=== PATIENT | female | born 1945 | race American Indian/Alaskan Native ===

== ENCOUNTER 2018-01-18 13:45 | Emergency (ER) | payer MEDICARE, MEDICAID ==
--- NOTE | 2018-01-18 14:17 | EDM.PDOC ---
Scribed by Veronica Castellano 01/18/18 1417 for Shree Zheng PA ED HPI GENERAL MEDICAL PROBLEM - General Chief Complaint: Upper Extremity Injury/Pain Stated Complaint: FELL Time Seen by Provider: 01/18/18 14:00 Source of Information: Reports: Patient, RN, RN Notes Reviewed History Limitations: Reports: No Limitations - History of Present Illness INITIAL COMMENTS - FREE TEXT/NARRATIVE: Patient presents to ER after she tripped on carpet 1 hour prior to admission. She has has pain left cheek and both shoulders. The patient reports she fell last week (similar areas of pain). The patient reports her right leg is much shorter than her left leg due to previous hip surgeries. The patient denies any loss of consciousness before, during or after the incident. Onset: Today Location: Reports: Face, Upper Extremity, Left, Upper Extremity, Right Quality: Reports: Ache Severity: Moderate Improves with: Reports: None Worsens with: Reports: None Associated Symptoms: Reports: No Other Symptoms Generalized Pain Score (Numeric/FACES): 5 - Related Data Allergies Allergy/AdvReac Type Severity Reaction Status Date / Time acetaminophen Allergy Itching Verified 01/18/18 13:49 rifampin Allergy Cannot Verified 01/18/18 13:49 Remember codeine AdvReac Itching Verified 01/18/18 13:49 ibuprofen [From Nuprin] AdvReac Nausea and Verified 01/18/18 13:49 Vomiting morphine AdvReac Nausea and Verified 01/18/18 13:49 Vomiting oxycodone [From OxyContin] AdvReac Dizziness Verified 01/18/18 13:49 Home Meds: Home Meds Albuterol [Proair HFA] 1 inh PO PRN 01/18/18 [History] Denosumab [Prolia] mg SUBCUT DAILY 01/18/18 [History] FLUoxetine HCl [Fluoxetine HCl] 10 mg PO DAILY 01/18/18 [History] Ipratropium [place] 0.2 mg IH PRN 01/18/18 [History] Letrozole 2.5 mg PO 01/18/18 [History] Levothyroxine [Levothyroxine] 75 mcg PO DAILY 01/18/18 [History] Montelukast Sodium [Montelukast Sodium] 10 mg PO BEDTIME 01/18/18 [History] Omeprazole [Omeprazole] 20 mg PO DAILY 01/18/18 [History] Rosuvastatin Calcium [Rosuvastatin Calcium] 5 mg PO QPM 01/18/18 [History] metFORMIN HCl [Metformin HCl] 1,000 mg PO BIDMEALS 01/18/18 [History] traMADol HCl [Tramadol HCl] 50 mg PO PRN 01/18/18 [History] traZODone HCl [Trazodone HCl] 150 mg PO BEDTIME 01/18/18 [History] Past Medical History HEENT History: Reports: Impaired Vision Cardiovascular History: Reports: Heart Failure Respiratory History: Reports: Asthma, COPD Psychiatric History: Reports: Anxiety, Depression Endocrine/Metabolic History: Reports: Diabetes, Type II, Hyperthyroidism Oncologic (Cancer) History: Reports: Breast - Past Surgical History Musculoskeletal Surgical History: Reports: Hip Replacement, Other (See Below) Other Musculoskeletal Surgeries/Procedures:: right leg shorter then left Social & Family History - Family History Family Medical History: Noncontributory - Tobacco Use Smoking Status *Q: Current Every Day Smoker Years of Tobacco use: 53 Packs/Tins Daily: 0.5 - Caffeine Use Caffeine Use: Reports: Coffee - Recreational Drug Use Recreational Drug Use: No Review of Systems - Review of Systems Review Of Systems: ROS reveals no pertinent complaints other than HPI. ED EXAM, GENERAL - Physical Exam Exam: See Below Exam Limited By: No Limitations General Appearance: Alert, WD/WN, No Apparent Distress Eye Exam: Bilateral Eye: EOMI, Normal Inspection, PERRL Ears: Normal External Exam, Normal Canal, Hearing Grossly Normal, Normal TMs Nose: Normal Inspection Throat/Mouth: Normal Inspection, Normal Lips, Normal Teeth, Normal Gums, Normal Oropharynx, Normal Voice, No Airway Compromise Head: Other (left sheek pain and bruising. ) Neck: Normal Inspection, Supple, Non-Tender, Full Range of Motion Respiratory/Chest: No Respiratory Distress, Lungs Clear, Normal Breath Sounds, No Accessory Muscle Use, Chest Non-Tender Cardiovascular: Normal Peripheral Pulses, Regular Rate, Rhythm, No Edema, No Gallop, No JVD, No Murmur, No Rub GI/Abdominal: Normal Bowel Sounds, Soft, Non-Tender, No Organomegaly, No Distention, No Abnormal Bruit, No Mass (Female) Exam: Deferred Rectal (Female) Exam: Deferred Back Exam: Normal Inspection, Full Range of Motion, NT Extremities: Other (bilateral shoulder pain. ) Neurological: Alert, Oriented, CN II-XII Intact, Normal Cognition, Normal Gait, Normal Reflexes, No Motor/Sensory Deficits Psychiatric: Normal Affect, Normal Mood Skin Exam: Other (left shoulder bruise) Lymphatic: No Adenopathy Course - Vital Signs Last Recorded V/S: Last Vital Signs Temp 36.9 C 01/18/18 13:49 Pulse 88 01/18/18 13:49 Resp 20 01/18/18 13:49 BP 117/95 H 01/18/18 13:49 Pulse Ox 97 01/18/18 13:49 Departure - Departure Time of Disposition: 14:55 Disposition: Home, Self-Care 01 Condition: Fair Clinical Impression: Left shoulder strain Qualifiers: Encounter type: initial encounter Qualified Code(s): S46.912A - Strain of unspecified muscle, fascia and tendon at shoulder and upper arm level, left arm , initial encounter Right shoulder strain Qualifiers: Encounter type: initial encounter Qualified Code(s): S46.911A - Strain of unspecified muscle, fascia and tendon at shoulder and upper arm level, right arm , initial encounter Contusion Qualifiers: Encounter type: initial encounter Contusion area: head Contusion of head detail : other part of head Qualified Code(s): S00.83XA - Contusion of other part of head, initial encounter - Discharge Information Instructions: Contusion, [id number], Shoulder Sprain, Fall Prevention in the Home Forms: ED Department Discharge Care Plan Goals: The patient was advised of the examination, x-ray and CT results during the visit. The patient was encouraged to rest over the next 24 hours. If the patient has any additional symptoms or concerns, the patient should follow-up with her primary care facility or return to the emergency department. I have read and agree with the documentation that has been completed regarding this visit. By signing this record, I attest that the documentation was completed in my physical presence and is an accurate record of the encounter.
--- NOTE | 2018-01-18 14:50 | CT ---
Clinical history: 72-year-old female injured in a fall. Scan technique: Volume acquisition of data emergency unenhanced CT scan of the nasal and facial bones obtained while the patient was lying supine on the Siemens multi slice CT scanner [place], [place]. All data archived in the PACS system for storage, reformatting and bernabe dy (bone/soft tissue windows). Interpretation: 1. Nasal and anterior maxillary spines intact. 2. Nasal septum mildly deviated right of midline. Symmetric nonedematous nasal turbinates. 3. Normal orbits and zygomatic arches. Early arthritic changes TMJs (L > R). No fracture or TMJ dislo cation. 4. Clear pneumatization of the paranasal and mastoid sinuses. No sign of mucoperiosteal inflammation of pathologic air-fluid levels. 5. No fractures of the mandible or edentulous maxilla. 6. No foreign bodies. 7. 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 N o upper cervical fracture. CONCLUSION: No facial bone or upper cervical fracture.
--- NOTE | 2018-01-18 14:51 | CR ---
Clinical history: 72-year-old female injured fall. Interpretation: Abnormal elevated humeral head relative to the glenoid of the scapula consistent with rotator cuff impingement or tear (no rotator cuff tendon calcification the soft tissues). Large clus ter surgical yoav axilla. No sign of pathologic skeletal lesion, acute left shoulder fracture HC separation or glenohumeral dis location.
--- NOTE | 2018-01-18 14:53 | CR ---
Clinical history: 72-year-old female injured fall. Interpretation: Mild arthritic changes acromioclavicular joint and elevation of the right humeral hea d relative to the glenoid of the scapula suggesting possible rotator cuff impingement. Surgical clips right axilla. No sign of pathologic skeletal lesion, acute right shoulder fracture, glenohumeral dislocation or acr omioclavicular separation. Right lung apex clear.
== END 2018-01-18 15:00 | disposition home or self-care (01) ==
LOC: DL.ED 13:45
DX: S46.912A Strain of unspecified muscle, fascia and tendon at shoulder and upper arm level, left arm, initial encounter (principal); S46.911A Strain of unspecified muscle, fascia and tendon at shoulder and upper arm level, right arm, initial encounter; S00.83XA Contusion of other part of head, initial encounter; I50.9 Heart failure, unspecified; E11.9 Type 2 diabetes mellitus without complications; E05.90 Thyrotoxicosis, unspecified without thyrotoxic crisis or storm; F17.210 Nicotine dependence, cigarettes, uncomplicated; Z88.1 Allergy status to other antibiotic agents; Z88.5 Allergy status to narcotic agent; Z88.8 Allergy status to other drugs, medicaments and biological substances; Z79.899 Other long term (current) drug therapy; W19.XXXA Unspecified fall, initial encounter
CPT/HCPCS: 70486; 73030-LT; 73030-RT; 99283; 99284

== ENCOUNTER 2018-12-09 15:30 | Emergency (ER) | payer MEDICARE, MEDICAID ==
[2018-12-09] MEDS ORDERED: Sodium Chloride 0.9% 10 ML Syringe FLUSH PRN (16:04)
[2018-12-09] MEDS ORDERED: traMADol 50 MG Tab PO ONE (16:07)
[2018-12-09] MEDS ORDERED: Sodium Chloride 0.9% 500 ML IV SCH (16:15)
[2018-12-09 16:39] LABS: CHLORIDE,CL 94 mmol/L (101-111); SODIUM,NA 132 mmol/L (135-145)
--- NOTE | 2018-12-09 19:18 | EDM.PDOC ---
"Scribed by Veronica Castellano 12/09/18 1614 for Tanner Callahan MD ED HPI GENERAL MEDICAL PROBLEM - General Chief Complaint: General Stated Complaint: LR AMBULANCE Time Seen by Provider: 12/09/18 15:40 Source of Information: Reports: Patient, EMS, EMS Notes Reviewed, RN, RN Notes Reviewed History Limitations: Reports: No Limitations - History of Present Illness INITIAL COMMENTS - FREE TEXT/NARRATIVE: Patient presents to ER by [facility] with complaint of multiple falls during the past 1-1/2 to 2 weeks due to weakness. Patient states that she has had poor appetite and has been loosing weight. She is not sure if it because of her breast cancer or if she is depressed. Today she fell about 5 times in her apartment. She says there was no injuries in her first 4 falls but on the last fall she hit her left ribs on a piece of furniture and could not get up off the floor. She denies any injury. Onset: Gradual Duration: Getting Worse Location: Reports: Other (left ribs) Quality: Reports: Ache Severity: Severe Improves with: Reports: Other (remains still or does not move.) Worsens with: Reports: Breathing, Other (cough), Movement Associated Symptoms: Reports: No Other Symptoms - Related Data Allergies Allergy/AdvReac Type Severity Reaction Status Date / Time acetaminophen Allergy Itching Verified 01/18/18 13:49 rifampin Allergy Cannot Verified 01/18/18 13:49 Remember codeine AdvReac Itching Verified 01/18/18 13:49 ibuprofen [From Nuprin] AdvReac Nausea and Verified 01/18/18 13:49 Vomiting morphine AdvReac Nausea and Verified 01/18/18 13:49 Vomiting oxycodone [From OxyContin] AdvReac Dizziness Verified 01/18/18 13:49 Home Meds: Home Meds Albuterol [Proair HFA] 1 inh PO PRN 01/18/18 [History] Denosumab [Prolia] mg SUBCUT DAILY 01/18/18 [History] FLUoxetine HCl [Fluoxetine HCl] 10 mg PO DAILY 01/18/18 [History] Ipratropium [place] 0.2 mg IH PRN 01/18/18 [History] Letrozole 2.5 mg PO 01/18/18 [History] Levothyroxine 75 mcg PO DAILY 01/18/18 [History] Montelukast Sodium 10 mg PO BEDTIME 01/18/18 [History] Omeprazole 20 mg PO DAILY 01/18/18 [History] Rosuvastatin Calcium 5 mg PO QPM 01/18/18 [History] metFORMIN HCl [Metformin HCl] 1,000 mg PO BIDMEALS 01/18/18 [History] traMADol HCl [Tramadol HCl] 50 mg PO PRN 01/18/18 [History] traZODone HCl [Trazodone HCl] 150 mg PO BEDTIME 01/18/18 [History] Past Medical History HEENT History: Reports: Impaired Vision Cardiovascular History: Reports: Heart Failure Respiratory History: Reports: Asthma, COPD Psychiatric History: Reports: Anxiety, Depression Endocrine/Metabolic History: Reports: Diabetes, Type II, Hyperthyroidism, Osteoporosis Oncologic (Cancer) History: Reports: Breast - Past Surgical History Female Surgical History: Reports: Hysterectomy, Mastectomy Musculoskeletal Surgical History: Reports: Hip Replacement, Other (See Below) Other Musculoskeletal Surgeries/Procedures:: right leg shorter then left Social & Family History - Family History Family Medical History: Noncontributory - Tobacco Use Smoking Status *Q: Current Every Day Smoker Tobacco Use Within Last Twelve Months: Cigarettes Years of Tobacco use: 54 - Caffeine Use Caffeine Use: Reports: Coffee - Alcohol Use Alcohol Use History: No - Recreational Drug Use Recreational Drug Use: No - Living Situation & Occupation Living situation: Reports: Alone Occupation: Retired ED ROS GENERAL - Review of Systems Review Of Systems: ROS reveals no pertinent complaints other than HPI. ED EXAM, GENERAL - Physical Exam Exam: See Below Exam Limited By: No Limitations General Appearance: Alert, Thin, Cachetic, Other (Chronically ill appearing) Eye Exam: Bilateral Eye: EOMI, Normal Inspection, PERRL Ears: Normal External Exam, Hearing Grossly Normal Nose: Normal Inspection, No Blood Throat/Mouth: Normal Lips, Normal Oropharynx, Normal Voice, No Airway Compromise , Other (Dry oral membranes, Ill fitting dentures) Head: Atraumatic, Normocephalic Neck: Normal Inspection, Supple, Non-Tender, Full Range of Motion Respiratory/Chest: No Respiratory Distress, No Accessory Muscle Use, Decreased Breath Sounds, Crackles (course breath sounds), Other (left posterior and lateral chest wall tenderness with no visible bruising, swelling, or deformity. No palpable crepitus.). No: Rales, Rhonchi, Wheezing Cardiovascular: Regular Rate, Rhythm GI/Abdominal: Normal Bowel Sounds, Soft, Non-Tender Back Exam: CVA Tenderness (L). No: CVA Tenderness (R), Vertebral Tenderness Extremities: Normal Range of Motion, Non-Tender, Pedal Edema. No: Arm Pain, Leg Pain Neurological: Alert, Oriented, CN II-XII Intact, Normal Cognition, No Motor/ Sensory Deficits, Other (Generalized weakness) Psychiatric: Depressed Mood, Tearful Skin Exam: Warm, Dry, Intact, Normal Color Course - Vital Signs Last Recorded V/S: Last Vital Signs Temp 36.7 C 12/09/18 16:09 Pulse 86 12/09/18 16:09 Resp 18 12/09/18 16:09 BP 145/76 H 12/09/18 16:09 Pulse Ox 98 12/09/18 16:09 - Orders/Labs/Meds Orders: Active Orders 24 hr Category Date Time Status Peripheral IV Care [RC] . DIRECTED Care 12/09/18 16:06 Active Sodium Chloride 0.9% [Normal Saline] 500 ml Med 12/09/18 16:15 Active IV .BOLUS Sodium Chloride 0.9% [Saline Flush] Med 12/09/18 16:04 Active 10 ml FLUSH ASDIRECTED PRN Peripheral IV Insertion Adult [OM.PC] Stat Oth 12/09/18 16:04 Ordered Medication Orders Sodium Chloride (Normal Saline) 500 mls @ 500 mls/hr IV .BOLUS NATE Last Admin: 12/09/18 16:38 Dose: 500 mls/hr Sodium Chloride (Saline Flush) 10 ml FLUSH ASDIRECTED PRN PRN Reason: Keep Vein Open Last Admin: 12/09/18 16:29 Dose: 10 ml Labs: Laboratory Tests 12/09/18 12/09/18 Range/Units 16:16 16:16 WBC 13.3 H (5.0-10.0) 10^3/uL RBC 3.99 L (4.2-5.4) 10^6/uL Hgb 11.8 L (12.0-16.0) g/dL Hct 35.3 L (37.0-47.0) % MCV 88.5 (80-100) fL MCH 29.6 (27.0-34.0) pg MCHC 33.4 (33.0-35.0) g/dL Plt Count 285 (150-450) 10^3/uL Neut % (Auto) 89.9 H (42.2-75.2) % Lymph % (Auto) 4.0 L (20.5-50.1) % [place] % (Auto) 6.0 (2-8) % Eos % (Auto) 0.0 L (1.0-3.0) % Baso % (Auto) 0.1 (0.0-1.0) % Sodium 132 L (135-145) mmol/L Potassium 4.0 (3.6-5.0) mmol/L Chloride 94 L (101-111) mmol/L Carbon Dioxide 22.0 (21.0-31.0) mmol/L Anion Gap 20.0 BUN 14 (7-18) mg/dL Creatinine 0.8 (0.6-1.3) mg/dL Est Cr Clr Drug Dosing 32.33 mL/min Estimated GFR (MDRD) > 60 BUN/Creatinine Ratio 17.50 Glucose 87 (74-105) mg/dL Calcium 9.1 (8.4-10.2) mg/dl Total Bilirubin 0.9 (0.2-1.0) mg/dL AST 23 (10-42) IU/L ALT 15 (10-60) IU/L Alkaline Phosphatase 75 (42-121) IU/L Total Protein 8.0 (6.7-8.2) g/dl Albumin 3.4 (3.2-5.5) g/dl Globulin 4.6 Albumin/Globulin Ratio 0.74 Meds: Medications Generic Name Dose Route Start Last Admin Trade Name Freq PRN Reason Stop Dose Admin Sodium Chloride 500 mls @ 500 mls/hr 12/09/18 16:15 12/09/18 16:38 Normal Saline IV 500 mls/hr .BOLUS NATE Administration Sodium Chloride 10 ml 12/09/18 16:04 12/09/18 16:29 Saline Flush FLUSH 10 ml ASDIRECTED PRN Administration Keep Vein Open Discontinued Medications Generic Name Dose Route Start Last Admin Trade Name Freq PRN Reason Stop Dose Admin Tramadol HCl 50 mg 12/09/18 16:07 12/09/18 16:28 Ultram PO 12/09/18 16:08 50 mg ONETIME ONE Administration - Radiology Interpretation Free Text/Narrative:: [facility] [place] [facility] Final Radiology Report Call: [phone] assistance Online chat: [email or web address] Name: SHABBIR THORPE Age: 73Years F Date: 12/09/2018 SSN: -- : [id number] Study: CT CHEST WO Requesting Physician: TANNER CALLAHAN Images: [id number] Addl Studies: Provided Clinical History: Contrast: Without Contrast Medium: Contrast Amount: Contrast Method: Page 1 of 2 EXAM: CT Chest Without Contrast EXAM DATE/TIME: 12/09/2018 4:23 PM CLINICAL HISTORY: 73 years old, female; Signs and symptoms; Shortness of breath and other: Fall, left rib pain--hx breast CA, copd, active chronic smoker, weight loss TECHNIQUE: Axial computed tomography images of the chest without intravenous contrast. All CT scans at this facility use at least one of these dose optimization techniques: automated exposure control; mA and/or kV adjustment per patient size (includes targeted exams where dose is matched to clinical indication); or iterative reconstruction. Coronal and sagittal reformatted images were created and reviewed. COMPARISON: CT Chest w Cont 12/31/2017 9:57 AM FINDINGS: Lungs: COPD. Patchy infiltrates peripherally in the lungs. Pleural space: Normal. No pneumothorax. No pleural effusion. Heart: Normal. No cardiomegaly. No pericardial effusion. Aorta: Atherosclerosis. Lymph nodes: Unremarkable. No enlarged lymph nodes. Bones/joints: Degenerative changes in the spine. Acute fractures of the left 12th and 11th ribs. Sclerotic lesions in the sternum. Soft tissues: Unremarkable. IMPRESSION: SHABBIR THORPE | Final Radiology Report CONFIDENTIALITY STATEMENT This report is intended only for use by the referring physician, and only in accordance with law. If you received this in error, call [phone]. Page 2 of 2 Acute fractures of the left 12th and 11th ribs. COPD. Patchy infiltrates peripherally in the lungs. Atherosclerosis. Degenerative changes in the spine. Thank you for allowing us to participate in the care of your patient. Dictated and Authenticated by: Maria Trevino MD 12/09/2018 6:09 PM Central Time ([place] & [place]) Departure - Departure Time of Disposition: 19:15 Disposition: Against Medical Advice 07 Condition: Undetermined Clinical Impression: Left against medical advice - Discharge Information *PRESCRIPTION DRUG MONITORING PROGRAM REVIEWED*: Not Applicable *COPY OF PRESCRIPTION DRUG MONITORING REPORT IN PATIENT JS: Not Applicable Forms: ED Department Discharge, Refusal of Care AMA - My Orders Last 24 Hours: My Active Orders 12/09/18 16:04 Sodium Chloride 0.9% [Saline Flush] 10 ml FLUSH ASDIRECTED PRN Peripheral IV Insertion Adult [OM.PC] Stat 12/09/18 16:06 Peripheral IV Care [RC] . DIRECTED 12/09/18 16:15 Sodium Chloride 0.9% [Normal Saline] 500 ml IV .BOLUS - Assessment/Plan Last 24 Hours: My Active Orders 12/09/18 16:04 Sodium Chloride 0.9% [Saline Flush] 10 ml FLUSH ASDIRECTED PRN Peripheral IV Insertion Adult [OM.PC] Stat 12/09/18 16:06 Peripheral IV Care [RC] . DIRECTED 12/09/18 16:15 Sodium Chloride 0.9% [Normal Saline] 500 ml IV .BOLUS I have read and agree with the documentation that has been completed regarding this visit. By signing this record, I attest that the documentation was completed in my physical presence and is an accurate record of the encounter."
== END 2018-12-09 19:00 | disposition left against medical advice (07) ==
LOC: DL.ED 15:30
DX: S22.42XA Multiple fractures of ribs, left side, initial encounter for closed fracture (principal); R53.1 Weakness; I50.9 Heart failure, unspecified; E11.9 Type 2 diabetes mellitus without complications; F17.210 Nicotine dependence, cigarettes, uncomplicated; Z88.5 Allergy status to narcotic agent; Z88.6 Allergy status to analgesic agent; Z79.84 Long term (current) use of oral hypoglycemic drugs; Z79.899 Other long term (current) drug therapy; Z90.710 Acquired absence of both cervix and uterus; Z88.8 Allergy status to other drugs, medicaments and biological substances; W22.8XXA Striking against or struck by other objects, initial encounter
CPT/HCPCS: 36415; 71250; 80053; 85025; 96360; 99284; A9270-GY; J7040

== ENCOUNTER 2018-12-12 13:16 | Observation (INO) | payer MEDICARE, MEDICAID ==
--- NOTE | 2018-12-12 13:13 | EDM.PDOC ---
ED HPI GENERAL MEDICAL PROBLEM - General Chief Complaint: Back Pain or Injury Stated Complaint: UNKNOWN Time Seen by Provider: 12/12/18 13:13 Source of Information: Reports: Patient - History of Present Illness INITIAL COMMENTS - FREE TEXT/NARRATIVE: patient comes emergency department today with complaints of rib pain.She also comes with multiple falls. The patient was seen in the emergency department 2 days ago after she had 4-5 falls at home landing on her right ribs. She was diagnosed with 2 rib fractures on the 11th and 12th ribs. Before disposition can be made she became upset and went home.She had multiple falls at home yesterday as well as today. She relates that she feels lightheaded sometimes when she stands up despite using her walker she falls. Today she fell landing on the right side of her chest. She has no increased shortness of breath or difficulty breathing. No pain in her chest. She is not coughing. She does have a history of COPD. No fever no chills. No back pain. No head neck or back pain. No loss of consciousness she reports. She denies any injury to her upper or lower extremities or pelvis. No black or tarry stools. No vertigo. No change in visual acuity. She does take her tramadol at home for her rib pain but it is not doing much for her pain. Upper Pain Score (Numeric/FACES): 7 right hip/buttock Pain Score (Numeric/FACES): 3 - Related Data Allergies Allergy/AdvReac Type Severity Reaction Status Date / Time acetaminophen Allergy Itching Verified 12/12/18 18:25 rifampin Allergy Cannot Verified 12/12/18 18:25 Remember codeine AdvReac Itching Verified 12/12/18 18:25 ibuprofen [From Nuprin] AdvReac Nausea and Verified 12/12/18 18:25 Vomiting oxycodone [From OxyContin] AdvReac Dizziness Verified 12/12/18 18:25 Home Meds: Home Meds Albuterol [Proair HFA] 1 puff INH Q6H PRN 01/18/18 [History] Denosumab [Prolia] 60 mg SUBCUT .6MONTHS 01/18/18 [History] FLUoxetine HCl [Fluoxetine HCl] 10 mg PO DAILY 01/18/18 [History] Ipratropium [place] 0.2 mg IH BID PRN 01/18/18 [History] Letrozole 2.5 mg PO DAILY 01/18/18 [History] Levothyroxine 75 mcg PO DAILY 01/18/18 [History] Montelukast Sodium 10 mg PO BEDTIME 01/18/18 [History] Omeprazole 20 mg PO DAILY 01/18/18 [History] Rosuvastatin Calcium 5 mg PO BEDTIME 01/18/18 [History] metFORMIN HCl [Metformin HCl] 1,000 mg PO BIDMEALS 01/18/18 [History] traMADol HCl [Tramadol HCl] 100 mg PO Q6H PRN 01/18/18 [History] traZODone HCl [Trazodone HCl] 150 mg PO BEDTIME 01/18/18 [History] Celecoxib 100 mg PO DAILY 12/12/18 [History] Past Medical History HEENT History: Reports: Impaired Vision Cardiovascular History: Reports: Heart Failure Respiratory History: Reports: Asthma, COPD Gastrointestinal History: Reports: None Genitourinary History: Reports: None DEBURRER History: Reports: None Musculoskeletal History: Reports: None Neurological History: Reports: None Psychiatric History: Reports: Anxiety, Depression Endocrine/Metabolic History: Reports: Diabetes, Type II, Hyperthyroidism, Osteoporosis Hematologic History: Reports: None Immunologic History: Reports: None Oncologic (Cancer) History: Reports: Breast Dermatologic History: Reports: None - Infectious Disease History Infectious Disease History: Reports: None - Past Surgical History Head Surgeries/Procedures: Reports: None Female Surgical History: Reports: Hysterectomy, Mastectomy Musculoskeletal Surgical History: Reports: Hip Replacement, Other (See Below) Other Musculoskeletal Surgeries/Procedures:: right leg shorter then left Social & Family History - Family History Family Medical History: Noncontributory - Tobacco Use Smoking Status *Q: Current Every Day Smoker Years of Tobacco use: 53 Packs/Tins Daily: 1 Second Hand Smoke Exposure: No - Caffeine Use Caffeine Use: Reports: Coffee - Recreational Drug Use Recreational Drug Use: No - Living Situation & Occupation Living situation: Reports: Alone Occupation: Retired ED ROS GENERAL - Review of Systems Review Of Systems: ROS reveals no pertinent complaints other than HPI. ED EXAM,LOWER BACK PAIN/INJURY - Physical Exam Exam: See Below Text/Narrative:: she is a very pleasant lady who appears uncomfortable with deep breath and wincing in pain Exam Limited By: No Limitations General Appearance: Alert, WD/WN, No Apparent Distress Eye Exam: Bilateral Eye: Normal Inspection Ears: Normal External Exam, Normal Canal Nose: Normal Inspection, Normal Mucosa Throat/Mouth: Normal Inspection, Normal Lips, Normal Oropharynx, Normal Voice Head: Atraumatic, Normocephalic Neck: Normal Inspection, Supple, Non-Tender, Full Range of Motion. No: Tender Lateral, Tender Midline Respiratory/Chest: No Respiratory Distress, Normal Breath Sounds, No Accessory Muscle Use, Wheezing (faint expiratory wheezing bilaterally). No: Chest Non- Tender (she has some tenderness to the right anterior axillary line in the region of the 1011 and 12th ribs. There is no subcutaneous emphysema crepitus bony deformities or step-offs. There is no flail segments.), Decreased Breath Sounds, Crackles, Rhonchi, Accessory Muscle Use Cardiovascular: Normal Peripheral Pulses, Regular Rate, Rhythm GI/Abdominal: Normal Bowel Sounds, Soft, Non-Tender Back Exam: Normal Inspection, Full Range of Motion, Other (no bruising swelling ecchymosis bony deformity step-offs crepitus) Extremities: Normal Inspection, Normal Range of Motion, Non-Tender, No Pedal Edema, Normal Capillary Refill Neurological: Alert, Normal Mood/Affect, Normal Dorsiflexion, CN II-XII Intact, Normal Reflexes, No Motor/Sensory Deficits, Oriented x 3 DTR - Lower Extremities: 2+: Knee (R), Knee (L), Ankle (R), Ankle (L) Psychiatric: Normal Affect Skin Exam: Warm, Dry, Intact, Normal Color, No Rash EKG INTERPRETATION EKG Date: 12/12/18 Time: 14:01 Rhythm: NSR Rate (Beats/Min): 83 [place]: Normal P-Wave: Present QRS: Normal ST-T: Normal QT: Normal Comparison: NA - No Prior EKG Course - Vital Signs Last Recorded V/S: Last Vital Signs Temp 37.2 C 12/12/18 17:04 Pulse 83 12/12/18 17:04 Resp 16 12/12/18 17:04 BP 151/86 H 12/12/18 17:04 Pulse Ox 98 12/12/18 17:04 Orthostatic Blood Pressure [ 114/69 Standing] Orthostatic Blood Pressure [ 111/79 Sitting] Orthostatic Blood Pressure [ 159/76 Supine] - Orders/Labs/Meds Orders: Active Orders 24 hr Category Date Time Status UA W/MICROSCOPIC [URIN] Stat Lab 12/12/18 13:19 Ordered Medication Orders Albuterol (Proventil Hfa) 0 gm INH Q6H PRN PRN Reason: Shortness of Breath Denosumab (Prolia) 60 mg SUBCUT DAILY [facility] Fluoxetine HCl (Prozac) 10 mg PO DAILY [facility] Heparin Sodium (Porcine) (Heparin Sodium) 5,000 units SUBCUT Q8HR [facility] Lactated Ringer's (Ringers, Lactated) 1,000 mls @ 75 mls/hr IV ASDIRECTED [facility] Stop: 12/13/18 06:16 Ipratropium [place] (Atrovent) 0.5 mg NEB DAILY PRN PRN Reason: Shortness of Breath Levothyroxine Sodium (Levothyroxine) 75 mcg PO DAILY [facility] Lidocaine (Lidoderm 5%) 700 mg TOP DAILY [facility] Last Admin: 12/12/18 18:49 Dose: 700 mg Megestrol Acetate (Megace) 160 mg PO DAILY [facility] Last Admin: 12/12/18 18:52 Dose: Not Given Miscellaneous Information (Remove Patch) 1 ea TRDERM BEDTIME [facility] Montelukast Sodium (Singulair) 10 mg PO BEDTIME [facility] Nicotine (Habitrol) 14 mg TRDERM DAILY [facility] Last Admin: 12/12/18 18:43 Dose: Not Given Non-Formulary Medication (Letrozole [Letrozole]) 2.5 mg PO DAILY [facility] Non-Formulary Medication (Metformin Hcl [Metformin Hcl]) 1,000 mg PO BIDMEALS [facility] Non-Formulary Medication (Trazodone Hcl [Trazodone Hcl]) 100 mg PO BEDTIME [facility] Omeprazole (Omeprazole) 20 mg PO DAILY [facility] Rosuvastatin Calcium (Crestor) 5 mg PO BEDTIME [facility] Tramadol HCl (Ultram) 50 mg PO Q6H PRN PRN Reason: Pain Labs: Laboratory Tests 12/12/18 12/12/18 Range/Units 13:53 13:53 WBC 10.1 H (5.0-10.0) 10^3/uL RBC 3.81 L (4.2-5.4) 10^6/uL Hgb 11.4 L (12.0-16.0) g/dL Hct 34.1 L (37.0-47.0) % MCV 89.5 (80-100) fL MCH 29.9 (27.0-34.0) pg MCHC 33.4 (33.0-35.0) g/dL Plt Count 279 (150-450) 10^3/uL Neut % (Auto) 83.7 H (42.2-75.2) % Lymph % (Auto) 7.8 L (20.5-50.1) % [place] % (Auto) 7.8 (2-8) % Eos % (Auto) 0.2 L (1.0-3.0) % Baso % (Auto) 0.5 (0.0-1.0) % Sodium 131 L (135-145) mmol/L Potassium 4.5 (3.6-5.0) mmol/L Chloride 95 L (101-111) mmol/L Carbon Dioxide 22.0 (21.0-31.0) mmol/L Anion Gap 18.5 BUN 14 (7-18) mg/dL Creatinine 0.7 (0.6-1.3) mg/dL Est Cr Clr Drug Dosing 44.87 mL/min Estimated GFR (MDRD) > 60 BUN/Creatinine Ratio 20.00 Glucose 88 (74-105) mg/dL Calcium 8.7 (8.4-10.2) mg/dl Total Bilirubin 1.1 H (0.2-1.0) mg/dL AST 29 (10-42) IU/L ALT 15 (10-60) IU/L Alkaline Phosphatase 73 (42-121) IU/L Troponin I < 0.02 (0.00-0.02) ng/ml Total Protein 7.3 (6.7-8.2) g/dl Albumin 3.3 (3.2-5.5) g/dl Globulin 4.0 Albumin/Globulin Ratio 0.83 Meds: Medications Generic Name Dose Route Start Last Admin Trade Name Freq PRN Reason Stop Dose Admin Albuterol 0 gm 12/12/18 17:53 Proventil Hfa INH Q6H PRN Shortness of Breath Denosumab 60 mg 12/13/18 09:00 Prolia SUBCUT DAILY [facility] Fluoxetine HCl 10 mg 12/13/18 09:00 Prozac PO DAILY [facility] Heparin Sodium (Porcine) 5,000 units 12/12/18 22:00 Heparin Sodium SUBCUT Q8HR [facility] Lactated Ringer's 1,000 mls @ 75 mls/hr 12/12/18 17:15 Ringers, Lactated IV 12/13/18 06:16 ASDIRECTED [facility] Ipratropium [place] 0.5 mg 12/12/18 17:53 Atrovent NEB DAILY PRN Shortness of Breath Levothyroxine Sodium 75 mcg 12/13/18 09:00 Levothyroxine PO DAILY [facility] Lidocaine 700 mg 12/12/18 17:15 12/12/18 18:49 Lidoderm 5% TOP 700 mg DAILY [facility] Administration Megestrol Acetate 160 mg 12/12/18 18:15 12/12/18 18:52 Megace PO Not Given DAILY [facility] Miscellaneous Information 1 ea 12/12/18 21:00 Remove Patch TRDERM BEDTIME [facility] Montelukast Sodium 10 mg 12/12/18 21:00 Singulair PO BEDTIME [facility] Nicotine 14 mg 12/12/18 17:15 12/12/18 18:43 Habitrol TRDERM Not Given DAILY [facility] Non-Formulary Medication 2.5 mg 12/13/18 09:00 Letrozole [Letrozole] PO DAILY [facility] Non-Formulary Medication 1,000 mg 12/12/18 18:00 Metformin Hcl [Metformin Hcl] PO BIDMEALS [facility] Non-Formulary Medication 100 mg 12/12/18 21:00 Trazodone Hcl [Trazodone Hcl] PO BEDTIME [facility] Omeprazole 20 mg 12/13/18 09:00 Omeprazole PO DAILY [facility] Rosuvastatin Calcium 5 mg 12/12/18 21:00 Crestor PO BEDTIME [facility] Tramadol HCl 50 mg 12/12/18 19:48 Ultram PO Q6H PRN Pain Discontinued Medications Generic Name Dose Route Start Last Admin Trade Name Freq PRN Reason Stop Dose Admin Doxycycline Hyclate 100 mg 12/12/18 15:18 12/12/18 15:27 Vibramycin PO 12/12/18 15:19 100 mg ONETIME ONE Administration Hydromorphone HCl 0.5 mg 12/12/18 15:53 12/12/18 16:12 Dilaudid IVPUSH 12/12/18 15:54 0.5 mg ONETIME ONE Administration Lactated Ringer's 1,000 mls @ 500 mls/hr 12/12/18 15:38 12/12/18 15:44 Ringers, Lactated IV 12/12/18 17:37 500 mls/hr .BOLUS ONE Administration Morphine Sulfate 2 mg 12/12/18 13:19 12/12/18 13:59 Morphine IVPUSH 12/12/18 13:20 2 mg ONETIME ONE Administration Morphine Sulfate 2 mg 12/12/18 15:17 12/12/18 15:27 Morphine IVPUSH 12/12/18 15:18 2 mg ONETIME ONE Administration Ondansetron HCl 4 mg 12/12/18 13:20 12/12/18 13:56 Zofran IV 12/12/18 13:21 4 mg ONETIME ONE Administration Tramadol HCl 1,000 mg 12/12/18 17:53 Ultram PO Q6H PRN Pain - Radiology Interpretation Free Text/Narrative:: CXR per radiology. Emphyzema no acute infiltrates. left pleural plaques CT head per radiology. No acute infarct or hemorrhage. - Re-Assessments/Exams Free Text/Narrative Re-Assessment/Exam: 12/12/18 20:11 he patient was given some morphine with minimal improvement of her pain. She was also incontinent urine multiple times while in the emergency department. Her primary care provider Dr. Montes was also available in the emergency department and has concerns for this patient going home she lives home alone with her multiple falls and she also struggles to take her medication correctlya regular basis. I agree with Dr. Montes and have concerns ascending this patient home with her pain multiple falls as I am concerned that she may return. Also with her history of COPD the development of pneumonia is concerning so I started her on doxycycline while in the emergency department.I spoke with the hospitalist computational theory scientist and he accepted the patient under his care due to the multiple falls her comorbid status and rib fractures. Departure - Departure Time of Disposition: 17:15 Disposition: Refer to Observation Clinical Impression: Intractable pain, Multiple falls Ribs, multiple fractures Qualifiers: Encounter type: subsequent encounter Fracture type: closed Laterality: right Fracture healing: with routine healing Qualified Code(s): S22.41XD - Multiple fractures of ribs, right side, subsequent encounter for fracture with routine healing - Discharge Information - My Orders Last 24 Hours: My Active Orders 12/12/18 13:19 UA W/MICROSCOPIC [URIN] Stat - Assessment/Plan Last 24 Hours: My Active Orders 12/12/18 13:19 UA W/MICROSCOPIC [URIN] Stat Assessment:: subacute right rib fractures Multiple falls History of COPD Plan: admitted under the hospitalist for observationand possible placement
[2018-12-12] MEDS ORDERED: Morphine 2 MG/ML Syringe IVPUSH ONE ×2 (13:19→15:17)
[2018-12-12] MEDS ORDERED: Ondansetron 4 MG/2 ML SDV IV ONE (13:20)
[2018-12-12 14:27] LABS: ANION GAP 18.5; CHLORIDE,CL 95 mmol/L (101-111); SODIUM,NA 131 mmol/L (135-145)
[2018-12-12] MEDS ORDERED: Doxycycline 100 MG Cap PO ONE (15:18)
[2018-12-12] MEDS ORDERED: Lactated Ringers 1,000 ML IV ONE (15:38)
[2018-12-12] MEDS ORDERED: HYDROmorphone 1 MG/ML Syringe IVPUSH ONE (15:53)
--- NOTE | 2018-12-12 17:20 | PCM.HP ---
H&P History of Present Illness - General Date of Service: 12/12/18 Admit Problem/Dx: Admission Diagnosis/Problem Admission Diagnosis/Problem Hip pain Source of Information: Patient, Family, Provider History Limitations: Reports: No Limitations - History of Present Illness Initial Comments - Free Text/Narative: Ms. Kowalski is a 73 y.o female with medical history significant for multiple fractures, right hip surgery x6, chronic low back pain, depression, asthma with COPD, DM II, recurrent breast cancer, hypothyroidism, dyslipidemia, and GERD who presented to the ED with complaints of right rib pain and fall. She reports that she fell yesterday and hit the back of her head. She was seen in the ED and was found to have right 11th and 12 rib fractures. She was sent home with pain medications. She reports that she fell again today while standing. She reports that she was teetering and tried to hold on to the table but, "But I knew that it wasnt going to go well." States she feel on her back again. Reports that between Thursday and today, she has fallen about 6 times. She reports that she has a walker at home but does not use it because, "I am not used to it." She reports feeling "dizzy" prior to falls but denies spinning sensation. Reports 7/10 constant right hip pain that started with her falls on Thursday. Denies radiation. Pain is worse with movement. Also has rib pain that is worsened with deep inspiration. She reports that her shortness of breath is at baseline. Reports intermittent episodes of nausea and vomiting, with last emesis on 11/1018 which was NBNB. She reports that she has not been eating well because of her depression. Has not been eating much. Drinks a lot of milk and coffee. Has lost about 30 lb over the past year. Denies chest pain, new vision changes, abdominal pain, diarrhea, constipation, melena, hematochezia, dysuria, or hematuria. Reports that she smokes 6-7 cigarettes daily. Quit drinking alcohol several years ago. Denies illicit drug use. Lives by herself. Upper Pain Score (Numeric/FACES): 7 - Related Data Allergies/Adverse Reactions: Allergies Allergy/AdvReac Type Severity Reaction Status Date / Time acetaminophen Allergy Itching Verified 12/12/18 13:17 rifampin Allergy Cannot Verified 12/12/18 13:17 Remember codeine AdvReac Itching Verified 12/12/18 13:17 ibuprofen [From Nuprin] AdvReac Nausea and Verified 12/12/18 13:17 Vomiting morphine AdvReac Nausea and Verified 12/12/18 13:17 Vomiting oxycodone [From OxyContin] AdvReac Dizziness Verified 12/12/18 13:17 Home Medications: Home Meds Albuterol [Proair HFA] 1 inh PO Q6H PRN 01/18/18 [History] Denosumab [Prolia] 60 mg SUBCUT DAILY 01/18/18 [History] FLUoxetine HCl [Fluoxetine HCl] 10 mg PO DAILY 01/18/18 [History] Ipratropium [place] 0.2 mg IH DAILY PRN 01/18/18 [History] Letrozole 2.5 mg PO DAILY 01/18/18 [History] Levothyroxine 75 mcg PO DAILY 01/18/18 [History] Montelukast Sodium 10 mg PO BEDTIME 01/18/18 [History] Omeprazole 20 mg PO DAILY 01/18/18 [History] Rosuvastatin Calcium 5 mg PO QPM 01/18/18 [History] metFORMIN HCl [Metformin HCl] 1,000 mg PO BIDMEALS 01/18/18 [History] traMADol HCl [Tramadol HCl] 1,000 mg PO Q6H PRN 01/18/18 [History] traZODone HCl [Trazodone HCl] 150 mg PO BEDTIME 01/18/18 [History] Past Medical History HEENT History: Reports: Impaired Vision Cardiovascular History: Reports: Heart Failure Respiratory History: Reports: Asthma, COPD Gastrointestinal History: Reports: None Genitourinary History: Reports: None BIOMETRICS ANALYST History: Reports: None Musculoskeletal History: Reports: None Neurological History: Reports: None Psychiatric History: Reports: Anxiety, Depression Endocrine/Metabolic History: Reports: Diabetes, Type II, Hyperthyroidism, Osteoporosis Hematologic History: Reports: None Immunologic History: Reports: None Oncologic (Cancer) History: Reports: Breast Dermatologic History: Reports: None - Infectious Disease History Infectious Disease History: Reports: None - Past Surgical History Head Surgeries/Procedures: Reports: None Female Surgical History: Reports: Hysterectomy, Mastectomy Musculoskeletal Surgical History: Reports: Hip Replacement, Other (See Below) Other Musculoskeletal Surgeries/Procedures:: right leg shorter then left Social & Family History - Family History Family Medical History: Noncontributory - Tobacco Use Smoking Status *Q: Current Every Day Smoker Years of Tobacco use: 53 Packs/Tins Daily: 1 Second Hand Smoke Exposure: No - Caffeine Use Caffeine Use: Reports: Coffee - Recreational Drug Use Recreational Drug Use: No - Living Situation & Occupation Living situation: Reports: Alone Occupation: Retired H&P Review of Systems - Review of Systems: Review Of Systems: See Below Review of Systems Comment:: As per HPI otherwise 14 point ROS negative. Exam - Exam Exam: See Below - Vital Signs Vital Signs: Last Vital Signs Temp 99.2 F 12/12/18 16:13 Pulse 91 12/12/18 16:13 Resp 16 12/12/18 16:13 BP 158/75 H 12/12/18 16:13 Pulse Ox 94 L 12/12/18 16:13 Orthostatic Blood Pressure [ 114/69 Standing] Orthostatic Blood Pressure [ 111/79 Sitting] Orthostatic Blood Pressure [ 159/76 Supine] Weight: 85 lb - Exam General: Alert, Oriented Physical Exam Comments:: General: AAO x4, in moderate to severe distress, Family and patient's primary care provider at bedside. Cachectic Head: atraumatic and normocephalic. Eyes: PERRLA, EOMI, anicteric, Ear, Nose and Throat: No gross abnormality found Neck: Supple Respiratory/Chest: Diffuse wheezes. No crackles, rales, or rhonchi; Shallow breaths CVS: RRR, no murmur, rub, or gallop, peripheral pulses palpable. Gastrointestinal/Abd: Soft, non-distended, non-tender. Normal bowel sounds. Skin: No acute rashes noted. Neuro: Grossly non-focal. No cranial nerve abnormality. Moves all extremities. Psych: Alert and oriented to place time and person. No hallucinations or delusions noted. Musculoskeletal: Diffuse muscle atrophy, Ext: Right hip tenderness to palpations, No edema, no ulcers, no tenderness, no size differences, - Patient Data Lab Results Last 24 hrs: Laboratory Results - last 24 hr 12/12/18 12/12/18 Range/Units 13:53 13:53 WBC 10.1 H (5.0-10.0) 10^3/uL RBC 3.81 L (4.2-5.4) 10^6/uL Hgb 11.4 L (12.0-16.0) g/dL Hct 34.1 L (37.0-47.0) % MCV 89.5 (80-100) fL MCH 29.9 (27.0-34.0) pg MCHC 33.4 (33.0-35.0) g/dL Plt Count 279 (150-450) 10^3/uL Neut % (Auto) 83.7 H (42.2-75.2) % Lymph % (Auto) 7.8 L (20.5-50.1) % [place] % (Auto) 7.8 (2-8) % Eos % (Auto) 0.2 L (1.0-3.0) % Baso % (Auto) 0.5 (0.0-1.0) % Sodium 131 L (135-145) mmol/L Potassium 4.5 (3.6-5.0) mmol/L Chloride 95 L (101-111) mmol/L Carbon Dioxide 22.0 (21.0-31.0) mmol/L Anion Gap 18.5 BUN 14 (7-18) mg/dL Creatinine 0.7 (0.6-1.3) mg/dL Est Cr Clr Drug Dosing 44.87 mL/min Estimated GFR (MDRD) > 60 BUN/Creatinine Ratio 20.00 Glucose 88 (74-105) mg/dL Calcium 8.7 (8.4-10.2) mg/dl Total Bilirubin 1.1 H (0.2-1.0) mg/dL AST 29 (10-42) IU/L ALT 15 (10-60) IU/L Alkaline Phosphatase 73 (42-121) IU/L Troponin I < 0.02 (0.00-0.02) ng/ml Total Protein 7.3 (6.7-8.2) g/dl Albumin 3.3 (3.2-5.5) g/dl Globulin 4.0 Albumin/Globulin Ratio 0.83 Result Diagrams: 12/12/18 13:53 12/12/18 13:53 - Problem List (1) Recurrent falls SNOMED Code(s): 873699862 ICD Code: R29.6 - REPEATED FALLS Status: Acute Current Visit: Yes (2) Acute right hip pain SNOMED Code(s): 36197487 ICD Code: M25.551 - PAIN IN RIGHT HIP Status: Acute Current Visit: Yes (3) Severe protein-calorie malnutrition SNOMED Code(s): 028241870 ICD Code: E43 - UNSPECIFIED SEVERE PROTEIN-CALORIE MALNUTRITION Status: Acute Current Visit: Yes (4) Tobacco use disorder SNOMED Code(s): 018901305 ICD Code: F17.200 - NICOTINE DEPENDENCE, UNSPECIFIED, UNCOMPLICATED Status : Acute Current Visit: Yes (5) COPD not affecting current episode of care SNOMED Code(s): 61466379 ICD Code: J44.9 - CHRONIC OBSTRUCTIVE PULMONARY DISEASE, UNSPECIFIED Status : Acute Current Visit: Yes (6) Anorexia SNOMED Code(s): 85869410 ICD Code: R63.0 - ANOREXIA Status: Acute Current Visit: Yes (7) Depression SNOMED Code(s): 25504450 ICD Code: F32.9 - MAJOR DEPRESSIVE DISORDER, SINGLE EPISODE, UNSPECIFIED Status: Acute Current Visit: Yes Problem List Initiated/Reviewed/Updated: Yes Orders Last 24hrs: Active Orders 24 hr Category Date Time Status Patient Status [ADT] Routine ADT 12/12/18 17:04 Ordered Cardiac Monitoring [RC] CONTINUOUS Care 12/12/18 17:07 Ordered EKG 12 Lead [EKG Documentation Completion] [RC] URGENT Care 12/12/18 13:19 Active Height and Weight [RC] UPON Care 12/12/18 17:04 Ordered Intake and Output [RC] QSHIFT Care 12/12/18 17:06 Ordered Orthostatic Vital Signs [RC] ASDIRECTED Care 12/12/18 13:31 Active Oxygen Therapy [RC] PRN Care 12/12/18 17:04 Ordered Up With Assistance [RC] ASDIRECTED Care 12/12/18 17:04 Ordered VTE/DVT Education [RC] PER UNIT ROUTINE Care 12/12/18 17:04 Ordered Vital Signs [RC] Q4H Care 12/12/18 17:04 Ordered Regular Diet [DIET] Diet 12/12/18 Dinner Ordered UA W/MICROSCOPIC [URIN] Stat Lab 12/12/18 13:19 Ordered Heparin Sodium Med 12/12/18 22:00 Ordered 5,000 units SUBCUT Q8HR Lactated Ringers [Ringers, Lactated] 1,000 ml Med 12/12/18 15:38 Active IV .BOLUS Lactated Ringers [Ringers, Lactated] 1,000 ml Med 12/12/18 17:15 Ordered IV ASDIRECTED Lidocaine 5% [Lidoderm 5%] Med 12/12/18 17:15 Ordered 700 mg TOP Q24H Nicotine [Habitrol] Med 12/12/18 17:15 Ordered 14 mg TRDERM DAILY Resuscitation Status Routine Resus Stat 12/12/18 17:04 Ordered Medication Orders Heparin Sodium (Porcine) (Heparin Sodium) 5,000 units SUBCUT Q8HR [facility] Lactated Ringer's (Ringers, Lactated) 1,000 mls @ 500 mls/hr IV .BOLUS ONE Stop: 12/12/18 17:37 Last Admin: 12/12/18 15:44 Dose: 500 mls/hr Lactated Ringer's (Ringers, Lactated) 1,000 mls @ 75 mls/hr IV ASDIRECTED [facility] Stop: 12/13/18 06:16 Lidocaine (Lidoderm 5%) 700 mg TOP Q24H [facility] Nicotine (Habitrol) 14 mg TRDERM DAILY [facility] Assessment/Plan Comment:: #Recurrent Falls: multifactorial; decreases strength from poor nutritional intake, medication side effects, poor vision. Lives alone. - Fall precautions. - PT/OT - Social work/Case management consulted as patient may need placement. #Right hip pain: acute on chronic. Patient with history of multiple right hip surgeries. Reports worsened pain due to about 6 falls since Thursday. - Lidocaine patch, - Tramadol. - XR hip bilateral. #Anorexia + severe malnutrition: patient reports about 30 lb unintentional weight loss over the past 1 year. Reports decreased intake due to depression. - Megace - Regular diet - Nutrition consult # Depression: patient with longstanding history of depression. - May need outpatient follow up with psychiatry. - No SI/HI. #COPD: continue home nebs and inhalers. DVT ppx: Heparin GI ppx: Regular diet Code status discussed: patient wants to be DNR/DNI.
[2018-12-12] MEDS ORDERED: Ipratropium 0.02% 0.5 MG/2.5 ML Neb Soln NEB PRN (17:53)
[2018-12-12] MEDS ORDERED: traMADol 50 MG Tab PO PRN (17:53)
[2018-12-12] MEDS ORDERED: Albuterol 6.7 GM Inhaler INH PRN (17:53)
[2018-12-12] MEDS: Nicotine 14 MG/24 Hr Patch TRDERM SCH (18:43)
[2018-12-12] MEDS: Lidocaine 5% 700 MG Patch TOP SCH (18:49)
[2018-12-12] MEDS: Megestrol 40 MG Tab PO SCH (18:52)
[2018-12-12] MEDS: traZODone 50 MG Tab PO SCH (20:49)
[2018-12-12] MEDS: traMADol 50 MG Tab PO PRN (20:50)
[2018-12-12] MEDS: Heparin Sodium 5,000 Units/ML Vial SUBCUT SCH (20:52)
[2018-12-12] MEDS ORDERED: Montelukast 10 MG Tab PO SCH (21:00)
[2018-12-12] MEDS ORDERED: Rosuvastatin 10 MG Tab PO SCH (21:00)
[2018-12-12] MEDS: Lactated Ringers 1,000 ML IV SCH (21:00)
[2018-12-13] MEDS: Heparin Sodium 5,000 Units/ML Vial SUBCUT SCH ×4 (01:55→21:22)
[2018-12-13] MEDS: Lactated Ringers 1,000 ML IV SCH (02:57)
[2018-12-13] MEDS: metFORMIN 500 MG Tab PO SCH ×2 (04:25→10:06)
[2018-12-13] MEDS: traMADol 50 MG Tab PO PRN ×2 (07:48→14:17)
[2018-12-13] MEDS ORDERED: FLUoxetine 10 MG Cap PO SCH (09:00)
[2018-12-13] MEDS ORDERED: Omeprazole 20 MG Cap.CR PO SCH (09:00)
[2018-12-13] MEDS ORDERED: Denosumab 60 MG/1 ML Syringe SUBCUT SCH (09:00)
[2018-12-13] MEDS ORDERED: Non-Formulary Medication 1 Each (Letrozole [Letrozole] 2.5 MG) PO SCH (09:00)
[2018-12-13] MEDS ORDERED: Levothyroxine 75 MCG Tab PO SCH (09:00)
--- NOTE | 2018-12-13 09:17 | PCM.PN ---
- General Info Date of Service: 12/13/18 Admission Dx/Problem (Free Text): Admission Diagnosis/Problem Admission Diagnosis/Problem Hip pain Subjective Update: No acute events overnight. Reports that she is still in pain. States that her pain now is about 7/10. Did not eat breakfast because she was in pain. Denies any other symptoms. Pain Score: 6 - Review of Systems General: Reports: No Symptoms, Appetite HEENT: Reports: No Symptoms Pulmonary: Reports: No Symptoms Cardiovascular: Reports: No Symptoms Gastrointestinal: Reports: No Symptoms Genitourinary: Reports: No Symptoms Musculoskeletal: Reports: Other (Reports she hurts all over) Skin: Reports: No Symptoms Neurological: Reports: No Symptoms Psychiatric: Reports: No Symptoms - Patient Data Vitals - Most Recent: Last Vital Signs Temp 97.9 F 12/13/18 07:42 Pulse 95 12/13/18 07:42 Resp 20 12/13/18 07:42 BP 120/61 12/13/18 07:42 Pulse Ox 95 12/13/18 07:42 Orthostatic Blood Pressure [ 114/69 Standing] Orthostatic Blood Pressure [ 111/79 Sitting] Orthostatic Blood Pressure [ 159/76 Supine] Weight - Most Recent: 85 lb I&O - Last 24 Hours: Intake & Output 12/12/18 12/13/18 12/13/18 22:59 06:59 14:59 Intake Total 911 Balance 911 Lab Results Last 24 Hours: Laboratory Results - last 24 hr 12/12/18 12/12/18 Range/Units 13:53 13:53 WBC 10.1 H (5.0-10.0) 10^3/uL RBC 3.81 L (4.2-5.4) 10^6/uL Hgb 11.4 L (12.0-16.0) g/dL Hct 34.1 L (37.0-47.0) % MCV 89.5 (80-100) fL MCH 29.9 (27.0-34.0) pg MCHC 33.4 (33.0-35.0) g/dL Plt Count 279 (150-450) 10^3/uL Neut % (Auto) 83.7 H (42.2-75.2) % Lymph % (Auto) 7.8 L (20.5-50.1) % [place] % (Auto) 7.8 (2-8) % Eos % (Auto) 0.2 L (1.0-3.0) % Baso % (Auto) 0.5 (0.0-1.0) % Sodium 131 L (135-145) mmol/L Potassium 4.5 (3.6-5.0) mmol/L Chloride 95 L (101-111) mmol/L Carbon Dioxide 22.0 (21.0-31.0) mmol/L Anion Gap 18.5 BUN 14 (7-18) mg/dL Creatinine 0.7 (0.6-1.3) mg/dL Est Cr Clr Drug Dosing 44.87 mL/min Estimated GFR (MDRD) > 60 BUN/Creatinine Ratio 20.00 Glucose 88 (74-105) mg/dL Calcium 8.7 (8.4-10.2) mg/dl Total Bilirubin 1.1 H (0.2-1.0) mg/dL AST 29 (10-42) IU/L ALT 15 (10-60) IU/L Alkaline Phosphatase 73 (42-121) IU/L Troponin I < 0.02 (0.00-0.02) ng/ml Total Protein 7.3 (6.7-8.2) g/dl Albumin 3.3 (3.2-5.5) g/dl Globulin 4.0 Albumin/Globulin Ratio 0.83 Med Orders - Current: Current Medications Albuterol (Proventil Hfa) 0 gm INH Q6H PRN PRN Reason: Shortness of Breath Last Admin: 12/13/18 07:48 Dose: 1 puff Fluoxetine HCl (Prozac) 10 mg PO DAILY [facility] Heparin Sodium (Porcine) (Heparin Sodium) 5,000 units SUBCUT Q8HR [facility] Last Admin: 12/13/18 05:47 Dose: 5,000 units Ipratropium [place] (Atrovent) 0.5 mg NEB DAILY PRN PRN Reason: Shortness of Breath Last Admin: 12/13/18 07:47 Dose: 0.5 mg Levothyroxine Sodium (Levothyroxine) 75 mcg PO DAILY [facility] Lidocaine (Lidoderm 5%) 700 mg TOP DAILY [facility] Last Admin: 12/12/18 18:49 Dose: 700 mg Megestrol Acetate (Megace) 160 mg PO DAILY [facility] Last Admin: 01/13/19 18:52 Dose: Not Given Metformin HCl (Glucophage) 1,000 mg PO BIDMEALS [facility] Last Admin: 12/13/18 04:25 Dose: Not Given Miscellaneous Information (Remove Patch) 1 ea TRDERM BEDTIME [facility] Last Admin: 12/12/18 21:00 Dose: Not Given Montelukast Sodium (Singulair) 10 mg PO BEDTIME [facility] Last Admin: 12/12/18 20:50 Dose: 10 mg Morphine Sulfate (Morphine) 1 mg IVPUSH Q2H PRN PRN Reason: Breakthrough pain Nicotine (Habitrol) 14 mg TRDERM DAILY [facility] Last Admin: 12/12/18 18:43 Dose: Not Given Non-Formulary Medication (Letrozole [Letrozole]) 2.5 mg PO DAILY [facility] Omeprazole (Omeprazole) 20 mg PO DAILY [facility] Rosuvastatin Calcium (Crestor) 5 mg PO BEDTIME [facility] Last Admin: 12/12/18 20:49 Dose: 5 mg Tramadol HCl (Ultram) 50 mg PO Q6H PRN PRN Reason: Pain Last Admin: 12/13/18 07:48 Dose: 50 mg Trazodone HCl (Trazodone) 100 mg PO BEDTIME [facility] Last Admin: 12/12/18 20:49 Dose: 100 mg Discontinued Medications Denosumab (Prolia) 60 mg SUBCUT DAILY [facility] Doxycycline Hyclate (Vibramycin) 100 mg PO ONETIME ONE Stop: 12/12/18 15:19 Last Admin: 12/12/18 15:27 Dose: 100 mg Hydromorphone HCl (Dilaudid) 0.5 mg IVPUSH ONETIME ONE Stop: 12/12/18 15:54 Last Admin: 12/12/18 16:12 Dose: 0.5 mg Lactated Ringer's (Ringers, Lactated) 1,000 mls @ 500 mls/hr IV .BOLUS ONE Stop: 12/12/18 17:37 Last Admin: 12/12/18 15:44 Dose: 500 mls/hr Lactated Ringer's (Ringers, Lactated) 1,000 mls @ 75 mls/hr IV ASDIRECTED [facility] Stop: 12/13/18 06:16 Last Admin: 12/13/18 02:57 Dose: 75 mls/hr Morphine Sulfate (Morphine) 2 mg IVPUSH ONETIME ONE Stop: 12/12/18 13:20 Last Admin: 12/12/18 13:59 Dose: 2 mg Morphine Sulfate (Morphine) 2 mg IVPUSH ONETIME ONE Stop: 12/12/18 15:18 Last Admin: 12/12/18 15:27 Dose: 2 mg Ondansetron HCl (Zofran) 4 mg IV ONETIME ONE Stop: 12/12/18 13:21 Last Admin: 12/12/18 13:56 Dose: 4 mg Tramadol HCl (Ultram) 1,000 mg PO Q6H PRN PRN Reason: Pain - Exam General: Alert, Oriented, Moderate Distress HEENT: Pupils Equal, Pupils Reactive, EOMI Neck: Supple Lungs: Clear to Auscultation, Other (Shallow breaths) Cardiovascular: Regular Rhythm, Tachycardia GI/Abdominal Exam: Normal Bowel Sounds, Soft, Non-Tender, No Distention Back Exam: Other (right low back pain) Extremities: Normal Inspection, Normal Range of Motion, Non-Tender, No Pedal Edema Skin: Warm, Dry, Intact Neurological: No New Focal Deficit, Other (Gait deferred. ) Psy/Mental Status: Alert, Normal Affect, Normal Mood - Problem List & Annotations (1) Recurrent falls SNOMED Code(s): 306549445 Code(s): R29.6 - REPEATED FALLS Status: Acute Current Visit: Yes (2) Acute right hip pain SNOMED Code(s): 59577338 Code(s): M25.551 - PAIN IN RIGHT HIP Status: Acute Current Visit: Yes (3) Severe protein-calorie malnutrition SNOMED Code(s): 354682028 Code(s): E43 - UNSPECIFIED SEVERE PROTEIN-CALORIE MALNUTRITION Status: Acute Current Visit: Yes (4) Tobacco use disorder SNOMED Code(s): 041782550 Code(s): F17.200 - NICOTINE DEPENDENCE, UNSPECIFIED, UNCOMPLICATED Status: Acute Current Visit: Yes (5) COPD not affecting current episode of care SNOMED Code(s): 11273045 Code(s): J44.9 - CHRONIC OBSTRUCTIVE PULMONARY DISEASE, UNSPECIFIED Status : Acute Current Visit: Yes (6) Anorexia SNOMED Code(s): 64394054 Code(s): R63.0 - ANOREXIA Status: Acute Current Visit: Yes (7) Depression SNOMED Code(s): 85047325 Code(s): F32.9 - MAJOR DEPRESSIVE DISORDER, SINGLE EPISODE, UNSPECIFIED Status: Acute Current Visit: Yes Qualifiers: Depression Type: unspecified Qualified Code(s): F32.9 - Major depressive disorder, single episode, unspecified - Problem List Review Problem List Initiated/Reviewed/Updated: Yes - My Orders Last 24 Hours: My Active Orders 12/12/18 17:04 Patient Status [ADT] Routine Oxygen Therapy [RC] .PRN Up With Assistance [RC] ASDIRECTED VTE/DVT Education [RC] Vital Signs [RC] 00,04,08,12,16,20 Resuscitation Status Routine 12/12/18 17:06 Intake and Output [RC] QSHIFT 12/12/18 17:07 Cardiac Monitoring [RC] 12/12/18 17:15 Lidocaine 5% [Lidoderm 5%] 700 mg TOP DAILY Nicotine [Habitrol] 14 mg TRDERM DAILY 12/12/18 17:38 Consult to Case Management/Back Line Cook [CONS] Routine OT Evaluation and Treatment [CONS] Routine PT Evaluation and Treatment [CONS] Routine 12/12/18 17:53 Albuterol [Proventil HFA] 0 gm INH Q6H PRN Ipratropium [Atrovent] 0.5 mg NEB DAILY PRN 12/12/18 18:00 metFORMIN [Glucophage] 1,000 mg PO BIDMEALS 12/12/18 18:15 Megestrol [Megace] 160 mg PO DAILY 12/12/18 19:48 traMADol [Ultram] 50 mg PO Q6H PRN 12/12/18 20:51 Morphine 1 mg IVPUSH Q2H PRN 12/12/18 21:00 Montelukast [Singulair] 10 mg PO BEDTIME Remove Patch 1 ea TRDERM BEDTIME Rosuvastatin [Crestor] 5 mg PO BEDTIME traZODone 100 mg PO BEDTIME 12/12/18 22:00 Heparin Sodium 5,000 units SUBCUT Q8HR 12/12/18 Dinner Regular Diet [DIET] 12/13/18 09:00 FLUoxetine [PROzac] 10 mg PO DAILY Letrozole [Letrozole] 2.5 mg PO DAILY Levothyroxine 75 mcg PO DAILY Omeprazole 20 mg PO DAILY - Plan Plan:: #Recurrent Falls: multifactorial; decreases strength from poor nutritional intake, medication side effects, poor vision. Lives alone. - Fall precautions. - PT/OT - Social work/Case management consulted as patient may need placement. #Right hip pain: acute on chronic. XR hip is negative for fracture. Patient with history of multiple right hip surgeries. Reports worsened pain due to about 6 falls since Thursday. - Lidocaine patch, - Tramadol. #Anorexia + severe malnutrition: patient reports about 30 lb unintentional weight loss over the past 1 year. Reports decreased intake due to depression. - Megace - Regular diet - Nutrition consult - Ensure TID # Depression: patient with longstanding history of depression. - May need outpatient follow up with psychiatry. - No SI/HI. #COPD: continue home nebs and inhalers. DVT ppx: Heparin GI ppx: Regular diet Code status discussed: patient wants to be DNR/DNI.
[2018-12-13] MEDS ORDERED: ALBUTEROL INH PRN (10:00)
[2018-12-13] MEDS: Morphine 2 MG/ML Syringe IVPUSH PRN (10:24)
[2018-12-13] MEDS: Megestrol 40 MG Tab PO SCH (10:38)
[2018-12-13] MEDS: FLUOXETINE 10 MG PO SCH (10:39)
[2018-12-13] MEDS: LETROZOLE 2.5 MG PO SCH (10:39)
[2018-12-13] MEDS: OMEPRAZOLE 20 MG PO SCH (10:39)
[2018-12-13] MEDS: Levothyroxine 75 MCG Tab **OWN MED PO SCH (10:39)
[2018-12-13] MEDS: Lidocaine 5% 700 MG Patch TOP SCH (10:39)
[2018-12-13] MEDS: Nicotine 14 MG/24 Hr Patch TRDERM SCH (10:40)
[2018-12-13] MEDS ORDERED: traMADol 50 MG Tab PO ONE (16:00)
[2018-12-13] MEDS: ALBUTEROL INH PRN (16:24)
[2018-12-13] MEDS: MONTELUKAST 10 MG PO SCH (21:20)
[2018-12-13] MEDS: traZODone 50 MG Tab PO SCH (21:21)
[2018-12-13] MEDS: ROSUVASTATIN 10 MG PO SCH (21:21)
[2018-12-14] MEDS: ALBUTEROL INH PRN ×3 (03:52→18:23)
[2018-12-14] MEDS: traMADol 50 MG Tab PO PRN ×3 (03:55→17:50)
[2018-12-14] MEDS: Heparin Sodium 5,000 Units/ML Vial SUBCUT SCH ×4 (05:38→21:05)
[2018-12-14 06:49] LABS: ANION GAP 14.7; CHLORIDE,CL 97 mmol/L (101-111); SODIUM,NA 132 mmol/L (135-145)
[2018-12-14] MEDS: Lidocaine 5% 700 MG Patch TOP SCH (09:52)
[2018-12-14] MEDS: Megestrol 40 MG Tab PO SCH (09:54)
[2018-12-14] MEDS: OMEPRAZOLE 20 MG PO SCH (09:55)
[2018-12-14] MEDS: FLUOXETINE 10 MG PO SCH (09:55)
[2018-12-14] MEDS: Levothyroxine 75 MCG Tab **OWN MED PO SCH (09:56)
[2018-12-14] MEDS: LETROZOLE 2.5 MG PO SCH (09:56)
[2018-12-14] MEDS: Nicotine 14 MG/24 Hr Patch TRDERM SCH (09:57)
--- NOTE | 2018-12-14 10:40 | PCM.PN ---
- General Info Date of Service: 12/14/18 Admission Dx/Problem (Free Text): Admission Diagnosis/Problem Admission Diagnosis/Problem Hip pain Subjective Update: No acute events overnight. Reports that she is still sore but better than yesterday. States that her pain now is about 9/10. Plans to get up later to eat breakfast. Denies any other symptoms. - Review of Systems General: Reports: No Symptoms HEENT: Reports: No Symptoms Pulmonary: Reports: Cough Cardiovascular: Reports: No Symptoms Gastrointestinal: Reports: No Symptoms Genitourinary: Reports: No Symptoms Musculoskeletal: Reports: Other (right lateral chest wall pain. ) Skin: Reports: No Symptoms Neurological: Reports: No Symptoms Psychiatric: Reports: No Symptoms - Patient Data Vitals - Most Recent: Last Vital Signs Temp 99.5 F 12/14/18 08:00 Pulse 73 12/14/18 08:00 Resp 18 12/14/18 08:00 BP 113/55 L 12/14/18 08:00 Pulse Ox 94 L 12/14/18 08:00 Orthostatic Blood Pressure [ 114/69 Standing] Orthostatic Blood Pressure [ 111/79 Sitting] Orthostatic Blood Pressure [ 159/76 Supine] Weight - Most Recent: 85 lb I&O - Last 24 Hours: Intake & Output 12/13/18 12/14/18 12/14/18 22:59 06:59 14:59 Intake Total 150 Balance 150 Lab Results Last 24 Hours: Laboratory Results - last 24 hr 12/14/18 12/14/18 Range/Units 06:05 06:05 WBC 5.8 (5.0-10.0) 10^3/uL RBC 3.78 L (4.2-5.4) 10^6/uL Hgb 11.3 L (12.0-16.0) g/dL Hct 33.8 L (37.0-47.0) % MCV 89.4 (80-100) fL MCH 29.9 (27.0-34.0) pg MCHC 33.4 (33.0-35.0) g/dL Plt Count 268 (150-450) 10^3/uL Sodium 132 L (135-145) mmol/L Potassium 3.7 (3.6-5.0) mmol/L Chloride 97 L (101-111) mmol/L Carbon Dioxide 24.0 (21.0-31.0) mmol/L Anion Gap 14.7 BUN 13 (7-18) mg/dL Creatinine 0.7 (0.6-1.3) mg/dL Est Cr Clr Drug Dosing 44.87 mL/min Estimated GFR (MDRD) > 60 Glucose 99 (74-105) mg/dL Calcium 8.2 L (8.4-10.2) mg/dl Med Orders - Current: Current Medications Heparin Sodium (Porcine) (Heparin Sodium) 5,000 units SUBCUT Q8HR [facility] Last Admin: 12/14/18 05:38 Dose: 5,000 units Ipratropium [place] (Atrovent) 0.5 mg NEB DAILY PRN PRN Reason: Shortness of Breath Last Admin: 12/13/18 07:47 Dose: 0.5 mg Lidocaine (Lidoderm 5%) 700 mg TOP DAILY [facility] Last Admin: 12/14/18 09:52 Dose: 700 mg Megestrol Acetate (Megace) 160 mg PO DAILY [facility] Last Admin: 12/14/18 09:54 Dose: 160 mg Miscellaneous Information (Remove Patch) 1 ea TRDERM BEDTIME [facility] Last Admin: 12/13/18 21:25 Dose: Not Given Morphine Sulfate (Morphine) 1 mg IVPUSH Q2H PRN PRN Reason: Breakthrough pain Last Admin: 12/13/18 10:24 Dose: 1 mg Nicotine (Habitrol) 14 mg TRDERM DAILY [facility] Last Admin: 12/14/18 09:57 Dose: Not Given Rosuvastatin 10 Mg (Tab Own Med) 0 each PO BEDTIME [facility] Last Admin: 12/13/18 21:21 Dose: 0.5 each Fluoxentine 10 Mg (Cap Own Med) 10 each PO DAILY [facility] Last Admin: 12/14/18 09:55 Dose: 10 each Metformin 1000 Mg (Tab Own Med) 1,000 each PO BIDMEALS [facility] Last Admin: 12/14/18 09:55 Dose: 1,000 each Montelukast 10 Mg (Tab Own Med) 10 each PO BEDTIME [facility] Last Admin: 12/13/18 21:20 Dose: 10 each Omeprazole 20 Mg Cap (Own Med) 20 each PO DAILY [facility] Last Admin: 12/14/18 09:55 Dose: 20 each Levothyroxine 75 Mcg (Tab Own Med) 75 each PO DAILY [facility] Last Admin: 12/14/18 09:56 Dose: 75 each Letrozole 2.5 Mg Tab (Own Med) 2.5 each PO DAILY [facility] Last Admin: 12/14/18 09:56 Dose: 2.5 each Albuterol Inh ( Proair Hfa) Own Med 0 each INH Q6H PRN PRN Reason: Shortness of Breath Last Admin: 12/14/18 09:43 Dose: 1 each Tramadol HCl (Ultram) 100 mg PO Q6H PRN PRN Reason: Pain Last Admin: 12/14/18 10:06 Dose: 100 mg Trazodone HCl (Trazodone) 100 mg PO BEDTIME [facility] Last Admin: 12/13/18 21:21 Dose: 100 mg Discontinued Medications Albuterol (Proventil Hfa) 0 gm INH Q6H PRN PRN Reason: Shortness of Breath Last Admin: 12/13/18 07:48 Dose: 1 puff Denosumab (Prolia) 60 mg SUBCUT DAILY [facility] Last Admin: 12/13/18 10:06 Dose: Not Given Doxycycline Hyclate (Vibramycin) 100 mg PO ONETIME ONE Stop: 12/12/18 15:19 Last Admin: 12/12/18 15:27 Dose: 100 mg Fluoxetine HCl (Prozac) 10 mg PO DAILY [facility] Last Admin: 12/13/18 10:05 Dose: Not Given Hydromorphone HCl (Dilaudid) 0.5 mg IVPUSH ONETIME ONE Stop: 12/12/18 15:54 Last Admin: 12/12/18 16:12 Dose: 0.5 mg Lactated Ringer's (Ringers, Lactated) 1,000 mls @ 500 mls/hr IV .BOLUS ONE Stop: 12/12/18 17:37 Last Admin: 12/12/18 15:44 Dose: 500 mls/hr Lactated Ringer's (Ringers, Lactated) 1,000 mls @ 75 mls/hr IV ASDIRECTED [facility] Stop: 12/13/18 06:16 Last Admin: 12/13/18 02:57 Dose: 75 mls/hr Levothyroxine Sodium (Levothyroxine) 75 mcg PO DAILY [facility] Last Admin: 12/13/18 10:06 Dose: Not Given Metformin HCl (Glucophage) 1,000 mg PO BIDMEALS [facility] Last Admin: 12/13/18 10:06 Dose: Not Given Montelukast Sodium (Singulair) 10 mg PO BEDTIME [facility] Last Admin: 12/12/18 20:50 Dose: 10 mg Morphine Sulfate (Morphine) 2 mg IVPUSH ONETIME ONE Stop: 12/12/18 13:20 Last Admin: 12/12/18 13:59 Dose: 2 mg Morphine Sulfate (Morphine) 2 mg IVPUSH ONETIME ONE Stop: 12/12/18 15:18 Last Admin: 12/12/18 15:27 Dose: 2 mg Non-Formulary Medication (Letrozole [Letrozole]) 2.5 mg PO DAILY [facility] Last Admin: 12/13/18 10:49 Dose: Not Given Omeprazole (Omeprazole) 20 mg PO DAILY [facility] Last Admin: 12/13/18 10:06 Dose: Not Given Ondansetron HCl (Zofran) 4 mg IV ONETIME ONE Stop: 12/12/18 13:21 Last Admin: 12/12/18 13:56 Dose: 4 mg Albuterol Inh ( Proair Hfa) Own [facility] 0 each INH Q6H PRN PRN Reason: Shortness of Breath Rosuvastatin Calcium (Crestor) 5 mg PO BEDTIME [facility] Last Admin: 12/12/18 20:49 Dose: 5 mg Tramadol HCl (Ultram) 1,000 mg PO Q6H PRN PRN Reason: Pain Tramadol HCl (Ultram) 50 mg PO Q6H PRN PRN Reason: Pain Last Admin: 12/13/18 14:17 Dose: 50 mg Tramadol HCl (Ultram) 50 mg PO ONETIME ONE Stop: 12/13/18 16:01 Last Admin: 12/13/18 16:22 Dose: 50 mg - Exam General: Alert, Oriented, Cooperative, Mild Distress HEENT: Pupils Equal, Pupils Reactive, EOMI Neck: Supple Lungs: Clear to Auscultation, Normal Respiratory Effort, Other (Shallow breaths. ) Cardiovascular: Regular Rate, Regular Rhythm GI/Abdominal Exam: Normal Bowel Sounds, Soft, Non-Tender, No Distention Back Exam: Normal Inspection, Full Range of Motion Extremities: Normal Inspection, Non-Tender, No Pedal Edema, Other (No hip tenderness today. ) Peripheral Pulses: 2+: Radial (L), Radial (R), Dorsalis Pedis (L), Dorsalis Pedis (R) Skin: Warm, Dry Neurological: No New Focal Deficit Psy/Mental Status: Alert, Normal Affect, Normal Mood Physical Findings Comments:: Right lateral chest wall tenderness to palpation. - Problem List & Annotations (1) Recurrent falls SNOMED Code(s): 028968374 Code(s): R29.6 - REPEATED FALLS Status: Acute Current Visit: Yes (2) Acute right hip pain SNOMED Code(s): 06606138 Code(s): M25.551 - PAIN IN RIGHT HIP Status: Acute Current Visit: Yes (3) Severe protein-calorie malnutrition SNOMED Code(s): 518858176 Code(s): E43 - UNSPECIFIED SEVERE PROTEIN-CALORIE MALNUTRITION Status: Acute Current Visit: Yes (4) Tobacco use disorder SNOMED Code(s): 670547050 Code(s): F17.200 - NICOTINE DEPENDENCE, UNSPECIFIED, UNCOMPLICATED Status: Acute Current Visit: Yes (5) COPD not affecting current episode of care SNOMED Code(s): 85337134 Code(s): J44.9 - CHRONIC OBSTRUCTIVE PULMONARY DISEASE, UNSPECIFIED Status : Acute Current Visit: Yes (6) Anorexia SNOMED Code(s): 54890002 Code(s): R63.0 - ANOREXIA Status: Acute Current Visit: Yes (7) Depression SNOMED Code(s): 68294438 Code(s): F32.9 - MAJOR DEPRESSIVE DISORDER, SINGLE EPISODE, UNSPECIFIED Status: Acute Current Visit: Yes Qualifiers: Depression Type: unspecified Qualified Code(s): F32.9 - Major depressive disorder, single episode, unspecified - Problem List Review Problem List Initiated/Reviewed/Updated: Yes - My Orders Last 24 Hours: My Active Orders 12/13/18 10:10 Patient's Own Medication [Ptom] 2.5 each PO DAILY 12/13/18 10:23 Patient's Own Medication [Ptom] 0 each INH Q6H PRN 12/13/18 11:15 Dietary Supplements [RC] TIDAC 12/13/18 15:30 traMADol [Ultram] 100 mg PO Q6H PRN 01/14/19 15:31 K Pad [Heat Therapy] [OM.PC] Routine 12/13/18 18:00 Patient's Own Medication [Ptom] 1,000 each PO BIDMEALS 12/13/18 21:00 Patient's Own Medication [Ptom] 0 each PO BEDTIME Patient's Own Medication [Ptom] 10 each PO BEDTIME 12/14/18 09:00 Patient's Own Medication [Ptom] 10 each PO DAILY Patient's Own Medication [Ptom] 20 each PO DAILY Patient's Own Medication [Ptom] 75 each PO DAILY 12/14/18 10:12 Incentive Spirometry [RT Incentive Spirometry] [RC] Q2HWA - Plan Plan:: #Recurrent Falls: multifactorial; decreases strength from poor nutritional intake, medication side effects, poor vision. Lives alone. - Fall precautions. - PT/OT - Social work/Case management consulted as patient may need placement. #Right hip pain: acute on chronic. XR hip is negative for fracture. Patient with history of multiple right hip surgeries. Reports worsened pain due to about 6 falls since Thursday. - Lidocaine patch, - Tramadol. #Anorexia + severe malnutrition: patient reports about 30 lb unintentional weight loss over the past 1 year. Reports decreased intake due to depression. - Megace - Regular diet - Nutrition consult - Ensure TID # Depression: patient with longstanding history of depression. - May need outpatient follow up with psychiatry. - No SI/HI. #COPD: continue home nebs and inhalers. -Incentive spirometer. DVT ppx: Heparin GI ppx: Regular diet Code status discussed: patient wants to be DNR/DNI.
[2018-12-14] MEDS: Morphine 2 MG/ML Syringe IVPUSH PRN ×2 (13:26→19:40)
[2018-12-14] MEDS: ROSUVASTATIN 10 MG PO SCH (20:50)
[2018-12-14] MEDS: MONTELUKAST 10 MG PO SCH (20:50)
[2018-12-14] MEDS: traZODone 50 MG Tab PO SCH (20:51)
[2018-12-15] MEDS: Heparin Sodium 5,000 Units/ML Vial SUBCUT SCH ×3 (06:24→06:25)
[2018-12-15] MEDS: traMADol 50 MG Tab PO PRN (06:51)
[2018-12-15] MEDS ORDERED: Morphine 15 MG Tab PO PRN (08:25)
[2018-12-15] MEDS: Megestrol 40 MG Tab PO SCH (09:17)
[2018-12-15] MEDS: OMEPRAZOLE 20 MG PO SCH (09:17)
[2018-12-15] MEDS: Lidocaine 5% 700 MG Patch TOP SCH (09:17)
[2018-12-15] MEDS: FLUOXETINE 10 MG PO SCH (09:17)
[2018-12-15] MEDS: Levothyroxine 75 MCG Tab **OWN MED PO SCH (09:17)
[2018-12-15] MEDS: Nicotine 14 MG/24 Hr Patch TRDERM SCH (09:17)
[2018-12-15] MEDS: LETROZOLE 2.5 MG PO SCH (09:17)
[2018-12-15] MEDS ORDERED: Docusate Sodium 100 MG Cap PO SCH (09:30)
--- NOTE | 2018-12-15 09:39 | PCM.DCSUM1 ---
Discharge Summary - Hospital Course Free Text/Narrative:: Ms. Kowalski is a 73 y.o female with medical history significant for multiple fractures, right hip surgery x6, chronic low back pain, depression, asthma with COPD, DM II, recurrent breast cancer, hypothyroidism, dyslipidemia, and GERD who presented to the ED with complaints of right rib pain and fall. CT head was negative. CT chest was negative. XR hip was negative for fractures. She was started on Megace for decreased appetite. Her Trazodone dose was decreased to 100 mg PO at bedtime. She was started on Lidoderm and morphine IV from breakthrough pain. Morphine was changed to PO. Her home tramadol was discontinued. She was started on Colace for constipation. PT/OT worked with patient. She was discharged to SNF to continue physical therapy. Diagnosis: Stroke: No - Discharge Data Discharge Date: 12/15/18 Discharge Disposition: DC/Tfer to SNF 03 Condition: Fair - Discharge Diagnosis/Problem(s) (1) Recurrent falls SNOMED Code(s): 935020864 ICD Code: R29.6 - REPEATED FALLS Status: Acute Current Visit: Yes (2) Acute right hip pain SNOMED Code(s): 07527482 ICD Code: M25.551 - PAIN IN RIGHT HIP Status: Acute Current Visit: Yes (3) Severe protein-calorie malnutrition SNOMED Code(s): 594416578 ICD Code: E43 - UNSPECIFIED SEVERE PROTEIN-CALORIE MALNUTRITION Status: Acute Current Visit: Yes (4) Tobacco use disorder SNOMED Code(s): 875816378 ICD Code: F17.200 - NICOTINE DEPENDENCE, UNSPECIFIED, UNCOMPLICATED Status : Acute Current Visit: Yes (5) COPD not affecting current episode of care SNOMED Code(s): 88794167 ICD Code: J44.9 - CHRONIC OBSTRUCTIVE PULMONARY DISEASE, UNSPECIFIED Status : Acute Current Visit: Yes (6) Anorexia SNOMED Code(s): 69224250 ICD Code: R63.0 - ANOREXIA Status: Acute Current Visit: Yes (7) Depression SNOMED Code(s): 54260654 ICD Code: F32.9 - MAJOR DEPRESSIVE DISORDER, SINGLE EPISODE, UNSPECIFIED Status: Acute Current Visit: Yes Qualifiers: Depression Type: unspecified Qualified Code(s): F32.9 - Major depressive disorder, single episode, unspecified (8) Ribs, multiple fractures SNOMED Code(s): 7468384 ICD Code: S22.49XA - MULTIPLE FRACTURES OF RIBS, UNSP SIDE, INIT FOR CLOS FX Status: Acute Current Visit: Yes Qualifiers: Encounter type: subsequent encounter Fracture type: closed Laterality: right Fracture healing: with routine healing Qualified Code(s): S22.41XD - Multiple fractures of ribs, right side, subsequent encounter for fracture with routine healing - Patient Summary/Data Consults: Consultations 12/12/18 17:38 Consult to Case Management/Speech Therapy Director [CONS] Routine OT Evaluation and Treatment [CONS] Routine PT Evaluation and Treatment [CONS] Routine - Patient Instructions Activity: As Tolerated (With Assist) Driving: Do Not Drive Showering/Bathing: May Shower - Discharge Plan Prescriptions/Med Rec: Docusate Sodium [Colace] 100 mg PO BID #60 cap Lidocaine 5% [Lidoderm 5%] 700 mg TOP DAILY #30 patch Megestrol [Megace] 200 mg PO DAILY 30 Days #150 tablet Morphine 15 mg PO Q6H PRN 7 Days #20 tablet PRN Reason: Pain (Severe 7-10) Nicotine [Habitrol] 14 mg TRDERM DAILY 14 Days #14 patch Home Medications: Home Meds Albuterol [Proair HFA] 1 puff INH Q6H PRN 01/18/18 [History] Denosumab [Prolia] 60 mg SUBCUT .6MONTHS 01/18/18 [History] FLUoxetine HCl [Fluoxetine HCl] 10 mg PO DAILY 01/18/18 [History] Ipratropium [place] 0.2 mg IH BID PRN 01/18/18 [History] Letrozole 2.5 mg PO DAILY 01/18/18 [History] Levothyroxine 75 mcg PO DAILY 01/18/18 [History] Montelukast Sodium 10 mg PO BEDTIME 01/18/18 [History] Omeprazole 20 mg PO DAILY 01/18/18 [History] Rosuvastatin Calcium 5 mg PO BEDTIME 01/18/18 [History] metFORMIN HCl [Metformin HCl] 1,000 mg PO BIDMEALS 01/18/18 [History] Celecoxib 100 mg PO DAILY 12/12/18 [History] Docusate Sodium [Colace] 100 mg PO BID #60 cap 12/15/18 [Rx] Lidocaine 5% [Lidoderm 5%] 700 mg TOP DAILY #30 patch 12/15/18 [Rx] Megestrol [Megace] 200 mg PO DAILY 30 Days #150 tablet 12/15/18 [Rx] Morphine 15 mg PO Q6H PRN 7 Days #20 tablet 12/15/18 [Rx] Nicotine [Habitrol] 14 mg TRDERM DAILY 14 Days #14 patch 12/15/18 [Rx] Oxygen Therapy Mode: Room Air Referrals: PCP,Unobtain [Ordering Only Provider] - - Discharge Summary/Plan Comment DC Time >30 min.: Yes - General Info Date of Service: 12/15/18 Admission Dx/Problem (Free Text: Admission Diagnosis/Problem Admission Diagnosis/Problem Hip pain Subjective Update: No acute events overnight. Reports that she is still sore. States that her pain now is about 5/10. Plans to get up later to eat breakfast. Denies any other symptoms. - Patient Data Vitals - Most Recent: Last Vital Signs Temp 99.0 F 12/15/18 07:49 Pulse 68 12/15/18 07:49 Resp 18 12/15/18 07:49 BP 129/51 L 12/15/18 07:49 Pulse Ox 98 12/15/18 07:49 Orthostatic Blood Pressure [ 114/69 Standing] Orthostatic Blood Pressure [ 111/79 Sitting] Orthostatic Blood Pressure [ 159/76 Supine] Weight - Most Recent: 85 lb I&O - Last 24 hours: Intake & Output 12/14/18 12/15/18 12/15/18 22:59 06:59 14:59 Intake Total 325 325 560 Balance 325 325 560 Med Orders - Current: Current Medications Docusate Sodium (Colace) 100 mg PO BID [facility] Heparin Sodium (Porcine) (Heparin Sodium) 5,000 units SUBCUT Q8HR [facility] Last Admin: 12/15/18 06:25 Dose: 5,000 units Ipratropium [place] (Atrovent) 0.5 mg NEB DAILY PRN PRN Reason: Shortness of Breath Last Admin: 12/13/18 07:47 Dose: 0.5 mg Lidocaine (Lidoderm 5%) 700 mg TOP DAILY [facility] Last Admin: 12/15/18 09:17 Dose: 700 mg Megestrol Acetate (Megace) 160 mg PO DAILY [facility] Last Admin: 12/15/18 09:17 Dose: 160 mg Miscellaneous Information (Remove Patch) 1 ea TRDERM BEDTIME [facility] Last Admin: 12/14/18 20:52 Dose: Not Given Morphine Sulfate (Morphine) 15 mg PO Q6H PRN PRN Reason: Pain (severe 7-10) Last Admin: 12/15/18 09:16 Dose: 15 mg Nicotine (Habitrol) 14 mg TRDERM DAILY [facility] Last Admin: 12/15/18 09:17 Dose: Not Given Rosuvastatin 10 Mg (Tab Own Med) 0 each PO BEDTIME NATE Last Admin: 12/14/18 20:50 Dose: 1 each Fluoxentine 10 Mg (Cap Own Med) 10 each PO DAILY [facility] Last Admin: 12/15/18 09:17 Dose: 10 each Metformin 1000 Mg (Tab Own Med) 1,000 each PO BIDMEALS [facility] Last Admin: 12/15/18 09:17 Dose: 1,000 each Montelukast 10 Mg (Tab Own Med) 10 each PO BEDTIME [facility] Last Admin: 12/14/18 20:50 Dose: 10 each Omeprazole 20 Mg Cap (Own Med) 20 each PO DAILY [facility] Last Admin: 12/15/18 09:17 Dose: 20 each Levothyroxine 75 Mcg (Tab Own Med) 75 each PO DAILY [facility] Last Admin: 12/15/18 09:17 Dose: 75 each Letrozole 2.5 Mg Tab (Own Med) 2.5 each PO DAILY [facility] Last Admin: 12/15/18 09:17 Dose: 2.5 each Albuterol Inh ( Proair Hfa) Own Med 0 each INH Q6H PRN PRN Reason: Shortness of Breath Last Admin: 12/14/18 18:23 Dose: 1 each Tramadol HCl (Ultram) 100 mg PO Q6H PRN PRN Reason: Pain Last Admin: 12/15/18 06:51 Dose: 100 mg Trazodone HCl (Trazodone) 100 mg PO BEDTIME [facility] Last Admin: 12/14/18 20:51 Dose: 100 mg Discontinued Medications Albuterol (Proventil Hfa) 0 gm INH Q6H PRN PRN Reason: Shortness of Breath Last Admin: 12/13/18 07:48 Dose: 1 puff Denosumab (Prolia) 60 mg SUBCUT DAILY [facility] Last Admin: 12/13/18 10:06 Dose: Not Given Doxycycline Hyclate (Vibramycin) 100 mg PO ONETIME ONE Stop: 12/12/18 15:19 Last Admin: 12/12/18 15:27 Dose: 100 mg Fluoxetine HCl (Prozac) 10 mg PO DAILY [facility] Last Admin: 12/13/18 10:05 Dose: Not Given Hydromorphone HCl (Dilaudid) 0.5 mg IVPUSH ONETIME ONE Stop: 12/12/18 15:54 Last Admin: 12/12/18 16:12 Dose: 0.5 mg Lactated Ringer's (Ringers, Lactated) 1,000 mls @ 500 mls/hr IV .BOLUS ONE Stop: 12/12/18 17:37 Last Admin: 12/12/18 15:44 Dose: 500 mls/hr Lactated Ringer's (Ringers, Lactated) 1,000 mls @ 75 mls/hr IV ASDIRECTED [facility] Stop: 12/13/18 06:16 Last Admin: 12/13/18 02:57 Dose: 75 mls/hr Levothyroxine Sodium (Levothyroxine) 75 mcg PO DAILY [facility] Last Admin: 12/13/18 10:06 Dose: Not Given Metformin HCl (Glucophage) 1,000 mg PO BIDMEALS [facility] Last Admin: 12/13/18 10:06 Dose: Not Given Montelukast Sodium (Singulair) 10 mg PO BEDTIME [facility] Last Admin: 12/12/18 20:50 Dose: 10 mg Morphine Sulfate (Morphine) 2 mg IVPUSH ONETIME ONE Stop: 12/12/18 13:20 Last Admin: 12/12/18 13:59 Dose: 2 mg Morphine Sulfate (Morphine) 2 mg IVPUSH ONETIME ONE Stop: 12/12/18 15:18 Last Admin: 12/12/18 15:27 Dose: 2 mg Morphine Sulfate (Morphine) 1 mg IVPUSH Q2H PRN PRN Reason: Breakthrough pain Last Admin: 12/14/18 19:40 Dose: 1 mg Non-Formulary Medication (Letrozole [Letrozole]) 2.5 mg PO DAILY [facility] Last Admin: 12/13/18 10:49 Dose: Not Given Omeprazole (Omeprazole) 20 mg PO DAILY [facility] Last Admin: 12/13/18 10:06 Dose: Not Given Ondansetron HCl (Zofran) 4 mg IV ONETIME ONE Stop: 12/12/18 13:21 Last Admin: 12/12/18 13:56 Dose: 4 mg Albuterol Inh ( Proair Hfa) Own Med 0 each INH Q6H PRN PRN Reason: Shortness of Breath Rosuvastatin Calcium (Crestor) 5 mg PO BEDTIME [facility] Last Admin: 12/12/18 20:49 Dose: 5 mg Tramadol HCl (Ultram) 1,000 mg PO Q6H PRN PRN Reason: Pain Tramadol HCl (Ultram) 50 mg PO Q6H PRN PRN Reason: Pain Last Admin: 12/13/18 14:17 Dose: 50 mg Tramadol HCl (Ultram) 50 mg PO ONETIME ONE Stop: 12/13/18 16:01 Last Admin: 12/13/18 16:22 Dose: 50 mg - Exam General: Reports: Alert, Oriented HEENT: Reports: Pupils Equal, Pupils Reactive, EOMI, Mucous Membr. Moist/Toast Neck: Reports: Supple Lungs: Reports: Clear to Auscultation, Other (Poor inspiratory effort) Cardiovascular: Reports: Regular Rate, Regular Rhythm GI/Abdominal Exam: Normal Bowel Sounds, Soft, Non-Tender, No Distention Extremities: Normal Inspection, Non-Tender, No Pedal Edema Skin: Reports: Warm, Dry, Intact Neurological: Reports: No New Focal Deficit Psy/Mental Status: Reports: Alert, Normal Affect, Normal Mood Physical Findings Comments:: Right lateral chest wall tenderness to palpation.
== END 2018-12-15 10:15 ==
LOC: DL.ED 13:16 → UNDOADMOB 17:01 → DL.MS 17:01
PROVIDERS: ADMIT Internal Medicine; ATTEND Internal Medicine
DX: S22.41XA Multiple fractures of ribs, right side, initial encounter for closed fracture (principal); M25.551 Pain in right hip; R29.6 Repeated falls; E43 Unspecified severe protein-calorie malnutrition; E11.9 Type 2 diabetes mellitus without complications; F17.200 Nicotine dependence, unspecified, uncomplicated; I50.9 Heart failure, unspecified; J44.9 Chronic obstructive pulmonary disease, unspecified; E03.9 Hypothyroidism, unspecified; E78.5 Hyperlipidemia, unspecified; F32.9 Major depressive disorder, single episode, unspecified; G89.29 Other chronic pain; M54.9 Dorsalgia, unspecified; Z79.84 Long term (current) use of oral hypoglycemic drugs; Z79.899 Other long term (current) drug therapy; Z79.890 Hormone replacement therapy; K21.9 Gastro-esophageal reflux disease without esophagitis; Z88.5 Allergy status to narcotic agent; Z88.6 Allergy status to analgesic agent; W19.XXXA Unspecified fall, initial encounter
CPT/HCPCS: 36415; 70450; 71046; 73521; 80048; 80053; 84484; 85025; 85027; 93005; 96361; 96372; 96374; 96375; 96376; 97162; 97166; 97530; 99285; A9270; G0378; J1170; J1644; J2270; J2405; J7120

== ENCOUNTER 2019-05-14 13:18 | Emergency (ER) | payer MEDICARE, MEDICAID ==
[2019-05-14] MEDS ORDERED: Bacitracin Oint 1 GM U/D Packet TOP ONE ×2 (13:19→13:40)
[2019-05-14] MEDS ORDERED: Lidocaine 1% 30 ML SDV ONE (13:19)
[2019-05-14] MEDS ORDERED: Lidocaine 1% 30 ML SDV INJECT ONE (13:40)
--- NOTE | 2019-05-14 14:24 | EDM.PDOC ---
Scribed by Veronica Castellano 05/14/19 [id number] for Yvonne Ivey NP ED HPI GENERAL MEDICAL PROBLEM - General Chief Complaint: Upper Extremity Injury/Pain Stated Complaint: ARM INJURY,FELL Time Seen by Provider: 05/14/19 13:33 Source of Information: Reports: Patient, RN, RN Notes Reviewed History Limitations: Reports: No Limitations - History of Present Illness INITIAL COMMENTS - FREE TEXT/NARRATIVE: Patient presented to ER with complaint of laceration to left forearm after a fall x 2 hours ago. She fell inside. She denies hitting head or getting knocked out. States she thinks she is up to date on tetanus. She admits to falls at home frequently. She has a 5-1/2 x 2 cm laceration left forearm. Onset: Today Duration: Constant Location: Reports: Upper Extremity, Left Quality: Reports: Ache Severity: Mild Improves with: Reports: None Worsens with: Reports: None Associated Symptoms: Reports: No Other Symptoms - Related Data Allergies Allergy/AdvReac Type Severity Reaction Status Date / Time acetaminophen Allergy Itching Verified 05/14/19 13:37 rifampin Allergy Cannot Verified 05/14/19 13:37 Remember codeine AdvReac Itching Verified 05/14/19 13:37 ibuprofen [From Nuprin] AdvReac Nausea and Verified 05/14/19 13:37 Vomiting oxycodone [From OxyContin] AdvReac Dizziness Verified 05/14/19 13:37 Home Meds: Home Meds Albuterol [Proair HFA] 1 puff INH Q6H PRN 01/18/18 [History] Denosumab [Prolia] 60 mg SUBCUT .6MONTHS 01/18/18 [History] FLUoxetine HCl [Fluoxetine HCl] 10 mg PO DAILY 01/18/18 [History] Ipratropium [place] 0.2 mg IH BID PRN 01/18/18 [History] Letrozole 2.5 mg PO DAILY 01/18/18 [History] Levothyroxine 75 mcg PO DAILY 01/18/18 [History] Montelukast Sodium 10 mg PO BEDTIME 01/18/18 [History] Omeprazole 20 mg PO DAILY 01/18/18 [History] Rosuvastatin Calcium 5 mg PO BEDTIME 01/18/18 [History] metFORMIN HCl [Metformin HCl] 1,000 mg PO BIDMEALS 01/18/18 [History] Celecoxib 100 mg PO DAILY 12/12/18 [History] Docusate Sodium [Colace] 100 mg PO BID #60 cap 12/15/18 [Rx] Lidocaine 5% [Lidoderm 5%] 700 mg TOP DAILY #30 patch 12/15/18 [Rx] Megestrol [Megace] 200 mg PO DAILY 30 Days #150 tablet 12/15/18 [Rx] Morphine 15 mg PO Q6H PRN 7 Days #20 tablet 12/15/18 [Rx] Nicotine [Habitrol] 14 mg TRDERM DAILY 14 Days #14 patch 12/15/18 [Rx] traZODone HCl [Trazodone HCl] 100 mg PO BEDTIME 30 Days #30 tablet 12/15/18 [Rx] Past Medical History HEENT History: Reports: Impaired Vision Cardiovascular History: Reports: Heart Failure Respiratory History: Reports: Asthma, COPD Gastrointestinal History: Reports: None Genitourinary History: Reports: None Other Genitourinary History: stress incontinence REPORTING CONSULTANT History: Reports: None Musculoskeletal History: Reports: None Neurological History: Reports: None Psychiatric History: Reports: Anxiety, Depression Endocrine/Metabolic History: Reports: Diabetes, Type II, Hyperthyroidism, Osteoporosis Hematologic History: Reports: None Immunologic History: Reports: None Oncologic (Cancer) History: Reports: Breast Dermatologic History: Reports: None - Infectious Disease History Infectious Disease History: Reports: None - Past Surgical History Head Surgeries/Procedures: Reports: None Female Surgical History: Reports: Hysterectomy, Mastectomy Musculoskeletal Surgical History: Reports: Hip Replacement, Other (See Below) Other Musculoskeletal Surgeries/Procedures:: right leg shorter then left Social & Family History - Family History Family Medical History: Noncontributory - Caffeine Use Caffeine Use: Reports: Coffee - Living Situation & Occupation Living situation: Reports: Alone Occupation: Retired Review of Systems - Review of Systems Review Of Systems: ROS reveals no pertinent complaints other than HPI. ED EXAM, GENERAL - Physical Exam Exam: See Below Exam Limited By: No Limitations General Appearance: Cachetic (and thin) Eye Exam: Bilateral Eye: EOMI, Normal Inspection, PERRL Ears: Normal External Exam, Normal Canal, Hearing Grossly Normal, Normal TMs Nose: Normal Inspection, Normal Mucosa, No Blood Throat/Mouth: Normal Inspection, Normal Lips, Normal Teeth, Normal Gums, Normal Oropharynx, Normal Voice, No Airway Compromise Head: Atraumatic, Normocephalic Neck: Normal Inspection ( ), Supple, Non-Tender, Full Range of Motion Respiratory/Chest: Other (diminished crackles and wheezes in bases bilaterally) Cardiovascular: Normal Peripheral Pulses, Regular Rate, Rhythm, No Edema, No Gallop, No JVD, No Murmur, No Rub GI/Abdominal: Normal Bowel Sounds, Soft, Non-Tender, No Organomegaly, No Distention, No Abnormal Bruit, No Mass (Female) Exam: Deferred Rectal (Female) Exam: Deferred Back Exam: Normal Inspection, Full Range of Motion, NT Extremities: Normal Inspection, Normal Range of Motion, Non-Tender, Normal Capillary Refill, No Pedal Edema Neurological: Alert, Oriented, CN II-XII Intact, Normal Cognition, Normal Gait, Normal Reflexes, No Motor/Sensory Deficits Psychiatric: Normal Affect, Normal Mood Skin Exam: Other (skin tear/laceration with jagged edges left forearm) Lymphatic: No Adenopathy ED TRAUMA EXTREMITY PROCEDURES - Laceration/Wound Repair Left Dorsal Arm Lac/Wound Length In cm: 5.5 (5.5 x 2cm skin tear/lac left forearm) Appearance: Superficial, Subcutaneous Distal NVT: Neuro & Vascular Intact Anesthetic Type: Local Local Anesthesia - Lidocaine (Xylocaine): 1% Plain Local Anesthetic Volume: 3cc Skin Prep: Chlorhexidine (Hibiciens) Exploration/Debridement/Repair: Wound Explored, In a Bloodless Field, Explored to Base, Minimal Debridement, No Foreign Material Found Closed With: Sutures Suture Size: other (5-0) # of Sutures: 5 Suture Type: Nylon, Interrupted Drain Placement: No Sterile Dressing Applied: Provider Tetanus Status Addressed: Yes Complications: No Course - Orders/Labs/Meds Meds: Medications Discontinued Medications Generic Name Dose Route Start Last Admin Trade Name Freq PRN Reason Stop Dose Admin Bacitracin 1 dose 05/14/19 13:40 Bacitracin Oint 1 Gm TOP 05/14/19 13:41 ONETIME ONE Lidocaine HCl 30 ml 05/14/19 13:40 Xylocaine-Mpf 1% INJECT 05/14/19 13:41 ONETIME ONE Departure - Departure Time of Disposition: 14:08 Disposition: Home, Self-Care 01 Condition: Fair Clinical Impression: Laceration, Skin tear Fall at home Qualifiers: Encounter type: initial encounter Qualified Code(s): W19.XXXA - Unspecified fall, initial encounter; Y92.009 - Unspecified place in unspecified non- institutional (private) residence as the place of occurrence of the external cause - Discharge Information *PRESCRIPTION DRUG MONITORING PROGRAM REVIEWED*: No *COPY OF PRESCRIPTION DRUG MONITORING REPORT IN PATIENT JS: No Instructions: Skin Tear Care, [id number], Laceration Care, Adult, Easy-to- Read, Stitches, [place], or Adhesive Wound Closure, [id number] Forms: ED Department Discharge Additional Instructions: Keep area clean and dry Follow up with your primary care facility in 7-10 days for suture removal Monitor for signs of infection I have read and agree with the documentation that has been completed regarding this visit. By signing this record, I attest that the documentation was completed in my physical presence and is an accurate record of the encounter.
== END 2019-05-14 14:14 | disposition home or self-care (01) ==
LOC: DL.ED 13:18
DX: S51.812A Laceration without foreign body of left forearm, initial encounter (principal); J44.9 Chronic obstructive pulmonary disease, unspecified; I50.9 Heart failure, unspecified; F41.9 Anxiety disorder, unspecified; F32.9 Major depressive disorder, single episode, unspecified; E05.90 Thyrotoxicosis, unspecified without thyrotoxic crisis or storm; Z79.899 Other long term (current) drug therapy; Z79.84 Long term (current) use of oral hypoglycemic drugs; Z88.5 Allergy status to narcotic agent; Z88.8 Allergy status to other drugs, medicaments and biological substances; W18.39XA Other fall on same level, initial encounter
CPT/HCPCS: 12002; 99283; J2001

== ENCOUNTER 2019-10-30 16:02 | Emergency (ER) | payer MEDICARE, MEDICAID ==
[2019-10-30 17:00] LABS: ANION GAP 11.5; CHLORIDE,CL 101 mmol/L (101-111); SODIUM,NA 136 mmol/L (135-145)
--- NOTE | 2019-10-30 17:09 | EDM.PDOC ---
Scribed by Veronica Castellano 10/30/19 [id number] for Shree Zheng PA ED HPI GENERAL MEDICAL PROBLEM - General Chief Complaint: Respiratory Problem Stated Complaint: SOB Time Seen by Provider: 10/30/19 16:15 Source of Information: Reports: Patient, RN, RN Notes Reviewed History Limitations: Reports: No Limitations, Language Barrier - History of Present Illness INITIAL COMMENTS - FREE TEXT/NARRATIVE: Patient is a 74-year-old female who presents to ER stating that she has been short of breath x2 weeks and worse today. She has not been to her PCP. Albuterol treatments do improve but not that much and did not help today. She smokes half pack per day. It is hot in her apartment. Onset: Gradual Duration: Getting Worse Location: Reports: Chest Quality: Reports: Ache Severity: Moderate Improves with: Reports: None Worsens with: Reports: None Associated Symptoms: Reports: No Other Symptoms - Related Data Allergies Allergy/AdvReac Type Severity Reaction Status Date / Time acetaminophen Allergy Itching Verified 10/30/19 16:31 rifampin Allergy Cannot Verified 10/30/19 16:31 Remember codeine AdvReac Itching Verified 10/30/19 16:31 ibuprofen [From Nuprin] AdvReac Nausea and Verified 10/30/19 16:31 Vomiting oxycodone [From OxyContin] AdvReac Dizziness Verified 10/30/19 16:31 Home Meds: Home Meds Albuterol [Proair HFA] 1 puff INH Q6H PRN 01/18/18 [History] Denosumab [Prolia] 60 mg SUBCUT .6MONTHS 01/18/18 [History] FLUoxetine HCl [Fluoxetine HCl] 10 mg PO DAILY 01/18/18 [History] Ipratropium [place] 0.2 mg IH BID PRN 01/18/18 [History] Letrozole 2.5 mg PO DAILY 01/18/18 [History] Montelukast Sodium 10 mg PO BEDTIME 01/18/18 [History] Celecoxib 100 mg PO DAILY 12/12/18 [History] traZODone HCl [Trazodone HCl] 100 mg PO BEDTIME 30 Days #30 tablet 12/15/18 [Rx] Past Medical History HEENT History: Reports: Impaired Vision Cardiovascular History: Reports: Heart Failure Respiratory History: Reports: Asthma, COPD Gastrointestinal History: Reports: None Genitourinary History: Reports: Other (See Below) Other Genitourinary History: stress incontinence [employer]ING [employer]ER History: Reports: None Musculoskeletal History: Reports: None Neurological History: Reports: None Psychiatric History: Reports: Anxiety, Depression Endocrine/Metabolic History: Reports: Diabetes, Type II, Hyperthyroidism, Osteoporosis Hematologic History: Reports: None Immunologic History: Reports: None Oncologic (Cancer) History: Reports: Breast Dermatologic History: Reports: None - Infectious Disease History Infectious Disease History: Reports: None - Past Surgical History Head Surgeries/Procedures: Reports: None Female Surgical History: Reports: Hysterectomy, Mastectomy Musculoskeletal Surgical History: Reports: Hip Replacement, Other (See Below) Other Musculoskeletal Surgeries/Procedures:: right leg shorter then left Social & Family History - Family History Family Medical History: Noncontributory - Tobacco Use Smoking Status *Q: Current Every Day Smoker Years of Tobacco use: 50 Packs/Tins Daily: 0.5 Used Tobacco, but Quit: No - Caffeine Use Caffeine Use: Reports: Coffee, Soda - Recreational Drug Use Recreational Drug Use: No - Living Situation & Occupation Living situation: Reports: Alone Occupation: Retired ED ROS GENERAL - Review of Systems Review Of Systems: Comprehensive ROS is negative, except as noted in HPI. ED EXAM, GENERAL - Physical Exam Exam: See Below Exam Limited By: No Limitations General Appearance: Alert, WD/WN, No Apparent Distress Eye Exam: Bilateral Eye: EOMI, Normal Inspection, PERRL Ears: Normal External Exam, Normal Canal, Hearing Grossly Normal, Normal TMs Nose: Normal Inspection, Normal Mucosa, No Blood Throat/Mouth: Normal Inspection, Normal Lips, Normal Teeth, Normal Gums, Normal Oropharynx, Normal Voice, No Airway Compromise Head: Atraumatic, Normocephalic Neck: Normal Inspection Respiratory/Chest: Rhonchi (throughout) Cardiovascular: Normal Peripheral Pulses, Regular Rate, Rhythm, No Edema, No Gallop, No JVD, No Murmur, No Rub GI/Abdominal: Normal Bowel Sounds, Soft, Non-Tender, No Organomegaly, No Distention, No Abnormal Bruit, No Mass (Female) Exam: Deferred Rectal (Female) Exam: Deferred Back Exam: Normal Inspection, Full Range of Motion, NT Extremities: Normal Inspection, Normal Range of Motion, Non-Tender, Normal Capillary Refill, No Pedal Edema Neurological: Alert, Oriented, CN II-XII Intact, Normal Cognition, Normal Gait, Normal Reflexes, No Motor/Sensory Deficits Psychiatric: Normal Affect, Normal Mood Skin Exam: Warm, Dry, Intact, Normal Color, No Rash Lymphatic: No Adenopathy Course - Vital Signs Last Recorded V/S: Last Vital Signs Temp 36.5 C 10/30/19 16:04 Pulse 85 10/30/19 16:04 Resp 22 H 10/30/19 16:04 BP 143/86 H 10/30/19 16:04 Pulse Ox 97 10/30/19 16:04 - Orders/Labs/Meds Orders: Active Orders 24 hr Category Date Time Status Chest 2V [CR] Urgent Exams 10/30/19 16:15 Ordered COMPREHENSIVE METABOLIC PN,CMP [CHEM] Urgent Lab 10/30/19 16:14 Ordered CULTURE BLOOD [BC] Stat Lab 10/30/19 16:15 Ordered LACTIC ACID [CHEM] Stat Lab 10/30/19 16:15 Ordered Labs: Laboratory Tests 10/30/19 Range/Units 16:26 WBC 8.4 (5.0-10.0) 10^3/uL RBC 4.00 L (4.2-5.4) 10^6/uL Hgb 11.8 L (12.0-16.0) g/dL Hct 35.9 L (37.0-47.0) % MCV 89.8 D (80-100) fL MCH 29.5 (27.0-34.0) pg MCHC 32.9 L (33.0-35.0) g/dL Plt Count 319 (150-450) 10^3/uL Neut % (Auto) 69.9 (42.2-75.2) % Lymph % (Auto) 17.1 L (20.5-50.1) % [place] % (Auto) 11.1 H (2-8) % Eos % (Auto) 1.1 (1.0-3.0) % Baso % (Auto) 0.8 (0.0-1.0) % Departure - Departure Time of Disposition: 17:07 Disposition: Home, Self-Care 01 Condition: Fair Clinical Impression: COPD with exacerbation - Discharge Information *PRESCRIPTION DRUG MONITORING PROGRAM REVIEWED*: Not Applicable *COPY OF PRESCRIPTION DRUG MONITORING REPORT IN PATIENT JS: Not Applicable Instructions: Chronic Obstructive Pulmonary Disease Exacerbation, [id number] Forms: ED Department Discharge Care Plan Goals: The patient was advised of the examination, lab and x-ray results during the visit. The patient was given an IV dose of SoluMedrol and an oral dose of Augmentin (500/125) while in the ED. The patient was discharged with a script for Augmentin (500/125) #20 to be given 1 by mouth 2 times per day for 10 days and Prednisone (20 mg) #5 to take 1 by mouth daily for 5 days. If the patient has any additional symptoms or concerns, the patient should either return to the emergency department or visit her primary care facility. - My Orders Last 24 Hours: My Active Orders 10/30/19 16:14 COMPREHENSIVE METABOLIC PN,CMP [CHEM] Urgent 10/30/19 16:15 Chest 2V [CR] Urgent CULTURE BLOOD [BC] Stat LACTIC ACID [CHEM] Stat - Assessment/Plan Last 24 Hours: My Active Orders 10/30/19 16:14 COMPREHENSIVE METABOLIC PN,CMP [CHEM] Urgent 10/30/19 16:15 Chest 2V [CR] Urgent CULTURE BLOOD [BC] Stat LACTIC ACID [CHEM] Stat I have read and agree with the documentation that has been completed regarding this visit. By signing this record, I attest that the documentation was completed in my physical presence and is an accurate record of the encounter.
[2019-10-30] MEDS: Amoxicillin/Clavulanate K 500-125 MG Tab PO ONE (17:10)
[2019-10-30] MEDS: methylPREDNISolone Sodium Succinate 40 MG/1 ML SDV IVPUSH ONE (17:10)
[2019-10-30] MEDS ORDERED: Amoxicillin/Clavulanate K 500-125 MG Tab ONE (17:15)
== END 2019-10-30 17:23 | disposition home or self-care (01) ==
LOC: DL.ED 16:02
DX: J44.1 Chronic obstructive pulmonary disease with (acute) exacerbation (principal); I50.9 Heart failure, unspecified; E11.9 Type 2 diabetes mellitus without complications; F41.9 Anxiety disorder, unspecified; F32.9 Major depressive disorder, single episode, unspecified; F17.210 Nicotine dependence, cigarettes, uncomplicated; Z88.5 Allergy status to narcotic agent; Z79.899 Other long term (current) drug therapy; Z88.8 Allergy status to other drugs, medicaments and biological substances
CPT/HCPCS: 36415; 71046; 80053; 83605; 85025; 87040; 96374; 99284; J2920; 99283; A9270-GY

== ENCOUNTER 2020-02-14 13:37 | Inpatient (IN) | payer MEDICARE, MEDICAID, OTHER ==
--- NOTE | 2020-02-14 14:17 | EDM.PDOC ---
<LianalopezMarley - Last Filed: 02/14/20 16:38> ED HPI GENERAL MEDICAL PROBLEM - General Chief Complaint: General Stated Complaint: weakness, frequent falls Time Seen by Provider: 02/14/20 14:14 Source of Information: Reports: Patient History Limitations: Reports: Altered Mental Status - History of Present Illness INITIAL COMMENTS - FREE TEXT/NARRATIVE: Patient presents to the ED by EMS with concerns of weakness and increased falls. The patient reports falling on her butt recently and frequently. She denies striking her head. The patient reports pain in her thoracic/lumbar spine which she is unsure if is unchanged from prior to the falls. She otherwise denies pain. The patient admits to difficulty with her memory. The patient reports feeling weak. She states that she does eat very little due to decreased appetite, she reports significant weight loss recently. She reports a history of metastatic breast cancer. She states that she was recently found to have an additional breast lesion. She additionally states that she may have increased shortness of breath with any exertion, may have increased sputum production and cough. She is a current smoker with known COPD. Onset: Gradual Location: Reports: Back Quality: Reports: Sharp Severity: Moderate Improves with: Reports: None Worsens with: Reports: None Context: Reports: Other (history of falls reported) Middle Back Pain Score (Numeric/FACES): 6 - Related Data Allergies Allergy/AdvReac Type Severity Reaction Status Date / Time acetaminophen Allergy Itching Verified 10/30/19 16:31 rifampin Allergy Cannot Verified 10/30/19 16:31 Remember codeine AdvReac Itching Verified 02/14/20 13:44 ibuprofen [From Nuprin] AdvReac Nausea and Verified 10/30/19 16:31 Vomiting oxycodone [From OxyContin] AdvReac Dizziness Verified 10/30/19 16:31 Home Meds: Home Meds Albuterol [Proair HFA] 1 puff INH Q6H PRN 01/18/18 [History] Denosumab [Prolia] 60 mg SUBCUT .6MONTHS 01/18/18 [History] FLUoxetine HCl [Fluoxetine HCl] 10 mg PO DAILY 01/18/18 [History] Ipratropium [place] 0.2 mg IH BID PRN 01/18/18 [History] Letrozole 2.5 mg PO DAILY 01/18/18 [History] Montelukast Sodium 10 mg PO BEDTIME 01/18/18 [History] Celecoxib 100 mg PO DAILY 12/12/18 [History] traZODone HCl [Trazodone HCl] 100 mg PO BEDTIME 30 Days #30 tablet 12/15/18 [Rx] Cyanocobalamin (Vitamin B-12) [Vitamin B-12] 1,000 mcg PO 02/14/20 [History] Ipratropium [place] 02/14/20 [History] Levothyroxine 75 mcg PO ACBREAKFAST 02/14/20 [History] Lidocaine 5% [Lidoderm 5%] 1 patch TOP DAILY 02/14/20 [History] traMADol [Ultram] 50 mg PO PRN MDD 6 tabs 02/14/20 [History] Past Medical History HEENT History: Reports: Impaired Vision Cardiovascular History: Reports: Heart Failure Respiratory History: Reports: Asthma, COPD Gastrointestinal History: Reports: None Genitourinary History: Reports: Other (See Below) Other Genitourinary History: stress incontinence 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 Musculoskeletal History: Reports: Back Pain, Chronic Neurological History: Reports: None Psychiatric History: Reports: Anxiety, Depression Endocrine/Metabolic History: Reports: Diabetes, Type II, Hyperthyroidism, Osteoporosis Hematologic History: Reports: None Immunologic History: Reports: None Oncologic (Cancer) History: Reports: Breast Other Oncologic History: Patient found out 1 month ago has cancer in her Right breast, "towards middle" Dermatologic History: Reports: None - Infectious Disease History Infectious Disease History: Reports: None - Past Surgical History Head Surgeries/Procedures: Reports: None Female Surgical History: Reports: Hysterectomy, Mastectomy Musculoskeletal Surgical History: Reports: Hip Replacement, Other (See Below) Other Musculoskeletal Surgeries/Procedures:: right leg shorter then left Social & Family History - Family History Family Medical History: Noncontributory - Tobacco Use Smoking Status *Q: Current Every Day Smoker Years of Tobacco use: 30 Packs/Tins Daily: 0.5 Second Hand Smoke Exposure: No - Caffeine Use Caffeine Use: Reports: Coffee - Recreational Drug Use Recreational Drug Use: No - Living Situation & Occupation Living situation: Reports: Alone Occupation: Retired ED ROS GENERAL - Review of Systems Review Of Systems: See Below Constitutional: Reports: Weakness, Decreased Appetite, Weight Loss. Denies: Fever, Chills Respiratory: Reports: Shortness of Breath, Cough, Sputum. Denies: Wheezing Cardiovascular: Reports: Dyspnea on Exertion. Denies: Chest Pain GI/Abdominal: Denies: Abdominal Pain, Bloody Stool, Constipation, Diarrhea, Nausea, Vomiting : Denies: Dysuria, Flank Pain, Hematuria, Urinary Retention Musculoskeletal: Reports: Back Pain. Denies: Neck Pain, Shoulder Pain, Arm Pain , Hand Pain, Leg Pain, Foot Pain Neurological: Denies: Numbness, Tingling ED EXAM, GENERAL - Physical Exam Exam: See Below Exam Limited By: Altered Mental Status (underlying dementia? baseline unknown) General Appearance: Alert, No Apparent Distress Ears: Normal External Exam, Normal Canal, Hearing Grossly Normal, Normal TMs Nose: Normal Inspection, Normal Mucosa Throat/Mouth: Normal Inspection, Normal Lips, Normal Teeth, Normal Oropharynx Head: Atraumatic, Normocephalic Respiratory/Chest: No Respiratory Distress, Lungs Clear, Normal Breath Sounds Cardiovascular: Normal Peripheral Pulses, Regular Rate, Rhythm, No Edema, No Murmur GI/Abdominal: Soft, Non-Tender Back Exam: Paraspinal Tenderness (thoracic spinal area), Vertebral Tenderness ( thoracic spinal area). No: CVA Tenderness (L), CVA Tenderness (R) Extremities: Normal Range of Motion, Non-Tender, Normal Capillary Refill Neurological: Alert, No Motor/Sensory Deficits, Memory Loss Remote Events, Memory Loss Recent Events Psychiatric: Normal Affect, Normal Mood Skin Exam: Warm, Dry, Intact EKG INTERPRETATION EKG Date: 02/14/20 Time: 14:39 Rhythm: NSR Rate (Beats/Min): 78 [place]: Normal P-Wave: Present QRS: Normal ST-T: Normal QT: Normal Comparison: NA - No Prior EKG Course - Vital Signs Last Recorded V/S: Last Vital Signs Temp 98.9 F 02/14/20 15:05 Pulse 91 02/14/20 15:05 Resp 20 02/14/20 15:05 BP 104/81 02/14/20 15:05 Pulse Ox 97 02/14/20 15:05 - Orders/Labs/Meds Orders: Active Orders 24 hr Category Date Time Status Admission Diagnosis [ADT] Stat ADT 02/14/20 16:35 Ordered Admission Status [Patient Status] [ADT] Routine ADT 02/14/20 16:35 Active Cardiac Monitoring [RC] . DIRECTED Care 02/14/20 16:35 Active EKG 12 Lead [EKG Documentation Completion] [RC] STAT Care 02/14/20 14:29 Active Isolation [COMM] Routine Oth 02/14/20 14:43 Active Labs: Laboratory Tests 02/14/20 02/14/20 02/14/20 Range/Units 14:30 14:30 14:30 WBC 2.2 L (5.0-10.0) 10^3/uL RBC 3.49 L (4.2-5.4) 10^6/uL Hgb 10.6 L (12.0-16.0) g/dL Hct 31.5 L (37.0-47.0) % MCV 90.3 (80-100) fL MCH 30.4 (27.0-34.0) pg MCHC 33.7 (33.0-35.0) g/dL Plt Count 208 D (150-450) 10^3/uL Neut % (Auto) 75.4 H (42.2-75.2) % Lymph % (Auto) 17.2 L (20.5-50.1) % [place] % (Auto) 3.7 (2-8) % Eos % (Auto) 2.8 (1.0-3.0) % Baso % (Auto) 0.9 (0.0-1.0) % Sodium 138 (136-145) mmol/L Potassium 3.0 L (3.5-5.1) mmol/L Chloride 98 (98-107) mmol/L Carbon Dioxide 32 (21-32) mmol/L Anion Gap 11.0 (7-13) mEq/L BUN 18 (7-18) mg/dL Creatinine 0.89 (0.55-1.02) mg/dL Est Cr Clr Drug Dosing 41.57 mL/min Estimated GFR (MDRD) > 60 BUN/Creatinine Ratio 20.2 (No establ ref range) Glucose 109 H (74-99) mg/dL Calcium 8.6 (8.5-10.1) mg/dL Total Bilirubin 0.8 (0.2-1.0) mg/dL AST 11 L (15-37) U/L ALT 12 L (14-59) U/L Alkaline Phosphatase 90 (46-116) U/L Troponin I < 0.017 (0.000-0.056) ng/mL B-Natriuretic Peptide 33 (0-100) pg/ml Total Protein 7.0 (6.4-8.2) g/dL Albumin 3.0 L (3.4-5.0) g/dL Globulin 4.0 Albumin/Globulin Ratio 0.75 TSH, Ultra Sensitive 1.16 (0.36-3.74) uIU/mL Urine Color (YELLOW) Urine Appearance (CLEAR) Urine pH (5.0-9.0) Ur Specific [place] (1.005-1.030) Urine Protein (NEGATIVE) Urine Glucose (UA) (NEGATIVE) Urine Ketones (NEGATIVE) Urine Occult Blood (NEGATIVE) Urine Nitrite (NEGATIVE) Urine Bilirubin (NEGATIVE) Urine Urobilinogen (0.2-1.0) mg/dL Ur Leukocyte Esterase (NEGATIVE) Urine RBC /HPF Urine WBC (0-5/HPF) /HPF Ur Epithelial Cells (NOT SEEN) /HPF Amorphous Sediment (NOT SEEN) /HPF Urine Bacteria (0-FEW/HPF) /HPF Urine Mucus (NOT SEEN) /LPF 02/14/20 Range/Units 16:50 WBC (5.0-10.0) 10^3/uL RBC (4.2-5.4) 10^6/uL Hgb (12.0-16.0) g/dL Hct (37.0-47.0) % MCV (80-100) fL MCH (27.0-34.0) pg MCHC (33.0-35.0) g/dL Plt Count (150-450) 10^3/uL Neut % (Auto) (42.2-75.2) % Lymph % (Auto) (20.5-50.1) % [place] % (Auto) (2-8) % Eos % (Auto) (1.0-3.0) % Baso % (Auto) (0.0-1.0) % Sodium (136-145) mmol/L Potassium (3.5-5.1) mmol/L Chloride (98-107) mmol/L Carbon Dioxide (21-32) mmol/L Anion Gap (7-13) mEq/L BUN (7-18) mg/dL Creatinine (0.55-1.02) mg/dL Est Cr Clr Drug Dosing mL/min Estimated GFR (MDRD) BUN/Creatinine Ratio (No establ ref range) Glucose (74-99) mg/dL Calcium (8.5-10.1) mg/dL Total Bilirubin (0.2-1.0) mg/dL AST (15-37) U/L ALT (14-59) U/L Alkaline Phosphatase (46-116) U/L Troponin I (0.000-0.056) ng/mL B-Natriuretic Peptide (0-100) pg/ml Total Protein (6.4-8.2) g/dL Albumin (3.4-5.0) g/dL Globulin Albumin/Globulin Ratio TSH, Ultra Sensitive (0.36-3.74) uIU/mL Urine Color Dark yellow (YELLOW) Urine Appearance Cloudy (CLEAR) Urine pH 7.5 (5.0-9.0) Ur Specific [place] 1.020 (1.005-1.030) Urine Protein 30 H (NEGATIVE) Urine Glucose (UA) Negative (NEGATIVE) Urine Ketones Trace H (NEGATIVE) Urine Occult Blood Negative (NEGATIVE) Urine Nitrite Positive H (NEGATIVE) Urine Bilirubin Negative (NEGATIVE) Urine Urobilinogen 2.0 H (0.2-1.0) mg/dL Ur Leukocyte Esterase Trace H (NEGATIVE) Urine RBC Not seen /HPF Urine WBC 0-5 (0-5/HPF) /HPF Ur Epithelial Cells Few (NOT SEEN) /HPF Amorphous Sediment Many H (NOT SEEN) /HPF Urine Bacteria Few (0-FEW/HPF) /HPF Urine Mucus Rare (NOT SEEN) /LPF Meds: Medications Discontinued Medications Generic Name Dose Route Start Last Admin Trade Name Freq PRN Reason Stop Dose Admin Potassium Chloride 20 meq 02/14/20 15:46 02/14/20 16:43 Klor-Con 10 PO 02/14/20 15:47 20 meq ONETIME ONE Administration - Radiology Interpretation Free Text/Narrative:: Chest XR reveals reactive airway disease. No new cardiopulmonary findings. CT cervical spine reveals multilevel cervical disc disease. No acute cervical fracture or dislocation. CT thoracic spine reveals no acute fracture CT pelvis reveals no acute pelvic fracture or hip dislocation CT head reveals chronic multi infarct ischemic disease. No new signs of skull fracture, tumor, hydrocephalus, or intracranial bleed. - Re-Assessments/Exams Free Text/Narrative Re-Assessment/Exam: 02/14/20 15:37 Rapid influenza A and B negative Departure - Departure Time of Disposition: 16:38 Disposition: Admitted As Inpatient 68 Condition: Fair Clinical Impression: Failure to thrive in adult, Generalized weakness, COPD exacerbation, Hypokalemia, Anemia of chronic disease, Fall Leukopenia Qualifiers: Leukopenia type: unspecified Qualified Code(s): D72.819 - Decreased white blood cell count, unspecified - Discharge Information *PRESCRIPTION DRUG MONITORING PROGRAM REVIEWED*: Not Applicable *COPY OF PRESCRIPTION DRUG MONITORING REPORT IN PATIENT JS: Not Applicable Forms: ED Department Discharge Sepsis Event Note - Evaluation Sepsis Screening Result: No Definite Risk - Focused Exam Vital Signs: Vital Signs Temp Temp Pulse Resp BP Pulse Ox 02/14/20 15:05 98.9 F 91 20 104/81 97 02/14/20 13:44 98.5 F 79 18 118/55 L 93 L 02/14/20 13:38 99.0 F Date Exam was Performed: 02/14/20 Time Exam was Performed: 16:38 - My Orders Last 24 Hours: My Active Orders 02/14/20 16:35 Admission Diagnosis [ADT] Stat Admission Status [Patient Status] [ADT] Routine Cardiac Monitoring [RC] . DIRECTED - Assessment/Plan Last 24 Hours: My Active Orders 02/14/20 16:35 Admission Diagnosis [ADT] Stat Admission Status [Patient Status] [ADT] Routine Cardiac Monitoring [RC] . DIRECTED <Brooklyn Catalan - Last Filed: 02/14/20 17:27> Course - Re-Assessments/Exams Free Text/Narrative Re-Assessment/Exam: Up at bedside with assist, Weak. O@ desaturation to 88% with minimal exertion during tx to BSC. I have examined the patient. I have discussed findings and treatment plan with the PA Student. I agree with the assessment and plan in the PA student's note 02/14/20 17:26 Sepsis Event Note - Focused Exam Date Exam was Performed: 02/14/20 Time Exam was Performed: 17:25
[2020-02-14 14:59] LABS: CHLORIDE,CL 98 mmol/L (98-107); SODIUM,NA 138 mmol/L (136-145)
--- NOTE | 2020-02-14 15:01 | CR ---
EXAMINATION: Chest 1V Frontal SEX: Female AGE: 74 years CLINICAL HISTORY: 74-year-old female in the emergency department experiencing shortness of breath (cough). INTERPRETATION: (Comparison PA film one October 2019) 1. Left mastectomy. Surgical yoav clustered high in the left axilla. 2. Old healed fracture deformity posterior lateral left eighth rib. Mild dorsolumbar scoliosis. 3. Chronic mild bronchitic pattern and air trapping. Smoker? 4. No new lung mass, hilar lymphadenopathy, focal lobar infiltrate or atelectasis/collapse. 5. Normal cardiac silhouette without pulmonary vascular congestion. No alveolar edema or dependent effusion. 6. No pneumothorax or pneumomediastinum. CONCLUSION: Reactive airway disease. Left mastectomy. No new evidence of lobar pneumonia or heart failure since comparison exam October 2019.
--- NOTE | 2020-02-14 15:32 | CT ---
EXAMINATION: Cervical Spine wo Cont SEX: Female AGE: 74 years CLINICAL HISTORY: 74-year-old female female history of MULTIPLE FALLS over the past month, AT HOME. R/O fractures. Scan technique: Volume acquisition of data emergency unenhanced CT scan of the cervical spine obtained with patient lying supine on the Siemens multi slice scanner [place], [place]. All data archived in the PACS system for storage, reformatting axial/sagittal/coronal planes and study (bone/soft tissue windows). Interpretation: 1. Dense reactive atlantoaxial sclerosis. 2. Generalized osteopenia consistent with age/gender. Normal height and alignment of the 7 cervical/first 3 thoracic vertebra. 3. Signs of chronic multilevel disc degeneration i.e. interspace narrowing endplate sclerosis and hypertrophic marginal/uncinate spur formation C3-4 C4-5 and C5-6 levels. 4. No prevertebral soft tissue swelling. No sign of cervical fracture, spondylolisthesis or jump locked facet. 5. No basal skull fractures. Conclusion: Multilevel cervical disc disease. No acute cervical fracture or dislocation.
[2020-02-14] MEDS ORDERED: Potassium Chloride 10 MEQ Tab.ER PO ONE (15:46)
--- NOTE | 2020-02-14 15:53 | CT ---
EXAMINATION: Head wo Cont SEX: Female AGE: 74 years CLINICAL HISTORY: 72-year-old female experiencing MULTIPLE FALLS at home. Pain. Scan technique: Volume acquisition of data emergency unenhanced CT scan of the head and brain obtained with the patient lying supine on the Siemens multislice scanner [place], [place]. All data archived in the PACS system for storage, reformatting axial/sagittal/coronal planes and study (bone/soft tissue windows). Positional artifact. Comparison exam 12 December 2018. Interpretation: Multiple areas of decreased attenuation in the periventricular white matter of the cerebral hemispheres, bilaterally. Generalized atrophy pattern symmetric with underlying mirror-image normal ventricular system. No new evidence supratentorial or posterior fossa mass lesion. No hydrocephalus. No sign of acute intracerebral/intraventricular/subarachnoid bleed. Uniformly thick bony calvarium. No sign of skull fracture, underlying brain contusion or epidural/subdural hematoma. Symmetric clear pneumatization of the paranasal and mastoid sinuses. CONCLUSION: Chronic multi infarct ischemic disease. No new signs of skull fracture, tumor, hydrocephalus or intracranial bleed.
--- NOTE | 2020-02-14 15:57 | CT ---
EXAMINATION: Pelvis wo Cont SEX: Female AGE: 74 years CLINICAL HISTORY: 74-year-old female with pelvic pain (multiple falls). Scan technique: Volume acquisition of data emergency unenhanced CT scan pelvis and proximal femurs obtained with patient lying supine on the Siemens multislice scanner [place], [place]. All data archived in the PACS system for storage, reformatting axial/sagittal/coronal planes and study. Interpretation: 1. Long intramedullary delia proximal right femur and associated evidence of focal right hip replacement. 2. Common iliac artery graft of the left. 3. Generalized osteopenia. No sign of acute pelvic or left hip fracture/dislocation. 4. No pathologic skeletal lesion. 5. Symmetric spacing normal-appearing SI joints. Chronic degenerative disc disease lower lumbar spine (L5-S1). CONCLUSION: No acute pelvic fracture or hip dislocation.
--- NOTE | 2020-02-14 16:02 | CT ---
EXAMINATION: Thoracic Spine wo Cont SEX: Female AGE: 74 years CLINICAL HISTORY: 74-year-old female complaining of back pain (history of fall). Scan technique: Volume acquisition of data emergency unenhanced CT scan of the thoracic spine obtained with patient lying supine on the Siemens multi slice scanner [place], [place]. All data archived in the PACS system for storage, reformatting and study. Interpretation: Negative exam for age. No fractures. 1. Generalized osteopenia consistent with age and gender. 2. Hypertrophic marginal spondylosis present all levels i.e. arthritis. 3. No pathologic skeletal lesion or abnormal paraspinal soft tissue mass/hematoma. 4. No fracture or dislocation thoracic spine. 5. Calcifications outlining normal caliber aorta i.e. no sign of thoracic aortic aneurysm or dissection. 6. Posterior ribs are unremarkable. Note: Abnormality suggesting bronchiectasis and posterior segment right lower lobe atelectasis/infiltrate (axial slice #117).
--- NOTE | 2020-02-14 16:05 | CT ---
EXAMINATION: Lumbar Spine wo Cont SEX: Female AGE: 74 years CLINICAL HISTORY: 74-year-old female with history of fall and back pain. Scan technique: Volume acquisition of data emergency unenhanced CT scan of the lumbar spine obtained with the patient lying supine on the Siemens multislice scanner [place], [place]. All data archived in the PACS system for storage, reformatting axial/sagittal/coronal planes and study. Interpretation: 1. Posterior segment, pleural-based infiltrate, atelectasis or infarct right lower lobe (axial scan slice #8). 2. Signs of chronic multilevel upper and lower lumbar disc disease i.e. interspace narrowing with endplate sclerosis and hypertrophic marginal spondylosis L1-2, L2-3 and L5-S1 levels. 3. Generalized osteopenia consistent with age and gender. 4. No sign of pathologic skeletal lesion, lumbar fracture or spondylolisthesis. 5. Symmetric spacing normal-appearing SI joints. Total right hip prosthesis. CONCLUSION: No acute fracture or dislocation of the lumbar spine. Chronic multilevel lumbar disc disease and arthritis.
[2020-02-14] MEDS ORDERED: Docusate Sodium 100 MG Cap PO PRN (17:41)
[2020-02-14] MEDS ORDERED: Lactated Ringers 1,000 ML IV SCH (17:45)
--- NOTE | 2020-02-14 18:19 | HP ---
CHIEF COMPLAINT: Weakness and frequent falls. HISTORY OF PRESENT ILLNESS: The patient is a 74-year-old female with medical history significant for chronic low back pain, depression, history of multiple fractures from falls, asthma with COPD, type 2 diabetes mellitus, recurrent breast cancer, hypothyroidism, dyslipidemia, and gastroesophageal reflux, was admitted through the emergency room because the patient was brought in by emergency medical service with concerns of weakness and increased falls. The patient reports falling over but recently and frequently and she denies striking her head, but the patient complained of pain in her thoracic and lumbar spine, which the patient is really unsure if it is unchanged from prior falls. The patient admits she has difficulty with memory and also feeling weak, and a little bit short of breath, and the patient also mentioned that her appetite has been poor most of the time. She reports she has metastatic breast cancer and recently they found an additional breast lesion. She also mentioned that lately she has been having some increased production of cough and phlegm, and the patient admits of continues smoking with cigarettes. Because of this, she was admitted for further evaluation and management. PAST MEDICAL HISTORY: As in HPI. FAMILY HISTORY: Noncontributory. SOCIAL HISTORY: Patient lives by herself. Continues to smoke cigarettes. No alcohol abuse or illicit drug use. REVIEW OF SYSTEMS: As in HPI. The rest of the review of systems is negative. ALLERGIES: Tylenol, rifampin, codeine, ibuprofen, and oxycodone. HOME MEDICATION: 1. Lidocaine. 2. Levothyroxine. 3. Tramadol. 4. Singulair. 5. Atrovent. 6. B12. 7. Albuterol. 8. Trazodone. 9. Letrozole. 10.Fluoxetine. 11.Prolia. 12.Celebrex. PHYSICAL EXAMINATION: General: The patient is alert but forgetful, but not in any acute distress. Vital Signs: Blood pressure is 104/81, pulse of 91, respirations 20, temperature of 98.9, and saturation is 97%. SHEENT: No signs of trauma. There are pink palpebral conjunctivae. Sclerae anicteric. No JVD. No lymphadenopathy. No C-spine tenderness. Heart: Regular rate and rhythm. Normal S1 and S2. No gallops. No rubs. Lungs: Have diminished breath sounds on both bases, but no significant crackles. No wheezing. Back: Examination of the back is remarkable for some point thoracic spine tenderness and lumbar tenderness. Abdomen: Soft. Nontender. Bowel sounds positive. Extremities: Negative for any gross deformities. No significant pedal edema. No calf tenderness. Neurologic: Negative for any lateralizing signs. LABORATORY DATA: Workup of CBC: WBC is 2.2, hemoglobin is 10.6, hematocrit is 31.5, platelet is 208. Comp panel: Potassium is 3, glucose is 109, AST is 11, ALT is 12, albumin is 3. The rest of the panel unremarkable. Troponin is less than 0.017 and BNP is 33 which is within normal limits. A chest x-ray showed reactive airway disease, but no acute cardiopulmonary findings. CT of the cervical spine showed multiple cervical disk disease, but no fracture or dislocations. CT of the thoracic spine is negative for any fractures. CT of the pelvis negative for any acute fracture or dislocations. CT of the head showed multi-infarct ischemic disease. No signs of scalp fracture, tumour, hydrocephalus, or intracranial bleed. ADMITTING DIAGNOSES: 1. Failure to thrive. 2. Recurrent falls. 3. Hypokalemia. 4. Chronic obstructive pulmonary disease. 5. Metastatic breast cancer. 6. Hypothyroidism. TREATMENT PLAN: The patient is going to be admitted to General Medicine floor. We will consult PT and OT for the recurrent falls. We will manage her back pain and she will be on DVT prophylaxis and she will be on Habitrol for her tobacco habituation, and we will continue with the rest of her home medication and we will consult [facility] [employer] [facility] for discharge planning as patient may need to have placement upon discharge. The patient is DNI/DNR from previous admission. [facility] /[id number]
[2020-02-14] MEDS: Nicotine 21 MG/24 Hr Patch TRDERM SCH (18:32)
[2020-02-14] MEDS: Potassium Chloride 10 MEQ Tab.ER PO SCH (18:48)
[2020-02-14] MEDS: Sodium Chloride 0.9% 1,000 ML IV SCH (18:48)
[2020-02-14] MEDS: methylPREDNISolone Sodium Succinate 40 MG/1 ML SDV IVPUSH SCH (18:52)
[2020-02-14] MEDS: cefTRIAXone 1 GM in Sodium Chloride 0.9% 50 ML IV SCH (18:53)
[2020-02-14] MEDS: Azithromycin 500 MG in Sodium Chloride 0.9% 250 ML IV SCH (19:55)
[2020-02-14] MEDS: REMOVE LIDODERM TRDERM SCH (21:02)
[2020-02-14] MEDS: Montelukast 10 MG Tab PO SCH (21:02)
[2020-02-14] MEDS: Albuterol/Ipratropium 3.0-0.5 MG/3 ML Neb Soln NEB SCH (23:31)
[2020-02-15] MEDS: Levothyroxine 75 MCG Tab PO SCH (06:01)
[2020-02-15] MEDS: methylPREDNISolone Sodium Succinate 40 MG/1 ML SDV IVPUSH SCH ×2 (06:01→17:49)
[2020-02-15] MEDS: Albuterol/Ipratropium 3.0-0.5 MG/3 ML Neb Soln NEB SCH ×3 (08:04→22:45)
[2020-02-15] MEDS: Cyanocobalamin (Vitamin B12) 1,000 MCG Tab PO SCH (09:01)
[2020-02-15] MEDS: Potassium Chloride 10 MEQ Tab.ER PO SCH ×2 (09:01→17:37)
[2020-02-15] MEDS: Enoxaparin 40 MG/0.4 ML Syringe SUBCUT SCH (09:02)
[2020-02-15] MEDS: Lidocaine 5% 700 MG Patch TOP SCH (09:07)
[2020-02-15] MEDS: Remove Patch NICOTINE PATCH TRDERM SCH (09:22)
[2020-02-15] MEDS: Nicotine 21 MG/24 Hr Patch TRDERM SCH (09:22)
[2020-02-15] MEDS: Sodium Chloride 0.9% 1,000 ML IV SCH (09:48)
--- NOTE | 2020-02-15 10:36 | PCM.PN ---
- General Info Date of Service: 02/15/20 Subjective Update: 74-year-old with a history of chronic back pain, depression, COPD, diabetes, recurring breast cancer. The patient presented with reports of falling multiple times, back pain. She was noted to have confusion, poor sanitary conditions at home. She was complaining of cough with phlegm production. This morning she is feeling better, stronger. Less confused. No associated fever or chills. Functional Status: Reports: Pain Controlled, Other (Poor appetite) - Review of Systems General: Reports: Weakness. Denies: Fever Pulmonary: Reports: Cough. Denies: Shortness of Breath Cardiovascular: Denies: Chest Pain, Edema Neurological: Reports: Confusion (Earlier confusion noted by her primary care physician Dr. Montes) - Patient Data Vitals - Most Recent: Last Vital Signs Temp 97.5 F 02/15/20 08:00 Pulse 73 02/15/20 08:00 Resp 20 02/15/20 08:00 BP 121/56 L 02/15/20 08:00 Pulse Ox 99 02/15/20 08:00 Weight - Most Recent: 81 lb 6.4 oz I&O - Last 24 Hours: Intake & Output 02/14/20 02/15/20 02/15/20 22:59 06:59 14:59 Intake Total 650 Output Total 400 Balance 250 Lab Results Last 24 Hours: Laboratory Results - last 24 hr 02/14/20 02/14/20 02/14/20 Range/Units 14:30 14:30 14:30 WBC 2.2 L (5.0-10.0) 10^3/uL RBC 3.49 L (4.2-5.4) 10^6/uL Hgb 10.6 L (12.0-16.0) g/dL Hct 31.5 L (37.0-47.0) % MCV 90.3 (80-100) fL MCH 30.4 (27.0-34.0) pg MCHC 33.7 (33.0-35.0) g/dL Plt Count 208 D (150-450) 10^3/uL Neut % (Auto) 75.4 H (42.2-75.2) % Lymph % (Auto) 17.2 L (20.5-50.1) % [place] % (Auto) 3.7 (2-8) % Eos % (Auto) 2.8 (1.0-3.0) % Baso % (Auto) 0.9 (0.0-1.0) % Sodium 138 (136-145) mmol/L Potassium 3.0 L (3.5-5.1) mmol/L Chloride 98 (98-107) mmol/L Carbon Dioxide 32 (21-32) mmol/L Anion Gap 11.0 (7-13) mEq/L BUN 18 (7-18) mg/dL Creatinine 0.89 (0.55-1.02) mg/dL Est Cr Clr Drug Dosing 41.57 mL/min Estimated GFR (MDRD) > 60 BUN/Creatinine Ratio 20.2 (No establ ref range) Glucose 109 H (74-99) mg/dL POC Glucose (83-110) mg/dl Calcium 8.6 (8.5-10.1) mg/dL Total Bilirubin 0.8 (0.2-1.0) mg/dL AST 11 L (15-37) U/L ALT 12 L (14-59) U/L Alkaline Phosphatase 90 (46-116) U/L Troponin I < 0.017 (0.000-0.056) ng/mL B-Natriuretic Peptide 33 (0-100) pg/ml Total Protein 7.0 (6.4-8.2) g/dL Albumin 3.0 L (3.4-5.0) g/dL Globulin 4.0 Albumin/Globulin Ratio 0.75 TSH, Ultra Sensitive 1.16 (0.36-3.74) uIU/mL Urine Color (YELLOW) Urine Appearance (CLEAR) Urine pH (5.0-9.0) Ur Specific [place] (1.005-1.030) Urine Protein (NEGATIVE) Urine Glucose (UA) (NEGATIVE) Urine Ketones (NEGATIVE) Urine Occult Blood (NEGATIVE) Urine Nitrite (NEGATIVE) Urine Bilirubin (NEGATIVE) Urine Urobilinogen (0.2-1.0) mg/dL Ur Leukocyte Esterase (NEGATIVE) Urine RBC /HPF Urine WBC (0-5/HPF) /HPF Ur Epithelial Cells (NOT SEEN) /HPF Amorphous Sediment (NOT SEEN) /HPF Urine Bacteria (0-FEW/HPF) /HPF Urine Mucus (NOT SEEN) /LPF 02/14/20 02/15/20 Range/Units 16:50 08:03 WBC (5.0-10.0) 10^3/uL RBC (4.2-5.4) 10^6/uL Hgb (12.0-16.0) g/dL Hct (37.0-47.0) % MCV (80-100) fL MCH (27.0-34.0) pg MCHC (33.0-35.0) g/dL Plt Count (150-450) 10^3/uL Neut % (Auto) (42.2-75.2) % Lymph % (Auto) (20.5-50.1) % [place] % (Auto) (2-8) % Eos % (Auto) (1.0-3.0) % Baso % (Auto) (0.0-1.0) % Sodium (136-145) mmol/L Potassium (3.5-5.1) mmol/L Chloride (98-107) mmol/L Carbon Dioxide (21-32) mmol/L Anion Gap (7-13) mEq/L BUN (7-18) mg/dL Creatinine (0.55-1.02) mg/dL Est Cr Clr Drug Dosing mL/min Estimated GFR (MDRD) BUN/Creatinine Ratio (No establ ref range) Glucose (74-99) mg/dL POC Glucose 269 H (83-110) mg/dl Calcium (8.5-10.1) mg/dL Total Bilirubin (0.2-1.0) mg/dL AST (15-37) U/L ALT (14-59) U/L Alkaline Phosphatase (46-116) U/L Troponin I (0.000-0.056) ng/mL B-Natriuretic Peptide (0-100) pg/ml Total Protein (6.4-8.2) g/dL Albumin (3.4-5.0) g/dL Globulin Albumin/Globulin Ratio TSH, Ultra Sensitive (0.36-3.74) uIU/mL Urine Color Dark yellow (YELLOW) Urine Appearance Cloudy (CLEAR) Urine pH 7.5 (5.0-9.0) Ur Specific [place] 1.020 (1.005-1.030) Urine Protein 30 H (NEGATIVE) Urine Glucose (UA) Negative (NEGATIVE) Urine Ketones Trace H (NEGATIVE) Urine Occult Blood Negative (NEGATIVE) Urine Nitrite Positive H (NEGATIVE) Urine Bilirubin Negative (NEGATIVE) Urine Urobilinogen 2.0 H (0.2-1.0) mg/dL Ur Leukocyte Esterase Trace H (NEGATIVE) Urine RBC Not seen /HPF Urine WBC 0-5 (0-5/HPF) /HPF Ur Epithelial Cells Few (NOT SEEN) /HPF Amorphous Sediment Many H (NOT SEEN) /HPF Urine Bacteria Few (0-FEW/HPF) /HPF Urine Mucus Rare (NOT SEEN) /LPF [place] Results Last 24 Hours: Microbiology 02/14/20 14:50 Influenza Type A Antigen Screen - Final Nasal, Unspecified NEGATIVE INFLUENZA A VIRUS AG REFERENCE RANGE: NEGATIVE Influenza Type B Antigen Screen - Final NEGATIVE INFLUENZA B VIRUS AG REFERENCE RANGE: NEGATIVE Med Orders - Current: Current Medications Albuterol/Ipratropium (Duoneb 3.0-0.5 Mg/3 Ml) 3 ml NEB Q8HRRT [facility] Last Admin: 02/15/20 08:04 Dose: 3 ml Cyanocobalamin (Vitamin B12) 1,000 mcg PO DAILY [facility] Last Admin: 02/15/20 09:01 Dose: 1,000 mcg Docusate Sodium (Colace) 100 mg PO BID PRN PRN Reason: Constipation Enoxaparin Sodium (Lovenox) 40 mg SUBCUT DAILY [facility] Last Admin: 02/15/20 09:02 Dose: 40 mg Azithromycin 500 mg/ Sodium (Chloride) 250 mls @ 250 mls/hr IV Q24H [facility] Last Admin: 02/14/20 19:55 Dose: 250 mls/hr Ceftriaxone Sodium 1 gm/ (Sodium Chloride) 50 mls @ 100 mls/hr IV Q24H [facility] Last Admin: 02/14/20 18:53 Dose: 100 mls/hr Sodium Chloride (Normal Saline) 1,000 mls @ 75 mls/hr IV ASDIRECTED [facility] Last Admin: 02/15/20 09:48 Dose: 75 mls/hr Insulin Human Lispro (Humalog) 0 unit SUBCUT ACBED [facility]; Protocol Levothyroxine Sodium (Levothyroxine) 75 mcg PO ACBREAKFAST [facility] Last Admin: 02/15/20 06:01 Dose: 75 mcg Lidocaine (Lidoderm 5%) 700 mg TOP DAILY [facility] Last Admin: 02/15/20 09:07 Dose: 700 mg Methylprednisolone Sodium Succinate (Solu-Medrol) 40 mg IVPUSH Q12H [facility] Last Admin: 02/15/20 06:01 Dose: 40 mg Miscellaneous Information (Remove Patch) 1 ea TRDERM BEDTIME [facility] Last Admin: 02/14/20 21:02 Dose: Not Given Miscellaneous Information (Remove Patch) 1 ea TRDERM DAILY [facility] Last Admin: 02/15/20 09:22 Dose: Not Given Montelukast Sodium (Singulair) 10 mg PO BEDTIME [facility] Last Admin: 02/14/20 21:02 Dose: 10 mg Nicotine (Habitrol) 21 mg TRDERM DAILY [facility] Last Admin: 02/15/20 09:22 Dose: Not Given Potassium Chloride (Klor-Con 10) 10 meq PO BIDMEALS [facility] Last Admin: 02/15/20 09:01 Dose: 10 meq Tramadol HCl (Ultram) 100 mg PO TID PRN PRN Reason: Pain (mild 1-3) Discontinued Medications Lactated Ringer's (Ringers, Lactated) 1,000 mls @ 75 mls/hr IV ASDIRECTED [facility] Potassium Chloride (Klor-Con 10) 20 meq PO ONETIME ONE Stop: 02/14/20 15:47 Last Admin: 02/14/20 16:43 Dose: 20 meq - Exam General: Alert, Oriented, Other (Actinic) Neck: Supple Lungs: Clear to Auscultation, Normal Respiratory Effort Cardiovascular: Regular Rate, Regular Rhythm Extremities: No Pedal Edema Skin: Warm, Dry Neurological: No New Focal Deficit Psy/Mental Status: Alert, Normal Affect, Normal Mood Sepsis Event Note - Evaluation Sepsis Screening Result: No Definite Risk - Focused Exam Vital Signs: Vital Signs Temp Pulse Resp BP Pulse Ox Pulse Ox 02/15/20 08:00 97.5 F 73 20 121/56 L 99 02/15/20 07:00 66 100 02/15/20 04:00 98.8 F 76 20 134/67 97 Date Exam was Performed: 02/15/20 Time Exam was Performed: 10:44 - Problem List & Annotations (1) Anorexia SNOMED Code(s): 12059954 Code(s): R63.0 - ANOREXIA Status: Acute Current Visit: No (2) COPD (chronic obstructive pulmonary disease) SNOMED Code(s): 44900948 Code(s): J44.9 - CHRONIC OBSTRUCTIVE PULMONARY DISEASE, UNSPECIFIED Status : Acute Current Visit: No (3) Failure to thrive in adult SNOMED Code(s): 938015088 Code(s): R62.7 - ADULT FAILURE TO THRIVE Status: Acute Current Visit: No (4) Fall at home SNOMED Code(s): 87615245 Code(s): W19.XXXA - UNSPECIFIED FALL, INITIAL ENCOUNTER; Y92.009 - UNSP PLACE IN UNSP NON-INSTITUT (PRIVATE) RESIDENCE PLACE Status: Acute Current Visit: No Qualifiers: Encounter type: initial encounter Qualified Code(s): W19.XXXA - Unspecified fall, initial encounter; Y92.009 - Unspecified place in unspecified non-institutional (private) residence as the place of occurrence of the external cause (5) Tobacco use disorder SNOMED Code(s): 448170152 Code(s): F17.200 - NICOTINE DEPENDENCE, UNSPECIFIED, UNCOMPLICATED Status: Acute Current Visit: No - Problem List Review Problem List Initiated/Reviewed/Updated: Yes - My Orders Last 24 Hours: My Active Orders 02/15/20 10:29 Supplement (Dietary) [Dietary Supplements] [RC] BIDAC 02/15/20 10:31 Glucose [Blood Glucose Check, Bedside] [RC] QIDACANDBED 02/15/20 11:00 Insulin Lispro [HumaLOG] See Protocol SUBCUT ACBED 02/16/20 05:15 BASIC METABOLIC PANEL,BMP [CHEM] AM CBC WITH AUTO DIFF [HEME] AM - Plan Plan:: 74-year-old lady who presented with the generalized weakness, episodes of falling, confusion. No apparent fracture noted on CT head, T-spine, LS-spine Continue pain control Try to minimize narcotics given concerns of confusion Physical and occupational therapy evaluation and treatment Concern for failure to thrive, dementia, episodes of confusion, unsanitary home condition Discussed with social work, primary care doctor Dr. Montes We'll follow with PT and OT evaluation Consider assisted living level of care History of COPD acute exacerbation present on admission Treat with DuoNeb Treat with systemic steroids On admission there was concern for acute bronchitis No apparent pneumonia on chest x-ray UA borderline for possible urinary tract infection For now treated with azithromycin and Rocephin We'll give nutritional supplements Diabetes Follow blood sugars Use supplemental insulin as needed Hypokalemia Was replaced Recheck today and supplement further as needed Follow in the morning DVT prophylaxis With Lovenox Discussed with Dr. Montes
[2020-02-15] MEDS: Insulin Lispro 100 Units/ML 3 ML Vial SUBCUT SCH ×3 (12:11→20:54)
[2020-02-15] MEDS: traMADol 50 MG Tab PO PRN (17:37)
[2020-02-15] MEDS: Calcium Carbonate 500 MG Tab.Chew PO PRN (17:39)
[2020-02-15] MEDS: cefTRIAXone 1 GM in Sodium Chloride 0.9% 50 ML IV SCH (17:40)
[2020-02-15] MEDS: Azithromycin 500 MG in Sodium Chloride 0.9% 250 ML IV SCH (18:18)
[2020-02-15] MEDS: Montelukast 10 MG Tab PO SCH (20:55)
[2020-02-15] MEDS: REMOVE LIDODERM TRDERM SCH (20:56)
[2020-02-16] MEDS: Levothyroxine 75 MCG Tab PO SCH (05:32)
[2020-02-16] MEDS: methylPREDNISolone Sodium Succinate 40 MG/1 ML SDV IVPUSH SCH ×2 (05:32→17:19)
[2020-02-16 07:35] LABS: ANION GAP 13.1 mEq/L (7-13); CHLORIDE,CL 107 mmol/L (98-107); SODIUM,NA 142 mmol/L (136-145)
[2020-02-16] MEDS: Albuterol/Ipratropium 3.0-0.5 MG/3 ML Neb Soln NEB SCH ×3 (07:52→23:52)
[2020-02-16] MEDS: Insulin Lispro 100 Units/ML 3 ML Vial SUBCUT SCH ×4 (08:02→20:49)
[2020-02-16] MEDS: Cyanocobalamin (Vitamin B12) 1,000 MCG Tab PO SCH (08:54)
[2020-02-16] MEDS: Enoxaparin 40 MG/0.4 ML Syringe SUBCUT SCH (08:55)
[2020-02-16] MEDS: Lidocaine 5% 700 MG Patch TOP SCH (08:55)
[2020-02-16] MEDS: Potassium Chloride 10 MEQ Tab.ER PO SCH ×2 (08:55→17:19)
[2020-02-16] MEDS: Remove Patch NICOTINE PATCH TRDERM SCH (08:56)
[2020-02-16] MEDS: Nicotine 21 MG/24 Hr Patch TRDERM SCH (08:56)
--- NOTE | 2020-02-16 09:34 | PCM.PN ---
- General Info Date of Service: 02/16/20 Subjective Update: 74-year-old with a history of chronic back pain, depression, COPD, diabetes, recurring breast cancer. The patient presented with reports of falling multiple times, back pain. She was noted to have confusion, poor sanitary conditions at home. She was complaining of cough with phlegm production. Today she is feeling better, not confused. No associated fever or chills. has been up with pt/ot requires significant assistance sob is mild, improved, better with nebs Functional Status: Reports: Pain Controlled, Tolerating Diet, Ambulating (with help) - Review of Systems General: Reports: Weakness. Denies: Fever Pulmonary: Reports: Shortness of Breath Cardiovascular: Denies: Chest Pain Gastrointestinal: Denies: Abdominal Pain Genitourinary: Denies: Dysuria - Patient Data Vitals - Most Recent: Last Vital Signs Temp 98.1 F 02/16/20 08:00 Pulse 65 02/16/20 08:00 Resp 20 02/16/20 08:00 BP 137/56 L 02/16/20 08:00 Pulse Ox 98 02/16/20 08:00 Weight - Most Recent: 88 lb 11.2 oz I&O - Last 24 Hours: Intake & Output 02/15/20 02/16/20 02/16/20 22:59 06:59 14:59 Intake Total 490 300 300 Output Total 200 300 Balance 290 300 0 Lab Results Last 24 Hours: Laboratory Results - last 24 hr 02/15/20 02/15/20 02/15/20 Range/Units 11:20 11:37 16:42 WBC (5.0-10.0) 10^3/uL RBC (4.2-5.4) 10^6/uL Hgb (12.0-16.0) g/dL Hct (37.0-47.0) % MCV (80-100) fL MCH (27.0-34.0) pg MCHC (33.0-35.0) g/dL Plt Count (150-450) 10^3/uL Neut % (Auto) (42.2-75.2) % Lymph % (Auto) (20.5-50.1) % Kimball % (Auto) (2-8) % Eos % (Auto) (1.0-3.0) % Baso % (Auto) (0.0-1.0) % Add Manual Diff Neutrophils % (Manual) (42-75) % Band Neutrophils % % Lymphocytes % (Manual) (20-50) % Monocytes % (Manual) (2-8) % Sodium 141 (136-145) mmol/L Potassium 4.0 (3.5-5.1) mmol/L Chloride 102 (98-107) mmol/L Carbon Dioxide 31 (21-32) mmol/L Anion Gap 12.0 (7-13) mEq/L BUN 18 (7-18) mg/dL Creatinine 1.09 H (0.55-1.02) mg/dL Est Cr Clr Drug Dosing 27.19 mL/min Estimated GFR (MDRD) 49 Glucose 163 H (74-99) mg/dL POC Glucose 214 H 192 H (83-110) mg/dl Calcium 8.4 L (8.5-10.1) mg/dL 02/15/20 02/16/20 02/16/20 Range/Units 20:47 06:16 06:16 WBC 2.6 L (5.0-10.0) 10^3/uL RBC 2.90 L (4.2-5.4) 10^6/uL Hgb 8.9 L D (12.0-16.0) g/dL Hct 26.6 L (37.0-47.0) % MCV 91.7 (80-100) fL MCH 30.7 (27.0-34.0) pg MCHC 33.5 (33.0-35.0) g/dL Plt Count 205 (150-450) 10^3/uL Neut % (Auto) 87.5 H (42.2-75.2) % Lymph % (Auto) 9.5 L (20.5-50.1) % Kimball % (Auto) 3.0 (2-8) % Eos % (Auto) 0.0 L (1.0-3.0) % Baso % (Auto) 0.0 (0.0-1.0) % Add Manual Diff Yes Neutrophils % (Manual) 81 H (42-75) % Band Neutrophils % 5 % Lymphocytes % (Manual) 11 L (20-50) % Monocytes % (Manual) 3 (2-8) % Sodium 142 (136-145) mmol/L Potassium 4.1 (3.5-5.1) mmol/L Chloride 107 (98-107) mmol/L Carbon Dioxide 26 (21-32) mmol/L Anion Gap 13.1 H (7-13) mEq/L BUN 16 (7-18) mg/dL Creatinine 0.69 (0.55-1.02) mg/dL Est Cr Clr Drug Dosing 46.81 mL/min Estimated GFR (MDRD) > 60 Glucose 147 H (74-99) mg/dL POC Glucose 153 H (83-110) mg/dl Calcium 7.9 L (8.5-10.1) mg/dL 02/16/20 Range/Units 07:46 WBC (5.0-10.0) 10^3/uL RBC (4.2-5.4) 10^6/uL Hgb (12.0-16.0) g/dL Hct (37.0-47.0) % MCV (80-100) fL MCH (27.0-34.0) pg MCHC (33.0-35.0) g/dL Plt Count (150-450) 10^3/uL Neut % (Auto) (42.2-75.2) % Lymph % (Auto) (20.5-50.1) % Kimball % (Auto) (2-8) % Eos % (Auto) (1.0-3.0) % Baso % (Auto) (0.0-1.0) % Add Manual Diff Neutrophils % (Manual) (42-75) % Band Neutrophils % % Lymphocytes % (Manual) (20-50) % Monocytes % (Manual) (2-8) % Sodium (136-145) mmol/L Potassium (3.5-5.1) mmol/L Chloride (98-107) mmol/L Carbon Dioxide (21-32) mmol/L Anion Gap (7-13) mEq/L BUN (7-18) mg/dL Creatinine (0.55-1.02) mg/dL Est Cr Clr Drug Dosing mL/min Estimated GFR (MDRD) Glucose (74-99) mg/dL POC Glucose 137 H (83-110) mg/dl Calcium (8.5-10.1) mg/dL Med Orders - Current: Current Medications Albuterol/Ipratropium (Duoneb 3.0-0.5 Mg/3 Ml) 3 ml NEB Q8HRRT [facility] Last Admin: 02/16/20 07:52 Dose: 3 ml Calcium Carbonate/Glycine (Tums) 500 mg PO Q6H PRN PRN Reason: Indigestion Last Admin: 02/15/20 17:39 Dose: 500 mg Cyanocobalamin (Vitamin B12) 1,000 mcg PO DAILY [facility] Last Admin: 02/16/20 08:54 Dose: 1,000 mcg Docusate Sodium (Colace) 100 mg PO BID PRN PRN Reason: Constipation Enoxaparin Sodium (Lovenox) 40 mg SUBCUT DAILY [facility] Last Admin: 02/16/20 08:55 Dose: 40 mg Azithromycin 500 mg/ Sodium (Chloride) 250 mls @ 250 mls/hr IV Q24H [facility] Last Admin: 02/15/20 18:18 Dose: 250 mls/hr Ceftriaxone Sodium 1 gm/ (Sodium Chloride) 50 mls @ 100 mls/hr IV Q24H [facility] Last Infusion: 02/15/20 18:20 Dose: Infused Insulin Human Lispro (Humalog) 0 unit SUBCUT ACBED [facility]; Protocol Last Admin: 02/16/20 08:02 Dose: Not Given Levothyroxine Sodium (Levothyroxine) 75 mcg PO ACBREAKFAST [facility] Last Admin: 02/16/20 05:32 Dose: 75 mcg Lidocaine (Lidoderm 5%) 700 mg TOP DAILY [facility] Last Admin: 02/16/20 08:55 Dose: 700 mg Methylprednisolone Sodium Succinate (Solu-Medrol) 40 mg IVPUSH Q12H [facility] Last Admin: 02/16/20 05:32 Dose: 40 mg Miscellaneous Information (Remove Patch) 1 ea TRDERM BEDTIME [facility] Last Admin: 02/15/20 20:56 Dose: Not Given Miscellaneous Information (Remove Patch) 1 ea TRDERM DAILY [facility] Last Admin: 02/16/20 08:56 Dose: Not Given Montelukast Sodium (Singulair) 10 mg PO BEDTIME [facility] Last Admin: 02/15/20 20:55 Dose: 10 mg Nicotine (Habitrol) 21 mg TRDERM DAILY [facility] Last Admin: 02/16/20 08:56 Dose: Not Given Potassium Chloride (Klor-Con 10) 10 meq PO BIDMEALS [facility] Last Admin: 02/16/20 08:55 Dose: 10 meq Tramadol HCl (Ultram) 100 mg PO TID PRN PRN Reason: Pain (mild 1-3) Last Admin: 02/15/20 17:37 Dose: 100 mg Discontinued Medications Lactated Ringer's (Ringers, Lactated) 1,000 mls @ 75 mls/hr IV ASDIRECTED NATE Sodium Chloride (Normal Saline) 1,000 mls @ 75 mls/hr IV ASDIRECTED NATE Last Admin: 02/15/20 09:48 Dose: 75 mls/hr Potassium Chloride (Klor-Con 10) 20 meq PO ONETIME ONE Stop: 02/14/20 15:47 Last Admin: 02/14/20 16:43 Dose: 20 meq - Exam General: Alert, Oriented Neck: Supple Lungs: Clear to Auscultation, Normal Respiratory Effort, Decreased Breath Sounds Cardiovascular: Regular Rate, Regular Rhythm GI/Abdominal Exam: Normal Bowel Sounds, Soft, Non-Tender Extremities: No Pedal Edema Sepsis Event Note - Evaluation Sepsis Screening Result: No Definite Risk - Focused Exam Vital Signs: Vital Signs Temp Pulse Resp BP Pulse Ox 02/16/20 08:00 98.1 F 65 20 137/56 L 98 02/16/20 07:53 94 Date Exam was Performed: 02/16/20 Time Exam was Performed: 09:29 - Problem List & Annotations (1) Anorexia SNOMED Code(s): 56794285 Code(s): R63.0 - ANOREXIA Status: Acute Current Visit: No (2) COPD (chronic obstructive pulmonary disease) SNOMED Code(s): 07679501 Code(s): J44.9 - CHRONIC OBSTRUCTIVE PULMONARY DISEASE, UNSPECIFIED Status : Acute Current Visit: No (3) Failure to thrive in adult SNOMED Code(s): 422780895 Code(s): R62.7 - ADULT FAILURE TO THRIVE Status: Acute Current Visit: No (4) Fall at home SNOMED Code(s): 63785915 Code(s): W19.XXXA - UNSPECIFIED FALL, INITIAL ENCOUNTER; Y92.009 - UNSP PLACE IN UNSP NON-INSTITUT (PRIVATE) RESIDENCE PLACE Status: Acute Current Visit: No Qualifiers: Encounter type: initial encounter Qualified Code(s): W19.XXXA - Unspecified fall, initial encounter; Y92.009 - Unspecified place in unspecified non-institutional (private) residence as the place of occurrence of the external cause (5) Tobacco use disorder SNOMED Code(s): 992204445 Code(s): F17.200 - NICOTINE DEPENDENCE, UNSPECIFIED, UNCOMPLICATED Status: Acute Current Visit: No - Problem List Review Problem List Initiated/Reviewed/Updated: Yes - My Orders Last 24 Hours: My Active Orders 02/15/20 10:29 Supplement (Dietary) [Dietary Supplements] [RC] BIDAC 02/15/20 11:00 Insulin Lispro [HumaLOG] See Protocol SUBCUT ACBED 02/15/20 17:14 Calcium Carbonate [Tums] 500 mg PO Q6H PRN 02/16/20 09:29 CULTURE URINE [RM] Routine - Plan Plan:: 74-year-old lady who presented with the generalized weakness, episodes of falling, confusion. No apparent fracture noted on CT head, T-spine, LS-spine Continue pain control Try to minimize narcotics given concerns of confusion Physical and occupational therapy evaluation and treatment discussed with pt/ot - recommend custodial care - pt is agreeable History of COPD acute exacerbation present on admission improved Treat with DuoNeb Treat with systemic steroids On admission there was concern for acute bronchitis No apparent pneumonia on chest x-ray UA borderline for possible urinary tract infection urine culture: pending For now treated with azithromycin and Rocephin We'll give nutritional supplements Diabetes Follow blood sugars Use supplemental insulin as needed Hypokalemia Was replaced DVT prophylaxis With Lovenox
[2020-02-16] MEDS: Calcium Carbonate 500 MG Tab.Chew PO PRN (14:00)
[2020-02-16] MEDS: cefTRIAXone 1 GM in Sodium Chloride 0.9% 50 ML IV SCH (17:53)
[2020-02-16] MEDS: Azithromycin 500 MG in Sodium Chloride 0.9% 250 ML IV SCH (18:26)
[2020-02-16] MEDS: REMOVE LIDODERM TRDERM SCH (20:50)
[2020-02-16] MEDS: Montelukast 10 MG Tab PO SCH (20:50)
[2020-02-17] MEDS: Levothyroxine 75 MCG Tab PO SCH (05:17)
[2020-02-17] MEDS: methylPREDNISolone Sodium Succinate 40 MG/1 ML SDV IVPUSH SCH (05:17)
[2020-02-17] MEDS: Albuterol/Ipratropium 3.0-0.5 MG/3 ML Neb Soln NEB SCH ×3 (07:33→23:20)
[2020-02-17] MEDS: Insulin Lispro 100 Units/ML 3 ML Vial SUBCUT SCH ×4 (08:24→21:09)
[2020-02-17] MEDS: Potassium Chloride 10 MEQ Tab.ER PO SCH ×2 (08:54→18:15)
[2020-02-17] MEDS: traMADol 50 MG Tab PO PRN ×2 (08:54→20:28)
[2020-02-17] MEDS: Nicotine 21 MG/24 Hr Patch TRDERM SCH (08:54)
[2020-02-17] MEDS: Cyanocobalamin (Vitamin B12) 1,000 MCG Tab PO SCH (08:54)
[2020-02-17] MEDS: Enoxaparin 40 MG/0.4 ML Syringe SUBCUT SCH (08:56)
[2020-02-17] MEDS: Lidocaine 5% 700 MG Patch TOP SCH (08:58)
[2020-02-17] MEDS: Calcium Carbonate 500 MG Tab.Chew PO PRN (10:44)
[2020-02-17] MEDS: Remove Patch NICOTINE PATCH TRDERM SCH (10:45)
--- NOTE | 2020-02-17 12:06 | PCM.PN ---
- General Info Date of Service: 02/17/20 Subjective Update: 74-year-old with a history of chronic back pain, depression, COPD, diabetes, recurring breast cancer. The patient presented with reports of falling multiple times, back pain. She was noted to have confusion, poor sanitary conditions at home. She was complaining of cough with phlegm production. Today she is feeling better, noted episodic confusion (mixing up the use of remote vs phone) has been up with pt/ot requires significant assistance sob is mild, improved, better with nebs No associated fever or chills. - Review of Systems General: Reports: Weakness. Denies: Fever Pulmonary: Reports: Cough. Denies: Shortness of Breath Cardiovascular: Denies: Chest Pain Gastrointestinal: Denies: Abdominal Pain Neurological: Reports: Confusion - Patient Data Vitals - Most Recent: Last Vital Signs Temp 99.5 F 02/17/20 08:00 Pulse 75 02/17/20 08:00 Resp 20 02/17/20 08:00 BP 155/61 H 02/17/20 08:00 Pulse Ox 96 02/17/20 08:00 Weight - Most Recent: 83 lb 8 oz I&O - Last 24 Hours: Intake & Output 02/16/20 02/17/20 02/17/20 22:59 06:59 14:59 Intake Total 410 450 Output Total 300 Balance 110 450 Lab Results Last 24 Hours: Laboratory Results - last 24 hr 02/16/20 02/16/20 02/17/20 Range/Units 16:41 20:39 07:59 POC Glucose 242 H 192 H 129 H (83-110) mg/dl 02/17/20 Range/Units 11:47 POC Glucose 245 H (83-110) mg/dl Med Orders - Current: Current Medications Albuterol/Ipratropium (Duoneb 3.0-0.5 Mg/3 Ml) 3 ml NEB Q8HRRT [facility] [place] Last Admin: 02/17/20 07:33 Dose: 3 ml Calcium Carbonate/Glycine (Tums) 500 mg PO Q6H PRN PRN Reason: Indigestion Last Admin: 02/17/20 10:44 Dose: 500 mg Cyanocobalamin (Vitamin B12) 1,000 mcg PO DAILY [facility] Last Admin: 02/17/20 08:54 Dose: 1,000 mcg Docusate Sodium (Colace) 100 mg PO BID PRN PRN Reason: Constipation Enoxaparin Sodium (Lovenox) 40 mg SUBCUT DAILY [facility] [place] Last Admin: 02/17/20 08:56 Dose: 40 mg Azithromycin 500 mg/ Sodium (Chloride) 250 mls @ 250 mls/hr IV Q24H [facility] [place] Last Infusion: 02/16/20 20:02 Dose: Infused Ceftriaxone Sodium 1 gm/ (Sodium Chloride) 50 mls @ 100 mls/hr IV Q24H [facility] [place] Last Infusion: 02/16/20 18:25 Dose: Infused Insulin Human Lispro (Humalog) 0 unit SUBCUT ACBED [facility] [place]; Protocol Last Admin: 02/17/20 08:24 Dose: Not Given Levothyroxine Sodium (Levothyroxine) 75 mcg PO ACBREAKFAST [facility] [place] Last Admin: 02/17/20 05:17 Dose: 75 mcg Lidocaine (Lidoderm 5%) 700 mg TOP DAILY [facility] [place] Last Admin: 02/17/20 08:58 Dose: 700 mg Lisinopril (Prinivil) 10 mg PO DAILY [facility] [place] Miscellaneous Information (Remove Patch) 1 ea TRDERM BEDTIME [facility] [place] Last Admin: 02/16/20 20:50 Dose: 1 ea Miscellaneous Information (Remove Patch) 1 ea TRDERM DAILY [facility] [place] Last Admin: 02/17/20 10:45 Dose: 1 ea Montelukast Sodium (Singulair) 10 mg PO BEDTIME [facility] [place] Last Admin: 02/16/20 20:50 Dose: 10 mg Nicotine (Habitrol) 21 mg TRDERM DAILY [facility] [place] Last Admin: 02/17/20 08:54 Dose: Not Given Potassium Chloride (Klor-Con 10) 10 meq PO BIDMEALS [facility] [place] Last Admin: 02/17/20 08:54 Dose: 10 meq Tramadol HCl (Ultram) 100 mg PO TID PRN PRN Reason: Pain (mild 1-3) Last Admin: 02/17/20 08:54 Dose: 100 mg Discontinued Medications Lactated Ringer's (Ringers, Lactated) 1,000 mls @ 75 mls/hr IV ASDIRECTED [facility] [place] Sodium Chloride (Normal Saline) 1,000 mls @ 75 mls/hr IV ASDIRECTED [facility] [place] Last Admin: 02/15/20 09:48 Dose: 75 mls/hr Methylprednisolone Sodium Succinate (Solu-Medrol) 40 mg IVPUSH Q12H [facility] [place] Last Admin: 02/17/20 05:17 Dose: 40 mg Potassium Chloride (Klor-Con 10) 20 meq PO ONETIME ONE Stop: 02/14/20 15:47 Last Admin: 02/14/20 16:43 Dose: 20 meq - Exam General: Alert, Oriented Neck: Supple Lungs: Normal Respiratory Effort, Decreased Breath Sounds Cardiovascular: Regular Rate, Regular Rhythm GI/Abdominal Exam: Normal Bowel Sounds, Soft, Non-Tender Extremities: No Pedal Edema Sepsis Event Note - Evaluation Sepsis Screening Result: Sepsis Risk - Focused Exam Vital Signs: Vital Signs Temp Pulse Resp BP BP Pulse Ox Pulse Ox 02/17/20 08:00 99.5 F 75 20 155/61 H 96 02/17/20 07:00 77 98 02/17/20 04:00 99.7 F 89 18 154/57 H 100 Date Exam was Performed: 02/17/20 Time Exam was Performed: 12:04 - Problem List & Annotations (1) Anorexia SNOMED Code(s): 63155892 Code(s): R63.0 - ANOREXIA Status: Acute Current Visit: No (2) COPD (chronic obstructive pulmonary disease) SNOMED Code(s): 56842983 Code(s): J44.9 - CHRONIC OBSTRUCTIVE PULMONARY DISEASE, UNSPECIFIED Status : Acute Current Visit: No (3) Failure to thrive in adult SNOMED Code(s): 681418213 Code(s): R62.7 - ADULT FAILURE TO THRIVE Status: Acute Current Visit: No (4) Fall at home SNOMED Code(s): 31668005 Code(s): W19.XXXA - UNSPECIFIED FALL, INITIAL ENCOUNTER; Y92.009 - UNSP PL[address] IN UNSP NON-INSTITUT (PRIVATE) RESIDENCE PLACE Status: Acute Current Visit: No Qualifiers: Encounter type: initial encounter Qualified Code(s): W19.XXXA - Unspecified fall, initial encounter; Y92.009 - Unspecified place in unspecified non-institutional (private) residence as the place of occurrence of the external cause (5) Tobacco use disorder SNOMED Code(s): 818090654 Code(s): F17.200 - NICOTINE DEPENDENCE, UNSPECIFIED, UNCOMPLICATED Status: Acute Current Visit: No - Problem List Review Problem List Initiated/Reviewed/Updated: Yes - My Orders Last 24 Hours: My Active Orders 02/16/20 15:10 CULTURE URINE [RM] Routine 02/17/20 12:15 lisinopriL [Prinivil] 10 mg PO DAILY - Plan Plan:: 74-year-old lady who presented with the generalized weakness, episodes of falling, confusion. No apparent fracture noted on CT head, T-spine, LS-spine Continue pain control Try to minimize narcotics given concerns of confusion Physical and occupational therapy evaluation and treatment discussed with pt/ot - recommend nursing home care - pt is agreeable History of COPD acute exacerbation present on admission improved Treat with DuoNeb stop systemic steroids On admission there was concern for acute bronchitis No apparent pneumonia on chest x-ray UA borderline for possible urinary tract infection urine culture: pending For now treated with azithromycin and Rocephin We'll give nutritional supplements Diabetes Follow blood sugars Use supplemental insulin as needed Hypokalemia Was replaced htn add lisinopril follow periodically DVT prophylaxis With Lovenox
[2020-02-17] MEDS: Lisinopril 10 MG Tab PO SCH (13:15)
[2020-02-17] MEDS: Pantoprazole 40 MG Tab.CR PO SCH (14:51)
[2020-02-17] MEDS: cefTRIAXone 1 GM in Sodium Chloride 0.9% 50 ML IV SCH (17:40)
[2020-02-17] MEDS: Azithromycin 500 MG in Sodium Chloride 0.9% 250 ML IV SCH (18:17)
[2020-02-17] MEDS: Montelukast 10 MG Tab PO SCH (20:28)
[2020-02-17] MEDS: REMOVE LIDODERM TRDERM SCH (20:30)
[2020-02-18] MEDS: Levothyroxine 75 MCG Tab PO SCH (05:45)
[2020-02-18] MEDS: Pantoprazole 40 MG Tab.CR PO SCH (05:45)
[2020-02-18] MEDS: Lisinopril 10 MG Tab PO SCH (08:25)
[2020-02-18] MEDS: Enoxaparin 40 MG/0.4 ML Syringe SUBCUT SCH (08:25)
[2020-02-18] MEDS: Cyanocobalamin (Vitamin B12) 1,000 MCG Tab PO SCH (08:25)
[2020-02-18] MEDS: Lidocaine 5% 700 MG Patch TOP SCH (08:25)
[2020-02-18] MEDS: Potassium Chloride 10 MEQ Tab.ER PO SCH ×2 (08:25→17:44)
[2020-02-18] MEDS: Nicotine 21 MG/24 Hr Patch TRDERM SCH (08:26)
[2020-02-18] MEDS: Insulin Lispro 100 Units/ML 3 ML Vial SUBCUT SCH ×4 (08:26→21:46)
[2020-02-18] MEDS: Remove Patch NICOTINE PATCH TRDERM SCH (08:27)
[2020-02-18] MEDS: Albuterol/Ipratropium 3.0-0.5 MG/3 ML Neb Soln NEB SCH ×3 (09:10→22:08)
--- NOTE | 2020-02-18 10:37 | PCM.PN ---
- General Info Date of Service: 02/18/20 Admission Dx/Problem (Free Text): Admitted with : generalized weakness and Fall Subjective Update: Pt was seen in room during morning rounds, she has severe sore throat and has difficulty with swallowing , she denied fever, chill, nausea or Vomiting but feels very weak Functional Status: Reports: Pain Controlled, Tolerating Diet, Ambulating (with assistance), Urinating - Review of Systems General: Reports: Weakness, Appetite (acceptable but has difficulty with swallowing). Denies: Fever, Chills HEENT: Reports: Sore Throat. Denies: Headaches, Sinus Congestion, Visual Changes Pulmonary: Denies: Shortness of Breath, Cough, Sputum, Wheezing Cardiovascular: Denies: Chest Pain, Palpitations, Edema, Lightheadedness Gastrointestinal: Reports: Difficulty Swallowing. Denies: Abdominal Pain, Nausea, Vomiting Genitourinary: Denies: Dysuria, Burning, Flank Pain Musculoskeletal: Denies: Neck Pain, Shoulder Pain, Foot Pain, Joint Swelling Skin: Denies: Cyanosis, Jaundice, Bruising, Pruritis, Rash Neurological: Denies: Confusion, Headache, Tremors - Patient Data Vitals - Most Recent: Last Vital Signs Temp 37.1 C 02/18/20 08:00 Pulse 78 02/18/20 08:00 Resp 22 H 02/18/20 08:00 BP 122/55 L 02/18/20 08:25 Pulse Ox 96 02/18/20 08:00 Weight - Most Recent: 37.058 kg I&O - Last 24 Hours: Intake & Output 02/17/20 02/18/20 02/18/20 22:59 06:59 14:59 Intake Total 490 120 Balance 490 120 Lab Results Last 24 Hours: Laboratory Results - last 24 hr 02/17/20 02/17/20 02/17/20 Range/Units 11:47 16:45 20:59 POC Glucose 245 H 134 H 193 H (83-110) mg/dl Med Orders - Current: Current Medications Albuterol/Ipratropium (Duoneb 3.0-0.5 Mg/3 Ml) 3 ml NEB Q8HRRT [facility] Last Admin: 02/18/20 09:10 Dose: 3 ml Calcium Carbonate/Glycine (Tums) 500 mg PO Q6H PRN PRN Reason: Indigestion Last Admin: 02/17/20 10:44 Dose: 500 mg Cyanocobalamin (Vitamin B12) 1,000 mcg PO DAILY [facility] Last Admin: 02/18/20 08:25 Dose: 1,000 mcg Docusate Sodium (Colace) 100 mg PO BID PRN PRN Reason: Constipation Enoxaparin Sodium (Lovenox) 40 mg SUBCUT DAILY [facility] Last Admin: 02/18/20 08:25 Dose: 40 mg Azithromycin 500 mg/ Sodium (Chloride) 250 mls @ 250 mls/hr IV Q24H [facility] Last Infusion: 02/18/20 05:46 Dose: Infused Ceftriaxone Sodium 1 gm/ (Sodium Chloride) 50 mls @ 100 mls/hr IV Q24H [facility] Last Infusion: 02/17/20 18:14 Dose: Infused Insulin Human Lispro (Humalog) 0 unit SUBCUT ACBED [facility]; Protocol Last Admin: 02/18/20 08:26 Dose: Not Given Levothyroxine Sodium (Levothyroxine) 75 mcg PO ACBREAKFAST [facility] Last Admin: 02/18/20 05:45 Dose: 75 mcg Lidocaine (Lidoderm 5%) 700 mg TOP DAILY [facility] Last Admin: 02/18/20 08:25 Dose: 700 mg Lisinopril (Prinivil) 10 mg PO DAILY [facility] Last Admin: 02/18/20 08:25 Dose: 10 mg Miscellaneous Information (Remove Patch) 1 ea TRDERM BEDTIME [facility] Last Admin: 02/17/20 20:30 Dose: 1 ea Miscellaneous Information (Remove Patch) 1 ea TRDERM DAILY [facility] Last Admin: 02/18/20 08:27 Dose: Not Given Montelukast Sodium (Singulair) 10 mg PO BEDTIME [facility] Last Admin: 02/17/20 20:28 Dose: 10 mg Nicotine (Habitrol) 21 mg TRDERM DAILY [facility] Last Admin: 02/18/20 08:26 Dose: Not Given Nystatin (Mycostatin) 5 ml PO QID [facility] Pantoprazole Sodium (Protonix) 40 mg PO ACBREAKFAST [facility] Last Admin: 02/18/20 05:45 Dose: 40 mg Potassium Chloride (Klor-Con 10) 10 meq PO BIDMEALS [facility] Last Admin: 02/18/20 08:25 Dose: 10 meq Tramadol HCl (Ultram) 100 mg PO TID PRN PRN Reason: Pain (mild 1-3) Last Admin: 02/17/20 20:28 Dose: 100 mg Discontinued Medications Lactated Ringer's (Ringers, Lactated) 1,000 mls @ 75 mls/hr IV ASDIRECTED [facility] Sodium Chloride (Normal Saline) 1,000 mls @ 75 mls/hr IV ASDIRECTED [facility] Last Admin: 02/15/20 09:48 Dose: 75 mls/hr Methylprednisolone Sodium Succinate (Solu-Medrol) 40 mg IVPUSH Q12H [facility] Last Admin: 02/17/20 05:17 Dose: 40 mg Potassium Chloride (Klor-Con 10) 20 meq PO ONETIME ONE Stop: 02/14/20 15:47 Last Admin: 02/14/20 16:43 Dose: 20 meq - Exam Quality Assessment: DVT Prophylaxis. No: Supplemental Oxygen, Urine Catheter General: Alert, Oriented, Cooperative, No Acute Distress HEENT: Pupils Equal, Mucous Membr. Moist/[place], Other (thrush on the back of throat). No: Scleral Icterus Neck: Supple. No: No JVD, No Thyromegaly Lungs: Clear to Auscultation, Normal Respiratory Effort. No: Wheezing Cardiovascular: Regular Rate, Regular Rhythm, Murmurs GI/Abdominal Exam: Normal Bowel Sounds, Soft, Non-Tender. No: Guarding, Rigid, Rebound, Tender (Female) Exam: Deferred Back Exam: Normal Inspection Extremities: Normal Inspection, No Pedal Edema Skin: Warm, Dry, Intact Neurological: No New Focal Deficit Psy/Mental Status: Alert, Normal Affect, Normal Mood Sepsis Event Note - Evaluation Sepsis Screening Result: No Definite Risk - Focused Exam Vital Signs: Vital Signs Temp Pulse Resp BP BP Pulse Ox Pulse Ox 02/18/20 08:25 122/55 L 02/18/20 08:00 37.1 C 78 22 H 122/55 L 96 02/18/20 07:00 79 98 02/18/20 04:20 36.6 C 110 H 20 148/70 H 95 Date Exam was Performed: 02/18/20 Time Exam was Performed: 10:31 - Problem List Review Problem List Initiated/Reviewed/Updated: Yes - My Orders Last 24 Hours: My Active Orders 02/18/20 13:00 Nystatin [Mycostatin] 5 ml PO QID - Plan Plan:: 74-year-old lady who presented with the generalized weakness, episodes of falling, confusion. No apparent fracture noted on CT head, T-spine, LS-spine Continue pain control Try to minimize narcotics given concerns of confusion Physical and occupational therapy evaluation and treatment discussed with pt/ot - recommend penitentiary care - pt is agreeable Impression and Plan: 1. History of COPD: acute exacerbation was present on admission - Has improved significantly - Will continue DuoNeb - She is off stop systemic steroids 2. Possible for acute bronchitis - No apparent pneumonia on chest x-ray -She is on abx now ( Aziothromycin and Ceftriaxone) -Inflenza A and B both negative 3. Possible UTI: UA borderline for possible urinary tract infection urine culture: pending ( showing no growth so far) -Getting treated with Ceftriaxone 4. Diabetes Follow blood sugars Use supplemental insulin as needed 5. Hypokalemia: potassium is acceptable and getting replacement as needed 6. Hypertension: Bp is acceptable and she is on lisinopril at 10 mg daily 7. Oral Thrush: This is likely from use of systemic steroid and also Duoneb -Will start Nystatin swish and swallow 4 times a day 8. Weakness: Physical and occupational therapy evaluated the pt and treatment in progress - pt/ot - recommend penitentiary care - pt is agreeable and getting evaluated DVT prophylaxis With Lovenox
[2020-02-18] MEDS: Nystatin Susp 100,000 Unit/ML 5 ML UD Cup PO SCH ×3 (13:32→20:42)
[2020-02-18] MEDS: cefTRIAXone 1 GM in Sodium Chloride 0.9% 50 ML IV SCH (17:46)
[2020-02-18] MEDS: Azithromycin 500 MG in Sodium Chloride 0.9% 250 ML IV SCH (18:20)
[2020-02-18] MEDS: REMOVE LIDODERM TRDERM SCH (20:41)
[2020-02-18] MEDS: Montelukast 10 MG Tab PO SCH (20:42)
[2020-02-19] MEDS: Levothyroxine 75 MCG Tab PO SCH (05:41)
[2020-02-19] MEDS: Pantoprazole 40 MG Tab.CR PO SCH (05:41)
[2020-02-19] MEDS: Albuterol/Ipratropium 3.0-0.5 MG/3 ML Neb Soln NEB SCH ×3 (07:59→23:28)
[2020-02-19] MEDS: traMADol 50 MG Tab PO PRN (08:49)
[2020-02-19] MEDS: Lisinopril 10 MG Tab PO SCH (08:51)
[2020-02-19] MEDS: Potassium Chloride 10 MEQ Tab.ER PO SCH ×2 (08:51→17:55)
[2020-02-19] MEDS: Cyanocobalamin (Vitamin B12) 1,000 MCG Tab PO SCH (08:51)
[2020-02-19] MEDS: Nystatin Susp 100,000 Unit/ML 5 ML UD Cup PO SCH ×4 (08:52→20:52)
[2020-02-19] MEDS: Enoxaparin 40 MG/0.4 ML Syringe SUBCUT SCH (08:52)
[2020-02-19] MEDS: Lidocaine 5% 700 MG Patch TOP SCH (08:53)
[2020-02-19] MEDS: Nicotine 21 MG/24 Hr Patch TRDERM SCH (08:59)
--- NOTE | 2020-02-19 11:53 | PCM.PN ---
- General Info Date of Service: 02/19/20 Admission Dx/Problem (Free Text): Admitted with : generalized weakness and Fall Subjective Update: Pt was seen in room during morning rounds, she had severe sore throat and has difficulty with swallowing but much better today, she denied fever, chill, nausea or Vomiting but feels very weak Functional Status: Reports: Pain Controlled, Tolerating Diet, Ambulating, Urinating - Review of Systems General: Reports: Weakness, Appetite (good). Denies: Fever, Chills HEENT: Reports: Sore Throat (but it is much better today). Denies: Ear Pain, Sinus Congestion Pulmonary: Denies: Shortness of Breath, Cough, Sputum, Wheezing Cardiovascular: Denies: Chest Pain, Dyspnea on Exertion, Lightheadedness Gastrointestinal: Denies: Abdominal Pain, Constipation, Diarrhea Genitourinary: Denies: Dysuria, Frequency, Burning, Urgency Musculoskeletal: Denies: Neck Pain, Shoulder Pain, Joint Pain Skin: Denies: Cyanosis, Jaundice, Bruising, Pruritis, Rash Neurological: Denies: Confusion, Numbness, Tremors - Patient Data Vitals - Most Recent: Last Vital Signs Temp 37.5 C 02/19/20 08:00 Pulse 86 02/19/20 08:00 Resp 16 02/19/20 08:00 BP 137/56 L 02/19/20 08:51 Pulse Ox 97 02/19/20 08:00 Weight - Most Recent: 37.285 kg I&O - Last 24 Hours: Intake & Output 02/18/20 02/19/20 02/19/20 22:59 06:59 14:59 Intake Total 610 Balance 610 Lab Results Last 24 Hours: Laboratory Results - last 24 hr 02/18/20 02/18/20 02/18/20 Range/Units 08:00 12:02 14:55 POC Glucose 68 L 65 L 107 (83-110) mg/dl 02/18/20 02/18/20 Range/Units 16:59 21:07 POC Glucose 112 H 90 (83-110) mg/dl [facility] Results Last 24 Hours: Microbiology 02/16/20 15:10 Urine Culture - Final Urine, Clean Catch Enterococcus Species Yeast Isolated Med Orders - Current: Current Medications Albuterol/Ipratropium (Duoneb 3.0-0.5 Mg/3 Ml) 3 ml NEB Q8HRRT [facility] Last Admin: 02/19/20 07:59 Dose: 3 ml Calcium Carbonate/Glycine (Tums) 500 mg PO Q6H PRN PRN Reason: Indigestion Last Admin: 02/17/20 10:44 Dose: 500 mg Cyanocobalamin (Vitamin B12) 1,000 mcg PO DAILY [facility] Last Admin: 02/19/20 08:51 Dose: 1,000 mcg Docusate Sodium (Colace) 100 mg PO BID PRN PRN Reason: Constipation Enoxaparin Sodium (Lovenox) 40 mg SUBCUT DAILY [facility] Last Admin: 02/19/20 08:52 Dose: 40 mg Azithromycin 500 mg/ Sodium (Chloride) 250 mls @ 250 mls/hr IV Q24H [facility] Last Infusion: 02/18/20 20:26 Dose: Infused Ceftriaxone Sodium 1 gm/ (Sodium Chloride) 50 mls @ 100 mls/hr IV Q24H [facility] Last Admin: 02/18/20 17:46 Dose: 100 mls/hr Insulin Human Lispro (Humalog) 0 unit SUBCUT ACBED [facility]; Protocol Last Admin: 02/18/20 21:46 Dose: Not Given Levothyroxine Sodium (Levothyroxine) 75 mcg PO ACBREAKFAST [facility] Last Admin: 02/19/20 05:41 Dose: 75 mcg Lidocaine (Lidoderm 5%) 700 mg TOP DAILY [facility] Last Admin: 02/19/20 08:53 Dose: 700 mg Lisinopril (Prinivil) 10 mg PO DAILY [facility] Last Admin: 02/19/20 08:51 Dose: 10 mg Miscellaneous Information (Remove Patch) 1 ea TRDERM BEDTIME [facility] Last Admin: 02/18/20 20:41 Dose: 1 ea Miscellaneous Information (Remove Patch) 1 ea TRDERM DAILY [facility] Last Admin: 02/18/20 08:27 Dose: Not Given Montelukast Sodium (Singulair) 10 mg PO BEDTIME [facility] Last Admin: 02/18/20 20:42 Dose: 10 mg Nicotine (Habitrol) 21 mg TRDERM DAILY [facility] Last Admin: 02/19/20 08:59 Dose: Not Given Nystatin (Mycostatin) 5 ml PO QID [facility] Last Admin: 02/19/20 08:52 Dose: 5 ml Pantoprazole Sodium (Protonix) 40 mg PO ACBREAKFAST [facility] Last Admin: 02/19/20 05:41 Dose: 40 mg Potassium Chloride (Klor-Con 10) 10 meq PO BIDMEALS [facility] Last Admin: 02/19/20 08:51 Dose: 10 meq Tramadol HCl (Ultram) 100 mg PO TID PRN PRN Reason: Pain (mild 1-3) Last Admin: 02/19/20 08:49 Dose: 100 mg Discontinued Medications Lactated Ringer's (Ringers, Lactated) 1,000 mls @ 75 mls/hr IV ASDIRECTED [facility] Sodium Chloride (Normal Saline) 1,000 mls @ 75 mls/hr IV ASDIRECTED [facility] Last Admin: 02/15/20 09:48 Dose: 75 mls/hr Methylprednisolone Sodium Succinate (Solu-Medrol) 40 mg IVPUSH Q12H [facility] Last Admin: 02/17/20 05:17 Dose: 40 mg Potassium Chloride (Klor-Con 10) 20 meq PO ONETIME ONE Stop: 02/14/20 15:47 Last Admin: 02/14/20 16:43 Dose: 20 meq - Exam Quality Assessment: DVT Prophylaxis. No: Supplemental Oxygen, Urine Catheter General: Alert, Oriented, Cooperative, No Acute Distress HEENT: Pupils Equal, Pupils Reactive, EOMI, Mucous Membr. Moist/[place] Neck: Supple, No JVD, No Thyromegaly. No: Lymphadenopathy Lungs: Clear to Auscultation, Normal Respiratory Effort Cardiovascular: Regular Rate, Regular Rhythm, Murmurs (Female) Exam: Deferred Back Exam: Normal Inspection Extremities: Normal Inspection, No Pedal Edema Skin: Warm, Dry, Intact Neurological: No New Focal Deficit Psy/Mental Status: Alert, Normal Affect, Normal Mood Sepsis Event Note - Evaluation Sepsis Screening Result: No Definite Risk - Focused Exam Vital Signs: Vital Signs Temp Temp Pulse Resp BP BP Pulse Ox 02/19/20 08:51 137/56 L 02/19/20 08:00 37.5 C 86 16 137/56 L 97 02/19/20 07:00 84 02/19/20 02:09 37.2 C 92 18 116/58 L 99 Pulse Ox 02/19/20 08:51 02/19/20 08:00 02/19/20 07:00 94 L 02/19/20 02:09 Date Exam was Performed: 03/22/20 Time Exam was Performed: 11:47 - Problem List Review Problem List Initiated/Reviewed/Updated: Yes - My Orders Last 24 Hours: My Active Orders 02/18/20 13:00 Nystatin [Mycostatin] 5 ml PO QID 02/18/20 18:52 Blood Glucose Check, Bedside [RC] QIDACANDBED - Plan Plan:: 74-year-old lady who presented with the generalized weakness, episodes of falling, confusion. No apparent fracture noted on CT head, T-spine, LS-spine Continue pain control Try to minimize narcotics given concerns of confusion Physical and occupational therapy evaluation and treatment discussed with pt/ot - recommend care home care - pt is agreeable Impression and Plan: 1. History of COPD: acute exacerbation was present on admission - Has improved significantly - Will continue DuoNeb - She is off stop systemic steroids 2. Possible for acute bronchitis - No apparent pneumonia on chest x-ray -She is on abx now ( Aziothromycin and Ceftriaxone) -Inflenza A and B both negative 3. UTI: UA borderline for possible urinary tract infection urine culture: Enterococcus ( only 10K-20K CFU/ml) -Getting treated with Ceftriaxone 4. Diabetes Follow blood sugars Use supplemental insulin as needed 5. Hypokalemia: potassium is acceptable and getting replacement as needed 6. Hypertension: Bp is acceptable and she is on lisinopril at 10 mg daily 7. Oral Thrush: This is likely from use of systemic steroid and also Duoneb -Will continue Nystatin swish and swallow 4 times a day and is improving 8. Weakness: Physical and occupational therapy evaluated the pt and treatment in progress - pt/ot - recommend care home care - pt is agreeable and getting evaluated DVT prophylaxis With Lovenox
[2020-02-19] MEDS: Insulin Lispro 100 Units/ML 3 ML Vial SUBCUT SCH ×4 (12:12→20:52)
[2020-02-19] MEDS: Remove Patch NICOTINE PATCH TRDERM SCH (12:12)
[2020-02-19] MEDS: cefTRIAXone 1 GM in Sodium Chloride 0.9% 50 ML IV SCH (17:57)
[2020-02-19] MEDS: Azithromycin 500 MG in Sodium Chloride 0.9% 250 ML IV SCH (19:02)
[2020-02-19] MEDS: Montelukast 10 MG Tab PO SCH (20:52)
[2020-02-19] MEDS: REMOVE LIDODERM TRDERM SCH (20:52)
[2020-02-20] MEDS: Pantoprazole 40 MG Tab.CR PO SCH (05:09)
[2020-02-20] MEDS: Levothyroxine 75 MCG Tab PO SCH (05:09)
[2020-02-20] MEDS: Albuterol/Ipratropium 3.0-0.5 MG/3 ML Neb Soln NEB SCH ×2 (07:19→15:35)
[2020-02-20] MEDS: Insulin Lispro 100 Units/ML 3 ML Vial SUBCUT SCH ×4 (07:52→21:59)
[2020-02-20] MEDS: Lidocaine 5% 700 MG Patch TOP SCH (09:35)
[2020-02-20] MEDS: Lisinopril 10 MG Tab PO SCH (09:38)
[2020-02-20] MEDS: Potassium Chloride 10 MEQ Tab.ER PO SCH ×2 (09:40→17:52)
[2020-02-20] MEDS: Cyanocobalamin (Vitamin B12) 1,000 MCG Tab PO SCH (09:40)
[2020-02-20] MEDS: Nicotine 21 MG/24 Hr Patch TRDERM SCH (09:42)
[2020-02-20] MEDS: Nystatin Susp 100,000 Unit/ML 5 ML UD Cup PO SCH ×4 (09:43→22:00)
[2020-02-20] MEDS: Enoxaparin 40 MG/0.4 ML Syringe SUBCUT SCH (09:44)
[2020-02-20] MEDS: Remove Patch NICOTINE PATCH TRDERM SCH (10:38)
--- NOTE | 2020-02-20 12:27 | PCM.PN ---
- General Info Date of Service: 02/20/20 Admission Dx/Problem (Free Text): Admitted with : generalized weakness and Fall Subjective Update: feeling well continues to be unsteady no associated focal deficit, no fever, no sob Functional Status: Reports: Tolerating Diet - Review of Systems General: Denies: Fever Pulmonary: Denies: Shortness of Breath Cardiovascular: Denies: Chest Pain, Edema Genitourinary: Denies: Dysuria - Patient Data Vitals - Most Recent: Last Vital Signs Temp 98.7 F 02/20/20 11:29 Pulse 87 02/20/20 11:29 Resp 18 02/20/20 11:29 BP 81/38 L 02/20/20 11:29 Pulse Ox 98 02/20/20 11:29 Weight - Most Recent: 81 lb 8 oz I&O - Last 24 Hours: Intake & Output 02/19/20 02/20/20 02/20/20 22:59 06:59 14:59 Intake Total 252 Balance 252 Lab Results Last 24 Hours: Laboratory Results - last 24 hr 02/19/20 02/19/20 02/19/20 Range/Units 08:15 11:41 16:57 POC Glucose 89 123 H 88 (83-110) mg/dl 02/19/20 Range/Units 20:45 POC Glucose 99 (83-110) mg/dl [facility] Results Last 24 Hours: Microbiology 02/16/20 15:10 Urine Culture - Final Urine, Clean Catch Enterococcus Species Yeast Isolated Med Orders - Current: Current Medications Albuterol/Ipratropium (Duoneb 3.0-0.5 Mg/3 Ml) 3 ml NEB Q8HRRT [facility] Last Admin: 02/20/20 07:19 Dose: 3 ml Calcium Carbonate/Glycine (Tums) 500 mg PO Q6H PRN PRN Reason: Indigestion Last Admin: 02/17/20 10:44 Dose: 500 mg Cyanocobalamin (Vitamin B12) 1,000 mcg PO DAILY [facility] Last Admin: 02/20/20 09:40 Dose: 1,000 mcg Docusate Sodium (Colace) 100 mg PO BID PRN PRN Reason: Constipation Enoxaparin Sodium (Lovenox) 40 mg SUBCUT DAILY [facility] Last Admin: 02/20/20 09:44 Dose: Not Given Ceftriaxone Sodium 1 gm/ (Sodium Chloride) 50 mls @ 100 mls/hr IV Q24H [facility] Last Admin: 02/19/20 17:57 Dose: 100 mls/hr Insulin Human Lispro (Humalog) 0 unit SUBCUT ACBED [facility]; Protocol Last Admin: 02/20/20 12:07 Dose: Not Given Levothyroxine Sodium (Levothyroxine) 75 mcg PO ACBREAKFAST [facility] Last Admin: 02/20/20 05:09 Dose: 75 mcg Lidocaine (Lidoderm 5%) 700 mg TOP DAILY [facility] Last Admin: 02/20/20 09:35 Dose: 700 mg Lisinopril (Prinivil) 10 mg PO DAILY [facility] Last Admin: 02/20/20 09:38 Dose: 10 mg Miscellaneous Information (Remove Patch) 1 ea TRDERM BEDTIME [facility] Last Admin: 02/19/20 20:52 Dose: 1 ea Miscellaneous Information (Remove Patch) 1 ea TRDERM DAILY [facility] Last Admin: 02/20/20 10:38 Dose: Not Given Montelukast Sodium (Singulair) 10 mg PO BEDTIME [facility] Last Admin: 02/19/20 20:52 Dose: 10 mg Nicotine (Habitrol) 21 mg TRDERM DAILY [facility] Last Admin: 02/20/20 09:42 Dose: Not Given Nystatin (Mycostatin) 5 ml PO QID [facility] Last Admin: 02/20/20 09:43 Dose: 5 ml Pantoprazole Sodium (Protonix) 40 mg PO ACBREAKFAST [facility] Last Admin: 02/20/20 05:09 Dose: 40 mg Potassium Chloride (Klor-Con 10) 10 meq PO BIDMEALS [facility] Last Admin: 02/20/20 09:40 Dose: 10 meq Tramadol HCl (Ultram) 100 mg PO TID PRN PRN Reason: Pain (mild 1-3) Last Admin: 02/19/20 08:49 Dose: 100 mg Discontinued Medications Lactated Ringer's (Ringers, Lactated) 1,000 mls @ 75 mls/hr IV ASDIRECTED [facility] Azithromycin 500 mg/ Sodium (Chloride) 250 mls @ 250 mls/hr IV Q24H [facility] Last Infusion: 02/19/20 19:03 Dose: 175 mls/hr Sodium Chloride (Normal Saline) 1,000 mls @ 75 mls/hr IV ASDIRECTED [facility] Last Admin: 02/15/20 09:48 Dose: 75 mls/hr Methylprednisolone Sodium Succinate (Solu-Medrol) 40 mg IVPUSH Q12H [facility] Last Admin: 02/17/20 05:17 Dose: 40 mg Potassium Chloride (Klor-Con 10) 20 meq PO ONETIME ONE Stop: 02/14/20 15:47 Last Admin: 02/14/20 16:43 Dose: 20 meq - Exam General: Alert, Oriented Neck: Supple Lungs: Clear to Auscultation, Normal Respiratory Effort. No: Wheezing Cardiovascular: Regular Rate, Regular Rhythm GI/Abdominal Exam: Normal Bowel Sounds, Soft, Non-Tender Extremities: No Pedal Edema Sepsis Event Note - Evaluation Sepsis Screening Result: No Definite Risk - Focused Exam Vital Signs: Vital Signs Temp Pulse Resp BP BP BP Pulse Ox 02/20/20 11:29 98.7 F 87 18 81/38 L 98 02/20/20 09:38 114/49 L 02/20/20 07:28 98.2 F 81 18 114/49 L 98 02/20/20 07:20 83 02/20/20 03:11 99.5 F 85 18 112/54 L 96 Date Exam was Performed: 02/20/20 Time Exam was Performed: 12:24 - Problem List & Annotations (1) Anorexia SNOMED Code(s): 59792498 Code(s): R63.0 - ANOREXIA Status: Acute Current Visit: No (2) COPD (chronic obstructive pulmonary disease) SNOMED Code(s): 78645678 Code(s): J44.9 - CHRONIC OBSTRUCTIVE PULMONARY DISEASE, UNSPECIFIED Status : Acute Current Visit: No (3) Failure to thrive in adult SNOMED Code(s): 788668835 Code(s): R62.7 - ADULT FAILURE TO THRIVE Status: Acute Current Visit: No (4) Fall at home SNOMED Code(s): 28217671 Code(s): W19.XXXA - UNSPECIFIED FALL, INITIAL ENCOUNTER; Y92.009 - UNSP PLACE IN UNSP NON-INSTITUT (PRIVATE) RESIDENCE PLACE Status: Acute Current Visit: No Qualifiers: Encounter type: initial encounter Qualified Code(s): W19.XXXA - Unspecified fall, initial encounter; Y92.009 - Unspecified place in unspecified non-institutional (private) residence as the place of occurrence of the external cause (5) Tobacco use disorder SNOMED Code(s): 638195871 Code(s): F17.200 - NICOTINE DEPENDENCE, UNSPECIFIED, UNCOMPLICATED Status: Acute Current Visit: No - Problem List Review Problem List Initiated/Reviewed/Updated: Yes - Plan Plan:: 74-year-old lady who presented with the generalized weakness, episodes of falling, confusion. No apparent fracture noted on CT head, T-spine, LS-spine Continue pain control Try to minimize narcotics given concerns of confusion Physical and occupational therapy evaluation and treatment discussed with pt/ot - recommend nursing home care - pt is agreeable Impression and Plan: 1. History of COPD: acute exacerbation was present on admission - Has improved significantly - Will continue DuoNeb - She is off systemic steroids 2. Possible for acute bronchitis - No apparent pneumonia on chest x-ray -She is on abx since 02/13 I I will stop Azithromycin today and plan to stop Ceftriaxone tomorrow -Inflenza A and B both negative no COVID symptoms 3. UTI: UA borderline for possible urinary tract infection urine culture: Enterococcus ( only 10K-20K CFU/ml) -Getting treated with Ceftriaxone 4. Diabetes Follow blood sugars Use supplemental insulin as needed 5. Hypokalemia: potassium is acceptable and getting replacement as needed 6. Hypertension: Bp is on the lower side - will stop lisinopril 7. Oral Thrush: This is likely from use of systemic steroid and also Duoneb -Will continue Nystatin swish and swallow 4 times a day and is improving 8. Weakness: Physical and occupational therapy evaluated the pt and treatment in progress - pt/ot - recommend nursing home care - pt is agreeable and getting evaluated DVT prophylaxis With Lovenox
[2020-02-20] MEDS: cefTRIAXone 1 GM in Sodium Chloride 0.9% 50 ML IV SCH (18:00)
[2020-02-20] MEDS: REMOVE LIDODERM TRDERM SCH (22:00)
[2020-02-20] MEDS: Montelukast 10 MG Tab PO SCH (22:00)
[2020-02-21] MEDS: Albuterol/Ipratropium 3.0-0.5 MG/3 ML Neb Soln NEB SCH ×4 (00:13→23:18)
[2020-02-21] MEDS: Pantoprazole 40 MG Tab.CR PO SCH (06:07)
[2020-02-21] MEDS: Levothyroxine 75 MCG Tab PO SCH (06:07)
[2020-02-21] MEDS: Insulin Lispro 100 Units/ML 3 ML Vial SUBCUT SCH ×4 (08:10→22:50)
[2020-02-21] MEDS: Potassium Chloride 10 MEQ Tab.ER PO SCH ×2 (09:38→18:17)
[2020-02-21] MEDS: Lidocaine 5% 700 MG Patch TOP SCH (09:39)
[2020-02-21] MEDS: Cyanocobalamin (Vitamin B12) 1,000 MCG Tab PO SCH (09:41)
[2020-02-21] MEDS: Enoxaparin 40 MG/0.4 ML Syringe SUBCUT SCH (09:41)
[2020-02-21] MEDS: Nystatin Susp 100,000 Unit/ML 5 ML UD Cup PO SCH ×4 (09:42→20:38)
[2020-02-21] MEDS: Remove Patch NICOTINE PATCH TRDERM SCH (09:44)
[2020-02-21] MEDS: Nicotine 21 MG/24 Hr Patch TRDERM SCH (09:45)
--- NOTE | 2020-02-21 10:55 | PCM.PN ---
- General Info Date of Service: 02/21/20 Admission Dx/Problem (Free Text): Admitted with : generalized weakness and Fall Subjective Update: Appears to have significant confusion that is worse during the night and early childhood hours. continues to be unsteady During the night she took off the motion alarm went to the bathroom and fell. SHe sustained small laceration on the left elbow. No apparent head trauma. No loss of consciousness. no associated focal deficit, no fever, no sob - Patient Data Vitals - Most Recent: Last Vital Signs Temp 97.8 F 02/21/20 07:51 Pulse 102 H 02/21/20 07:51 Resp 20 02/21/20 07:51 BP 123/58 L 02/21/20 07:51 Pulse Ox 97 02/21/20 07:51 Weight - Most Recent: 82 lb I&O - Last 24 Hours: Intake & Output 02/20/20 02/21/20 02/21/20 22:59 06:59 14:59 Intake Total 50 120 Balance 50 120 Lab Results Last 24 Hours: Laboratory Results - last 24 hr 02/20/20 02/20/20 02/20/20 Range/Units 07:43 11:48 16:57 POC Glucose 114 H 134 H 151 H (83-110) mg/dl 02/20/20 Range/Units 21:03 POC Glucose 176 H (83-110) mg/dl Med Orders - Current: Current Medications Albuterol/Ipratropium (Duoneb 3.0-0.5 Mg/3 Ml) 3 ml NEB Q8HRRT [facility] Last Admin: 02/21/20 07:14 Dose: 3 ml Calcium Carbonate/Glycine (Tums) 500 mg PO Q6H PRN PRN Reason: Indigestion Last Admin: 02/17/20 10:44 Dose: 500 mg Cyanocobalamin (Vitamin B12) 1,000 mcg PO DAILY [facility] Last Admin: 02/21/20 09:41 Dose: 1,000 mcg Docusate Sodium (Colace) 100 mg PO BID PRN PRN Reason: Constipation Enoxaparin Sodium (Lovenox) 40 mg SUBCUT DAILY [facility] Last Admin: 02/21/20 09:41 Dose: Not Given Insulin Human Lispro (Humalog) 0 unit SUBCUT ACBED [facility]; Protocol Last Admin: 02/21/20 08:10 Dose: Not Given Levothyroxine Sodium (Levothyroxine) 75 mcg PO ACBREAKFAST [facility] Last Admin: 02/21/20 06:07 Dose: 75 mcg Lidocaine (Lidoderm 5%) 700 mg TOP DAILY [facility] Last Admin: 02/21/20 09:39 Dose: 700 mg Miscellaneous Information (Remove Patch) 1 ea TRDERM BEDTIME [facility] Last Admin: 02/20/20 22:00 Dose: Not Given Miscellaneous Information (Remove Patch) 1 ea TRDERM DAILY [facility] Last Admin: 02/21/20 09:44 Dose: Not Given Montelukast Sodium (Singulair) 10 mg PO BEDTIME [facility] Last Admin: 02/20/20 22:00 Dose: 10 mg Nicotine (Habitrol) 21 mg TRDERM DAILY [facility] Last Admin: 02/21/20 09:45 Dose: Not Given Nystatin (Mycostatin) 5 ml PO QID [facility] Last Admin: 02/21/20 09:42 Dose: 5 ml Pantoprazole Sodium (Protonix) 40 mg PO ACBREAKFAST [facility] Last Admin: 02/21/20 06:07 Dose: 40 mg Potassium Chloride (Klor-Con 10) 10 meq PO BIDMEALS [facility] Last Admin: 02/21/20 09:38 Dose: 10 meq Tramadol HCl (Ultram) 100 mg PO TID PRN PRN Reason: Pain (mild 1-3) Last Admin: 02/19/20 08:49 Dose: 100 mg Discontinued Medications Lactated Ringer's (Ringers, Lactated) 1,000 mls @ 75 mls/hr IV ASDIRECTED [facility] Azithromycin 500 mg/ Sodium (Chloride) 250 mls @ 250 mls/hr IV Q24H [facility] Last Infusion: 02/19/20 19:03 Dose: 175 mls/hr Ceftriaxone Sodium 1 gm/ (Sodium Chloride) 50 mls @ 100 mls/hr IV Q24H [facility] Last Admin: 02/20/20 18:00 Dose: 100 mls/hr Sodium Chloride (Normal Saline) 1,000 mls @ 75 mls/hr IV ASDIRECTED [facility] Last Admin: 02/15/20 09:48 Dose: 75 mls/hr Lisinopril (Prinivil) 10 mg PO DAILY [facility] Last Admin: 02/20/20 09:38 Dose: 10 mg Methylprednisolone Sodium Succinate (Solu-Medrol) 40 mg IVPUSH Q12H [facility] Last Admin: 02/17/20 05:17 Dose: 40 mg Potassium Chloride (Klor-Con 10) 20 meq PO ONETIME ONE Stop: 02/14/20 15:47 Last Admin: 02/14/20 16:43 Dose: 20 meq - Exam General: Alert. No: Oriented Neck: Supple Lungs: Clear to Auscultation, Normal Respiratory Effort, Decreased Breath Sounds Cardiovascular: Regular Rate, Regular Rhythm GI/Abdominal Exam: Normal Bowel Sounds, Soft, Non-Tender Extremities: No Pedal Edema Sepsis Event Note - Evaluation Sepsis Screening Result: No Definite Risk - Focused Exam Vital Signs: Vital Signs Temp Pulse Resp BP BP Pulse Ox Pulse Ox 02/21/20 07:51 97.8 F 102 H 20 123/58 L 97 02/21/20 07:00 86 97 02/21/20 06:40 98.2 F 67 20 134/59 L 60 L Date Exam was Performed: 02/21/20 Time Exam was Performed: 10:52 - Problem List & Annotations (1) Anorexia SNOMED Code(s): 35680980 Code(s): R63.0 - ANOREXIA Status: Acute Current Visit: No (2) COPD (chronic obstructive pulmonary disease) SNOMED Code(s): 07622434 Code(s): J44.9 - CHRONIC OBSTRUCTIVE PULMONARY DISEASE, UNSPECIFIED Status : Acute Current Visit: No (3) Failure to thrive in adult SNOMED Code(s): 345973075 Code(s): R62.7 - ADULT FAILURE TO THRIVE Status: Acute Current Visit: No (4) Fall at home SNOMED Code(s): 36153413 Code(s): W19.XXXA - UNSPECIFIED FALL, INITIAL ENCOUNTER; Y92.009 - UNSP PLACE IN UNSP NON-INSTITUT (PRIVATE) RESIDENCE PLACE Status: Acute Current Visit: No Qualifiers: Encounter type: initial encounter Qualified Code(s): W19.XXXA - Unspecified fall, initial encounter; Y92.009 - Unspecified place in unspecified non-institutional (private) residence as the place of occurrence of the external cause (5) Tobacco use disorder SNOMED Code(s): 150739992 Code(s): F17.200 - NICOTINE DEPENDENCE, UNSPECIFIED, UNCOMPLICATED Status: Acute Current Visit: No - Problem List Review Problem List Initiated/Reviewed/Updated: Yes - Plan Plan:: 74-year-old lady who presented with the generalized weakness, episodes of falling, confusion. No apparent fracture noted on CT head, T-spine, LS-spine Continue pain control Try to minimize narcotics given concerns of confusion Physical and occupational therapy evaluation and treatment discussed with pt/ot - recommend [facility] care - pt is agreeable Impression and Plan: 1. History of COPD: acute exacerbation was present on admission - Has improved significantly - Will continue DuoNeb - She is off systemic steroids 2. Possible for acute bronchitis - No apparent pneumonia on chest x-ray -She has been on abx since 02/13 Stop all antibiotics today -Inflenza A and B both negative no COVID symptoms 3. UTI: UA borderline for possible urinary tract infection urine culture: Enterococcus ( only 10K-20K CFU/ml) -Treated with 7 days of Ceftriaxone 4. Diabetes Follow blood sugars Use supplemental insulin as needed 5. Hypokalemia: potassium is acceptable and getting replacement as needed 6. Hypertension: Bp was on the lower side - stopped lisinopril Follow periodically 7. Oral Thrush -Will continue Nystatin swish and swallow 4 times a day and is improving 8. Weakness: Physical and occupational therapy evaluated the pt and treatment in progress - pt/ot - recommend [facility] care - pt is agreeable and getting evaluated Currently no accepting long term due to low down due to widespread viral infection concern 9. DVT prophylaxis With Lovenox
[2020-02-21] MEDS: traMADol 50 MG Tab PO PRN (10:57)
[2020-02-21] MEDS ORDERED: LORazepam 1 MG Tab PO PRN (19:06)
[2020-02-21] MEDS ORDERED: Zolpidem 5 MG Tab PO PRN (19:07)
[2020-02-21] MEDS: Montelukast 10 MG Tab PO SCH (20:37)
[2020-02-21] MEDS: REMOVE LIDODERM TRDERM SCH (20:39)
[2020-02-22] MEDS: Pantoprazole 40 MG Tab.CR PO SCH (05:53)
[2020-02-22] MEDS: Levothyroxine 75 MCG Tab PO SCH (05:53)
[2020-02-22] MEDS: Albuterol/Ipratropium 3.0-0.5 MG/3 ML Neb Soln NEB SCH (07:11)
[2020-02-22] MEDS: Insulin Lispro 100 Units/ML 3 ML Vial SUBCUT SCH (09:17)
[2020-02-22] MEDS: Nicotine 21 MG/24 Hr Patch TRDERM SCH (09:18)
--- NOTE | 2020-02-22 10:24 | PCM.DCSUM1 ---
Discharge Summary - Hospital Course Free Text/Narrative:: Patient was admitted for UTI and COPD exacerbation. She responded to treatment with IV abx, nebulizers. She is being discharged to [place] to continue PT/OT. Diagnosis: Stroke: No - Discharge Data Discharge Date: 02/22/20 Discharge Disposition: DC/Tfer to SNF 03 Condition: Stable - Referral to Home Health Primary Care Physician: Codi Ramos MD - Patient Summary/Data Consults: Consultations 02/14/20 17:48 Consult to Occupational Therapy [OT Evaluation and Treatment] [CONS] Routine Consult to Physical Therapy [PT Evaluation and Treatment] [CONS] Routine - Patient Instructions Diet: Heart Healthy Diet Activity: As Tolerated Notify Provider of: Fever, Increased Pain, Swelling and Redness, Nausea and/or Vomiting - Discharge Plan *PRESCRIPTION DRUG MONITORING PROGRAM REVIEWED*: Not Applicable *COPY OF PRESCRIPTION DRUG MONITORING REPORT IN PATIENT JS: Not Applicable Home Medications: Home Meds Albuterol [Proair HFA] 1 puff INH Q4H PRN 01/18/18 [History] Denosumab [Prolia] 60 mg SUBCUT .6MONTHS 01/18/18 [History] Ipratropium [place] 2.5 ml IH BID PRN 01/18/18 [History] Montelukast Sodium 10 mg PO BEDTIME 01/18/18 [History] Cyanocobalamin (Vitamin B-12) [Vitamin B-12] 1,000 mcg PO DAILY 02/14/20 [ History] Levothyroxine 75 mcg PO ACBREAKFAST 02/14/20 [History] Lidocaine 5% [Lidoderm 5%] 1 patch TOP DAILY 02/14/20 [History] Potassium Chloride 10 meq PO BID 02/14/20 [History] traMADol [Ultram] 100 mg PO TID PRN MDD 6 tabs 02/14/20 [History] Fulvestrant [Faslodex] 250 mg IM .MONTHLY 02/16/20 [History] Palbociclib [Ibrance] 125 mg PO ASDIRECTED 02/16/20 [History] Oxygen Therapy Mode: Room Air Patient Handouts: Weakness, [id number] - Discharge Summary/Plan Comment DC Time >30 min.: Yes - General Info Date of Service: 02/22/20 Admission Dx/Problem (Free Text: Admitted with : generalized weakness and Fall Functional Status: Reports: Pain Controlled - Review of Systems General: Reports: No Symptoms HEENT: Reports: No Symptoms Pulmonary: Reports: No Symptoms Cardiovascular: Reports: No Symptoms Gastrointestinal: Reports: No Symptoms Genitourinary: Reports: No Symptoms Musculoskeletal: Reports: No Symptoms Skin: Reports: No Symptoms Neurological: Reports: No Symptoms Psychiatric: Reports: No Symptoms - Patient Data Vitals - Most Recent: Last Vital Signs Temp 98.3 F 02/22/20 08:00 Pulse 77 02/22/20 08:00 Resp 20 02/22/20 08:00 BP 102/41 L 02/22/20 08:00 Pulse Ox 94 L 02/22/20 08:00 Weight - Most Recent: 78 lb 1.6 oz I&O - Last 24 hours: Intake & Output 02/21/20 02/22/20 02/22/20 22:59 06:59 14:59 Intake Total 320 Balance 320 Lab Results - Last 24 hrs: Laboratory Results - last 24 hr 02/21/20 02/21/20 02/21/20 Range/Units 07:47 11:54 16:56 WBC (5.0-10.0) 10^3/uL RBC (4.2-5.4) 10^6/uL Hgb (12.0-16.0) g/dL Hct (37.0-47.0) % MCV (80-100) fL MCH (27.0-34.0) pg MCHC (33.0-35.0) g/dL Plt Count (150-450) 10^3/uL Neut % (Auto) (42.2-75.2) % Lymph % (Auto) (20.5-50.1) % [place] % (Auto) (2-8) % Eos % (Auto) (1.0-3.0) % Baso % (Auto) (0.0-1.0) % POC Glucose 118 H 120 H 180 H (83-110) mg/dl 02/21/20 02/22/20 Range/Units 20:36 06:10 WBC 2.4 L (5.0-10.0) 10^3/uL RBC 3.45 L (4.2-5.4) 10^6/uL Hgb 10.8 L D (12.0-16.0) g/dL Hct 32.1 L (37.0-47.0) % MCV 93.0 (80-100) fL MCH 31.3 (27.0-34.0) pg MCHC 33.6 (33.0-35.0) g/dL Plt Count 118 L D (150-450) 10^3/uL Neut % (Auto) 50.8 (42.2-75.2) % Lymph % (Auto) 35.4 (20.5-50.1) % [place] % (Auto) 11.3 H (2-8) % Eos % (Auto) 0.8 L (1.0-3.0) % Baso % (Auto) 1.7 H (0.0-1.0) % POC Glucose 111 H (83-110) mg/dl Med Orders - Current: Current Medications Albuterol/Ipratropium (Duoneb 3.0-0.5 Mg/3 Ml) 3 ml NEB Q8HRRT [facility] Last Admin: 02/22/20 07:11 Dose: 3 ml Calcium Carbonate/Glycine (Tums) 500 mg PO Q6H PRN PRN Reason: Indigestion Last Admin: 02/17/20 10:44 Dose: 500 mg Cyanocobalamin (Vitamin B12) 1,000 mcg PO DAILY [facility] Last Admin: 02/21/20 09:41 Dose: 1,000 mcg Docusate Sodium (Colace) 100 mg PO BID PRN PRN Reason: Constipation Enoxaparin Sodium (Lovenox) 40 mg SUBCUT DAILY [facility] Last Admin: 02/21/20 09:41 Dose: Not Given Insulin Human Lispro (Humalog) 0 unit SUBCUT ACBED [facility]; Protocol Last Admin: 02/22/20 09:17 Dose: Not Given Levothyroxine Sodium (Levothyroxine) 75 mcg PO ACBREAKFAST [facility] Last Admin: 02/22/20 05:53 Dose: 75 mcg Lidocaine (Lidoderm 5%) 700 mg TOP DAILY [facility] Last Admin: 02/21/20 09:39 Dose: 700 mg Lorazepam (Ativan) 1 mg PO Q6H PRN PRN Reason: Agitation Last Admin: 02/21/20 19:25 Dose: 1 mg Miscellaneous Information (Remove Patch) 1 ea TRDERM BEDTIME [facility] Last Admin: 02/21/20 20:39 Dose: 1 ea Miscellaneous Information (Remove Patch) 1 ea TRDERM DAILY [facility] Last Admin: 02/21/20 09:44 Dose: Not Given Montelukast Sodium (Singulair) 10 mg PO BEDTIME [facility] Last Admin: 02/21/20 20:37 Dose: 10 mg Nicotine (Habitrol) 21 mg TRDERM DAILY [facility] Last Admin: 02/22/20 09:18 Dose: Not Given Nystatin (Mycostatin) 5 ml PO QID [facility] Last Admin: 02/21/20 20:38 Dose: 5 ml Pantoprazole Sodium (Protonix) 40 mg PO ACBREAKFAST [facility] Last Admin: 02/22/20 05:53 Dose: 40 mg Potassium Chloride (Klor-Con 10) 10 meq PO BIDMEALS [facility] Last Admin: 02/21/20 18:17 Dose: 10 meq Tramadol HCl (Ultram) 100 mg PO TID PRN PRN Reason: Pain (mild 1-3) Last Admin: 02/21/20 10:57 Dose: 100 mg Zolpidem Tartrate (Ambien) 5 mg PO BEDTIME PRN PRN Reason: Insomnia Last Admin: 02/21/20 20:37 Dose: 5 mg Discontinued Medications Lactated Ringer's (Ringers, Lactated) 1,000 mls @ 75 mls/hr IV ASDIRECTED [facility] Azithromycin 500 mg/ Sodium (Chloride) 250 mls @ 250 mls/hr IV Q24H [facility] Last Infusion: 02/19/20 19:03 Dose: 175 mls/hr Ceftriaxone Sodium 1 gm/ (Sodium Chloride) 50 mls @ 100 mls/hr IV Q24H [facility] Last Admin: 02/20/20 18:00 Dose: 100 mls/hr Sodium Chloride (Normal Saline) 1,000 mls @ 75 mls/hr IV ASDIRECTED [facility] Last Admin: 02/15/20 09:48 Dose: 75 mls/hr Lisinopril (Prinivil) 10 mg PO DAILY [facility] Last Admin: 02/20/20 09:38 Dose: 10 mg Methylprednisolone Sodium Succinate (Solu-Medrol) 40 mg IVPUSH Q12H [facility] Last Admin: 02/17/20 05:17 Dose: 40 mg Potassium Chloride (Klor-Con 10) 20 meq PO ONETIME ONE Stop: 02/14/20 15:47 Last Admin: 02/14/20 16:43 Dose: 20 meq - Exam General: Reports: Alert, Oriented HEENT: Reports: Pupils Equal, Pupils Reactive, EOMI, Mucous Membr. Moist/[place] Neck: Reports: Supple Lungs: Reports: Clear to Auscultation, Normal Respiratory Effort Cardiovascular: Reports: Regular Rate, Regular Rhythm GI/Abdominal Exam: Normal Bowel Sounds, Soft, Non-Tender, No Organomegaly, No Distention, No Abnormal Bruit, No Mass, Pelvis Stable (Female) Exam: Normal External Exam, Normal Speculum Exam, Normal Bimanual Exam Rectal (Female) Exam: Normal Exam, Normal Rectal Tone Back Exam: Reports: Normal Inspection, Full Range of Motion Extremities: Normal Inspection, Normal Range of Motion, Non-Tender, No Pedal Edema, Normal Capillary Refill Skin: Reports: Warm, Dry, Intact Wound/Incisions: Reports: Healing Well Neurological: Reports: No New Focal Deficit Psy/Mental Status: Reports: Alert, Normal Affect, Normal Mood
[2020-02-22] MEDS: Potassium Chloride 10 MEQ Tab.ER PO SCH (10:25)
[2020-02-22] MEDS: Cyanocobalamin (Vitamin B12) 1,000 MCG Tab PO SCH (10:25)
[2020-02-22] MEDS: Lidocaine 5% 700 MG Patch TOP SCH (10:26)
[2020-02-22] MEDS: Nystatin Susp 100,000 Unit/ML 5 ML UD Cup PO SCH (10:26)
[2020-02-22] MEDS: Enoxaparin 40 MG/0.4 ML Syringe SUBCUT SCH (10:26)
[2020-02-22] MEDS: Remove Patch NICOTINE PATCH TRDERM SCH (10:49)
== END 2020-02-22 11:00 | DRG 190 ==
LOC: DL.ED 13:37 → DL.MS 16:35 → DL.ED 17:10
PROVIDERS: ADMIT Internal Medicine; ATTEND Student in an Organized Health Care Education/Training Program
DX: J44.1 Chronic obstructive pulmonary disease with (acute) exacerbation (principal); R53.1 Weakness; G93.41 Metabolic encephalopathy; D63.8 Anemia in other chronic diseases classified elsewhere; W19.XXXA Unspecified fall, initial encounter; N39.0 Urinary tract infection, site not specified; D72.819 Decreased white blood cell count, unspecified; B37.0 Candidal stomatitis; Z68.1 Body mass index [BMI] 19.9 or less, adult; N39.3 Stress incontinence (female) (male); Z66 Do not resuscitate; G89.29 Other chronic pain; M54.5 Low back pain; R29.6 Repeated falls; E87.6 Hypokalemia; F17.210 Nicotine dependence, cigarettes, uncomplicated; R62.7 Adult failure to thrive; H54.7 Unspecified visual loss; Z90.710 Acquired absence of both cervix and uterus; Z90.11 Acquired absence of right breast and nipple; Z96.641 Presence of right artificial hip joint; F17.200 Nicotine dependence, unspecified, uncomplicated; C50.919 Malignant neoplasm of unspecified site of unspecified female breast; I11.0 Hypertensive heart disease with heart failure; I50.9 Heart failure, unspecified; R32 Unspecified urinary incontinence; M54.9 Dorsalgia, unspecified; F41.9 Anxiety disorder, unspecified; F32.9 Major depressive disorder, single episode, unspecified; E11.9 Type 2 diabetes mellitus without complications; E05.90 Thyrotoxicosis, unspecified without thyrotoxic crisis or storm; M81.0 Age-related osteoporosis without current pathological fracture; Z91.81 History of falling; Z79.890 Hormone replacement therapy; Z79.899 Other long term (current) drug therapy; Z88.6 Allergy status to analgesic agent; Z88.5 Allergy status to narcotic agent
CPT/HCPCS: 36415; 70450; 71045; 72125; 72128; 72131; 72192; 80048; 80053; 81001; 82962; 83880; 84443; 84484; 85025; 87086; 87088; 87186; 87804; 93005; 94640; 97162-GP; 97166-GO; 99284; 99285-25; A9270-GY; J0456; J0696; J1650; J1815-GY; J2920; J7030; J7050; J7620-GY

== ENCOUNTER 2021-03-07 09:58 | Emergency (ER) | payer MEDICARE, MEDICAID ==
[2021-03-07] MEDS ORDERED: Albuterol/Ipratropium 3.0-0.5 MG/3 ML Neb Soln NEB ONE (10:15)
--- NOTE | 2021-03-07 10:21 | EDM.PDOC ---
<Brett Callahan Vargas - Last Filed: 03/07/21 11:23> ED HPI GENERAL MEDICAL PROBLEM - General Chief Complaint: Respiratory Problem Stated Complaint: CANT BREATH.. Time Seen by Provider: 03/07/21 10:16 - Related Data Allergies Allergy/AdvReac Type Severity Reaction Status Date / Time acetaminophen Allergy Itching Verified 02/14/20 17:25 morphine Allergy Nausea and Verified 07/30/20 08:30 Vomiting rifampin Allergy Cannot Verified 02/14/20 17:25 Remember codeine AdvReac Itching Verified 02/14/20 17:25 ibuprofen [From Nuprin] AdvReac Nausea and Verified 02/14/20 17:25 Vomiting oxycodone [From OxyContin] AdvReac Dizziness Verified 02/14/20 17:25 Home Meds: Home Meds Albuterol [Proair HFA] 1 puff INH Q4H PRN 01/18/18 [History] Denosumab [Prolia] 60 mg SUBCUT .6MONTHS 01/18/18 [History] Ipratropium [place] 2.5 ml IH BID PRN 01/18/18 [History] Montelukast Sodium 10 mg PO BEDTIME 01/18/18 [History] Cyanocobalamin (Vitamin B-12) [Vitamin B-12] 1,000 mcg PO DAILY 02/14/20 [History] Levothyroxine 75 mcg PO ACBREAKFAST 02/14/20 [History] Lidocaine 5% [Lidoderm 5%] 1 patch TOP DAILY 02/14/20 [History] Potassium Chloride 10 meq PO BID 02/14/20 [History] traMADol [Ultram] 100 mg PO TID PRN MDD 6 tabs 02/14/20 [History] Fulvestrant [Faslodex] 250 mg IM .MONTHLY 02/16/20 [History] Palbociclib [Ibrance] 125 mg PO ASDIRECTED 02/16/20 [History] #1 Interpretation EKG Date: 03/07/21 Time: 10:14 Rhythm: Other (SR) Rate (Beats/Min): 91 [place]: Normal P-Wave: Present QRS: Normal ST-T: Normal QT: Normal Comparison: No Change Course - Radiology Interpretation Free Text/Narrative:: [facility] Final Radiology Report Call: [phone] assistance Online chat: [email or web address] Name: SHABBIR THORPE Age: 75Years F Date: 03/07/2021 SSN: -- : [id number] Study: CR CHEST 2V Requesting Physician: Matheus Barnard Images: 2 Addl Studies: Provided Clinical History: shortness of breath COPD hx Contrast: Contrast Medium: Contrast Amount: Contrast Method: CONFIDENTIALITY STATEMENT This report is intended only for use by the referring physician, and only in accordance with law. If you received this in error, call [phone]. Page 1 of 1 PROCEDURE INFORMATION: Exam: XR Chest Exam date and time: 03/07/2021 10:40 AM Age: 75 years old Clinical indication: Shortness of breath; Prior surgery; Surgery date: 6+ months; Patient HX: Metastatic breast CA; Additional info: Shortness of breath copd HX TECHNIQUE: Imaging protocol: XR of the chest. Views: 2 views. COMPARISON: CT Chest Abdomen Pelvis w Cont 12/19/2020 10:06 AM FINDINGS: Tubes, catheters and devices: Surgical clips overlie the bilateral axillae. Lungs: The lungs are moderately hyperinflated, but clear. Pleural spaces: Unremarkable. No pleural effusion. No pneumothorax. Heart/Mediastinum: Unremarkable. No cardiomegaly. Bones/joints: There are some chronic bilateral rib fractures. Degenerative changes involve the spine. IMPRESSION: Moderate hyperinflation without focal disease. Thank you for allowing us to participate in the care of your patient. Dictated and Authenticated by: Gregory Santacruz MD 03/07/2021 11:23 AM Central Time ([place] & [place]) - Re-Assessments/Exams Free Text/Narrative Re-Assessment/Exam: 03/07/21 I personally performed or re-performed the physical examination and medical decision making. I have verified all student documentation or findings, including history, physical exam and/or medical decision making. Departure - Departure Disposition: Home, Self-Care 01 Clinical Impression: COPD exacerbation - Discharge Information Instructions: Chronic Obstructive Pulmonary Disease Exacerbation, [id number] Forms: ED Department Discharge Additional Instructions: Use your nebulizer every 4 hours for the rest of the day for your shortness of breath. If your symptoms do not resolve by tomorrow follow up with your primary care provider or return to the ER. <Matheus Barnard - Last Filed: 03/07/21 11:29> ED HPI GENERAL MEDICAL PROBLEM - General Source of Information: Reports: Patient History Limitations: Reports: No Limitations - History of Present Illness INITIAL COMMENTS - FREE TEXT/NARRATIVE: 75 y/o F c/o SOB since last night. Feels like her COPD exacerbations. Has tried her inhaler twice today and her albuterol nebulizer once without relief. Has had a productive clear cough for many years. Received radiation therapy for breast cancer and possible bone cancer in November. Had a PET scan possibly in October but pt and family do not know what it showed. Denies fever, chills, drugs, etoh, CP, skelton, vision prob, abd pn, diff voiding. 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 Musculoskeletal History: Reports: Back Pain, Chronic Neurological History: Reports: Other (See Below) Other Neuro History: forgetful Psychiatric History: Reports: Anxiety, Depression Endocrine/Metabolic History: Reports: Diabetes, Type II, Hyperthyroidism, Osteoporosis Hematologic History: Reports: None Immunologic History: Reports: None Oncologic (Cancer) History: Reports: Breast Other Oncologic History: Patient found out 1 month ago has cancer in her Right breast, "towards middle" Dermatologic History: Reports: None - Infectious Disease History Infectious Disease History: Reports: None - Past Surgical History Head Surgeries/Procedures: Reports: None HEENT Surgical History: Reports: None Female Surgical History: Reports: Hysterectomy, Mastectomy, Other (See Below) Other Female Surgeries/Procedures: Left mastectomy Endocrine Surgical History: Reports: None Neurological Surgical History: Reports: None Musculoskeletal Surgical History: Reports: Hip Replacement, Other (See Below) Other Musculoskeletal Surgeries/Procedures:: right leg shorter then left Oncologic Surgical History: Reports: Mastectomy Other Oncologic Surgeries/Procedures: Left mastectomy Dermatological Surgical History: Reports: None Social & Family History - Family History Family Medical History: No Pertinent Family History - Caffeine Use Caffeine Use: Reports: Coffee - Living Situation & Occupation Living situation: Reports: Alone Occupation: Retired ED ROS GENERAL - Review of Systems Review Of Systems: Comprehensive ROS is negative, except as noted in HPI. ED EXAM, GENERAL - Physical Exam Exam: See Below Exam Limited By: No Limitations General Appearance: Alert, WD/WN, No Apparent Distress Nose: Normal Inspection, Normal Mucosa, No Blood Throat/Mouth: Normal Inspection, Normal Lips, Normal Teeth, Normal Gums, Normal Oropharynx, Normal Voice, No Airway Compromise Neck: Normal Inspection, Supple, Non-Tender, Full Range of Motion Respiratory/Chest: Decreased Breath Sounds Cardiovascular: Normal Peripheral Pulses, Regular Rate, Rhythm, No Edema, No JVD GI/Abdominal: Soft, Non-Tender (Female) Exam: Deferred Rectal (Female) Exam: Deferred Back Exam: Normal Inspection, Full Range of Motion, NT Extremities: Normal Inspection, Normal Range of Motion, Non-Tender, Normal Capillary Refill, No Pedal Edema Neurological: Alert, Oriented, CN II-XII Intact, Normal Cognition, Normal Gait, Normal Reflexes, No Motor/Sensory Deficits Psychiatric: Normal Affect, Normal Mood Skin Exam: Warm, Dry, Intact, Normal Color, No Rash Course - Vital Signs Last Recorded V/S: Last Vital Signs Temp 97.2 F 03/07/21 10:10 Pulse 89 03/07/21 10:15 Resp 24 H 03/07/21 10:10 BP 136/74 03/07/21 10:10 Pulse Ox 94 L 03/07/21 10:15 - Orders/Labs/Meds Orders: Active Orders 24 hr Category Date Time Status EKG Documentation Completion [RC] STAT Care 03/07/21 10:13 Active RT Aerosol Therapy [RC] ASDIRECTED Care 03/07/21 10:15 Active Labs: Laboratory Tests 03/07/21 03/07/21 03/07/21 Range/Units 10:29 10:29 10:29 WBC 6.3 (5.0-10.0) 10^3/uL RBC 4.55 (4.2-5.4) 10^6/uL Hgb 15.5 D (12.0-16.0) g/dL Hct 45.0 (37.0-47.0) % MCV 98.9 D (80-100) fL MCH 34.1 H (27.0-34.0) pg MCHC 34.4 (33.0-35.0) g/dL Plt Count 220 D (150-450) 10^3/uL Neut % (Auto) 73.2 (42.2-75.2) % Lymph % (Auto) 15.8 L (20.5-50.1) % [place] % (Auto) 8.9 H (2-8) % Eos % (Auto) 1.3 (1.0-3.0) % Baso % (Auto) 0.8 (0.0-1.0) % D-Dimer, Quantitative 590 H (0-400) ng/mL Sodium 139 (136-145) mmol/L Potassium 3.7 (3.5-5.1) mmol/L Chloride 101 (98-107) mmol/L Carbon Dioxide 28 (21-32) mmol/L Anion Gap 13.7 H (7-13) mEq/L BUN 7 (7-18) mg/dL Creatinine 0.71 (0.55-1.02) mg/dL Est Cr Clr Drug Dosing TNP Estimated GFR (MDRD) > 60 BUN/Creatinine Ratio 9.9 (No establ ref range) Glucose 103 H (70-99) mg/dL Calcium 8.8 (8.5-10.1) mg/dL Magnesium 1.7 L (1.8-2.4) mg/dL Total Bilirubin 0.9 (0.2-1.0) mg/dL AST 15 (15-37) U/L ALT 17 (14-59) U/L Alkaline Phosphatase 107 (46-116) U/L Total Protein 7.4 (6.4-8.2) g/dL Albumin 3.4 (3.4-5.0) g/dL Globulin 4.0 Albumin/Globulin Ratio 0.9 Meds: Medications Discontinued Medications Generic Name Dose Route Start Last Admin Trade Name Freq PRN Reason Stop Dose Admin Albuterol/Ipratropium 6 ml 03/07/21 10:15 03/07/21 10:32 Albuterol/Ipratropium 3.0-0.5 Mg/3 Ml Neb Soln NEB 03/07/21 10:16 6 ml ONETIME ONE Administration Albuterol/Ipratropium Confirm 03/07/21 10:30 Albuterol/Ipratropium 3.0-0.5 Mg/3 Ml Neb Soln Administered 03/07/21 10:31 Dose 3 ml .ROUTE .STK-MED ONE Methylprednisolone Sodium Succinate 125 mg 03/07/21 10:25 03/07/21 10:51 Methylprednisolone Sodium Succinate 125 Mg/2 Ml Sdv IVPUSH 03/07/21 10:26 125 mg ONETIME ONE Administration Departure - Departure Time of Disposition: 11:26 - Discharge Information *PRESCRIPTION DRUG MONITORING PROGRAM REVIEWED*: Not Applicable *COPY OF PRESCRIPTION DRUG MONITORING REPORT IN PATIENT JS: Not Applicable Sepsis Event Note (ED) - Focused Exam Vital Signs: Vital Signs Temp Pulse Resp BP Pulse Ox Pulse Ox 03/07/21 10:15 89 94 L 03/07/21 10:10 97.2 F 90 24 H 136/74 95 - My Orders Last 24 Hours: My Active Orders 03/07/21 10:13 EKG Documentation Completion [RC] STAT 03/07/21 10:15 RT Aerosol Therapy [RC] ASDIRECTED - Assessment/Plan Last 24 Hours: My Active Orders 03/07/21 10:13 EKG Documentation Completion [RC] STAT 03/07/21 10:15 RT Aerosol Therapy [RC] ASDIRECTED
[2021-03-07] MEDS ORDERED: methylPREDNISolone Sodium Succinate 125 MG/2 ML SDV IVPUSH ONE (10:25)
[2021-03-07] MEDS ORDERED: Albuterol/Ipratropium 3.0-0.5 MG/3 ML Neb Soln ONE (10:30)
[2021-03-07 11:00] LABS: ANION GAP 13.7 mEq/L (7-13); CHLORIDE,CL 101 mmol/L (98-107); SODIUM,NA 139 mmol/L (136-145)
--- NOTE | 2021-03-07 11:23 | CR ---
PROCEDURE INFORMATION: Exam: XR Chest Exam date and time: 03/07/2021 10:40 AM Age: 75 years old Clinical indication: Shortness of breath; Prior surgery; Surgery date: 6+ months; Patient HX: Metastatic breast CA; Additional info: Shortness of breath copd HX TECHNIQUE: Imaging protocol: XR of the chest. Views: 2 views. COMPARISON: CT Chest Abdomen Pelvis w Cont 12/19/2020 10:06 AM FINDINGS: Tubes, catheters and devices: Surgical clips overlie the bilateral axillae. Lungs: The lungs are moderately hyperinflated, but clear. Pleural spaces: Unremarkable. No pleural effusion. No pneumothorax. Heart/Mediastinum: Unremarkable. No cardiomegaly. Bones/joints: There are some chronic bilateral rib fractures. Degenerative changes involve the spine. IMPRESSION: Moderate hyperinflation without focal disease.
== END 2021-03-07 11:42 | disposition home or self-care (01) ==
LOC: DL.ED 09:58
DX: J44.1 Chronic obstructive pulmonary disease with (acute) exacerbation (principal); I50.9 Heart failure, unspecified; E11.9 Type 2 diabetes mellitus without complications; E05.90 Thyrotoxicosis, unspecified without thyrotoxic crisis or storm; Z88.6 Allergy status to analgesic agent; Z88.5 Allergy status to narcotic agent; Z88.8 Allergy status to other drugs, medicaments and biological substances; Z79.899 Other long term (current) drug therapy
CPT/HCPCS: 36415; 71046; 80053; 83735; 85025; 85379; 93005; 94640; 96374; 99283; 99285; J2930; J7620-GY

== ENCOUNTER 2021-03-09 08:49 | Inpatient (IN) | payer MEDICARE, MEDICAID ==
[2021-03-09] MEDS ORDERED: Albuterol/Ipratropium 3.0-0.5 MG/3 ML Neb Soln NEB ONE (09:04)
[2021-03-09] MEDS ORDERED: Magnesium Sulfate/Water 2 GM/50 ML BAG IV ONE (09:05)
[2021-03-09] MEDS ORDERED: methylPREDNISolone Sodium Succinate 125 MG/2 ML SDV IVPUSH ONE (09:06)
[2021-03-09] MEDS ORDERED: Albuterol/Ipratropium 3.0-0.5 MG/3 ML Neb Soln ONE (09:08)
--- NOTE | 2021-03-09 09:15 | EDM.PDOC ---
<Matheus Barnard Phyllis - Last Filed: 03/09/21 10:29> ED HPI GENERAL MEDICAL PROBLEM - General Chief Complaint: Respiratory Problem Stated Complaint: sob Time Seen by Provider: 03/09/21 09:08 Source of Information: Reports: Patient History Limitations: Reports: No Limitations - History of Present Illness INITIAL COMMENTS - FREE TEXT/NARRATIVE: 75 y/o F c/o SOB since this morning. Pt states she woke up sob and has tried her inahler 4 times and albuterol nebulizer once with no relief. Seen in the ER yesterday for the same complaint and was treated with duox2 and soul-medrol after which pt expressed resolution in symptoms. Pt is a heavy smoker and has a hx of cancer. Pt had radiation back in November adn a PET scan in October but doesn't know the results of the PET scan. Denies fever, chills, cp, abd pn, trauma, difficulty voiding. Onset: Today, Sudden Duration: Hour(s): Location: Reports: Chest Severity: Moderate Improves with: Reports: None Worsens with: Reports: Movement - Related Data Allergies Allergy/AdvReac Type Severity Reaction Status Date / Time acetaminophen Allergy Itching Verified 03/09/21 09:03 morphine Allergy Nausea and Verified 03/09/21 09:03 Vomiting rifampin Allergy Cannot Verified 03/09/21 09:03 Remember codeine AdvReac Itching Verified 03/09/21 09:03 ibuprofen [From Nuprin] AdvReac Nausea and Verified 03/09/21 09:03 Vomiting oxycodone [From OxyContin] AdvReac Dizziness Verified 03/09/21 09:03 Home Meds: Home Meds Albuterol [Proair HFA] 1 puff INH Q4H PRN 01/18/18 [History] Denosumab [Prolia] 60 mg SUBCUT .6MONTHS 01/18/18 [History] Ipratropium [place] 2.5 ml IH BID PRN 01/18/18 [History] Montelukast Sodium 10 mg PO BEDTIME 01/18/18 [History] Cyanocobalamin (Vitamin B-12) [Vitamin B-12] 1,000 mcg PO DAILY 02/14/20 [History] Levothyroxine 75 mcg PO ACBREAKFAST 02/14/20 [History] Lidocaine 5% [Lidoderm 5%] 1 patch TOP DAILY 02/14/20 [History] Potassium Chloride 10 meq PO BID 02/14/20 [History] traMADol [Ultram] 100 mg PO TID PRN MDD 6 tabs 02/14/20 [History] Fulvestrant [Faslodex] 250 mg IM .MONTHLY 02/16/20 [History] Palbociclib [Ibrance] 125 mg PO ASDIRECTED 02/16/20 [History] Past Medical History HEENT History: Reports: Impaired Vision Cardiovascular History: Reports: Heart Failure Respiratory History: Reports: Asthma, COPD Gastrointestinal History: Reports: None Genitourinary History: Reports: Other (See Below) Other Genitourinary History: stress incontinence [employer] History: Reports: None Musculoskeletal History: Reports: Back Pain, Chronic Neurological History: Reports: Other (See Below) Other Neuro History: forgetful Psychiatric History: Reports: Anxiety, Depression Endocrine/Metabolic History: Reports: Diabetes, Type II, Hyperthyroidism, Osteoporosis Hematologic History: Reports: None Immunologic History: Reports: None Oncologic (Cancer) History: Reports: Breast Other Oncologic History: Patient found out 1 month ago has cancer in her Right breast, "towards middle" Dermatologic History: Reports: None - Infectious Disease History Infectious Disease History: Reports: None - Past Surgical History Head Surgeries/Procedures: Reports: None HEENT Surgical History: Reports: None Cardiovascular Surgical History: Reports: None Respiratory Surgical History: Reports: None Female Surgical History: Reports: Hysterectomy, Mastectomy, Other (See Below) Other Female Surgeries/Procedures: Left mastectomy Endocrine Surgical History: Reports: None Neurological Surgical History: Reports: None Musculoskeletal Surgical History: Reports: Hip Replacement, Other (See Below) Other Musculoskeletal Surgeries/Procedures:: right leg shorter then left Oncologic Surgical History: Reports: Mastectomy Other Oncologic Surgeries/Procedures: Left mastectomy Dermatological Surgical History: Reports: None Social & Family History - Family History Family Medical History: No Pertinent Family History - Caffeine Use Caffeine Use: Reports: None - Living Situation & Occupation Living situation: Reports: Alone Occupation: Retired ED ROS GENERAL - Review of Systems Review Of Systems: Comprehensive ROS is negative, except as noted in HPI. ED EXAM, GENERAL - Physical Exam Exam: See Below Exam Limited By: No Limitations General Appearance: Alert, No Apparent Distress Throat/Mouth: Normal Inspection, Normal Lips, Normal Teeth, Normal Gums, Normal Oropharynx, Normal Voice, No Airway Compromise Head: Atraumatic, Normocephalic Respiratory/Chest: Other (dimished llungs throughout) Cardiovascular: Normal Peripheral Pulses, Regular Rate, Rhythm, No Edema, No Gallop, No JVD, No Murmur, No Rub GI/Abdominal: Soft, Non-Tender (Female) Exam: Deferred Rectal (Female) Exam: Deferred Back Exam: Normal Inspection, Full Range of Motion, NT Extremities: Normal Inspection, Normal Range of Motion, Non-Tender, Normal Capillary Refill, No Pedal Edema Neurological: Alert, Oriented, CN II-XII Intact, Normal Cognition, Normal Gait, Normal Reflexes, No Motor/Sensory Deficits Psychiatric: Normal Affect, Normal Mood Skin Exam: Warm, Dry, Intact, Normal Color, No Rash Course - Re-Assessments/Exams Free Text/Narrative Re-Assessment/Exam: Discussed exam, labs and x ray with pt. Given that she is hypoxic on room air and this is her second COPD exacerbation in 2 days we discussed admitteing her to the floor for further treatment. Pt is willing to be admitted. 03/09/21 10:29 Departure - Departure Time of Disposition: 10:35 Disposition: Admitted As Inpatient 68 Condition: Fair Clinical Impression: COPD with exacerbation, Hypoxia - Discharge Information *PRESCRIPTION DRUG MONITORING PROGRAM REVIEWED*: Not Applicable *COPY OF PRESCRIPTION DRUG MONITORING REPORT IN PATIENT JS: Not Applicable Forms: ED Department Discharge Sepsis Event Note (ED) - Evaluation Sepsis Screening Result: No Definite Risk <Brett Callahan - Last Filed: 03/09/21 10:37> Course - Vital Signs Last Recorded V/S: Last Vital Signs Temp 97.7 F 03/09/21 09:04 Pulse 109 H 03/09/21 09:04 Resp 20 03/09/21 09:04 BP 149/80 H 03/09/21 09:04 Pulse Ox 97 03/09/21 09:04 - Orders/Labs/Meds Orders: Active Orders 24 hr Category Date Time Status Admission Diagnosis [ADT] Routine ADT 03/09/21 10:35 Ordered Patient Status [ADT] Routine ADT 03/09/21 10:35 Active RT Aerosol Therapy [RC] ASDIRECTED Care 03/09/21 09:04 Active COVID-19/FLU A+B [MOLEC] Stat Lab 03/09/21 10:28 Received Magnesium Sulfate/Water [Magnesium Sulfate in Water 2 Med 04/10/21 09:05 Active GM/50 ML] 2 gm in 50 ml IV ONETIME Medication Orders Magnesium Sulfate (Magnesium Sulfate In Water 2 Gm/50 Ml) 2 gm in 50 mls @ 25 mls/hr IV ONETIME ONE Stop: 03/09/21 11:04 Last Admin: 03/09/21 09:32 Dose: 25 mls/hr Documented by: JUAN DIEGO Labs: Laboratory Tests 03/09/21 03/09/21 Range/Units 09:12 09:44 WBC 8.3 (5.0-10.0) 10^3/uL RBC 4.69 (4.2-5.4) 10^6/uL Hgb 15.9 (12.0-16.0) g/dL Hct 46.7 (37.0-47.0) % MCV 99.6 (80-100) fL MCH 33.9 (27.0-34.0) pg MCHC 34.0 (33.0-35.0) g/dL Plt Count 226 (150-450) 10^3/uL Neut % (Auto) 76.9 H (42.2-75.2) % Lymph % (Auto) 13.1 L (20.5-50.1) % [place] % (Auto) 8.2 H (2-8) % Eos % (Auto) 1.2 (1.0-3.0) % Baso % (Auto) 0.6 (0.0-1.0) % Sodium 140 (136-145) mmol/L Potassium 3.5 (3.5-5.1) mmol/L Chloride 102 (98-107) mmol/L Carbon Dioxide 28 (21-32) mmol/L Anion Gap 13.5 H (7-13) mEq/L BUN 9 (7-18) mg/dL Creatinine 0.72 (0.55-1.02) mg/dL Est Cr Clr Drug Dosing 33.60 mL/min Estimated GFR (MDRD) > 60 BUN/Creatinine Ratio 12.5 (No establ ref range) Glucose 104 H (70-99) mg/dL Calcium 8.7 (8.5-10.1) mg/dL Total Bilirubin 0.6 (0.2-1.0) mg/dL AST 16 (15-37) U/L ALT 14 (14-59) U/L Alkaline Phosphatase 97 (46-116) U/L Total Protein 6.8 (6.4-8.2) g/dL Albumin 3.2 L (3.4-5.0) g/dL Globulin 3.6 Albumin/Globulin Ratio 0.89 Meds: Medications Generic Name Dose Route Start Last Admin Trade Name Freq PRN Reason Stop Dose Admin Magnesium Sulfate 2 gm in 50 mls @ 25 mls/hr 03/09/21 09:05 03/09/21 09:32 Magnesium Sulfate In Water 2 Gm/50 Ml IV 03/09/21 11:04 25 mls/hr ONETIME ONE Administration Discontinued Medications Generic Name Dose Route Start Last Admin Trade Name Freq PRN Reason Stop Dose Admin Albuterol/Ipratropium 6 ml 03/09/21 09:04 03/09/21 09:32 Albuterol/Ipratropium 3.0-0.5 Mg/3 Ml Neb Soln NEB 03/09/21 09:05 6 ml ONETIME ONE Administration Albuterol/Ipratropium Confirm 03/09/21 09:08 03/09/21 09:33 Albuterol/Ipratropium 3.0-0.5 Mg/3 Ml Neb Soln Administered 03/09/21 09:09 Not Given Dose 3 ml .ROUTE .STK-MED ONE Methylprednisolone Sodium Succinate 125 mg 03/09/21 09:06 03/09/21 09:32 Methylprednisolone Sodium Succinate 125 Mg/2 Ml Sdv IVPUSH 03/09/21 09:07 125 mg ONETIME ONE Administration - Radiology Interpretation Free Text/Narrative:: [facility] Final Radiology Report Call: [phone] assistance Online chat: [email or web address] Name: SHABBIR THORPE Age: 75Years F Date: 03/09/2021 SSN: -- : [id number] Study: CR CHEST 1V FRONTAL Requesting Physician: BRETT CALLAHAN Images: 1 Addl Studies: Provided Clinical History: cough, dyspnea, Hx COPD Contrast: Contrast Medium: Contrast Amount: Contrast Method: CONFIDENTIALITY STATEMENT This report is intended only for use by the referring physician, and only in accordance with law. If you received this in error, call [phone]. Page 1 of 1 PROCEDURE INFORMATION: Exam: XR Chest Exam date and time: 03/09/2021 9:33 AM Age: 75 years old Clinical indication: Other: Cough, dyspnea, HX copd; Prior surgery; Surgery date: <1 month; Surgery type: S/P mastectomy TECHNIQUE: Imaging protocol: XR of the chest. Views: 1 view. COMPARISON: CR Chest 2V 03/07/2021 10:40 AM FINDINGS: Lungs: The lungs are hyperinflated with flattening of the diaphragms compatible with COPD. No focal peripheral lung consolidation, air bronchogram formation, or silhouette sign. Pleural spaces: No pleural effusion or pneumothorax. Heart/Mediastinum: The cardiac silhouette is not enlarged. The mediastinal contours are normal. Bones/joints: Bilateral old, healed rib fractures. Soft tissues: Prior left mastectomy. Bilateral axillary surgical clips from node dissections. IMPRESSION: 1. COPD. 2. No pneumonia. Thank you for allowing us to participate in the care of your patient. Dictated and Authenticated by: Wing Olvera MD 03/09/2021 10:08 AM Central Time ([place] & [place]) - Re-Assessments/Exams Free Text/Narrative Re-Assessment/Exam: 03/09/21 09:31 I personally performed or re-performed the physical examination and medical decision making. I have verified all student documentation or findings, including history, physical exam and/or medical decision making. Sepsis Event Note (ED) - Focused Exam Vital Signs: Vital Signs Temp Pulse Resp BP Pulse Ox 03/09/21 09:04 97.7 F 109 H 20 149/80 H 97 - My Orders Last 24 Hours: My Active Orders 03/09/21 10:28 COVID-19/FLU A+B [MOLEC] Stat 03/09/21 10:35 Admission Diagnosis [ADT] Routine Patient Status [ADT] Routine - Assessment/Plan Last 24 Hours: My Active Orders 03/09/21 10:28 COVID-19/FLU A+B [MOLEC] Stat 03/09/21 10:35 Admission Diagnosis [ADT] Routine Patient Status [ADT] Routine
[2021-03-09 10:08] LABS: ANION GAP 13.5 mEq/L (7-13); CHLORIDE,CL 102 mmol/L (98-107); SODIUM,NA 140 mmol/L (136-145)
--- NOTE | 2021-03-09 10:08 | CR ---
PROCEDURE INFORMATION: Exam: XR Chest Exam date and time: 03/09/2021 9:33 AM Age: 75 years old Clinical indication: Other: Cough, dyspnea, HX copd; Prior surgery; Surgery date: <1 month; Surgery type: S/P mastectomy TECHNIQUE: Imaging protocol: XR of the chest. Views: 1 view. COMPARISON: CR Chest 2V 03/07/2021 10:40 AM FINDINGS: Lungs: The lungs are hyperinflated with flattening of the diaphragms compatible with COPD. No focal peripheral lung consolidation, air bronchogram formation, or silhouette sign. Pleural spaces: No pleural effusion or pneumothorax. Heart/Mediastinum: The cardiac silhouette is not enlarged. The mediastinal contours are normal. Bones/joints: Bilateral old, healed rib fractures. Soft tissues: Prior left mastectomy. Bilateral axillary surgical clips from node dissections. IMPRESSION: 1. COPD. 2. No pneumonia.
[2021-03-09] MEDS ORDERED: Bisacodyl 5 MG Tab PO PRN (11:09)
[2021-03-09] MEDS ORDERED: Acetaminophen 325 MG Tab PO PRN (11:09)
[2021-03-09] MEDS ORDERED: Docusate Sodium 100 MG Cap PO PRN (11:09)
[2021-03-09] MEDS ORDERED: Ondansetron 4 MG/2 ML SDV IVPUSH PRN (11:09)
[2021-03-09 11:13] LABS: CORONAVIRUS COVID-19 NAA NEGATIVE (NEGATIVE)
[2021-03-09] MEDS ORDERED: Albuterol/Ipratropium 3.0-0.5 MG/3 ML Neb Soln NEB PRN (11:17)
[2021-03-09] MEDS ORDERED: Levofloxacin/Dextrose 5%-Water 500 MG in Premix Bag 1 BAG IV SCH (11:30)
[2021-03-09] MEDS ORDERED: Levofloxacin/Dextrose 5%-Water 500 MG in Premix Bag 1 BAG IV ONE (12:00)
--- NOTE | 2021-03-09 12:08 | PCM.HP ---
H&P History of Present Illness - General Date of Service: 03/09/21 Admit Problem/Dx: Admission Diagnosis/Problem Admission Diagnosis/Problem Hypoxia Source of Information: Patient, Family, Provider (ER) - History of Present Illness Initial Comments - Free Text/Narative: 75 y/o F c/o SOB for 2-3 days . Pt states she woke up sob and has tried her inahler 4 times and albuterol nebulizer once with no relief. Seen in the ER yesterday for the same complaint and was treated with duox2 and soul-medrol aft er which pt expressed resolution in symptoms. Pt is a heavy smoker and has a hx of breast cancer. Pt had radiation back in November adue to mass to the left chest wall . Denies fever, chills, cp, abd pn. Pt is already feeling better after treat emtn in ER Onset of Symptoms: Reports: Gradual Duration of Symptoms: Reports: Day(s): (3) - Related Data Allergies/Adverse Reactions: Allergies Allergy/AdvReac Type Severity Reaction Status Date / Time morphine Allergy Nausea and Verified 03/09/21 11:20 Vomiting rifampin Allergy Cannot Verified 03/09/21 11:20 Remember codeine AdvReac Itching Verified 03/09/21 11:20 oxycodone [From OxyContin] AdvReac Dizziness Verified 03/09/21 11:20 Home Medications: Home Meds Albuterol [Proair HFA] 2 puff INH Q4H PRN 01/18/18 [History] Ipratropium [place] 2.5 ml IH BID PRN 01/18/18 [History] Levothyroxine 75 mcg PO ACBREAKFAST 02/14/20 [History] Potassium Chloride 10 meq PO BID 02/14/20 [History] traMADol [Ultram] 100 mg PO TID PRN MDD 6 tabs 02/14/20 [History] Anastrozole [Arimidex] 1 mg PO DAILY 03/09/21 [History] Past Medical History HEENT History: Reports: Impaired Vision Cardiovascular History: Reports: Heart Failure Respiratory History: Reports: Asthma, COPD Gastrointestinal History: Reports: None Genitourinary History: Reports: Other (See Below) Other Genitourinary History: stress incontinence 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: Musculoskeletal History: Reports: Back Pain, Chronic Neurological History: Reports: Other (See Below) Other Neuro History: forgetful Psychiatric History: Reports: Anxiety, Depression Endocrine/Metabolic History: Reports: Hyperthyroidism, Osteoporosis Hematologic History: Reports: None Immunologic History: Reports: None Oncologic (Cancer) History: Reports: Breast Other Oncologic History: Radiationin December 2020 for spot in center of chest Dermatologic History: Reports: None - Infectious Disease History Infectious Disease History: Reports: None - Past Surgical History Head Surgeries/Procedures: Reports: None HEENT Surgical History: Reports: None Cardiovascular Surgical History: Reports: None Respiratory Surgical History: Reports: None Female Surgical History: Reports: Section, Hysterectomy, Mastectomy, Other (See Below) Other Female Surgeries/Procedures: Left mastectomy Endocrine Surgical History: Reports: None Neurological Surgical History: Reports: None Musculoskeletal Surgical History: Reports: Hip Replacement, Other (See Below) Other Musculoskeletal Surgeries/Procedures:: right leg shorter then left Oncologic Surgical History: Reports: Mastectomy Other Oncologic Surgeries/Procedures: Left mastectomy Dermatological Surgical History: Reports: None Social & Family History - Family History Family Medical History: No Pertinent Family History - Tobacco Use Tobacco Use Status *Q: Current Every Day Tobacco User Years of Tobacco use: 60 Packs/Tins Daily: 0.5 - Caffeine Use Caffeine Use: Reports: Coffee - Recreational Drug Use Recreational Drug Use: No - Living Situation & Occupation Living situation: Reports: Alone Occupation: Retired H&P Review of Systems - Review of Systems: Review Of Systems: See Below General: Denies: Fever, Chills Pulmonary: Reports: Shortness of Breath Cardiovascular: Denies: Chest Pain Gastrointestinal: Denies: Abdominal Pain Genitourinary: Denies: Dysuria Musculoskeletal: Denies: Neck Pain Skin: Denies: Cyanosis Psychiatric: Denies: Confusion Neurological: Denies: Confusion Immunologic: Denies: Anaphylaxis Review of Systems Comment:: reports about 50 Lbs wt loss over the last year Exam - Exam Exam: See Below - Vital Signs Vital Signs: Last Vital Signs Temp 97.7 F 03/09/21 09:04 Pulse 109 H 03/09/21 09:04 Resp 20 03/09/21 09:04 BP 149/80 H 03/09/21 09:04 Pulse Ox 97 03/09/21 09:04 Weight: 66 lb 12.8 oz - Exam Quality Assessment: No: Supplemental Oxygen General: Alert, Oriented, Cooperative Lungs: Decreased Breath Sounds. No: Wheezing Cardiovascular: Regular Rate, Regular Rhythm - Patient Data Lab Results Last 24 hrs: Laboratory Results - last 24 hr 03/09/21 03/09/21 03/09/21 Range/Units 09:12 09:44 10:28 WBC 8.3 (5.0-10.0) 10^3/uL RBC 4.69 (4.2-5.4) 10^6/uL Hgb 15.9 (12.0-16.0) g/dL Hct 46.7 (37.0-47.0) % MCV 99.6 (80-100) fL MCH 33.9 (27.0-34.0) pg MCHC 34.0 (33.0-35.0) g/dL Plt Count 226 (150-450) 10^3/uL Neut % (Auto) 76.9 H (42.2-75.2) % Lymph % (Auto) 13.1 L (20.5-50.1) % [place] % (Auto) 8.2 H (2-8) % Eos % (Auto) 1.2 (1.0-3.0) % Baso % (Auto) 0.6 (0.0-1.0) % Sodium 140 (136-145) mmol/L Potassium 3.5 (3.5-5.1) mmol/L Chloride 102 (98-107) mmol/L Carbon Dioxide 28 (21-32) mmol/L Anion Gap 13.5 H (7-13) mEq/L BUN 9 (7-18) mg/dL Creatinine 0.72 (0.55-1.02) mg/dL Est Cr Clr Drug Dosing 33.60 mL/min Estimated GFR (MDRD) > 60 BUN/Creatinine Ratio 12.5 (No establ ref range) Glucose 104 H (70-99) mg/dL Calcium 8.7 (8.5-10.1) mg/dL Total Bilirubin 0.6 (0.2-1.0) mg/dL AST 16 (15-37) U/L ALT 14 (14-59) U/L Alkaline Phosphatase 97 (46-116) U/L Total Protein 6.8 (6.4-8.2) g/dL Albumin 3.2 L (3.4-5.0) g/dL Globulin 3.6 Albumin/Globulin Ratio 0.89 Influenza Type A RNA Negative (NEGATIVE) Influenza Type B RNA Negative (NEGATIVE) SARS-CoV-2 RNA (ROSA) Negative (NEGATIVE) Result Diagrams: 03/09/21 09:12 03/09/21 09:44 Problem List Initiated/Reviewed/Updated: Yes Orders Last 24hrs: Active Orders 24 hr Category Date Time Status Admission Diagnosis [ADT] Routine ADT 03/09/21 10:35 Ordered Patient Status [ADT] Routine ADT 03/09/21 10:35 Active Oxygen Therapy [RC] PRN Care 03/09/21 11:09 Active RT Aerosol Therapy [RC] ASDIRECTED Care 03/09/21 11:18 Active RT Post Treatment Assessment [RC] Click to Edit Care 03/09/21 12:01 Ordered RT Pre-Treatment Assessment [RC] Click to Edit Care 03/09/21 12:01 Ordered Up ad Faye [RC] ASDIRECTED Care 03/09/21 11:09 Active VTE/DVT Education [RC] PER UNIT ROUTINE Care 03/09/21 11:09 Active Vital Signs [RC] Q4H Care 03/09/21 11:09 Active Respiratory Care Assess and Treatment [CONS] Routine Cons 03/09/21 11:09 Active Regular Diet [DIET] Diet 03/09/21 Lunch Active Acetaminophen [TylenoL] Med 03/09/21 11:09 Active 650 mg PO Q4H PRN Albuterol/Ipratropium [DuoNeb 3.0-0.5 MG/3 ML] Med 03/09/21 11:17 Active 3 ml NEB Q4H PRN Albuterol/Ipratropium [DuoNeb 3.0-0.5 MG/3 ML] Med 03/09/21 13:00 Active 3 ml NEB Q6HRRT Docusate Sodium [Colace] Med 03/09/21 11:09 Active 100 mg PO BID PRN Levofloxacin/Dextrose 5%-Water [Levaquin in D5W 500 MG/ Med 03/09/21 12:00 Active 100 ML] 500 mg Premix Bag 1 bag IV ONETIME Levofloxacin/Dextrose 5%-Water [Levaquin in D5W 500 MG/ Med 03/09/21 11:30 Pending 100 ML] 500 mg Premix Bag 1 bag IV Q24H Nicotine [Habitrol] Med 03/10/21 09:00 Active 14 mg TRDERM DAILY Ondansetron [Zofran] Med 03/09/21 11:09 Active 4 mg IVPUSH Q4H PRN Tiotropium [Spiriva HandiHaler] Med 03/09/21 12:15 Ordered 18 mcg INH DAILY bisacodyL [Dulcolax] Med 03/09/21 11:09 Active 5 mg PO DAILY PRN methylPREDNISolone Sod Succ [Solu-MEDROL] Med 03/09/21 16:00 Active 60 mg IVPUSH Q8H Resuscitation Status Routine Resus Stat 03/09/21 11:56 Ordered Medication Orders Acetaminophen (Acetaminophen 325 Mg Tab) 650 mg PO Q4H PRN PRN Reason: Pain (Mild 1-3)/fever Albuterol/Ipratropium (Albuterol/Ipratropium 3.0-0.5 Mg/3 Ml Neb Soln) 3 ml NEB Q4H PRN PRN Reason: Shortness of Breath Albuterol/Ipratropium (Albuterol/Ipratropium 3.0-0.5 Mg/3 Ml Neb Soln) 3 ml NEB Q6HRRT NATE Bisacodyl (Bisacodyl 5 Mg Tab) 5 mg PO DAILY PRN PRN Reason: Constipation Docusate Sodium (Docusate Sodium 100 Mg Cap) 100 mg PO BID PRN PRN Reason: Constipation Levofloxacin/Dextrose 500 mg/ (Premix) 100 mls @ 100 mls/hr IV ONETIME ONE Stop: 03/09/21 12:59 Levofloxacin/Dextrose 500 mg/ (Premix) 100 mls @ 100 mls/hr IV Q24H [facility] Methylprednisolone Sodium Succinate (Methylprednisolone Sodium Succinate 40 Mg/1 Ml Sdv) 60 mg IVPUSH Q8H [facility] Nicotine (Nicotine 14 Mg/24 Hr Patch) 14 mg TRDERM DAILY [facility] Ondansetron HCl (Ondansetron 4 Mg/2 Ml Sdv) 4 mg IVPUSH Q4H PRN PRN Reason: Nausea/Vomiting Tiotropium [place] (Tiotropium Inhaler 18 Mcg Inhalation Powder Cap Kit Of 5) 18 mcg INH DAILY NATE Assessment/Plan Comment:: Acute COPD exacerbation: IV methylpred, Nebs , Spiriva, advised to quit smoking Breast ca with ? mets to chest wall post radiation: f/u with her oncologist. DVT proph: with Lovenox DNR/ DNI as per her wishes
[2021-03-09] MEDS: Tiotropium Inhaler 18 MCG Inhalation Powder Cap Kit of 5 INH SCH (12:58)
[2021-03-09] MEDS: Albuterol/Ipratropium 3.0-0.5 MG/3 ML Neb Soln NEB SCH ×2 (13:55→18:09)
[2021-03-09] MEDS: methylPREDNISolone Sodium Succinate 40 MG/1 ML SDV IVPUSH SCH (15:32)
[2021-03-09] MEDS: Potassium Chloride 10 MEQ Tab.ER PO SCH (20:57)
[2021-03-09] MEDS: Enoxaparin 40 MG/0.4 ML Syringe SUBCUT SCH (20:58)
[2021-03-09] MEDS: traMADol 50 MG Tab PO PRN (23:39)
[2021-03-10] MEDS: methylPREDNISolone Sodium Succinate 40 MG/1 ML SDV IVPUSH SCH ×3 (00:31→15:52)
[2021-03-10] MEDS: Albuterol/Ipratropium 3.0-0.5 MG/3 ML Neb Soln NEB SCH ×4 (00:40→17:40)
[2021-03-10] MEDS: Levothyroxine 75 MCG Tab PO SCH (06:22)
[2021-03-10] MEDS: Potassium Chloride 10 MEQ Tab.ER PO SCH ×2 (08:25→20:56)
[2021-03-10] MEDS: traMADol 50 MG Tab PO PRN ×2 (08:26→17:40)
[2021-03-10] MEDS: Enoxaparin 40 MG/0.4 ML Syringe SUBCUT SCH (08:29)
[2021-03-10] MEDS: Nicotine 14 MG/24 Hr Patch TRDERM SCH (08:29)
[2021-03-10] MEDS: ANASTROZOLE 1 MG PO SCH (08:52)
[2021-03-10] MEDS: Tiotropium Inhaler 18 MCG Inhalation Powder Cap Kit of 5 INH SCH (08:52)
--- NOTE | 2021-03-10 11:33 | PCM.PN ---
- General Info Date of Service: 03/10/21 Functional Status: Reports: Tolerating Diet - Review of Systems General: Denies: Fever Pulmonary: Reports: Shortness of Breath Cardiovascular: Denies: Chest Pain Neurological: Denies: Confusion Psychiatric: Denies: Confusion - Patient Data Vitals - Most Recent: Last Vital Signs Temp 98.7 F 03/10/21 07:53 Pulse 103 H 03/10/21 07:53 Resp 22 H 03/10/21 07:53 BP 132/65 03/10/21 07:53 Pulse Ox 94 L 03/10/21 07:53 Weight - Most Recent: 66 lb 12.8 oz I&O - Last 24 Hours: Intake & Output 03/09/21 03/10/21 03/10/21 22:59 06:59 14:59 Intake Total 400 200 Balance 400 200 Med Orders - Current: Current Medications Acetaminophen (Acetaminophen 325 Mg Tab) 650 mg PO Q4H PRN PRN Reason: Pain (Mild 1-3)/fever Albuterol/Ipratropium (Albuterol/Ipratropium 3.0-0.5 Mg/3 Ml Neb Soln) 3 ml NEB Q4H PRN PRN Reason: Shortness of Breath Albuterol/Ipratropium (Albuterol/Ipratropium 3.0-0.5 Mg/3 Ml Neb Soln) 3 ml NEB Q6HRRT [facility] Last Admin: 03/10/21 09:28 Dose: 3 ml Documented by: Bisacodyl (Bisacodyl 5 Mg Tab) 5 mg PO DAILY PRN PRN Reason: Constipation Docusate Sodium (Docusate Sodium 100 Mg Cap) 100 mg PO BID PRN PRN Reason: Constipation Enoxaparin Sodium (Enoxaparin 40 Mg/0.4 Ml Syringe) 40 mg SUBCUT DAILY [facility] Last Admin: 03/10/21 08:29 Dose: 40 mg Documented by: Levofloxacin/Dextrose 500 mg/ (Premix) 100 mls @ 100 mls/hr IV Q24H [facility] Levothyroxine Sodium (Levothyroxine 75 Mcg Tab) 75 mcg PO ACBREAKFAST [facility] Last Admin: 03/10/21 06:22 Dose: 75 mcg Documented by: Methylprednisolone Sodium Succinate (Methylprednisolone Sodium Succinate 40 Mg/1 Ml Sdv) 60 mg IVPUSH Q8H [facility] Last Admin: 03/10/21 09:28 Dose: 60 mg Documented by: Nicotine (Nicotine 14 Mg/24 Hr Patch) 14 mg TRDERM DAILY [facility] Last Admin: 03/10/21 08:29 Dose: Not Given Documented by: Anastrozole 1 Mg (Own Med) 0 mg PO DAILY [facility] Last Admin: 03/10/21 08:52 Dose: 1 mg Documented by: Ondansetron HCl (Ondansetron 4 Mg/2 Ml Sdv) 4 mg IVPUSH Q4H PRN PRN Reason: Nausea/Vomiting Potassium Chloride (Potassium Chloride 10 Meq Tab.Er) 10 meq PO BID [facility] Last Admin: 03/10/21 08:25 Dose: 10 meq Documented by: Tiotropium [place] (Tiotropium Inhaler 18 Mcg Inhalation Powder Cap Kit Of 5) 18 mcg INH DAILY [facility] Last Admin: 03/10/21 08:52 Dose: 18 mcg Documented by: Tramadol HCl (Tramadol 50 Mg Tab) 100 mg PO TID PRN PRN Reason: Pain (mild 1-3) Last Admin: 03/10/21 08:26 Dose: 100 mg Documented by: Discontinued Medications Albuterol/Ipratropium (Albuterol/Ipratropium 3.0-0.5 Mg/3 Ml Neb Soln) 6 ml NEB ONETIME ONE Stop: 03/09/21 09:05 Last Admin: 03/09/21 09:32 Dose: 6 ml Documented by: Albuterol/Ipratropium (Albuterol/Ipratropium 3.0-0.5 Mg/3 Ml Neb Soln) Confirm Administered Dose 3 ml .ROUTE .STK-MED ONE Stop: 03/09/21 09:09 Last Admin: 03/09/21 09:33 Dose: Not Given Documented by: Magnesium Sulfate (Magnesium Sulfate In Water 2 Gm/50 Ml) 2 gm in 50 mls @ 25 mls/hr IV ONETIME ONE Stop: 03/09/21 11:04 Last Admin: 03/09/21 09:32 Dose: 25 mls/hr Documented by: Levofloxacin/Dextrose 500 mg/ (Premix) 100 mls @ 100 mls/hr IV ONETIME ONE Stop: 03/09/21 12:59 Last Admin: 03/09/21 12:59 Dose: 100 mls/hr Documented by: Methylprednisolone Sodium Succinate (Methylprednisolone Sodium Succinate 125 Mg/2 Ml Sdv) 125 mg IVPUSH ONETIME ONE Stop: 03/09/21 09:07 Last Admin: 03/09/21 09:32 Dose: 125 mg Documented by: - Exam Quality Assessment: No: Supplemental Oxygen General: Oriented HEENT: EOMI Lungs: Decreased Breath Sounds Cardiovascular: Regular Rhythm Extremities: Normal Range of Motion Neurological: No New Focal Deficit Psy/Mental Status: Normal Affect - Patient Data Result Diagrams: 03/09/21 09:12 03/09/21 09:44 Sepsis Event Note - Evaluation Sepsis Screening Result: No Definite Risk - Focused Exam Vital Signs: Vital Signs Temp Pulse Resp BP Pulse Ox 03/10/21 07:53 98.7 F 103 H 22 H 132/65 94 L 03/10/21 04:40 98 F 94 20 132/52 L 94 L 03/10/21 00:45 98.6 F 85 20 124/44 L 95 - Problem List & Annotations (1) COPD exacerbation SNOMED Code(s): 545617200 Code(s): J44.1 - CHRONIC OBSTRUCTIVE PULMONARY DISEASE W (ACUTE) EXACERBATION Status: Acute Current Visit: No - Problem List Review Problem List Initiated/Reviewed/Updated: Yes - My Orders Last 24 Hours: My Active Orders 03/09/21 11:09 Oxygen Therapy [RC] .PRN Up ad Faye [RC] ASDIRECTED VTE/DVT Education [RC] PER UNIT ROUTINE Vital Signs [RC] 00,04,08,12,16,20 Respiratory Care Assess and Treatment [CONS] Routine Acetaminophen [TylenoL] 650 mg PO Q4H PRN Docusate Sodium [Colace] 100 mg PO BID PRN Ondansetron [Zofran] 4 mg IVPUSH Q4H PRN bisacodyL [Dulcolax] 5 mg PO DAILY PRN 03/09/21 11:17 Albuterol/Ipratropium [DuoNeb 3.0-0.5 MG/3 ML] 3 ml NEB Q4H PRN 03/09/21 11:18 RT Aerosol Therapy [RC] .PRN 03/09/21 11:56 Resuscitation Status Routine 03/09/21 Lunch Regular Diet [DIET] 03/09/21 12:01 RT Post Treatment Assessment [RC] Click to Edit RT Pre-Treatment Assessment [RC] Click to Edit 03/09/21 12:13 traMADol [Ultram] 100 mg PO TID PRN 03/09/21 12:15 Tiotropium [Spiriva HandiHaler] 18 mcg INH DAILY 03/09/21 13:00 Albuterol/Ipratropium [DuoNeb 3.0-0.5 MG/3 ML] 3 ml NEB Q6HRRT 03/09/21 16:00 methylPREDNISolone Sod Succ [Solu-MEDROL] 60 mg IVPUSH Q8H 03/09/21 19:56 Dietary Supplements [RC] TIDMEALS 03/09/21 21:00 Enoxaparin [Lovenox] 40 mg SUBCUT DAILY Potassium Chloride [Klor-Con 10] 10 meq PO BID 03/10/21 06:00 Levothyroxine 75 mcg PO ACBREAKFAST 03/10/21 09:00 Anastrozole [Arimidex] 0 mg PO DAILY Nicotine [Habitrol] 14 mg TRDERM DAILY 03/10/21 12:00 Levofloxacin/Dextrose 5%-Water [Levaquin in D5W 500 MG/100 ML] 500 mg Premix Bag 1 bag IV Q24H - Plan Plan:: Acute COPD exacerbation: on RA but SOB on minimal exertion. IV methylpred, Nebs , Spiriva, advised to quit smoking Breast ca with ? mets to chest wall post radiation: f/u with her oncologist. DVT proph: with Lovenox DNR/ DNI as per her wishes
[2021-03-10] MEDS: Levofloxacin/Dextrose 5%-Water 500 MG in Premix Bag 1 BAG IV SCH (12:37)
[2021-03-11] MEDS: methylPREDNISolone Sodium Succinate 40 MG/1 ML SDV IVPUSH SCH ×3 (00:07→16:38)
[2021-03-11] MEDS: Albuterol/Ipratropium 3.0-0.5 MG/3 ML Neb Soln NEB SCH ×4 (00:10→18:46)
[2021-03-11] MEDS: traMADol 50 MG Tab PO PRN ×3 (01:34→20:39)
[2021-03-11] MEDS: Levothyroxine 75 MCG Tab PO SCH (06:38)
[2021-03-11] MEDS: Potassium Chloride 10 MEQ Tab.ER PO SCH ×2 (08:26→20:38)
[2021-03-11] MEDS: Enoxaparin 40 MG/0.4 ML Syringe SUBCUT SCH (08:27)
[2021-03-11] MEDS: Tiotropium Inhaler 18 MCG Inhalation Powder Cap Kit of 5 INH SCH (08:28)
[2021-03-11] MEDS: ANASTROZOLE 1 MG PO SCH (08:29)
[2021-03-11] MEDS: Nicotine 14 MG/24 Hr Patch TRDERM SCH (08:30)
[2021-03-11] MEDS ORDERED: Glucagon,Human Recombinant 1 MG Vial IM PRN (11:47)
[2021-03-11] MEDS ORDERED: 50% Dextrose in Water 50 ML Syringe IV PRN (11:47)
--- NOTE | 2021-03-11 11:53 | PCM.SN.2 ---
- Free Text/Narrative Note: START OF DOCTOR EMAMIS PROGRESS NOTE Subjective: The patient voices no complaints at this time. She denies fever, rigors, nausea, vomiting, cough, wheeze, abdominal pain, chest pain, dyspnea. She does however, upon further questioning, indicate that she has dyspnea on exertion. I explained the patient her current medical condition and plan of care I have answered all her questions Objective: General: -Alert -No acute distress -No dyspnea -No tachypnea -Underweight Heart: -Regular rate -Regular rhythm -No murmurs -No gallops -No rubs Lungs: -No wheeze -No rhonchi -No rales -Distant breath sounds bilaterally Abdomen: -Normal bowel sounds in all four quadrants -No rebound -No guarding -No tenderness Extremities: -2/4 pulse in all four extremities -No clubbing -No cyanosis -No edema Additional Details / Additional Findings / Exceptions / Miscellaneous: Pertinent Laboratory Results / Pertinent Radiology Results / Pertinent Diagnostic Results / Pertinent Vital Signs: Vital signs stable Assessment / Plan: COPDpatient. DuoNeb every 6 hours plus sign Medrol 60 mg IV every 8 hours plus Levaquin 500 mg IV daily plus Spiriva 18 mcg 1 inhalation daily History of recurrent breast cancer. Patient status post radiation therapy. Anastrozole 1 tab p.o. daily. Outpatient follow-up with hematology/oncology upon discharge Smoker. Patch 14 mg daily. Patient will be kept regarding smoking cessation Chronic pain Anxiety Depression Diabetes. Will check fingerstick glucose before every meal and at bedtime and provide insulin sign scale History of hyperthyroidism versus hypothyroidism. Patient currently receiving Synthroid 75 mcg p.o. daily. Check TSH and free T4 Osteoporosis Hyperlipidemia GERD. Protonix 40 mg p.o. daily Anorexia Dementia Insomnia Osteoarthritis Degenerative disc disease DVT prophylaxis. Lovenox 40 mg subcutaneously daily Disposition: Anticipate discharge within 24 hours. I requested physical therapy evaluate the patient to ensure that she may safely be discharged END OF DOCTOR EMAMIS PROGRESS NOTE
[2021-03-11] MEDS: Levofloxacin/Dextrose 5%-Water 500 MG in Premix Bag 1 BAG IV SCH (12:40)
[2021-03-11] MEDS: Insulin Lispro 100 Units/ML 3 ML Vial SUBCUT SCH ×3 (13:08→21:41)
[2021-03-12] MEDS: methylPREDNISolone Sodium Succinate 40 MG/1 ML SDV IVPUSH SCH ×2 (00:01→08:53)
[2021-03-12] MEDS: Albuterol/Ipratropium 3.0-0.5 MG/3 ML Neb Soln NEB SCH ×3 (01:07→12:52)
[2021-03-12] MEDS ORDERED: Levothyroxine 25 MCG Tab PO SCH (06:00)
[2021-03-12] MEDS ORDERED: Pantoprazole 40 MG Tab.CR PO SCH (06:00)
--- NOTE | 2021-03-12 08:27 | PCM.SN.2 ---
- Free Text/Narrative Note: START OF DOCTOR WAYLONMIS PROGRESS NOTE Subjective: The patient Allison that her respiratory status has greatly improved compared with encounter with her on March 11, 2021. Despite this she currently rates her respiratory status as a 5 out of 10 if 10 is her baseline. She denies fever, rigors, nausea, vomiting, wheeze, abdominal pain. Admits to occasional cough which is productive of sputum. I explained to the patient her current medical condition and plan of care I have answered all of her questions Objective: General: -Alert -No acute distress -No dyspnea -No tachypnea -Underweight Heart: -Regular rate -Regular rhythm -No murmurs -No gallops -No rubs Lungs: -No wheeze -No rhonchi -No rales -Distant breath sounds bilaterally Abdomen: -Normal bowel sounds in all four quadrants -No rebound -No guarding -No tenderness Extremities: -2/4 pulse in all four extremities -No clubbing -No cyanosis -No edema Additional Details / Additional Findings / Exceptions / Miscellaneous: Pertinent Laboratory Results / Pertinent Radiology Results / Pertinent Diagnostic Results / Pertinent Vital Signs: Patient saturating 97% on 1/2 L of oxygen per minute Assessment / Plan: COPDpatient. DuoNeb every 6 hours plus sign Medrol 60 mg IV every 8 hours plus Levaquin 500 mg IV daily plus Spiriva 18 mcg 1 inhalation daily History of recurrent breast cancer. Patient status post radiation therapy. Anastrozole 1 tab p.o. daily. Outpatient follow-up with hematology/oncology upon discharge Smoker. Patch 14 mg daily. Patient will be kept regarding smoking cessation Chronic pain Anxiety Depression Diabetes. Will check fingerstick glucose before every meal and at bedtime and provide insulin sign scale History of hypothyroidism however the patient iatrogenically hyperthyroid. Synthroid for 7.5 mcg p.o. daily Osteoporosis Hyperlipidemia GERD. Protonix 40 mg p.o. daily Anorexia Dementia Insomnia Osteoarthritis Degenerative disc disease DVT prophylaxis. Lovenox 40 mg subcutaneously daily Disposition: Patient appears medically stable for discharge on the day of March 12. I will discuss with case management/social work END OF DOCTOR WAYLONMIS PROGRESS NOTE
[2021-03-12] MEDS: Enoxaparin 40 MG/0.4 ML Syringe SUBCUT SCH (08:57)
[2021-03-12] MEDS: Potassium Chloride 10 MEQ Tab.ER PO SCH (09:00)
[2021-03-12] MEDS: Insulin Lispro 100 Units/ML 3 ML Vial SUBCUT SCH ×2 (10:21→12:59)
[2021-03-12] MEDS: Nicotine 14 MG/24 Hr Patch TRDERM SCH (10:48)
[2021-03-12] MEDS: Tiotropium Inhaler 18 MCG Inhalation Powder Cap Kit of 5 INH SCH (10:49)
[2021-03-12] MEDS: ANASTROZOLE 1 MG PO SCH (10:49)
[2021-03-12] MEDS: Levofloxacin/Dextrose 5%-Water 500 MG in Premix Bag 1 BAG IV SCH (11:42)
--- NOTE | 2021-03-12 13:13 | PCM.SN.2 ---
- Free Text/Narrative Note: START OF DOCTOR EMAMIS DISCHARGE SUMMARY Date of Admission: March 09, 2021 Date of Discharge: 1:11 PM on March 12, 2021 Primary Diagnosis: COPD exacerbation Secondary Diagnosis: History of recurrent breast cancer, patient status post radiation therapy Smoker Chronic pain Anxiety Depression Diabetes History of hypothyroidism with current iatrogenic hyperthyroidism Osteoporosis Hyperlipidemia GERD Anorexia Dementia Insomnia Osteoarthritis Degenerative disease Consultations: None Disposition: The patient is being discharged/transferred to swing bed on this day of March 12, 2021 Discharge Medications: Prednisone 40 mg p.o. daily which will be tapered DuoNeb every 4 hours as needed shortness breath or wheeze DuoNeb every 6 hours Anastrozole 1 mg p.o. daily Bisacodyl 5 mg p.o. daily as needed constipation Colace 100 mg p.o. twice daily as needed constipation Lovenox 1 mg subcutaneously daily Levaquin 500 mg p.o. daily until 11:39 PM on March 16, 2021 Synthroid 37.5 mg p.o. daily Nicotine patch 14 mg daily Zofran 4 mg IV every 4 hours as needed nausea/vomiting Protonix 40 mg p.o. daily K-Dur 10 M EQ p.o. twice daily Spiriva 18 mcg inhaled daily Ultram 100 mg p.o. 3 times daily as needed pain END OF DOCTOR EMAMIS DISCHARGE SUMMARY
== END 2021-03-12 13:48 | disposition swing bed (61) | DRG 192 ==
LOC: DL.ED 08:49 → DL.MS 10:35 → DL.ED 10:45 → DL.MS 11:08
PROVIDERS: ADMIT Family Medicine; ATTEND Internal Medicine
DX: J44.1 Chronic obstructive pulmonary disease with (acute) exacerbation (principal); R09.02 Hypoxemia; Z66 Do not resuscitate; I50.9 Heart failure, unspecified; N39.3 Stress incontinence (female) (male); G89.29 Other chronic pain; M54.9 Dorsalgia, unspecified; F41.9 Anxiety disorder, unspecified; F32.9 Major depressive disorder, single episode, unspecified; F17.210 Nicotine dependence, cigarettes, uncomplicated; E11.9 Type 2 diabetes mellitus without complications; Z79.4 Long term (current) use of insulin; C50.911 Malignant neoplasm of unspecified site of right female breast; Z88.6 Allergy status to analgesic agent; Z88.8 Allergy status to other drugs, medicaments and biological substances; Z88.5 Allergy status to narcotic agent; Z79.890 Hormone replacement therapy; Z79.899 Other long term (current) drug therapy; E03.9 Hypothyroidism, unspecified; M81.0 Age-related osteoporosis without current pathological fracture; K21.9 Gastro-esophageal reflux disease without esophagitis; R63.0 Anorexia; Z68.26 Body mass index [BMI] 26.0-26.9, adult; G47.00 Insomnia, unspecified; C50.912 Malignant neoplasm of unspecified site of left female breast; M19.90 Unspecified osteoarthritis, unspecified site; F03.90 Unspecified dementia, unspecified severity, without behavioral disturbance, psychotic disturbance, mood disturbance, and anxiety; E78.5 Hyperlipidemia, unspecified; Z20.822 Contact with and (suspected) exposure to COVID-19; H54.7 Unspecified visual loss; Z90.710 Acquired absence of both cervix and uterus; Z90.12 Acquired absence of left breast and nipple; Z98.890 Other specified postprocedural states
CPT/HCPCS: 0240U; 36415; 71045; 80053; 82962; 83735; 84439; 84443; 85025; 94640; 96365; 96375; 97162-GP; 99221; 99231; 99238; 99284; 99285-25; A9270-GY; J1650; J1815-GY; J1956; J2920; J2930; J3475; J7620-GY

== ENCOUNTER 2021-03-12 12:43 | Inpatient (IN) | payer MEDICARE, MEDICAID ==
[2021-03-12] MEDS ORDERED: Docusate Sodium 100 MG Cap PO PRN (13:04)
[2021-03-12] MEDS ORDERED: Albuterol/Ipratropium 3.0-0.5 MG/3 ML Neb Soln NEB PRN (13:04)
[2021-03-12] MEDS ORDERED: Glucagon,Human Recombinant 1 MG Vial IM PRN ×2 (13:04)
[2021-03-12] MEDS ORDERED: 50% Dextrose in Water 50 ML Syringe IV PRN (13:04)
[2021-03-12] MEDS ORDERED: Bisacodyl 5 MG Tab PO PRN (13:04)
[2021-03-12] MEDS ORDERED: Ondansetron 4 MG/2 ML SDV IVPUSH PRN (13:04)
[2021-03-12] MEDS: traMADol 50 MG Tab PO PRN (16:04)
[2021-03-12] MEDS: Insulin Lispro 100 Units/ML 3 ML Vial SUBCUT SCH ×2 (17:24→21:22)
[2021-03-12] MEDS: Albuterol/Ipratropium 3.0-0.5 MG/3 ML Neb Soln NEB SCH (18:28)
[2021-03-12] MEDS: Potassium Chloride 10 MEQ Tab.ER PO SCH (21:18)
[2021-03-13] MEDS: Albuterol/Ipratropium 3.0-0.5 MG/3 ML Neb Soln NEB SCH ×4 (01:14→17:59)
[2021-03-13] MEDS: Levothyroxine 25 MCG Tab PO SCH (06:00)
[2021-03-13] MEDS: Pantoprazole 40 MG Tab.CR PO SCH (06:00)
[2021-03-13] MEDS: Insulin Lispro 100 Units/ML 3 ML Vial SUBCUT SCH ×4 (08:29→20:13)
[2021-03-13] MEDS: predniSONE 20 MG Tab PO SCH (08:30)
[2021-03-13] MEDS: Tiotropium Inhaler 18 MCG Inhalation Powder Cap Kit of 5 INH SCH (08:31)
[2021-03-13] MEDS: Nicotine 14 MG/24 Hr Patch TRDERM SCH (08:31)
[2021-03-13] MEDS: Potassium Chloride 10 MEQ Tab.ER PO SCH ×2 (08:31→20:13)
[2021-03-13] MEDS: traMADol 50 MG Tab PO PRN ×2 (08:32→20:13)
[2021-03-13] MEDS: ANASTROZOLE 1 MG PO SCH (09:00)
[2021-03-13] MEDS ORDERED: Enoxaparin 40 MG/0.4 ML Syringe SUBCUT SCH (09:00)
[2021-03-13] MEDS: Levofloxacin 500 MG Tab PO SCH ×2 (09:07→10:43)
[2021-03-13] MEDS: Enoxaparin 30 MG/0.3 ML Syringe SUBCUT SCH (11:27)
[2021-03-13] MEDS ORDERED: Levofloxacin/Dextrose 5%-Water 500 MG in Premix Bag 1 BAG IV SCH (12:00)
[2021-03-14] MEDS: Albuterol/Ipratropium 3.0-0.5 MG/3 ML Neb Soln NEB SCH ×4 (00:45→17:58)
[2021-03-14] MEDS: Levothyroxine 25 MCG Tab PO SCH (05:00)
[2021-03-14] MEDS: Pantoprazole 40 MG Tab.CR PO SCH (05:00)
[2021-03-14] MEDS: Insulin Lispro 100 Units/ML 3 ML Vial SUBCUT SCH ×4 (08:10→20:58)
[2021-03-14] MEDS: predniSONE 20 MG Tab PO SCH (08:20)
[2021-03-14] MEDS: Potassium Chloride 10 MEQ Tab.ER PO SCH ×2 (08:20→20:58)
[2021-03-14] MEDS: Levofloxacin 500 MG Tab PO SCH (08:20)
[2021-03-14] MEDS: Enoxaparin 30 MG/0.3 ML Syringe SUBCUT SCH (08:22)
[2021-03-14] MEDS: Nicotine 14 MG/24 Hr Patch TRDERM SCH (08:22)
[2021-03-14] MEDS: Tiotropium Inhaler 18 MCG Inhalation Powder Cap Kit of 5 INH SCH (08:25)
[2021-03-14] MEDS: ANASTROZOLE 1 MG PO SCH (08:25)
--- NOTE | 2021-03-14 13:09 | PCM.SN.2 ---
- Free Text/Narrative Note: START OF DOCTOR WAYLONMIMony HISTORY AND PHYSICAL / CONSULTATION NOTE Chief Complaint: Admission to swing bed on March 12, 2021 for rehabilitation for deconditioning and weakness History of Present Illness: The patient is an 5-year-old female who was admitted on an inpatient basis from March 09 until March 12, 2021 for treatment of a COPD exacerbation. Patient status post treatment and at her baseline respiratory status and off of supplemental oxygen. She has been admitted to the swing bed for rehabilitation for weakness and deconditioning. Surgical History: , hysterectomy, left mastectomy, hip surgery Family History: Negative Social History: Tobacco: Active smoker Alcohol: Denies Caffeine: Coffee Drugs: Never Allergies: Morphine, codeine, rifampin, oxycodone Code Status: DNR, DNI Pertinent Laboratory Results / Pertinent Radiology Results / Pertinent Diagnostic Results / Pertinent Vital Signs: Temperature 90.3 degrees, pulse 82, blood pressure 113/52, respirations 20, 90% on room air Physical Examination: General: -Alert -No acute distress -No dyspnea -No tachypnea Head: -Atraumatic -Normocephalic Eyes: -Pupils equally round and reactive to light and accommodation -Extraocular muscles intact Neurological: -Cranial nerves II-XII intact Neck: -No jugular venous distention -No thyromegaly -No cervical lymphadenopathy Heart: -Regular rate -Regular rhythm -No murmurs -No gallops -No rubs Lungs: -No wheeze -No rhonchi -No rales Abdomen: -Normal bowel sounds in all four quadrants -No rebound -No guarding -No tenderness Extremities: -2/4 pulse in all four extremities -No clubbing -No cyanosis -No edema -No calf tenderness present bilaterally -Negative Homans sign bilaterally Musculoskeletal: -5/5 bilateral upper extremity strength -5/5 bilateral lower extremity strength -Sensorium of bilateral upper extremities are equal and intact -Sensorium of bilateral lower extremities are equal and intact Additional Details / Additional Findings / Exceptions / Miscellaneous: Assessment / Plan: Admission to swing bed for weakness/deconditioning. I will follow up on physical therapy and Occupational Therapy's findings recommendations COPD. Prednisone 40 mg p.o. daily which will be tapered plus DuoNeb every 6 hours plus Spiriva 18 mcg 1 elation daily plus Levaquin 500 mg p.o. daily until 11:59 PM on March 16, 2021 History of recurrent breast cancer, patient status post left mastectomy, status post radiation therapy. Patient need follow-up with hematology/oncology upon discharge. Anastrozole 1 mg p.o. daily Smoker. Nicotine patch 14 mg daily Chronic pain Anxiety Depression Diabetes. Will check fingerstick glucose before every meal and at bedtime and provide insulin scale History of hypothyroidism with current iatrogenic hyperthyroidism. Synthroid 37.5 mcg p.o. daily Osteoporosis Hyperlipidemia GERD. Protonix 40 mg p.o. daily Anorexia Dementia Insomnia Osteoarthritis Degenerative disc disease DVT prophylaxis. Lovenox 30 mg subcutaneously daily Disposition: Anticipate discharge once patient is deemed safe for discharge by physical therapy and Occupational Therapy END OF DOCTOR EMAMIS HISTORY AND PHYSICAL / CONSULTATION NOTE
[2021-03-14] MEDS: traMADol 50 MG Tab PO PRN (14:49)
[2021-03-14] MEDS: Albuterol 6.7 GM Inhaler INH PRN (17:09)
[2021-03-14] MEDS: Acetaminophen 325 MG Tab PO PRN (21:33)
[2021-03-15] MEDS: traMADol 50 MG Tab PO PRN (00:26)
[2021-03-15] MEDS: Albuterol/Ipratropium 3.0-0.5 MG/3 ML Neb Soln NEB SCH ×4 (00:28→18:45)
[2021-03-15] MEDS: Levothyroxine 25 MCG Tab PO SCH (06:04)
[2021-03-15] MEDS: Pantoprazole 40 MG Tab.CR PO SCH (06:04)
[2021-03-15] MEDS: Acetaminophen 325 MG Tab PO PRN ×2 (06:16→19:46)
[2021-03-15] MEDS: Insulin Lispro 100 Units/ML 3 ML Vial SUBCUT SCH ×4 (08:22→20:58)
[2021-03-15] MEDS: predniSONE 20 MG Tab PO SCH (09:38)
[2021-03-15] MEDS: Levofloxacin 500 MG Tab PO SCH (09:39)
[2021-03-15] MEDS: Nicotine 14 MG/24 Hr Patch TRDERM SCH (09:40)
[2021-03-15] MEDS: Potassium Chloride 10 MEQ Tab.ER PO SCH ×2 (09:40→20:46)
[2021-03-15] MEDS: Enoxaparin 30 MG/0.3 ML Syringe SUBCUT SCH (09:40)
[2021-03-15] MEDS: Tiotropium Inhaler 18 MCG Inhalation Powder Cap Kit of 5 INH SCH (12:04)
[2021-03-15] MEDS: ANASTROZOLE 1 MG PO SCH (12:05)
[2021-03-16] MEDS: Albuterol/Ipratropium 3.0-0.5 MG/3 ML Neb Soln NEB SCH ×4 (03:13→18:30)
[2021-03-16] MEDS: Pantoprazole 40 MG Tab.CR PO SCH (06:06)
[2021-03-16] MEDS: Levothyroxine 25 MCG Tab PO SCH (06:06)
[2021-03-16] MEDS: Insulin Lispro 100 Units/ML 3 ML Vial SUBCUT SCH ×4 (07:58→20:48)
[2021-03-16] MEDS: predniSONE 20 MG Tab PO SCH (08:44)
[2021-03-16] MEDS: traMADol 50 MG Tab PO PRN (08:44)
[2021-03-16] MEDS: Potassium Chloride 10 MEQ Tab.ER PO SCH ×2 (08:44→20:40)
[2021-03-16] MEDS: Levofloxacin 500 MG Tab PO SCH (08:44)
[2021-03-16] MEDS: Enoxaparin 30 MG/0.3 ML Syringe SUBCUT SCH (08:46)
[2021-03-16] MEDS: Nicotine 14 MG/24 Hr Patch TRDERM SCH (08:46)
[2021-03-16] MEDS: ANASTROZOLE 1 MG PO SCH (08:47)
[2021-03-16] MEDS: Tiotropium Inhaler 18 MCG Inhalation Powder Cap Kit of 5 INH SCH (08:48)
[2021-03-17] MEDS: Albuterol/Ipratropium 3.0-0.5 MG/3 ML Neb Soln NEB SCH ×4 (01:02→17:18)
[2021-03-17] MEDS: Pantoprazole 40 MG Tab.CR PO SCH (06:05)
[2021-03-17] MEDS: Levothyroxine 25 MCG Tab PO SCH (06:05)
[2021-03-17] MEDS: Insulin Lispro 100 Units/ML 3 ML Vial SUBCUT SCH ×4 (08:09→21:03)
[2021-03-17] MEDS: Potassium Chloride 10 MEQ Tab.ER PO SCH ×2 (09:28→21:00)
[2021-03-17] MEDS: predniSONE 20 MG Tab PO SCH (09:29)
[2021-03-17] MEDS: ANASTROZOLE 1 MG PO SCH (09:29)
[2021-03-17] MEDS: Tiotropium Inhaler 18 MCG Inhalation Powder Cap Kit of 5 INH SCH (09:29)
[2021-03-17] MEDS: Enoxaparin 30 MG/0.3 ML Syringe SUBCUT SCH (09:30)
[2021-03-17] MEDS: Nicotine 14 MG/24 Hr Patch TRDERM SCH (09:36)
[2021-03-17] MEDS: traMADol 50 MG Tab PO PRN ×2 (14:55→21:00)
[2021-03-18] MEDS: Albuterol/Ipratropium 3.0-0.5 MG/3 ML Neb Soln NEB SCH ×3 (00:41→13:31)
[2021-03-18] MEDS: Levothyroxine 25 MCG Tab PO SCH (05:49)
[2021-03-18] MEDS: Pantoprazole 40 MG Tab.CR PO SCH (05:49)
[2021-03-18] MEDS ORDERED: predniSONE 10 MG Tab PO SCH ×2 (07:45→09:00)
[2021-03-18] MEDS: Potassium Chloride 10 MEQ Tab.ER PO SCH (08:30)
[2021-03-18] MEDS: traMADol 50 MG Tab PO PRN (08:30)
[2021-03-18] MEDS: Enoxaparin 30 MG/0.3 ML Syringe SUBCUT SCH (08:31)
[2021-03-18] MEDS: Nicotine 14 MG/24 Hr Patch TRDERM SCH (08:35)
--- NOTE | 2021-03-18 08:51 | PCM.SN.2 ---
- Free Text/Narrative Note: START OF DOCTOR EMAMIS DISCHARGE SUMMARY Date of Admission: March 12, 2021 Date of Discharge: 8:49 AM on March 18, 2021 Primary Diagnosis: Admission to swing bed for weakness/deconditioning Secondary Diagnosis: COPD History of recurrent breast cancer, status post radiation therapy Smoker Chronic pain Anxiety Depression Diabetes History of hypothyroidism with iatrogenic hyperthyroidism for which Synthroid dose has been reduced to 37.5 mg p.o. daily Osteoporosis Hyperlipidemia GERD Anorexia Dementia Insomnia Osteoarthritis Degenerative disc disease Consultations: None Disposition: The patient will be advised to follow-up with hematology/oncology as directed The patient may follow-up with her primary care physician or provider as needed Discharge Medications: Synthroid 37.5 mg p.o. daily Anastrozole 1 mg p.o. daily K-Dur 10 EQ p.o. twice daily Prednisone 10 mg p.o.: 2 tabs daily x3 days then 1 tab daily x3 days. Quantity sufficient. 0 refills Ultram 50 mg p.o. 3 times daily as needed pain Proventil HFA: 90 mcg/spray: 2 puffs every 4 hours as needed shortness of breath/wheeze Ipratropium 2.5 mL nebulized twice daily as needed shortness of breath or wheeze END OF DOCTOR EMAMIS DISCHARGE SUMMARY
[2021-03-18] MEDS: Insulin Lispro 100 Units/ML 3 ML Vial SUBCUT SCH ×2 (09:25→12:38)
[2021-03-18] MEDS: ANASTROZOLE 1 MG PO SCH (09:54)
[2021-03-18] MEDS: Albuterol 6.7 GM Inhaler INH PRN (09:56)
[2021-03-18] MEDS: Tiotropium Inhaler 18 MCG Inhalation Powder Cap Kit of 5 INH SCH (09:57)
--- NOTE | 2021-03-19 12:07 | PCM.SN.2 ---
- Free Text/Narrative Note: START OF DOCTOR EMAMIS DISCHARGE SUMMARY Date of Admission: March 12, 2021 Date of Discharge: 8:49 AM on March 18, 2021 Primary Diagnosis: Admission to swing bed for weakness/deconditioning Secondary Diagnosis: COPD History of recurrent breast cancer, status post radiation therapy Smoker Chronic pain Anxiety Depression Diabetes History of hypothyroidism with iatrogenic hyperthyroidism for which Synthroid dose has been reduced to 37.5 mg p.o. daily Osteoporosis Hyperlipidemia GERD Anorexia Dementia Insomnia Osteoarthritis Degenerative disc disease Consultations: None Disposition: The patient will be advised to follow-up with hematology/oncology as directed The patient may follow-up with her primary care physician or provider as needed The patient requires half-way for medication regimen teaching and weight monitoring. Patient requires occupational therapy for home safety evaluation Discharge Medications: Synthroid 37.5 mg p.o. daily Anastrozole 1 mg p.o. daily K-Dur 10 EQ p.o. twice daily Prednisone 10 mg p.o.: 2 tabs daily x3 days then 1 tab daily x3 days. Quantity sufficient. 0 refills Ultram 50 mg p.o. 3 times daily as needed pain Proventil HFA: 90 mcg/spray: 2 puffs every 4 hours as needed shortness of breath/wheeze Ipratropium 2.5 mL nebulized twice daily as needed shortness of breath or wheeze END OF DOCTOR EMAMIS DISCHARGE SUMMARY
== END 2021-03-18 14:35 | disposition home or self-care (01) | DRG 948 ==
LOC: DL.MS 13:08
PROVIDERS: ADMIT Internal Medicine; ATTEND Internal Medicine
DX: R53.1 Weakness (principal); J44.9 Chronic obstructive pulmonary disease, unspecified; F17.210 Nicotine dependence, cigarettes, uncomplicated; G89.29 Other chronic pain; F41.9 Anxiety disorder, unspecified; F32.9 Major depressive disorder, single episode, unspecified; E05.80 Other thyrotoxicosis without thyrotoxic crisis or storm; E03.9 Hypothyroidism, unspecified; M81.0 Age-related osteoporosis without current pathological fracture; E78.5 Hyperlipidemia, unspecified; K21.9 Gastro-esophageal reflux disease without esophagitis; F03.90 Unspecified dementia, unspecified severity, without behavioral disturbance, psychotic disturbance, mood disturbance, and anxiety; G47.00 Insomnia, unspecified; M19.90 Unspecified osteoarthritis, unspecified site; Z79.899 Other long term (current) drug therapy; Z79.890 Hormone replacement therapy; Z85.3 Personal history of malignant neoplasm of breast; Z90.710 Acquired absence of both cervix and uterus; Z90.12 Acquired absence of left breast and nipple; Z98.890 Other specified postprocedural states; Z88.5 Allergy status to narcotic agent; Z88.1 Allergy status to other antibiotic agents
CPT/HCPCS: 82947; 82962; 94640; 97116-GP; 97162-GP; 97166-GO; 97530-GO; 97535-GO; 99304; 99307; 99315; A9270-GY; J1650; J1815-GY; J7512; J7620-GY

== ENCOUNTER 2021-03-26 10:52 | Observation (INO) | payer MEDICARE, MEDICAID ==
[2021-03-26] MEDS ORDERED: Albuterol/Ipratropium 3.0-0.5 MG/3 ML Neb Soln ONE (11:09)
[2021-03-26] MEDS ORDERED: Albuterol/Ipratropium 3.0-0.5 MG/3 ML Neb Soln NEB ONE (11:11)
--- NOTE | 2021-03-26 12:33 | EDM.PDOC ---
ED HPI GENERAL MEDICAL PROBLEM - General Chief Complaint: Respiratory Problem Stated Complaint: AMBULANCE Time Seen by Provider: 03/26/21 11:30 Source of Information: Reports: Patient, Old Records, Provider (Dr. Cho, discharging ), RN, RN Notes Reviewed, Other (Adriana Moseley RN) History Limitations: Reports: No Limitations Generalized Pain Score (Numeric/FACES): 6 - Related Data Allergies Allergy/AdvReac Type Severity Reaction Status Date / Time morphine Allergy Nausea and Verified 03/26/21 12:21 Vomiting rifampin Allergy Cannot Verified 03/26/21 12:21 Remember codeine AdvReac Itching Verified 03/26/21 12:21 oxycodone [From OxyContin] AdvReac Dizziness Verified 03/26/21 12:21 Home Meds: Home Meds Albuterol [Proair HFA] 2 puff INH Q4H PRN 01/18/18 [History] Potassium Chloride 10 meq PO BID 02/14/20 [History] traMADol [Ultram] 100 mg PO TID PRN MDD 6 tabs 02/14/20 [History] Anastrozole [Arimidex] 1 mg PO DAILY 03/09/21 [History] Levothyroxine 37.5 mcg PO ACBREAKFAST 30 Days #30 tablet 03/18/21 [Rx] Doxycycline Monohydrate 100 mg PO BID 7 Days #14 capsule 03/25/21 [Rx] Loratadine [Claritin] 10 mg PO DAILY tablet 03/25/21 [Rx] Doxycycline [Doxycycline Monohydrate] 100 mg PO BID 03/26/21 [History] predniSONE [Prednisone] See Taper PO ASDIRECTED 03/26/21 [History] Past Medical History HEENT History: Reports: Impaired Vision Cardiovascular History: Reports: Heart Failure Respiratory History: Reports: Asthma, COPD Gastrointestinal History: Reports: None Genitourinary History: Reports: Other (See Below) Other Genitourinary History: stress incontinence [employer] History: Reports: Musculoskeletal History: Reports: Back Pain, Chronic Neurological History: Reports: Other (See Below) Other Neuro History: forgetful Psychiatric History: Reports: Anxiety, Depression 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, Hyperthyroidism, Osteoporosis Hematologic History: Reports: None Immunologic History: Reports: None Oncologic (Cancer) History: Reports: Breast Other Oncologic History: Radiationin December 2020 for spot in center of chest Dermatologic History: Reports: None - Infectious Disease History Infectious Disease History: Reports: None - Past Surgical History Head Surgeries/Procedures: Reports: None HEENT Surgical History: Reports: None Cardiovascular Surgical History: Reports: None Respiratory Surgical History: Reports: None Female Surgical History: Reports: Section, Hysterectomy, Mastectomy, Other (See Below) Other Female Surgeries/Procedures: Left mastectomy Endocrine Surgical History: Reports: None Neurological Surgical History: Reports: None Musculoskeletal Surgical History: Reports: Hip Replacement, Other (See Below) Other Musculoskeletal Surgeries/Procedures:: right leg shorter then left Oncologic Surgical History: Reports: Mastectomy Other Oncologic Surgeries/Procedures: Left mastectomy Dermatological Surgical History: Reports: None Social & Family History - Family History Family Medical History: No Pertinent Family History - Tobacco Use Tobacco Use Status *Q: Current Status Unknown Second Hand Smoke Exposure: No - Caffeine Use Caffeine Use: Reports: Coffee - Recreational Drug Use Recreational Drug Use: No - Living Situation & Occupation Living situation: Reports: Alone Occupation: Retired #1 Interpretation EKG Date: 03/26/21 Time: 11:13 Rhythm: NSR Rate (Beats/Min): 97 Colon: LAD-Left Colon Deviation P-Wave: Present QRS: Normal ST-T: Normal QT: Normal FL/PQ Interval: 0.143 Comparison: No Change EKG Interpretation Comments: Sinus Rhythm with trigeminy PVCs; No evidence of acute myocardial ischemia Course - Vital Signs Last Recorded V/S: Last Vital Signs Temp 98.2 F 03/26/21 11:05 Pulse 106 H 03/26/21 11:05 Resp 22 H 03/26/21 11:05 BP 131/86 03/26/21 11:05 Pulse Ox 99 03/26/21 11:05 - Orders/Labs/Meds Orders: Active Orders 24 hr Category Date Time Status Admission Diagnosis [ADT] Stat ADT 03/26/21 11:56 Ordered Admission Status [Patient Status] [ADT] Routine ADT 03/26/21 11:56 Ordered EKG Documentation Completion [RC] STAT Care 03/26/21 11:11 Active RT Aerosol Therapy [RC] ASDIRECTED Care 03/26/21 11:11 Active CORONAVIRUS COVID-19 ROSA [MOLEC] Routine Lab 03/26/21 12:03 Received Meds: Medications Discontinued Medications Generic Name Dose Route Start Last Admin Trade Name Freq PRN Reason Stop Dose Admin Albuterol/Ipratropium Confirm 03/26/21 11:09 03/26/21 11:23 Albuterol/Ipratropium 3.0-0.5 Mg/3 Ml Neb Soln Administered 03/26/21 11:10 3 ml Dose Administration 3 ml .ROUTE .STK-MED ONE Albuterol/Ipratropium 3 ml 03/26/21 11:11 03/26/21 11:24 Albuterol/Ipratropium 3.0-0.5 Mg/3 Ml Neb Soln NEB 03/26/21 11:12 3 ml ONETIME ONE Administration Departure - Departure Disposition: Refer to Observation - Discharge Information Referrals: PCP,Unobtain [Primary Care Provider] - Forms: ED Department Discharge Sepsis Event Note (ED) - Evaluation Sepsis Screening Result: No Definite Risk - Focused Exam Vital Signs: Vital Signs Temp Pulse Resp BP Pulse Ox 03/26/21 11:05 98.2 F 106 H 22 H 131/86 99 - My Orders Last 24 Hours: My Active Orders 03/26/21 11:11 EKG Documentation Completion [RC] STAT RT Aerosol Therapy [RC] ASDIRECTED 03/26/21 11:56 Admission Diagnosis [ADT] Stat Admission Status [Patient Status] [ADT] Routine 03/26/21 12:03 CORONAVIRUS COVID-19 ROSA [MOLEC] Routine - Assessment/Plan Last 24 Hours: My Active Orders 03/26/21 11:11 EKG Documentation Completion [RC] STAT RT Aerosol Therapy [RC] ASDIRECTED 03/26/21 11:56 Admission Diagnosis [ADT] Stat Admission Status [Patient Status] [ADT] Routine 03/26/21 12:03 CORONAVIRUS COVID-19 ROSA [MOLEC] Routine
[2021-03-26] MEDS ORDERED: Acetaminophen 325 MG Tab PO PRN (13:26)
[2021-03-26] MEDS ORDERED: Albuterol 6.7 GM Inhaler INH PRN (13:33)
--- NOTE | 2021-03-26 14:24 | CR ---
EXAMINATION: Chest 1V Frontal SEX: Female AGE: 75 years CLINICAL HISTORY: 75-year-old female smoker with COPD, left mastectomy (metastatic breast cancer") and now increased shortness of breath (COPD exacerbation). Old healed rib fractures bilaterally. INTERPRETATION: Rotation artifact. 1. No new signs of primary or metastatic lung malignancy. No suspicious mass lesion or hilar/mediastinal lymphadenopathy. Cluster surgical yoav left axilla. Left mastectomy. 2. Normal cardiac silhouette (size and configuration). No pulmonary vascular congestion, cephalization of flow, alveolar edema or dependent new pleural fluid accumulation (effusions). 3. No focal lobar infiltrate/atelectasis i.e. no alveolar infiltrate or peripheral interstitial "groundglass" lung densities. 4. Generalized air trapping and chronic shaggy bronchitic pattern. 5. No pneumothorax or pneumomediastinum. No large cystic or bullous emphysematous lesions. CONCLUSION: No acute new cardiopulmonary abnormality. Postoperative changes anterior left chest wall. Several old healed rib fractures. CONCLUSION:
[2021-03-26] MEDS: Albuterol/Ipratropium 3.0-0.5 MG/3 ML Neb Soln NEB PRN ×2 (14:50→20:20)
--- NOTE | 2021-03-26 16:17 | PCM.HP ---
H&P History of Present Illness - General Date of Service: 03/26/21 Admit Problem/Dx: Admission Diagnosis/Problem Admission Diagnosis/Problem COPD, Severe chronic obstructive pulmonary disease - History of Present Illness Initial Comments - Free Text/Narative: Adriana is a 75-year-old woman who presented back to the ED today complaining of severe dyspnea. She has severe COPD, and has been hospitalized multiple times in the recent past. She was hospitalized here over the weekend, and was actually just discharged home yesterday morning. Both myself and the nursing staff here had recommended to her discharge to detention, but she refused this and demanded discharge home. She had also refused evaluation for home oxygen, saying "I do not need that". Occupational and physical therapy also expressed significant concerns about her ability to ambulate and her inability to perform a lot of her activities of daily living without assistance. She reported back to the ER this morning, complaining of severe dyspnea. She was sent home on oral prednisone and doxycycline, did take a dose of both of those this morning. One of our discharge planners did go and see her in the ER, and has now changed her mind and is more amenable to admission to assisted. The plan was therefore formulated to admit her for observation and stabilization, in anticipation of admission to the assisted in the next 24 to 48 hours. With her recent hospitalization that was several days in duration, she does have her 3-day qualifying stay for Medicare purposes Generalized Pain Score (Numeric/FACES): 6 - Related Data Allergies/Adverse Reactions: Allergies Allergy/AdvReac Type Severity Reaction Status Date / Time morphine Allergy Nausea and Verified 03/26/21 12:21 Vomiting rifampin Allergy Cannot Verified 03/26/21 12:21 Remember codeine AdvReac Itching Verified 03/26/21 12:21 oxycodone [From OxyContin] AdvReac Dizziness Verified 03/26/21 12:21 Home Medications: Home Meds Albuterol [Proair HFA] 2 puff INH Q4H PRN 01/18/18 [History] Potassium Chloride 10 meq PO BID 02/14/20 [History] traMADol [Ultram] 100 mg PO TID PRN MDD 6 tabs 02/14/20 [History] Anastrozole [Arimidex] 1 mg PO DAILY 03/09/21 [History] Levothyroxine 37.5 mcg PO ACBREAKFAST 30 Days #30 tablet 03/18/21 [Rx] Loratadine [Claritin] 10 mg PO DAILY tablet 03/25/21 [Rx] Doxycycline [Doxycycline Monohydrate] 100 mg PO BID 03/26/21 [History] predniSONE [Prednisone] See Taper PO ASDIRECTED 03/26/21 [History] Past Medical History HEENT History: Reports: Impaired Vision Cardiovascular History: Reports: Heart Failure Respiratory History: Reports: Asthma, COPD Gastrointestinal History: Reports: None Genitourinary History: Reports: Other (See Below) Other Genitourinary History: stress incontinence 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: Reports: Musculoskeletal History: Reports: Back Pain, Chronic Neurological History: Reports: Other (See Below) Other Neuro History: forgetful Psychiatric History: Reports: Anxiety, Depression 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, Hyperthyroidism, Osteoporosis Hematologic History: Reports: None Immunologic History: Reports: None Oncologic (Cancer) History: Reports: Breast Other Oncologic History: Radiationin December 2020 for spot in center of chest Dermatologic History: Reports: None - Infectious Disease History Infectious Disease History: Reports: None - Past Surgical History Head Surgeries/Procedures: Reports: None HEENT Surgical History: Reports: None Cardiovascular Surgical History: Reports: None Respiratory Surgical History: Reports: None Female Surgical History: Reports: Section, Hysterectomy, Mastectomy, Other (See Below) Other Female Surgeries/Procedures: Left mastectomy Endocrine Surgical History: Reports: None Neurological Surgical History: Reports: None Musculoskeletal Surgical History: Reports: Hip Replacement, Other (See Below) Other Musculoskeletal Surgeries/Procedures:: right leg shorter then left Oncologic Surgical History: Reports: Mastectomy Other Oncologic Surgeries/Procedures: Left mastectomy Dermatological Surgical History: Reports: None Social & Family History - Family History Family Medical History: No Pertinent Family History - Tobacco Use Tobacco Use Status *Q: Never Tobacco User Second Hand Smoke Exposure: No - Caffeine Use Caffeine Use: Reports: Coffee - Recreational Drug Use Recreational Drug Use: No - Living Situation & Occupation Living situation: Reports: Alone Occupation: Retired H&P Review of Systems - Review of Systems: Review Of Systems: See Below Review of Systems Comment:: General: Adriana has long had trouble with low weight. She did gain 5 to 10 pounds here in the hospital while admitted, really only likes to eat sweets and really not much protein HEENT: No headache or vertigo, no difficulty with speaking or swallowing Cardiovascular: No chest pain or palpitations, no orthopnea or PND Respiratory: See HPI. She is unable to do any activity without severe dyspnea Gastrointestinal: No nausea or vomiting, no diarrhea or constipation, no hematochezia or melena Endocrine: No abnormal rashing or bruising, no intolerance to heat or cold Integumentary: No lesions or rashes Musculoskeletal: No myalgias or arthralgias Psychological: No increased anxiety or depressive type symptoms Rest of the review of systems is complete and negative Exam - Exam Exam: See Below - Vital Signs Vital Signs: Last Vital Signs Temp 98.2 F 03/26/21 11:05 Pulse 99 03/26/21 15:00 Resp 22 H 03/26/21 11:05 BP 131/86 03/26/21 11:05 Pulse Ox 99 03/26/21 15:00 Weight: 75 lb - Exam Physical Exam Comments:: General: Adriana is a 75-year-old woman in no acute distress. She is showing no signs of respiratory distress, no tachypnea or accessory muscle use Oropharynx is clear, mucous membranes are moist Heart: Regular rate and rhythm, 1 out of 6 to 2 out of 6 systolic murmur heard over the left sternal border Lungs: Distant breath sounds throughout, slight expiratory wheezing heard, especially on the right Skin appears in good condition, no masses or lesions appreciated Neurological: Cranial nerves II through XII are intact, reflexes 2+ throughout, toes downward going She is alert and oriented x3 - Patient Data Lab Results Last 24 hrs: Laboratory Results - last 24 hr 03/26/21 Range/Units 12:03 SARS-CoV-2 RNA (ROSA) Negative (NEGATIVE) *Q Meaningful Use (ADM) - VTE Risk Assess *Q Each Risk Factor Represents 2 Points: Age 60 - 74 Years Total Score 2 Point Risk Factors: 2 - Problem List (1) COPD exacerbation SNOMED Code(s): 314343681 ICD Code: J44.1 - CHRONIC OBSTRUCTIVE PULMONARY DISEASE W (ACUTE) EXACERBATION Status: Acute Current Visit: No (2) Failure to thrive in adult SNOMED Code(s): 956974692 ICD Code: R62.7 - ADULT FAILURE TO THRIVE Status: Acute Current Visit: No (3) Generalized weakness SNOMED Code(s): 95418140 ICD Code: R53.1 - WEAKNESS Status: Acute Current Visit: No (4) Severe protein-calorie malnutrition SNOMED Code(s): 374412640, 649791692, 492189951 ICD Code: E43 - UNSPECIFIED SEVERE PROTEIN-CALORIE MALNUTRITION Status: Acute Current Visit: No Problem List Initiated/Reviewed/Updated: Yes Orders Last 24hrs: Active Orders 24 hr Category Date Time Status Admission Diagnosis [ADT] Stat ADT 03/26/21 11:56 Ordered Admission Status [Patient Status] [ADT] Routine ADT 03/26/21 11:56 Active Intake and Output [RC] QSHIFT Care 03/26/21 13:29 Active Oxygen Therapy [RC] PRN Care 03/26/21 13:26 Active RT Aerosol Therapy [RC] ASDIRECTED Care 03/26/21 11:11 Active RT Aerosol Therapy [RC] ASDIRECTED Care 03/26/21 14:52 Active RT Post Treatment Assessment [RC] Click to Edit Care 03/26/21 13:35 Active RT Pre-Treatment Assessment [RC] Click to Edit Care 03/26/21 13:35 Active Up With Assistance [RC] ASDIRECTED Care 03/26/21 13:26 Active VTE/DVT Education [RC] PER UNIT ROUTINE Care 03/26/21 13:26 Active Vital Signs [RC] Q8H Care 03/26/21 13:26 Active Consult to Press Operator Heavy Duty [CONS] Routine Cons 03/26/21 13:26 Active Regular Diet [DIET] Diet 03/26/21 Dinner Active Acetaminophen [TylenoL] Med 03/26/21 13:26 Active 650 mg PO Q4H PRN Albuterol [Proventil HFA] Med 03/26/21 13:33 Pending DOSE gm INH Q4H PRN Albuterol/Ipratropium [DuoNeb 3.0-0.5 MG/3 ML] Med 03/26/21 14:52 Active 3 ml NEB Q6HRRT PRN Anastrozole [Arimidex] Med 03/27/21 09:00 Ordered 1 mg PO DAILY Doxycycline Monohydrate Med 03/26/21 21:00 Active 100 mg PO BID Levothyroxine Med 03/27/21 06:00 Ordered 37.5 mcg PO ACBREAKFAST Loratadine [Claritin] Med 03/27/21 09:00 Ordered 10 mg PO DAILY Potassium Chloride [Potassium Chloride] Med 03/26/21 21:00 Ordered 10 meq PO BID dexAMETHasone [Decadron] Med 03/26/21 21:00 Active 10 mg IVPUSH Q12H traMADol [Ultram] Med 03/26/21 13:33 Ordered 100 mg PO TID PRN Resuscitation Status Routine Resus Stat 03/26/21 13:26 Ordered Medication Orders Acetaminophen (Acetaminophen 325 Mg Tab) 650 mg PO Q4H PRN PRN Reason: Pain (Mild 1-3)/fever Albuterol (Albuterol 6.7 Gm Inhaler) gm INH Q4H PRN PRN Reason: Shortness of Breath Albuterol/Ipratropium (Albuterol/Ipratropium 3.0-0.5 Mg/3 Ml Neb Soln) 3 ml NEB Q6HRRT PRN PRN Reason: Dyspnea Last Admin: 03/26/21 14:50 Dose: 3 ml Documented by: ROBERT Dexamethasone (Dexamethasone 4 Mg/Ml Sdv) 10 mg IVPUSH Q12H NATE Stop: 03/27/21 09:01 Doxycycline Monohydrate (Doxycycline Monohydrate 100 Mg Cap Pt Own Med) 100 mg PO BID NATE Stop: 04/01/21 21:01 Levothyroxine Sodium (Levothyroxine 25 Mcg Tab) 37.5 mcg PO ACBREAKFAST NATE Loratadine (Loratadine 10 Mg Tab) 10 mg PO DAILY NATE Non-Formulary Medication (Anastrozole [Arimidex]) 1 mg PO DAILY NATE Non-Formulary Medication (Potassium Chloride [Potassium Chloride]) 10 meq PO BID NATE Tramadol HCl (Tramadol 50 Mg Tab) 100 mg PO TID PRN PRN Reason: Pain (mild 1-3) Assessment/Plan Comment:: Assessment: 1. 75-year-old woman with severe oxygen and steroid-dependent COPD, with acute exacerbation 2. Profound protein calorie malnutrition 3. Failure to thrive 4. Poor mobility Plan: 1. Discharge planning has contacted assisted, and they are most likely able to accept her. They will continue their intake process. She is therefore admitted to observation here for safety, I do not feel comfortable discharging her back home. 2. We will continue the doxycycline, 100 mg twice daily for a total of 7 days 3. We will work with [facility] the best we can as far as her diet is concerned. At this point any calories will be helpful, but it would be nice to get some protein added to her diet 4. Anticipate discharge to the assisted when a bed is available and she is excepted
[2021-03-26] MEDS: DOXYCYCLINE MONOHYDRATE 100 MG PO SCH (20:30)
[2021-03-26] MEDS: Dexamethasone 4 MG/ML SDV IVPUSH SCH ×2 (20:31→20:37)
[2021-03-26] MEDS ORDERED: Potassium Chloride 10 MEQ Tab.ER PO ONE (21:15)
[2021-03-26] MEDS: traMADol 50 MG Tab PO PRN (21:51)
[2021-03-27] MEDS ORDERED: Levothyroxine 25 MCG Tab PO SCH (06:00)
[2021-03-27] MEDS: traMADol 50 MG Tab PO PRN (07:48)
[2021-03-27] MEDS: Albuterol/Ipratropium 3.0-0.5 MG/3 ML Neb Soln NEB PRN ×2 (08:19→14:24)
[2021-03-27] MEDS ORDERED: Loratadine 10 MG Tab PO SCH (09:00)
[2021-03-27] MEDS ORDERED: ANASTROZOLE 1 MG PO SCH (09:00)
[2021-03-27] MEDS: DOXYCYCLINE MONOHYDRATE 100 MG PO SCH (09:09)
[2021-03-27] MEDS ORDERED: Potassium Chloride 10 MEQ Tab.ER PO SCH (09:15)
[2021-03-27] MEDS: Dexamethasone 4 MG/ML SDV IVPUSH SCH (10:48)
--- NOTE | 2021-03-27 13:57 | PCM.DCSUM1 ---
Discharge Summary - Hospital Course Free Text/Narrative:: Adriana is a 75-year-old woman who was admitted yesterday for observation in anticipation of discharge to a [place] [facility] [place] today. She had been admitted for the past several days here in the hospital for severe COPD exacerbation. She was discharged home 2 days ago at her request, even though myself and the nursing staff had strongly urged against it. Adriana has severe COPD that is oxygen dependent, and cannot properly care for herself at home. She came back to the ER yesterday morning, and our staff was able to talk her into a plan of care that included evaluation for possible admission to a [place]. [place] came back with a determination that she would be a good fit for their facility, patient was willing to be admitted there. This morning she was doing very well, was excited for her new living arrangement - Discharge Data Discharge Date: 03/27/21 Discharge Disposition: DC/Tfer to SNF 03 Condition: Good - Referral to Home Health Primary Care Physician: PCP Unobtainable - Discharge Diagnosis/Problem(s) (1) COPD exacerbation SNOMED Code(s): 885900528 ICD Code: J44.1 - CHRONIC OBSTRUCTIVE PULMONARY DISEASE W (ACUTE) EXACERBATION Status: Acute Current Visit: No (2) Failure to thrive in adult SNOMED Code(s): 286653518 ICD Code: R62.7 - ADULT FAILURE TO THRIVE Status: Acute Current Visit: No (3) Generalized weakness SNOMED Code(s): 57514194 ICD Code: R53.1 - WEAKNESS Status: Acute Current Visit: No (4) Severe protein-calorie malnutrition SNOMED Code(s): 729465213, 633594837, 898057442 ICD Code: E43 - UNSPECIFIED SEVERE PROTEIN-CALORIE MALNUTRITION Status: Acute Current Visit: No - Patient Summary/Data Consults: Consultations 03/26/21 13:26 Consult to Donor Center Technician [CONS] Routine - Discharge Plan *PRESCRIPTION DRUG MONITORING PROGRAM REVIEWED*: Not Applicable *COPY OF PRESCRIPTION DRUG MONITORING REPORT IN PATIENT JS: Not Applicable Home Medications: Home Meds Albuterol [Proair HFA] 2 puff INH Q4H PRN 01/18/18 [History] Potassium Chloride 10 meq PO BID 02/14/20 [History] traMADol [Ultram] 100 mg PO TID PRN MDD 6 tabs 02/14/20 [History] Anastrozole [Arimidex] 1 mg PO DAILY 03/09/21 [History] Levothyroxine 37.5 mcg PO ACBREAKFAST 30 Days #30 tablet 03/18/21 [Rx] Loratadine [Claritin] 10 mg PO DAILY tablet 03/25/21 [Rx] Doxycycline [Doxycycline Monohydrate] 100 mg PO BID 03/26/21 [History] predniSONE [Prednisone] See Taper PO ASDIRECTED 03/26/21 [History] Patient Handouts: Chronic Obstructive Pulmonary Disease, [id number] Referrals: PCP,Unobtain [Primary Care Provider] - - Discharge Summary/Plan Comment DC Time >30 min.: No Discharge Summary/Plan Comment: Discharge diagnoses: 1. 75-year-old woman with severe oxygen dependent COPD 2. Adult failure to thrive 3. Severe malnutrition secondary to poor protein intake Discharge plan: 1. She is discharged to the [place] [facility] [place] this morning. 2. She will resume the oral doxycycline and oral prednisone prescribed to her upon discharge 2 days ago. She was to complete a 7-day regimen of 100 mg twice daily doxycycline, and a 10-day taper regimen of prednisone. - Patient Data Vitals - Most Recent: Last Vital Signs Temp 96.7 F L 03/27/21 07:50 Pulse 67 03/27/21 08:21 Resp 20 03/27/21 07:50 BP 157/57 H 03/27/21 07:50 Pulse Ox 94 L 03/27/21 08:21 Weight - Most Recent: 75 lb I&O - Last 24 hours: Intake & Output 03/26/21 03/27/21 03/27/21 22:59 06:59 14:59 Intake Total 140 200 Balance 140 200 Med Orders - Current: Current Medications Acetaminophen (Acetaminophen 325 Mg Tab) 650 mg PO Q4H PRN PRN Reason: Pain (Mild 1-3)/fever Last Admin: 03/26/21 20:30 Dose: 650 mg Documented by: Albuterol (Albuterol 6.7 Gm Inhaler) 0 gm INH Q4H PRN PRN Reason: Shortness of Breath Albuterol/Ipratropium (Albuterol/Ipratropium 3.0-0.5 Mg/3 Ml Neb Soln) 3 ml NEB Q6HRRT PRN PRN Reason: Dyspnea Last Admin: 03/27/21 08:19 Dose: 3 ml Documented by: Doxycycline Monohydrate (Doxycycline Monohydrate 100 Mg Cap Pt Own Med) 100 mg PO BID [facility] Stop: 04/01/21 21:01 Last Admin: 03/27/21 09:09 Dose: 100 mg Documented by: Levothyroxine Sodium (Levothyroxine 25 Mcg Tab) 37.5 mcg PO ACBREAKFAST [facility] Last Admin: 03/27/21 10:44 Dose: Not Given Documented by: Loratadine (Loratadine 10 Mg Tab) 10 mg PO DAILY [facility] Last Admin: 03/27/21 10:14 Dose: 10 mg Documented by: Anastrozole [ Arimidex] 1 Mg Tablet Pt Own Med* * 0 each PO DAILY [facility] Last Admin: 03/27/21 10:14 Dose: 1 each Documented by: Potassium Chloride (Potassium Chloride 10 Meq Tab.Er) 10 meq PO BIDMEALS [facility] Last Admin: 03/27/21 10:14 Dose: 10 meq Documented by: Tramadol HCl (Tramadol 50 Mg Tab) 100 mg PO TID PRN PRN Reason: Pain (mild 1-3) Last Admin: 03/27/21 07:48 Dose: 100 mg Documented by: Discontinued Medications Albuterol/Ipratropium (Albuterol/Ipratropium 3.0-0.5 Mg/3 Ml Neb Soln) Confirm Administered Dose 3 ml .ROUTE .STK-MED ONE Stop: 03/26/21 11:10 Last Admin: 03/26/21 11:23 Dose: 3 ml Documented by: Albuterol/Ipratropium (Albuterol/Ipratropium 3.0-0.5 Mg/3 Ml Neb Soln) 3 ml NEB ONETIME ONE Stop: 03/26/21 11:12 Last Admin: 03/26/21 11:24 Dose: 3 ml Documented by: Dexamethasone (Dexamethasone 4 Mg/Ml Sdv) 10 mg IVPUSH Q12H [facility] Stop: 03/27/21 09:01 Last Admin: 03/27/21 10:48 Dose: Not Given Documented by: Potassium Chloride (Potassium Chloride 10 Meq Tab.Er) 10 meq PO ONETIME ONE Stop: 03/26/21 21:16 Last Admin: 03/26/21 21:52 Dose: 10 meq Documented by:
== END 2021-03-27 14:30 ==
LOC: DL.ED 10:52 → DL.MS 11:56
PROVIDERS: ADMIT Family Medicine; ATTEND Family Medicine
DX: J44.1 Chronic obstructive pulmonary disease with (acute) exacerbation (principal); I50.9 Heart failure, unspecified; E05.90 Thyrotoxicosis, unspecified without thyrotoxic crisis or storm; E43 Unspecified severe protein-calorie malnutrition; R62.7 Adult failure to thrive; Z88.8 Allergy status to other drugs, medicaments and biological substances; Z88.5 Allergy status to narcotic agent; Z79.899 Other long term (current) drug therapy; Z98.890 Other specified postprocedural states; Z20.822 Contact with and (suspected) exposure to COVID-19
CPT/HCPCS: 71045; 93005; 94640; A9270-GY; G0378; J1100; J7620-GY; U0002

== ENCOUNTER 2021-07-14 12:20 | Emergency (ER) | payer MEDICARE, MEDICAID ==
[2021-07-14] MEDS ORDERED: Furosemide 20 MG Tab PO ONE (12:21)
--- NOTE | 2021-07-14 13:35 | EDM.PDOC ---
ED HPI GENERAL MEDICAL PROBLEM - General Chief Complaint: Respiratory Problem Stated Complaint: IN BY AMBULANCE Time Seen by Provider: 07/14/21 13:20 Source of Information: Reports: Patient, RN, RN Notes Reviewed History Limitations: Reports: No Limitations - History of Present Illness INITIAL COMMENTS - FREE TEXT/NARRATIVE: Shabbir is a 76 y/o female with a history of metastatic breast cancer who presents to the ED via [facility] at the request of her sister as she has not been eating for the past week. The patient states she feels depressed, and knows she is supposed to eat, but lacks the drive. She denies fever, shaking chills, nausea, vomiting, constipation, diarrhea, or dysuria. She denies chest pain, palpitations, or shortness of breath. She states she just received blood work with Dr. Miranda and does not want blood work at this time, but is agreeable to a medical examination. She states she wants to go home and does not want to be in the emergency department or the hospital. Case discussed with sister who states she feels the patient is not doing well at home. The patient lives with her son who provides her cares, but is frequently out of the home, leaving the patient to sit in a chair. She is incontinent of bowel and bladder within the chair. Her sister helps her daily and notes she has been increasingly short of breath. The patient was recently removed from her [place] prison by her son; she feels the patient has been slowly declining in health since she was removed from the nurse home. The patient's sister knows her prognosis is poor and does not feel she is "..going to get better" but feels she needs more assistance than she is currently receiving. - Related Data Allergies Allergy/AdvReac Type Severity Reaction Status Date / Time morphine Allergy Nausea and Verified 03/26/21 12:21 Vomiting rifampin Allergy Cannot Verified 03/26/21 12:21 Remember codeine AdvReac Itching Verified 03/26/21 12:21 oxycodone [From OxyContin] AdvReac Dizziness Verified 03/26/21 12:21 Home Meds: Home Meds Albuterol [Proair HFA] 2 puff INH Q4H PRN 01/18/18 [History] Potassium Chloride 10 meq PO BID 02/14/20 [History] traMADol [Ultram] 100 mg PO TID PRN MDD 6 tabs 02/14/20 [History] Anastrozole [Arimidex] 1 mg PO DAILY 03/09/21 [History] Levothyroxine 37.5 mcg PO ACBREAKFAST 30 Days #30 tablet 03/18/21 [Rx] Loratadine [Claritin] 10 mg PO DAILY tablet 03/25/21 [Rx] Doxycycline [Doxycycline Monohydrate] 100 mg PO BID 03/26/21 [History] predniSONE [Prednisone] See Taper PO ASDIRECTED 03/26/21 [History] Past Medical History HEENT History: Reports: Impaired Vision Cardiovascular History: Reports: Heart Failure Respiratory History: Reports: Asthma, COPD Gastrointestinal History: Reports: None Genitourinary History: Reports: Other (See Below) Other Genitourinary History: stress incontinence 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: Reports: Musculoskeletal History: Reports: Back Pain, Chronic Neurological History: Reports: Other (See Below) Other Neuro History: forgetful Psychiatric History: Reports: Anxiety, Depression Endocrine/Metabolic History: Reports: [place]'s Disease, Hyperthyroidism, Osteoporosis Hematologic History: Reports: None Immunologic History: Reports: None Oncologic (Cancer) History: Reports: Breast Other Oncologic History: Radiationin December 2020 for spot in center of chest Dermatologic History: Reports: None - Infectious Disease History Infectious Disease History: Reports: None - Past Surgical History Head Surgeries/Procedures: Reports: None HEENT Surgical History: Reports: None Cardiovascular Surgical History: Reports: None Respiratory Surgical History: Reports: None Female Surgical History: Reports: Section, Hysterectomy, Mastectomy, Other (See Below) Other Female Surgeries/Procedures: Left mastectomy Endocrine Surgical History: Reports: None Neurological Surgical History: Reports: None Musculoskeletal Surgical History: Reports: Hip Replacement, Other (See Below) Other Musculoskeletal Surgeries/Procedures:: right leg shorter then left Oncologic Surgical History: Reports: Mastectomy Other Oncologic Surgeries/Procedures: Left mastectomy Dermatological Surgical History: Reports: None Social & Family History - Family History Family Medical History: No Pertinent Family History - Caffeine Use Caffeine Use: Reports: Coffee - Living Situation & Occupation Living situation: Reports: Alone Occupation: Retired ED ROS GENERAL - Review of Systems Review Of Systems: Comprehensive ROS is negative, except as noted in HPI. ED EXAM, GENERAL - Physical Exam Exam: See Below Exam Limited By: No Limitations General Appearance: Alert, No Apparent Distress, Cachetic (Chronically ill- appearing) Eye Exam: Bilateral Eye: EOMI, Normal Inspection, PERRL (3mm) Ears: Normal External Exam, Hearing Grossly Normal Nose: Normal Inspection, Normal Mucosa, No Blood Throat/Mouth: Normal Voice, No Airway Compromise. No: Normal Teeth (Poor dentition), Normal Oropharynx (Dry mucous membranes) Head: Atraumatic, Normocephalic Neck: Normal Inspection, Supple, Non-Tender, Full Range of Motion. No: Lymphadenopathy (L), Lymphadenopathy (R) Respiratory/Chest: No Accessory Muscle Use, Chest Non-Tender, Rhonchi (Diffuse to all lobes), Other (Productive cough) Cardiovascular: Normal Peripheral Pulses, Regular Rate, Rhythm, No Edema, No Gallop, No JVD, No Murmur, No Rub Peripheral Pulses: 2+: Radial (L), Radial (R) GI/Abdominal: Soft, Non-Tender, No Distention, No Abnormal Bruit, No Mass, Pelvis Stable, Abnormal Bowel Sounds (Hyperactive bowel sounds), Other (Scaphoid abdomen). No: Guarding, Rigid, Rebound (Female) Exam: Deferred Rectal (Female) Exam: Deferred Back Exam: Normal Inspection, Decreased Range of Motion Extremities: Normal Capillary Refill, Pedal Edema (+1 to LLE), Limited Range of Motion. No: Increased Warmth, Mottled, Pallor, Redness Neurological: Alert, Oriented, CN II-XII Intact, No Motor/Sensory Deficits, Abnormal Gait (None ambulatory; Pivots to chair) Psychiatric: Normal Affect, Normal Mood Skin Exam: Warm, Dry, Intact, Normal Color, No Rash. No: Cyanosis, Jaundice, Mottled, Pallor, Petechiae Course - Vital Signs Last Recorded V/S: Last Vital Signs Temp 97.8 F 07/14/21 13:14 Pulse 74 07/14/21 13:14 Resp 14 07/14/21 13:14 BP 135/68 07/14/21 13:14 Pulse Ox 99 07/14/21 13:14 - Orders/Labs/Meds Labs: Laboratory Tests 07/14/21 07/14/21 07/14/21 Range/Units 14:35 14:35 14:35 WBC 6.7 (5.0-10.0) 10^3/uL RBC 4.29 (4.2-5.4) 10^6/uL Hgb 14.4 (12.0-16.0) g/dL Hct 43.2 (37.0-47.0) % MCV 100.7 H (80-100) fL MCH 33.6 (27.0-34.0) pg MCHC 33.3 (33.0-35.0) g/dL Plt Count 185 (150-450) 10^3/uL Neut % (Auto) 78.5 H (42.2-75.2) % Lymph % (Auto) 9.5 L (20.5-50.1) % [place] % (Auto) 11.6 H (2-8) % Eos % (Auto) 0.1 L (1.0-3.0) % Baso % (Auto) 0.3 (0.0-1.0) % Sodium 145 (136-145) mmol/L Potassium 3.3 L (3.5-5.1) mmol/L Chloride 104 (98-107) mmol/L Carbon Dioxide 37 H (21-32) mmol/L Anion Gap 7.3 (7-13) mEq/L BUN 14 (7-18) mg/dL Creatinine 0.67 (0.55-1.02) mg/dL Est Cr Clr Drug Dosing 36.82 mL/min Estimated GFR (MDRD) > 60 BUN/Creatinine Ratio 20.9 (No establ ref range) Glucose 102 H (70-99) mg/dL Lactic Acid 1.1 (0.4-2.0) mmol/L Calcium 8.4 L (8.5-10.1) mg/dL Total Bilirubin 0.9 (0.2-1.0) mg/dL AST 17 (15-37) U/L ALT 12 L (14-59) U/L Alkaline Phosphatase 112 (46-116) U/L Troponin I High Sens 25 (<=51) pg/mL B-Natriuretic Peptide 254 H (0-100) pg/ml Total Protein 5.9 L (6.4-8.2) g/dL Albumin 2.8 L (3.4-5.0) g/dL Globulin 3.1 Albumin/Globulin Ratio 0.90 Meds: Medications Discontinued Medications Generic Name Dose Route Start Last Admin Trade Name Freq PRN Reason Stop Dose Admin Furosemide 10 mg 07/14/21 15:32 07/14/21 16:32 Furosemide 20 Mg/2 Ml Vial IVPUSH 07/14/21 15:33 10 mg ONETIME ONE Administration Furosemide Confirm 07/14/21 18:39 Furosemide 20 Mg Tab Administered 07/14/21 18:40 Dose 20 mg .ROUTE .STK-MED ONE Furosemide 20 mg 07/14/21 12:21 Furosemide 20 Mg Tab PO 07/14/21 12:22 .STK-MED ONE Potassium Chloride 20 meq 07/14/21 18:13 07/14/21 18:36 Potassium Chloride 10 Meq Tab.Er PO 07/14/21 18:14 20 meq ONETIME ONE Administration - Radiology Interpretation Free Text/Narrative:: [facility] Final Radiology Report Call: [phone] assistance Online chat: [email or web address] Name: SHABBIR THORPE Age: 76Years F Date: 07/14/2021 SSN: -- : [id number] Study: CR CHEST 1V FRONTAL Requesting Physician: Milagros Alex Images: 2 Addl Studies: Provided Clinical History: Chest pain Contrast: Contrast Medium: Contrast Amount: Contrast Method: CONFIDENTIALITY STATEMENT This report is intended only for use by the referring physician, and only in accordance with law. If you received this in error, call [phone]. Page 1 of 1 PROCEDURE INFORMATION: Exam: XR Chest Exam date and time: 07/14/2021 2:21 PM Age: 76 years old Clinical indication: Chest wall pain; Additional info: Chest pain TECHNIQUE: Imaging protocol: XR of the chest. Views: 1 view. COMPARISON: CR Chest 1V Frontal 03/09/2021 9:33 AM FINDINGS: Lungs: No focal consolidation. Nipple shadow artifact right lower lung. Borderline vascular congestion. Lungs are hyperinflated Pleural spaces: Unremarkable. No pleural effusion. No pneumothorax. Heart/Mediastinum: Unremarkable. No cardiomegaly. Bones/joints: Old right-sided rib fractures IMPRESSION: Hyperinflated lungs with borderline vascular congestion Thank you for allowing us to participate in the care of your patient. Dictated and Authenticated by: Arturo Martínez MD 07/14/2021 2:43 PM Central Time ([place] & [place]) - Re-Assessments/Exams Free Text/Narrative Re-Assessment/Exam: 07/14/21 Patient requiring 2L of O2 via NC due to desaturation into mid 80s on RA. BNP slightly elevated at 259, +1 pitting edema to LLE. CXR revealed borderline vascular congestion. Will administer Lasix 10mg IVP. Patient verbalized improvement in work of breathing following Lasix. Patient states she is hungry, tray given. Case discussed with son, Mark, who is agreeable with the patient about discharging home, per her wishes. Findings of examination, lab work, and imaging reviewed with patient and son. Will treat mild fluid overload with Lasix 10mg. Discussed supportive cares as well as red flag signs and symptoms which would warrant reevaluation reviewed. Patient and son verbalized understanding and agreement with the plan of care. Departure - Departure Time of Disposition: 18:14 Disposition: Home, Self-Care 01 Condition: Fair Clinical Impression: History of COPD, Decreased appetite Fluid overload Qualifiers: Hypervolemia type: other Qualified Code(s): E87.79 - Other fluid overload Depression Qualifiers: Depression Type: unspecified Qualified Code(s): F32.9 - Major depressive disorder, single episode, unspecified - Discharge Information *PRESCRIPTION DRUG MONITORING PROGRAM REVIEWED*: Not Applicable *COPY OF PRESCRIPTION DRUG MONITORING REPORT IN PATIENT JS: Not Applicable Referrals: PCP,None [Primary Care Provider] - Forms: ED Department Discharge Additional Instructions: Rx: furosemide 1.) Take 1/2 tab of furosemide tonight when you get home and the other 1/2 tab in the morning when you wake up. 2.) Follow up with your primary care provider tomorrow morning regarding t onight's visit. 3.) Continue with your previously prescribed medications. 4.) Eat! :)
--- NOTE | 2021-07-14 14:43 | CR ---
PROCEDURE INFORMATION: Exam: XR Chest Exam date and time: 07/14/2021 2:21 PM Age: 76 years old Clinical indication: Chest wall pain; Additional info: Chest pain TECHNIQUE: Imaging protocol: XR of the chest. Views: 1 view. COMPARISON: CR Chest 1V Frontal 03/09/2021 9:33 AM FINDINGS: Lungs: No focal consolidation. Nipple shadow artifact right lower lung. Borderline vascular congestion. Lungs are hyperinflated Pleural spaces: Unremarkable. No pleural effusion. No pneumothorax. Heart/Mediastinum: Unremarkable. No cardiomegaly. Bones/joints: Old right-sided rib fractures IMPRESSION: Hyperinflated lungs with borderline vascular congestion
[2021-07-14 15:06] LABS: ANION GAP 7.3 mEq/L (7-13); CHLORIDE,CL 104 mmol/L (98-107); SODIUM,NA 145 mmol/L (136-145)
[2021-07-14] MEDS ORDERED: Furosemide 20 MG/2 ML VIAL IVPUSH ONE (15:32)
[2021-07-14] MEDS ORDERED: Potassium Chloride 10 MEQ Tab.ER PO ONE (18:13)
[2021-07-14] MEDS ORDERED: Furosemide 20 MG Tab ONE (18:39)
== END 2021-07-14 19:40 | disposition home or self-care (01) ==
LOC: DL.ED 12:20
DX: F32.9 Major depressive disorder, single episode, unspecified (principal); R63.0 Anorexia; E87.79 Other fluid overload; J44.9 Chronic obstructive pulmonary disease, unspecified; I50.9 Heart failure, unspecified; E07.9 Disorder of thyroid, unspecified; Z79.899 Other long term (current) drug therapy; Z88.5 Allergy status to narcotic agent; Z88.1 Allergy status to other antibiotic agents
CPT/HCPCS: 36415; 71045; 80053; 83605; 83880; 84484; 85025; 96374; 99284; A9270; J1940

== ENCOUNTER 2021-07-16 06:53 | Inpatient (IN) | payer MEDICARE, MEDICAID ==
--- NOTE | 2021-07-16 07:21 | EDM.PDOC ---
ED HPI GENERAL MEDICAL PROBLEM - General Stated Complaint: IN BY AMBULANCE Time Seen by Provider: 07/16/21 07:15 Source of Information: Reports: Patient, Family (Sister), Old Records, RN, RN Notes Reviewed History Limitations: Reports: Altered Mental Status - History of Present Illness INITIAL COMMENTS - FREE TEXT/NARRATIVE: Shabbir is a 76 y/o female with a history of metastatic breast cancer who pre sents to the ED via [facility] at the request of her sister due to lethargy. The patient's sister is providing much of the HPI due to persistent lethargy. She reports she checked up on the patient yesterday afternoon and found her on the floor; she was down for an unknown amount of time. She notes the patient was alert and oriented yesterday afternoon. The patient's son, Mark, was to stay with the patient last night; he was not in the patient's home this morning when the sister came back to check on the patient. The patient was sitting on the couch where she was placed earlier in the afternoon, she was incontinent of urine and bowel. Furthermore, the patient was not taken to the clinic for post-ED follow up as instructed. Upon assessment the patient is lethargic, but oriented. Generalized Pain Score (Numeric/FACES): 8 - Related Data Allergies Allergy/AdvReac Type Severity Reaction Status Date / Time codeine AdvReac Itching Verified 07/19/21 11:49 morphine AdvReac Nausea and Verified 07/19/21 11:49 Vomiting oxycodone [From OxyContin] AdvReac Dizziness Verified 07/19/21 11:49 rifampin AdvReac Other Verified 07/19/21 11:49 Home Meds: Home Meds traMADol [Ultram] 50 mg PO Q6H PRN 02/14/20 [History] Albuterol/Ipratropium [DuoNeb 3.0-0.5 MG/3 ML] 3 ml NEB Q4H PRN 07/19/21 [History] Ciprofloxacin HCl 250 mg PO BID 07/19/21 [History] Levothyroxine [Synthroid] 50 mcg PO DAILY 07/19/21 [History] Potassium Chloride [Klor-Con 10] 10 meq PO BID 07/19/21 [History] Past Medical History HEENT History: Reports: Impaired Vision Cardiovascular History: Reports: Heart Failure Respiratory History: Reports: Asthma, COPD Gastrointestinal History: Reports: None Genitourinary History: Reports: Other (See Below) Other Genitourinary History: stress incontinence ANIMAL HERDER History: Reports: Musculoskeletal History: Reports: Back Pain, Chronic Neurological History: Reports: Other (See Below) Other Neuro History: forgetful Psychiatric History: Reports: Anxiety, Depression 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, Hyperthyroidism, Osteoporosis Hematologic History: Reports: None Immunologic History: Reports: None Oncologic (Cancer) History: Reports: Breast Other Oncologic History: Radiationin December 2020 for spot in center of chest Dermatologic History: Reports: None - Infectious Disease History Infectious Disease History: Reports: None - Past Surgical History Head Surgeries/Procedures: Reports: None HEENT Surgical History: Reports: None Cardiovascular Surgical History: Reports: None Respiratory Surgical History: Reports: None Female Surgical History: Reports: Section, Hysterectomy, Mastectomy, Other (See Below) Other Female Surgeries/Procedures: Left mastectomy Endocrine Surgical History: Reports: None Neurological Surgical History: Reports: None Musculoskeletal Surgical History: Reports: Hip Replacement, Other (See Below) Other Musculoskeletal Surgeries/Procedures:: right leg shorter then left Oncologic Surgical History: Reports: Mastectomy Other Oncologic Surgeries/Procedures: Left mastectomy Dermatological Surgical History: Reports: None Social & Family History - Family History Family Medical History: No Pertinent Family History - Caffeine Use Caffeine Use: Reports: Coffee - Living Situation & Occupation Living situation: Reports: Alone Occupation: Retired ED ROS GENERAL - Review of Systems Review Of Systems: Comprehensive ROS is negative, except as noted in HPI. ED EXAM, GENERAL - Physical Exam Exam: See Below Exam Limited By: Altered Mental Status General Appearance: Lethargic, Thin, Cachetic (Chronically ill appearing) Eye Exam: Bilateral Eye: PERRL (2mm) Ears: Normal External Exam Nose: Normal Inspection, Normal Mucosa, No Blood Throat/Mouth: Normal Voice, No Airway Compromise. No: Normal Lips (Dry, c racked), Normal Teeth (Dentures out), Normal Oropharynx (Dry mucous membranes), Inflammation Head: Atraumatic, Normocephalic Neck: Normal Inspection, Supple, Non-Tender, Full Range of Motion. No: Lymphadenopathy (L), Lymphadenopathy (R) Respiratory/Chest: No Respiratory Distress, No Accessory Muscle Use, Chest Non- Tender, Rhonchi (Coarse to left lobe, clears somewhat with cough). No: Crackles, Rales, Wheezing, Stridor, Retractions Cardiovascular: Normal Peripheral Pulses, Regular Rate, Rhythm, No Gallop, No JVD, No Rub, Systolic Murmur (Grade 4/6, loudest over the pulmonic area, no radiation into carotids). No: No Edema Peripheral Pulses: 2+: Radial (L), Radial (R), Dorsalis Pedis (L), Dorsalis Pedis (R) GI/Abdominal: Soft, Non-Tender, No Distention, No Abnormal Bruit, No Mass, Pelvis Stable, Abnormal Bowel Sounds (Hypoactive bowel sounds), Other (Scaphoid abdomen). No: Guarding, Rigid, Rebound Rectal (Female) Exam: Other (Erythema and maceration to perineum) Back Exam: Decreased Range of Motion (Kyphosis). No: Muscle Spasm, Paraspinal Tenderness, Vertebral Tenderness Extremities: Non-Tender, Normal Capillary Refill, Pedal Edema (+1 pitting, bilaterally) Neurological: Oriented, Normal Reflexes, No Motor/Sensory Deficits, Abnormal Gait (Patient nonambulatory, up to pivot at baseline), Other (Lethargic) Skin Exam: Warm, Dry, Normal Color, Erythema (To perineum). No: Ecchymosis, Jaundice, Mottled, Pallor, Petechiae #1 Interpretation EKG Date: 07/16/21 Time: 08:01 Rhythm: NSR Rate (Beats/Min): 76 [place]: Normal P-Wave: Present QRS: Normal ST-T: Normal QT: Normal IN/PQ Interval: 0.147 Comparison: Change From Previous EKG (Compared to 03-26-21) EKG Interpretation Comments: NSR; No evidence of acute myocardial ischemia Course - Vital Signs Last Recorded V/S: Last Vital Signs Temp 99.9 F 07/19/21 08:40 Pulse 93 07/19/21 08:40 Resp 20 07/19/21 08:40 BP 142/71 H 07/19/21 00:00 Pulse Ox 94 L 07/19/21 08:40 - Orders/Labs/Meds Labs: Laboratory Tests 07/16/21 07/16/21 07/16/21 Range/Units 07:28 07:28 07:28 WBC 5.3 (5.0-10.0) 10^3/uL RBC 4.88 (4.2-5.4) 10^6/uL Hgb 16.4 H D (12.0-16.0) g/dL Hct 48.1 H (37.0-47.0) % MCV 98.6 (80-100) fL MCH 33.6 (27.0-34.0) pg MCHC 34.1 (33.0-35.0) g/dL Plt Count 163 (150-450) 10^3/uL Neut % (Auto) 76.8 H (42.2-75.2) % Lymph % (Auto) 11.3 L (20.5-50.1) % [place] % (Auto) 11.3 H (2-8) % Eos % (Auto) 0.4 L (1.0-3.0) % Baso % (Auto) 0.2 (0.0-1.0) % Sodium 129 L D (136-145) mmol/L Potassium 2.7 L (3.5-5.1) mmol/L Chloride 87 L D (98-107) mmol/L Carbon Dioxide 37 H (21-32) mmol/L Anion Gap 7.7 (7-13) mEq/L BUN 15 (7-18) mg/dL Creatinine 0.73 (0.55-1.02) mg/dL Est Cr Clr Drug Dosing 32.44 mL/min Estimated GFR (MDRD) > 60 BUN/Creatinine Ratio 20.5 (No establ ref range) Glucose 96 (70-99) mg/dL Lactic Acid 1.3 (0.4-2.0) mmol/L Calcium 9.0 (8.5-10.1) mg/dL Magnesium 1.6 L (1.8-2.4) mg/dL Total Bilirubin 1.2 H (0.2-1.0) mg/dL AST 20 (15-37) U/L ALT 12 L (14-59) U/L Alkaline Phosphatase 123 H (46-116) U/L Creatine Kinase 66 (16-191) U/L Troponin I High Sens 18 (<=51) pg/mL C-Reactive Protein 1.2 H (0.0-0.9) mg/dL B-Natriuretic Peptide 83 (0-100) pg/ml Total Protein 6.3 L (6.4-8.2) g/dL Albumin 3.2 L (3.4-5.0) g/dL Globulin 3.1 Albumin/Globulin Ratio 1.03 Free T4 (0.76-1.46) ng/dL TSH, Ultra Sensitive (0.36-3.74) uIU/mL Urine Color (YELLOW) Urine Appearance (CLEAR) Urine pH (5.0-9.0) Ur Specific [place] (1.005-1.030) Urine Protein (NEGATIVE) Urine Glucose (UA) (NEGATIVE) Urine Ketones (NEGATIVE) Urine Occult Blood (NEGATIVE) Urine Nitrite (NEGATIVE) Urine Bilirubin (NEGATIVE) Urine Urobilinogen (0.2-1.0) mg/dL Ur Leukocyte Esterase (NEGATIVE) Urine RBC (0-5) /HPF Urine WBC (0-5/HPF) /HPF Ur Epithelial Cells (NOT SEEN) /HPF Urine Bacteria (0-FEW/HPF) /HPF Urine Mucus (NOT SEEN) /LPF Urine Opiates Screen (NEGATIVE) Ur Oxycodone Screen (NEGATIVE) Urine Methadone Screen (NEGATIVE) Ur Barbiturates Screen (NEGATIVE) U Tricyclic Antidepress (NEGATIVE) Ur Phencyclidine Scrn (NEGATIVE) Ur Amphetamine Screen (NEGATIVE) U Methamphetamines Scrn (NEGATIVE) Urine MDMA Screen (NEGATIVE) U Benzodiazepines Scrn (NEGATIVE) Urine Cocaine Screen (NEGATIVE) U Marijuana (THC) Screen (NEGATIVE) Ethyl Alcohol < 3 (0) mg/dL 07/16/21 07/16/21 07/16/21 Range/Units 07:28 08:24 08:24 WBC (5.0-10.0) 10^3/uL RBC (4.2-5.4) 10^6/uL Hgb (12.0-16.0) g/dL Hct (37.0-47.0) % MCV (80-100) fL MCH (27.0-34.0) pg MCHC (33.0-35.0) g/dL Plt Count (150-450) 10^3/uL Neut % (Auto) (42.2-75.2) % Lymph % (Auto) (20.5-50.1) % [place] % (Auto) (2-8) % Eos % (Auto) (1.0-3.0) % Baso % (Auto) (0.0-1.0) % Sodium (136-145) mmol/L Potassium (3.5-5.1) mmol/L Chloride (98-107) mmol/L Carbon Dioxide (21-32) mmol/L Anion Gap (7-13) mEq/L BUN (7-18) mg/dL Creatinine (0.55-1.02) mg/dL Est Cr Clr Drug Dosing mL/min Estimated GFR (MDRD) BUN/Creatinine Ratio (No establ ref range) Glucose (70-99) mg/dL Lactic Acid (0.4-2.0) mmol/L Calcium (8.5-10.1) mg/dL Magnesium (1.8-2.4) mg/dL Total Bilirubin (0.2-1.0) mg/dL AST (15-37) U/L ALT (14-59) U/L Alkaline Phosphatase (46-116) U/L Creatine Kinase (16-191) U/L Troponin I High Sens (<=51) pg/mL C-Reactive Protein (0.0-0.9) mg/dL B-Natriuretic Peptide (0-100) pg/ml Total Protein (6.4-8.2) g/dL Albumin (3.4-5.0) g/dL Globulin Albumin/Globulin Ratio Free T4 0.90 (0.76-1.46) ng/dL TSH, Ultra Sensitive 11.71 H (0.36-3.74) uIU/mL Urine Color Yellow (YELLOW) Urine Appearance Cloudy (CLEAR) Urine pH 7.0 (5.0-9.0) Ur Specific [place] 1.020 (1.005-1.030) Urine Protein Negative (NEGATIVE) Urine Glucose (UA) Negative (NEGATIVE) Urine Ketones Negative (NEGATIVE) Urine Occult Blood Moderate H (NEGATIVE) Urine Nitrite Negative (NEGATIVE) Urine Bilirubin Negative (NEGATIVE) Urine Urobilinogen 1.0 (0.2-1.0) mg/dL Ur Leukocyte Esterase Small H (NEGATIVE) Urine RBC 5-10 H (0-5) /HPF Urine WBC 5-10 H (0-5/HPF) /HPF Ur Epithelial Cells Rare (NOT SEEN) /HPF Urine Bacteria Many H (0-FEW/HPF) /HPF Urine Mucus Not seen (NOT SEEN) /LPF Urine Opiates Screen Negative (NEGATIVE) Ur Oxycodone Screen Negative (NEGATIVE) Urine Methadone Screen Negative (NEGATIVE) Ur Barbiturates Screen Negative (NEGATIVE) U Tricyclic Antidepress Negative (NEGATIVE) Ur Phencyclidine Scrn Negative (NEGATIVE) Ur Amphetamine Screen Negative (NEGATIVE) U Methamphetamines Scrn Negative (NEGATIVE) Urine MDMA Screen Negative (NEGATIVE) U Benzodiazepines Scrn Negative (NEGATIVE) Urine Cocaine Screen Negative (NEGATIVE) U Marijuana (THC) Screen Negative (NEGATIVE) Ethyl Alcohol (0) mg/dL Meds: Medications Discontinued Medications Generic Name Dose Route Start Last Admin Trade Name Freq PRN Reason Stop Dose Admin Acetaminophen 650 mg 07/16/21 10:23 07/17/21 02:24 Acetaminophen 325 Mg Tab PO 650 mg Q4H PRN Administration Pain (Mild 1-3)/fever Albuterol/Ipratropium 3 ml 07/16/21 07:26 07/16/21 08:49 Albuterol/Ipratropium 3.0-0.5 Mg/3 Ml Neb Soln NEB 07/16/21 07:27 3 ml ONETIME ONE Administration Albuterol/Ipratropium 3 ml 07/16/21 15:59 07/19/21 06:15 Albuterol/Ipratropium 3.0-0.5 Mg/3 Ml Neb Soln NEB 3 ml Q4HRRT PRN Administration Shortness of Breath Dextrose/Water 50 ml 07/16/21 10:29 50% Dextrose In Water 50 Ml Syringe IVPUSH Q15M PRN Hypoglycemia Enoxaparin Sodium 30 mg 07/17/21 09:00 07/18/21 08:54 Enoxaparin 30 Mg/0.3 Ml Syringe SUBCUT 30 mg DAILY NATE Administration Glucagon 1 mg 07/16/21 10:29 Glucagon,Human Recombinant 1 Mg Vial IM Q15M PRN Hypoglycemia Sodium Chloride 1,000 mls @ 250 mls/hr 07/16/21 08:08 07/16/21 08:43 Normal Saline IV 07/16/21 12:07 250 mls/hr .BOLUS ONE Administration Magnesium Sulfate/Dextrose 1 gm in 100 mls @ 100 mls/hr 07/16/21 08:14 07/16/21 08:44 Magnesium Sulfate In D5w 1 Gm/100 Ml IV 07/16/21 09:13 100 mls/hr ONETIME ONE Administration Ceftriaxone Sodium 1 gm/ 50 mls @ 100 mls/hr 07/16/21 08:46 07/16/21 09:50 Sodium Chloride IV 07/16/21 09:15 100 mls/hr ONETIME ONE Administration Sodium Chloride 1,000 mls @ 75 mls/hr 07/16/21 10:30 07/17/21 14:18 Normal Saline IV Infused ASDIRECTED NATE Infusion Potassium Chloride 20 meq/ 100 mls @ 50 mls/hr 07/16/21 13:00 07/16/21 19:50 Premix IV 07/16/21 20:59 50 mls/hr Q2H NATE Administration Ceftriaxone Sodium 1 gm/ 50 mls @ 100 mls/hr 07/17/21 10:00 07/18/21 10:04 Sodium Chloride IV 100 mls/hr Q24H NATE Administration Sodium Chloride 1,000 mls @ 50 mls/hr 07/17/21 07:30 07/17/21 14:19 Normal Saline IV 50 mls/hr ASDIRECTED NATE Administration Magnesium Sulfate 2 gm/ Premix 50 mls @ 25 mls/hr 07/17/21 07:51 07/17/21 08:09 IV 07/17/21 09:50 25 mls/hr ONETIME ONE Administration Insulin Human Lispro 0 unit 07/16/21 12:00 07/18/21 22:18 Insulin Lispro 100 Units/Ml 3 Ml Vial SUBCUT 1 units WITHMEALSANDBED NATE Administration Protocol Levothyroxine Sodium 50 mcg 07/16/21 13:00 07/16/21 14:15 Levothyroxine 100 Mcg Vial IVPUSH 50 mcg DAILY NATE Administration Levothyroxine Sodium 100 mcg 07/17/21 06:00 07/19/21 06:02 Levothyroxine 100 Mcg Tab PO 100 mcg ACBREAKFAST NATE Administration Ondansetron HCl 4 mg 07/16/21 10:23 Ondansetron 4 Mg/2 Ml Sdv IVPUSH Q4H PRN Nausea/Vomiting Potassium Chloride 20 meq 07/16/21 08:09 07/16/21 08:48 Potassium Chloride 10 Meq Tab.Er PO 07/16/21 08:10 20 meq ONETIME ONE Administration Sodium Chloride 10 ml 07/16/21 10:23 Sodium Chloride 0.9% 10 Ml Syringe FLUSH ASDIRECTED PRN Keep Vein Open Sodium Polystyrene Sulfonate 30 gm 07/17/21 07:50 07/17/21 09:36 Sodium Polystyrene Sulfonate 15 Gm/60 Ml Susp 60 Ml Bot PO 07/17/21 07:51 15 gm NOW ONE Administration Tramadol HCl 100 mg 07/16/21 22:01 07/19/21 03:05 Tramadol 50 Mg Tab PO 100 mg Q8H PRN Administration Pain - Radiology Interpretation Free Text/Narrative:: [facility] Final Radiology Report Call: [phone] assistance Online chat: [email or web address] Name: SHABBIR THORPE Age: 76Years F Date: 07/16/2021 SSN: -- : [id number] Study: CT HEAD WO CONT Requesting Physician: Milagros Alex Images: [id number] Addl Studies: Provided Clinical History: Found on floor last night; Lethargy today Contrast: Without Contrast Medium: Contrast Amount: Contrast Method: Page 1 of 2 PROCEDURE INFORMATION: Exam: CT Head Without Contrast Exam date and time: 07/16/2021 7:38 AM Age: 76 years old Clinical indication: Other: Lethargic; Additional info: Found on floor last night; Lethargy today TECHNIQUE: Imaging protocol: Computed tomography of the head without contrast. Radiation optimization: All CT scans at this facility use at least one of these dose optimization techniques: automated exposure control; mA and/or kV adjustment per patient size (includes targeted exams where dose is matched to clinical indication); or iterative reconst ruction. COMPARISON: CT Head wo Cont 02/14/2020 2:52 PM FINDINGS: Brain: There is no acute intracranial hemorrhage. There is confluent lucency in the cerebral white matter, likely microvascular disease although non-specific. This has progressed from comparison study. Swan white differentiation is intact. There are no extra-axial fluid yolanda ections. No evidence of mass. There is no mass effect or midline shift. Cerebral ventricles: The ventricles and sulci are enlarged, consistent with volume loss / atrophy. No hydrocephalus. Paranasal sinuses: Visualized sinuses are unremarkable. No fluid levels. Mastoid air cells: No significant mastoid effusion. Vasculature: There is vascular calcification. Bones/joints: No acute fracture. Soft tissues: Unremarkable as visualized. IMPRESSION: 1. No evidence of acute intracranial abnormality. No evidence of acute infarction, hemorrhage, or mass. 2. Atrophy and microvascular disease. Thank you for allowing us to participate in the care of your patient. Dictated and Authenticated by: Domitila Bo MD 07/16/2021 8:03 AM Central Time ([place] & [place]) [facility] Final Radiology Report Call: [phone] assistance Online chat: [email or web address] Name: SHABBIR THORPE Age: 76Years F Date: 07/16/2021 SSN: -- : [id number] Study: CT CHEST WO CONT Requesting Physician: Milagros Alex Images: [id number] Addl Studies: Provided Clinical History: r/o CHF vs pneumonia Contrast: Without Contrast Medium: Contrast Amount: Contrast Method: Page 1 of 2 PROCEDURE INFORMATION: Exam: CT Chest Without Contrast; Diagnostic Exam date and time: 07/16/2021 7:38 AM Age: 76 years old Clinical indication: Other: R/O chf or pneumonia; Additional info: R/O chf vs pneumonia TECHNIQUE: Imaging protocol: Diagnostic computed tomography of the chest without contrast. Radiation optimization: All CT scans at this facility use at least one of these dose optimization techniques: automated exposure control; mA and/or kV adjustment per patient size (includes targeted exams where dose is matched to clinical indication); or iterative reconstruction. COMPARISON: CT Chest Abdomen Pelvis w Cont 12/19/2020 10:06 AM FINDINGS: Lungs: Centrilobular and paraseptal emphysema. Spiculated 1 cm pulmonary nodule in medial right lower lobe previously measured approximately 5 mm. IImpression. Pleural spaces: Unremarkable. No pneumothorax. No pleural effusion. Heart: Unremarkable. No cardiomegaly. No pericardial effusion. Aorta: Atherosclerotic disease. Lymph nodes: Unremarkable. No enlarged lymph nodes. Kidneys and ureters: Mild prominence of the right renal collecting system. Bones/joints: Interval development a destructive lytic lesion involving T10 vertebral body. . Chronic appearing compression fracture of T9. Kyphosis of the thoracic spine. Multilevel degenerative disc disease. Soft tissues: Unremarkable. IMPRESSION: Spiculated 1 cm pulmonary nodule in medial right lower lobe previously measured approximately 5 mm. Highly suspicious nodule(s). Consider non-emergent PET/CT, or tissue sampling.(Reference: Werner) References: Werner Degroot et al. Guidelines for Management of Incidental Pulmonary Nodules Detected on CT Images: From the Fleischner Society 2017. Radiology. 2017;284(1):228-243. Interval development a destructive lytic lesion involving T10 vertebral body. Thank you for allowing us to participate in the care of your patient. Dictated and Authenticated by: Vidal Lloyd MD 07/16/2021 8:21 AM Central Time ([place] & [place]) - Re-Assessments/Exams Free Text/Narrative Re-Assessment/Exam: 07/16/21 NS 1L bolus initiated. KCL 20 mEq PO and Mag Sulfate 2gm IVPB initiated. Will obtain UA via catheter give chronic incontinence of bowel and bladder. Case discussed with Dr. Lucero who requested Adriana Degroot, case manager specialist/brand planner, assess patient for compliance with transition to NH following hospitalization. Patient agreeable to NH. Dr. Lucero kindly accepted patient for admission to this facility. Findings of examination, lab work, and imaging reviewed with patient and sister. Full Stack Java Developer's conversation with Dr. Lucero reviewed. Patient and sister verbalized understanding and agreement with the plan of care. Departure - Departure Time of Disposition: 09:19 Disposition: Admitted As Inpatient 68 Condition: Fair Clinical Impression: Fall from ground level, Hypokalemia, Hyponatremia, Hypomagnesemia, History of breast cancer in female, Skin ulcer of perineum, limited to breakdown of skin Altered mental status Qualifiers: Altered mental status type: transient alteration of awareness Qualified Code(s): R40.4 - Transient alteration of awareness Urinary tract infection Qualifiers: Urinary tract infection type: acute cystitis Hematuria presence: with hematuria Qualified Code(s): N30.01 - Acute cystitis with hematuria - Discharge Information
[2021-07-16] MEDS ORDERED: Albuterol/Ipratropium 3.0-0.5 MG/3 ML Neb Soln NEB ONE (07:26)
[2021-07-16 07:56] LABS: ANION GAP 7.7 mEq/L (7-13); CHLORIDE,CL 87 mmol/L (98-107); SODIUM,NA 129 mmol/L (136-145)
--- NOTE | 2021-07-16 08:03 | CT ---
PROCEDURE INFORMATION: Exam: CT Head Without Contrast Exam date and time: 07/16/2021 7:38 AM Age: 76 years old Clinical indication: Other: Lethargic; Additional info: Found on floor last night; Lethargy today TECHNIQUE: Imaging protocol: Computed tomography of the head without contrast. Radiation optimization: All CT scans at this facility use at least one of these dose optimization techniques: automated exposure control; mA and/or kV adjustment per patient size (includes targeted exams where dose is matched to clinical indication); or iterative reconstruction. COMPARISON: CT Head wo Cont 02/14/2020 2:52 PM FINDINGS: Brain: There is no acute intracranial hemorrhage. There is confluent lucency in the cerebral white matter, likely microvascular disease although non-specific. This has progressed from comparison study. Swan white differentiation is intact. There are no extra-axial fluid collections. No evidence of mass. There is no mass effect or midline shift. Cerebral ventricles: The ventricles and sulci are enlarged, consistent with volume loss / atrophy. No hydrocephalus. Paranasal sinuses: Visualized sinuses are unremarkable. No fluid levels. Mastoid air cells: No significant mastoid effusion. Vasculature: There is vascular calcification. Bones/joints: No acute fracture. Soft tissues: Unremarkable as visualized. IMPRESSION: 1. No evidence of acute intracranial abnormality. No evidence of acute infarction, hemorrhage, or mass. 2. Atrophy and microvascular disease.
[2021-07-16] MEDS ORDERED: Sodium Chloride 0.9% 1,000 ML IV ONE (08:08)
[2021-07-16] MEDS ORDERED: Potassium Chloride 10 MEQ Tab.ER PO ONE (08:09)
[2021-07-16] MEDS ORDERED: Magnesium Sulfate/D5W 1 GM/100 ML BAG IV ONE (08:14)
--- NOTE | 2021-07-16 08:22 | CT ---
PROCEDURE INFORMATION: Exam: CT Chest Without Contrast; Diagnostic Exam date and time: 07/16/2021 7:38 AM Age: 76 years old Clinical indication: Other: R/O chf or pneumonia; Additional info: R/O chf vs pneumonia TECHNIQUE: Imaging protocol: Diagnostic computed tomography of the chest without contrast. Radiation optimization: All CT scans at this facility use at least one of these dose optimization techniques: automated exposure control; mA and/or kV adjustment per patient size (includes targeted exams where dose is matched to clinical indication); or iterative reconstruction. COMPARISON: CT Chest Abdomen Pelvis w Cont 12/19/2020 10:06 AM FINDINGS: Lungs: Centrilobular and paraseptal emphysema. Spiculated 1 cm pulmonary nodule in medial right lower lobe previously measured approximately 5 mm. IImpression. Pleural spaces: Unremarkable. No pneumothorax. No pleural effusion. Heart: Unremarkable. No cardiomegaly. No pericardial effusion. Aorta: Atherosclerotic disease. Lymph nodes: Unremarkable. No enlarged lymph nodes. Kidneys and ureters: Mild prominence of the right renal collecting system. Bones/joints: Interval development a destructive lytic lesion involving T10 vertebral body. . Chronic appearing compression fracture of T9. Kyphosis of the thoracic spine. Multilevel degenerative disc disease. Soft tissues: Unremarkable. IMPRESSION: Spiculated 1 cm pulmonary nodule in medial right lower lobe previously measured approximately 5 mm. Highly suspicious nodule(s). Consider non-emergent PET/CT, or tissue sampling.(Reference: Werner) References: Werner Degroot et al. Guidelines for Management of Incidental Pulmonary Nodules Detected on CT Images: From the Fleischner Society 2017. Radiology. 2017;284(1):228-243. Interval development a destructive lytic lesion involving T10 vertebral body.
[2021-07-16 08:34] LABS: AMPHETAMINES,URINE NEGATIVE (NEGATIVE); BARBITURATES,URINE NEGATIVE (NEGATIVE); BENZODIAZEPINE,URINE NEGATIVE (NEGATIVE); MDMA (ECSTASY), URINE NEGATIVE (NEGATIVE); METHADONE,URINE NEGATIVE (NEGATIVE); METHAMPHETAMINES,URINE NEGATIVE (NEGATIVE); OPIATES,URINE NEGATIVE (NEGATIVE); OXYCODONE,URINE NEGATIVE (NEGATIVE); PHENCYCLIDINE,URINE NEGATIVE (NEGATIVE); TCA,URINE NEGATIVE (NEGATIVE)
[2021-07-16] MEDS ORDERED: cefTRIAXone 1 GM in Sodium Chloride 0.9% 50 ML IV ONE (08:46)
[2021-07-16] MEDS ORDERED: Sodium Chloride 0.9% 10 ML Syringe FLUSH PRN (10:23)
[2021-07-16] MEDS ORDERED: Ondansetron 4 MG/2 ML SDV IVPUSH PRN (10:23)
[2021-07-16] MEDS ORDERED: Acetaminophen 325 MG Tab PO PRN (10:23)
[2021-07-16] MEDS ORDERED: Glucagon,Human Recombinant 1 MG Vial IM PRN (10:29)
[2021-07-16] MEDS ORDERED: 50% Dextrose in Water 50 ML Syringe IVPUSH PRN (10:29)
--- NOTE | 2021-07-16 10:31 | PCM.SN.2 ---
- Free Text/Narrative Note: START OF DOCTOR ROSALINDA HISTORY AND PHYSICAL / CONSULTATION NOTE Chief Complaint: The patient was transferred to the hospital because of lethargy and because she was found down by her sister History of Present Illness: The patient is a 76-year-old female who was transferred to the emergency department because she is found to be lethargic and found to be down on the floor by her sister. Unfortunately the patient sister is no longer present and at the present time the patient has somnolent and stuporous and I am unable to obtain history of present illness. She presents for further evaluation Surgical History: Per medical records: Hysterectomy, , left mastectomy, right hip surgery x6 Family History: Per medical records: Cancer, diabetes Social History: Tobacco: Per medical records: Active smoker Alcohol: Per medical records: Does not consume alcohol Caffeine: Per medical records: Consumes coffee Drugs: Per medical records: Never Allergies: Per medical records: Morphine, rifampin, codeine, oxycodone Code Status: By default, full until we received notification to the contrary Pertinent Laboratory Results / Pertinent Radiology Results / Pertinent Diagnostic Results / Pertinent Vital Signs: Blood pressure 150/84, pulse 79, respirations 16, temperature 9 9 degrees, 92% room air, sodium 129, potassium 2.7, magnesium 1.6, alkaline phosphatase 103, total bilirubin is 1.2, hemoglobin 16.4 Physical Examination: General: -Somnolent to stuporous. Arousable with noxious stimuli -No acute distress -No dyspnea -No tachypnea -Cachectic Head: -Atraumatic -Normocephalic Eyes: -Pupils equally round and reactive to light and accommodation -Extraocular muscles intact Neurological: -Cranial nerves II-XII appear to be intact however patient does not provide feedback Neck: -No jugular venous distention -No thyromegaly -No cervical lymphadenopathy Heart: -Regular rate -Regular rhythm -No murmurs -No gallops -No rubs Lungs: -No wheeze -No rhonchi -No rales -Distant breath sounds bilaterally Abdomen: -Normal bowel sounds in all four quadrants -No rebound -No guarding -No tenderness Extremities: -2/4 pulse in all four extremities -No clubbing -No cyanosis -No edema -No calf tenderness present bilaterally -Negative Homans sign bilaterally Musculoskeletal: -5/5 bilateral upper extremity strength -5/5 bilateral lower extremity strength -Sensorium of bilateral upper extremities are equal and intact -Sensorium of bilateral lower extremities are equal and intact Additional Details / Additional Findings / Exceptions / Miscellaneous: Assessment / Plan: Urinary tract infection. Rocephin 1 g IV daily History of recurrent breast cancer, status post radiation therapy, status post left mastectomy. CT chest performed in the emergency department demonstrates right medial lower lung lesion and new T10 lytic lesion. Patient is not a candidate for treatment/therapy Hypokalemia. Will monitor potassium levels intermittently and supplement as necessary Hyponatremia. Will monitor sodium levels intermittently. IV normal saline 75 mils per hour Erythrocytosis. Will monitor hemoglobin levels intermittently. This likely sequelae of dehydration. IV normal saline 75 mils per hour Cachexia. Dietitian consult. Check prealbumin level History of hyperthyroidism. Check TSH, free T4 Hyperbilirubinemia. Will monitor via bilirubin levels intermittently Hypomagnesemia. Will monitor magnesium levels intermittently and supplement as necessary COPD CHF Diabetes. Will check fasting glucose before every meal and at bedtime and provide sulci scale GERD Hyperlipidemia Smoker. 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 The patient be counseled regarding medical compliance Dementia Insomnia Osteoarthritis DVT prophylaxis. Lovenox 30 mg subcutaneously daily Disposition: I will discuss the patient's case with case management/social work for placement in [facility] and recommendation for hospice. At the time of admission, the patient's home medications were pending input to the EMR/DHR system. Once their input, they will be reviewed and reconciled. Poor prognosis END OF DOCTOR EMAMIS HISTORY AND PHYSICAL / CONSULTATION NOTE
[2021-07-16] MEDS: Sodium Chloride 0.9% 1,000 ML IV SCH ×2 (10:32→21:17)
[2021-07-16 11:43] LABS: BASE EXCESS ARTERIAL 10 mmol/L ((-2)-(+3)); BICARBONATE,ARTERIAL 34.5 mmol/L (22-26); O2 DELIVERY DEVICE ROOM AIR; O2 SATURATION ARTERIAL 87 % (95-100); PCO2 ARTERIAL 47 mmHg (35-45); PO2 ARTERIAL 55 mmHg (70-100)
[2021-07-16 11:47] LABS: ALLEN TEST Pos; O2 FLOW RATE 0
[2021-07-16] MEDS ORDERED: cefTRIAXone 1 GM in Sodium Chloride 0.9% 50 ML IV SCH (12:00)
[2021-07-16] MEDS: Potassium Chloride 20 MEQ in Premix Bag 1 BAG IV SCH ×4 (12:46→19:50)
[2021-07-16] MEDS: Insulin Lispro 100 Units/ML 3 ML Vial SUBCUT SCH ×3 (12:59→21:09)
[2021-07-16] MEDS ORDERED: Levothyroxine 100 MCG Vial IVPUSH SCH (13:00)
[2021-07-16 15:11] LABS: BASE EXCESS ARTERIAL 9 mmol/L ((-2)-(+3)); O2 DELIVERY DEVICE ROOM AIR; O2 SATURATION ARTERIAL 90 % (95-100); PCO2 ARTERIAL 49 mmHg (35-45); PO2 ARTERIAL 60 mmHg (70-100)
[2021-07-16 15:12] LABS: ALLEN TEST PERFORMED
[2021-07-16] MEDS: Albuterol/Ipratropium 3.0-0.5 MG/3 ML Neb Soln NEB PRN ×2 (16:20→21:08)
[2021-07-16] MEDS: traMADol 50 MG Tab PO PRN (22:11)
[2021-07-17] MEDS: Levothyroxine 100 MCG Tab PO SCH (06:05)
[2021-07-17 07:10] LABS: ANION GAP 8.9 mEq/L (7-13); CHLORIDE,CL 106 mmol/L (98-107); SODIUM,NA 140 mmol/L (136-145)
--- NOTE | 2021-07-17 07:21 | PCM.SN.2 ---
- Free Text/Narrative Note: START OF DOCTOR WAYLONMIMony PROGRESS NOTE Subjective: The patient endorses no complaints at this time. She denies fever, rigors, nausea, vomiting, cough, wheeze, abdominal pain, chest pain, dyspnea, or any other constitutional complaints. I explained to the patient her current medical condition and plan of care and have answered all of her questions Objective: General: -Alert -No acute distress -No dyspnea -No tachypnea -Cachectic Heart: -Regular rate -Regular rhythm -No murmurs -No gallops -No rubs Lungs: -No wheeze -No rhonchi -No rales Abdomen: -Normal bowel sounds in all four quadrants -No rebound -No guarding -No tenderness Extremities: -2/4 pulse in all four extremities -No clubbing -No cyanosis -1+ bipedal pitting edema Additional Details / Additional Findings / Exceptions / Miscellaneous: Pertinent Laboratory Results / Pertinent Radiology Results / Pertinent Diagnostic Results / Pertinent Vital Signs: Patient saturating 96% 2 L. Morning labs pending Assessment / Plan: Urinary tract infection. Rocephin 1 g IV daily History of recurrent breast cancer, status post radiation therapy, status post left mastectomy. CT chest performed in the emergency department demonstrates right medial lower lung lesion and new T10 lytic lesion. Patient is not a candidate for treatment/therapy Hypokalemia. Will monitor potassium levels intermittently and supplement as necessary Hyponatremia. Will monitor sodium levels intermittently. IV normal saline 50 mils per hour Erythrocytosis. Will monitor hemoglobin levels intermittently. This likely sequelae of dehydration. IV normal saline 50 mils per hour Malnutrition with cachexia. Dietitian consult. Hypothyroidism. Synthroid 100 mcg p.o. daily Hyperbilirubinemia. Will monitor via bilirubin levels intermittently Hypomagnesemia. Will monitor magnesium levels intermittently and supplement as necessary COPD CHF Diabetes. Will check fasting glucose before every meal and at bedtime and provide sulci scale GERD Hyperlipidemia Smoker. Patient be counseled regarding smoking cessation Degenerative disc disease Chronic pain Anxiety Depression Osteoporosis Documented history of Jaci's disease Medical noncompliance. The patient be counseled regarding medical compliance Dementia Insomnia Osteoarthritis DVT prophylaxis. Lovenox 30 mg subcutaneously daily Disposition: Depending on serum studies, the patient needed For discharge on this day 07/17/2021. skilled nursing placement would be in the patient's best interest however based on previous encounters this may be unlikely. I will discuss with case management/social work END OF DOCTOR EMAMIS PROGRESS NOTE
[2021-07-17] MEDS ORDERED: Sodium Chloride 0.9% 1,000 ML IV SCH (07:30)
[2021-07-17] MEDS ORDERED: Magnesium Sulfate/Water 2 GM in Premix Bag 1 BAG IV ONE (07:51)
[2021-07-17] MEDS: Sodium Polystyrene Sulfonate 15 GM/60 ML Susp 60 ML Bot PO ONE ×2 (08:18→09:36)
[2021-07-17] MEDS: Insulin Lispro 100 Units/ML 3 ML Vial SUBCUT SCH ×4 (08:19→22:30)
[2021-07-17] MEDS: Enoxaparin 30 MG/0.3 ML Syringe SUBCUT SCH (09:22)
[2021-07-17] MEDS ORDERED: cefTRIAXone 1 GM in Sodium Chloride 0.9% 50 ML IV SCH (10:00)
[2021-07-17] MEDS: cefTRIAXone 1 GM in Sodium Chloride 0.9% 50 ML IV SCH (10:27)
[2021-07-17] MEDS: Albuterol/Ipratropium 3.0-0.5 MG/3 ML Neb Soln NEB PRN (12:58)
[2021-07-18] MEDS: Albuterol/Ipratropium 3.0-0.5 MG/3 ML Neb Soln NEB PRN ×2 (04:56→13:20)
[2021-07-18] MEDS: Levothyroxine 100 MCG Tab PO SCH (05:02)
--- NOTE | 2021-07-18 07:14 | PCM.SN.2 ---
- Free Text/Narrative Note: START OF DOCTOR EMAMIS PROGRESS NOTE Subjective: The patient endorses no complaints at this time. She denies fever, rigors, nausea, vomiting, cough, wheeze, abdominal pain, chest pain, dyspnea, or any other constitutional complaints. The patient Allison that she slept well overnight. I explained to the patient her current medical condition and her plan of care and I have answered all of her questions Objective: General: -Alert -No acute distress -No dyspnea -No tachypnea -Cachectic Heart: -Regular rate -Regular rhythm -No murmurs -No gallops -No rubs Lungs: -No wheeze -No rhonchi -No rales Abdomen: -Normal bowel sounds in all four quadrants -No rebound -No guarding -No tenderness Extremities: -2/4 pulse in all four extremities -No clubbing -No cyanosis -1+ bipedal pitting edema Additional Details / Additional Findings / Exceptions / Miscellaneous: Pertinent Laboratory Results / Pertinent Radiology Results / Pertinent Diagnostic Results / Pertinent Vital Signs: Patient saturating 95% 2 L Assessment / Plan: Urinary tract infection. Urine culture positive for Enterococcus faecalis Rocephin 1 g IV daily History of recurrent breast cancer, status post radiation therapy, status post left mastectomy. CT chest performed in the emergency department demonstrates right medial lower lung lesion and new T10 lytic lesion. Patient is not a candidate for treatment/therapy Hypokalemia. Will monitor potassium levels intermittently and supplement as necessary Hyponatremia. Will monitor sodium levels intermittently. Erythrocytosis. Will monitor hemoglobin levels intermittently. This likely sequelae of dehydration. Malnutrition with cachexia. Dietitian consult. Hypothyroidism. Synthroid 100 mcg p.o. daily Hyperbilirubinemia. Will monitor via bilirubin levels intermittently Hypomagnesemia. Will monitor magnesium levels intermittently and supplement as necessary COPD CHF Diabetes. Will check fasting glucose before every meal and at bedtime and provide sulci scale GERD Hyperlipidemia Smoker. Patient be counseled regarding smoking cessation Degenerative disc disease Chronic pain Anxiety Depression Osteoporosis Documented history of [place]ismore's disease Medical noncompliance. The patient be counseled regarding medical compliance Dementia Insomnia Osteoarthritis DVT prophylaxis. Lovenox 30 mg subcutaneously daily Disposition: Patient appears medically stable for discharge on this day of July 18, 2021. long-term placement would be in the patient's best interest however based on previous encounters this may be unlikely. I will discuss with case management/social work END OF DOCTOR WAYLONMIS PROGRESS NOTE
[2021-07-18] MEDS: Enoxaparin 30 MG/0.3 ML Syringe SUBCUT SCH (08:54)
[2021-07-18] MEDS: Insulin Lispro 100 Units/ML 3 ML Vial SUBCUT SCH ×4 (09:19→22:18)
[2021-07-18] MEDS: cefTRIAXone 1 GM in Sodium Chloride 0.9% 50 ML IV SCH (10:04)
[2021-07-19] MEDS: traMADol 50 MG Tab PO PRN (03:05)
[2021-07-19] MEDS: Levothyroxine 100 MCG Tab PO SCH (06:02)
[2021-07-19] MEDS: Albuterol/Ipratropium 3.0-0.5 MG/3 ML Neb Soln NEB PRN (06:15)
--- NOTE | 2021-07-19 07:18 | PCM.SN.2 ---
- Free Text/Narrative Note: START OF DOCTOR EMAMIS DISCHARGE SUMMARY Date of Admission: July 16, 2021 Date of Discharge: 7:16 AM on July 19, 2021 Primary Diagnosis: Urinary tract infection, urine culture positive for Enterococcus faecalis Secondary Diagnosis: History of recurrent breast cancer, status post radiation therapy, status post left mastectomy with CT of the chest during this hospitalization demonstrating right medial lower lung lesion and new T10 lytic lesion for which patient is not a candidate for treatment/therapy Hypokalemia, resolved Hyponatremia, resolved Erythrocytosis Malnutrition with cachexia Hypothyroidism Hyperbilirubinemia Hypomagnesemia, resolved COPD CHF Diabetes GERD Hyperlipidemia Smoker Degenerative disc disease Chronic pain Anxiety Depression Osteoporosis Documented history of Jaci's disease Medical noncompliance Dementia Insomnia Osteoarthritis Consultations: None Condition on Discharge: Fair Disposition: The patient will be advised to follow-up with her primary care physician or with a provider as needed It is strongly recommended that the patient will in hospice Discharge Medications: Ultram 50 mg p.o. 3 times daily as needed pain Claritin 10 mg p.o. daily Anastrozole 1 mg p.o. daily Proventil HFA: 90 mg/spray: 2 puffs every 4 hours as needed shortness of breath/wheeze Synthroid 100 mcg p.o. daily Bactrim: 400/80 m tab p.o. twice daily. Quantity 6. 0 refills END OF DOCTOR EMAMIS DISCHARGE SUMMARY
== END 2021-07-19 10:05 | DRG 689 ==
LOC: DL.ED 06:53 → DL.MS 09:17
PROVIDERS: ADMIT Internal Medicine; ATTEND Internal Medicine
DX: N30.01 Acute cystitis with hematuria (principal); E43 Unspecified severe protein-calorie malnutrition; Z68.1 Body mass index [BMI] 19.9 or less, adult; E87.1 Hypo-osmolality and hyponatremia; E87.6 Hypokalemia; D75.1 Secondary polycythemia; E86.0 Dehydration; E83.42 Hypomagnesemia; W19.XXXA Unspecified fall, initial encounter; R40.4 Transient alteration of awareness; Z20.822 Contact with and (suspected) exposure to COVID-19; R41.82 Altered mental status, unspecified; L98.491 Non-pressure chronic ulcer of skin of other sites limited to breakdown of skin; K21.9 Gastro-esophageal reflux disease without esophagitis; E78.5 Hyperlipidemia, unspecified; F17.200 Nicotine dependence, unspecified, uncomplicated; H54.7 Unspecified visual loss; I50.9 Heart failure, unspecified; N39.3 Stress incontinence (female) (male); J44.9 Chronic obstructive pulmonary disease, unspecified; F03.90 Unspecified dementia, unspecified severity, without behavioral disturbance, psychotic disturbance, mood disturbance, and anxiety; G47.00 Insomnia, unspecified; M19.90 Unspecified osteoarthritis, unspecified site; G89.29 Other chronic pain; M54.9 Dorsalgia, unspecified; F32.9 Major depressive disorder, single episode, unspecified; B95.2 Enterococcus as the cause of diseases classified elsewhere; E03.9 Hypothyroidism, unspecified; F41.9 Anxiety disorder, unspecified; Z96.649 Presence of unspecified artificial hip joint; M81.0 Age-related osteoporosis without current pathological fracture; Z90.12 Acquired absence of left breast and nipple; Z71.6 Tobacco abuse counseling; E24.9 Cushing's syndrome, unspecified; Z91.19 Patient's noncompliance with other medical treatment and regimen; E05.90 Thyrotoxicosis, unspecified without thyrotoxic crisis or storm; Z79.890 Hormone replacement therapy; Z79.52 Long term (current) use of systemic steroids; Z79.899 Other long term (current) drug therapy; Z90.710 Acquired absence of both cervix and uterus; Z85.3 Personal history of malignant neoplasm of breast; Z88.5 Allergy status to narcotic agent; Z88.8 Allergy status to other drugs, medicaments and biological substances
CPT/HCPCS: 36415; 70450; 71250; 80053; 80305; 80307; 81001; 82550; 83605; 83735; 83880; 84439; 84443; 84484; 85025; 86140; 87086; 87088; 87186; 93005; A9270; J3475; J7030; 36600; 82803; 82947; 84134; 85018; 94640; J0696; J1650; J1815-GY; J3480; J7620-GY; U0002